=== PATIENT | female | born 1965 | race Caucasian/White ===

== ENCOUNTER → 2019-07-16 08:14 | Outpatient (BNVA) | payer MEDICAID, SELFPAY | PROVIDERS: Family Provider Internal Medicine; Visit Provider Internal Medicine Cardiovascular Disease | DX: E78.2 Mixed hyperlipidemia (principal) | CPT/HCPCS: 80061 ==

== ENCOUNTER 2019-07-22 13:47 | Outpatient (CLI) | payer MEDICAID, SELFPAY ==
--- NOTE | 2019-07-22 13:59 | XR_ITS ---
WS: [id number] LATERAL CERVICAL SPINE: 3 view. Lateral radiographs are performed in upright neutral, flexion and extension to the patient's toleranc e. 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 Normal alignment with flexion. Mild str aightening of the normal cervical spine. C5 anterolisthesis by less than 2 mm with no instability. XR/XR cervical spine fl/ex [id number] IMPRESSION: 1. No cervical spine instability. 2. Less than 2 mm retrolisthesis of C2 and anterolisthesis of C5.
== END 2019-07-22 13:48 | disposition home or self-care (01) ==
LOC: RADWPI 13:52
PROVIDERS: Family Provider Internal Medicine; PCP Internal Medicine; Visit Provider Licensed Practical Nurse
DX: M50.020 Cervical disc disorder with myelopathy, mid-cervical region, unspecified level (principal)
CPT/HCPCS: 72040

== ENCOUNTER 2019-08-02 07:18 | Outpatient (RCR) | payer MEDICAID, SELFPAY | END 2019-08-02 23:59 | disposition home or self-care (01) | LOC: SPT 07:18 | PROVIDERS: Family Provider Internal Medicine; PCP Internal Medicine; Referring Provider Licensed Practical Nurse; Visit Provider Licensed Practical Nurse | DX: M50.020 Cervical disc disorder with myelopathy, mid-cervical region, unspecified level (principal); G89.29 Other chronic pain | CPT/HCPCS: 97161 ==

== ENCOUNTER 2019-08-03 06:00 | Outpatient (RCR) | payer MEDICAID, SELFPAY | END 2019-08-31 23:59 | disposition home or self-care (01) | LOC: SPT 06:00 | PROVIDERS: Family Provider Internal Medicine; PCP Internal Medicine; Referring Provider Licensed Practical Nurse; Visit Provider Licensed Practical Nurse | DX: M50.020 Cervical disc disorder with myelopathy, mid-cervical region, unspecified level (principal) | CPT/HCPCS: 97110 ==

== ENCOUNTER → 2019-08-22 07:54 | Outpatient (BNVA) | payer MEDICAID, SELFPAY | PROVIDERS: Family Provider Internal Medicine; PCP Internal Medicine; Referring Provider Licensed Practical Nurse; Visit Provider Psychiatry & Neurology Neurology | DX: G56.02 Carpal tunnel syndrome, left upper limb (principal); M54.2 Cervicalgia; F17.210 Nicotine dependence, cigarettes, uncomplicated | CPT/HCPCS: 95886; 95909 ==

== ENCOUNTER → 2019-09-02 08:16 | Outpatient (BNVA) | payer MEDICAID, SELFPAY | PROVIDERS: Family Provider Internal Medicine; PCP Internal Medicine; Visit Provider Internal Medicine Cardiovascular Disease | DX: I25.10 Atherosclerotic heart disease of native coronary artery without angina pectoris; I10 Essential (primary) hypertension; E78.2 Mixed hyperlipidemia | CPT/HCPCS: 80061 ==

== ENCOUNTER 2020-07-24 07:08 | Outpatient (CLI) | payer MEDICAID, SELFPAY ==
--- NOTE | 2020-07-24 07:21 | MM_ITS ---
WS: [id number] BILATERAL DIGITAL SCREENING MAMMOGRAPHY WITH CAD CLINICAL INFORMATION: SCREENING HISTORY: Screening mammogram. No current complaints. COMPARISON: [id number] TECHNIQUE: Bilateral CC and MLO views. FINDINGS: Scattered fibroglandular densities bilaterally. No suspicious focal mass, asymmetry, calcifications, or architectural distortion. No evidence of malignancy. MM/[place] [id number] IMPRESSION: BI-RADS: 1-Negative FOLLOW UP: 1 Year Follow-up Recommend return to annual screening mammography.
== END 2020-07-24 07:09 | disposition home or self-care (01) ==
LOC: RADSHAW 07:11
PROVIDERS: PCP Family Medicine; Visit Provider Family Medicine
DX: Z12.31 Encounter for screening mammogram for malignant neoplasm of breast (principal)
CPT/HCPCS: 77067

== ENCOUNTER → 2020-08-03 08:30 | Outpatient (BNVA) | payer MEDICAID, SELFPAY | PROVIDERS: PCP Family Medicine; Visit Provider Internal Medicine Cardiovascular Disease | DX: E78.2 Mixed hyperlipidemia (principal) | CPT/HCPCS: 80061 ==

== ENCOUNTER → 2021-03-15 08:27 | Outpatient (BNVA) | payer MEDICAID, SELFPAY | PROVIDERS: PCP Family Medicine; Visit Provider Internal Medicine Cardiovascular Disease | DX: E78.2 Mixed hyperlipidemia (principal) | CPT/HCPCS: 80061 ==

== ENCOUNTER → 2021-06-17 09:46 | Outpatient (BNVA) | payer MEDICAID, SELFPAY | PROVIDERS: PCP Family Medicine; Visit Provider Internal Medicine | DX: E11.40 Type 2 diabetes mellitus with diabetic neuropathy, unspecified (principal); E11.65 Type 2 diabetes mellitus with hyperglycemia; E11.59 Type 2 diabetes mellitus with other circulatory complications; I25.10 Atherosclerotic heart disease of native coronary artery without angina pectoris; I10 Essential (primary) hypertension; Z79.84 Long term (current) use of oral hypoglycemic drugs; Z79.4 Long term (current) use of insulin; F17.200 Nicotine dependence, unspecified, uncomplicated | CPT/HCPCS: 99214 ==

== ENCOUNTER → 2021-07-01 10:12 | Outpatient (BNVA) | payer MEDICAID, SELFPAY | PROVIDERS: PCP Family Medicine; Visit Provider Internal Medicine | DX: E11.40 Type 2 diabetes mellitus with diabetic neuropathy, unspecified (principal); E11.65 Type 2 diabetes mellitus with hyperglycemia; E11.59 Type 2 diabetes mellitus with other circulatory complications; I25.10 Atherosclerotic heart disease of native coronary artery without angina pectoris; F17.200 Nicotine dependence, unspecified, uncomplicated | CPT/HCPCS: 99214 ==

== ENCOUNTER 2021-09-14 08:03 | Outpatient (CLI) | payer MEDICAID, SELFPAY ==
[2021-09-14 09:30] LABS: Chol HDL Ratio 3.36 mg/dL (0.0-4.40); Cholesterol 151 mg/dL (0-200); HDL Cholesterol 45 mg/dL (60-100); LDL Cholesterol Calculated 62 mg/dL (50-129); LDL HDL Ratio 1.38 RATIO (0.00-3.22); Triglycerides 220 mg/dL (0-150)
[2021-09-20 11:50] LABS: Anion Gap 17.9 (5-19); Blood Urea Nitrogen 16 mg/dL (6-20); Calcium 9.7 mg/dL (8.5-10.5); Carbon Dioxide 24 mmol/L (22-29); Chloride 103 mmol/L (98-107); Glomerular Filtration Rate 85.9 mL/min (90-130); Glucose 132 mg/dL (65-115); NT Pro B Type Natriuretic Pept 258 pg/mL (0-125); Osmolality Calculated 293 mOsm/kg (285-295); Potassium 4.9 mmol/L (3.5-5.1); Sodium 140 mmol/L (136-145)
== END 2021-09-14 08:04 | disposition home or self-care (01) ==
LOC: LAB 08:05
PROVIDERS: PCP Family Medicine; Visit Provider Internal Medicine Cardiovascular Disease
DX: E78.2 Mixed hyperlipidemia (principal)
CPT/HCPCS: 80061

== ENCOUNTER → 2021-09-20 09:00 | Outpatient (BNVA) | payer MEDICAID, SELFPAY | PROVIDERS: PCP Family Medicine; Visit Provider Internal Medicine Cardiovascular Disease | DX: E78.2 Mixed hyperlipidemia (principal); R07.9 Chest pain, unspecified; R00.0 Tachycardia, unspecified; I11.0 Hypertensive heart disease with heart failure; I50.33 Acute on chronic diastolic (congestive) heart failure | CPT/HCPCS: 36415; 80048; 83880; 99214 ==

== ENCOUNTER → 2021-09-28 08:27 | Outpatient (BNVA) | payer MEDICAID, SELFPAY | PROVIDERS: PCP Family Medicine; Visit Provider Internal Medicine | DX: E11.40 Type 2 diabetes mellitus with diabetic neuropathy, unspecified (principal); E11.65 Type 2 diabetes mellitus with hyperglycemia; E11.59 Type 2 diabetes mellitus with other circulatory complications; I25.10 Atherosclerotic heart disease of native coronary artery without angina pectoris; F17.200 Nicotine dependence, unspecified, uncomplicated; Z79.84 Long term (current) use of oral hypoglycemic drugs | CPT/HCPCS: 99213; 99214 ==

== ENCOUNTER 2021-10-06 07:43 | Outpatient (CLI) | payer MEDICAID, SELFPAY ==
[2021-10-06 08:30] LABS: Anion Gap 17.6 (5-19); Blood Urea Nitrogen 16 mg/dL (6-20); Calcium 10.4 mg/dL (8.5-10.5); Carbon Dioxide 25 mmol/L (22-29); Chloride 102 mmol/L (98-107); Glomerular Filtration Rate 85.9 mL/min (90-130); Glucose 144 mg/dL (65-115); NT Pro B Type Natriuretic Pept 435 pg/mL (0-125); Osmolality Calculated 294 mOsm/kg (285-295); Potassium 4.6 mmol/L (3.5-5.1); Sodium 140 mmol/L (136-145)
== END 2021-10-06 07:44 | disposition home or self-care (01) ==
LOC: LAB 07:44
PROVIDERS: PCP Family Medicine; Visit Provider Internal Medicine Cardiovascular Disease
DX: R00.0 Tachycardia, unspecified (principal); R06.02 Shortness of breath; E78.2 Mixed hyperlipidemia
CPT/HCPCS: 36415; 80048; 83880

== ENCOUNTER 2021-10-21 06:25 | Outpatient (CLI) | payer MEDICAID, SELFPAY ==
--- NOTE | 2021-10-21 06:30 | USCV_ITS ---
Mayuri Davidson Age: 56 Gender: F : 1965 Exam Date: 10/21/2021 06:34 Ordering Phys: Henrique Sloan MD ([email or web address]) Technologist: Yolanda Warner Exam Location: [facility] [place] Indication: SOB PRIOR CARDIAC HISTORY OF STENTS BP: / HR: 110 Rhythm: Sinus Technical Quality: Adequate MEASUREMENTS (Male / Female) Normal Values 2D ECHO LV Diastolic Diameter PLAX 3.4 cm 4.2 - 5.9 / 3.9 - 5.3 cm LV Systolic Diameter PLAX 2.3 cm LV Chamber Size 2.6 cm IVS Diastolic Thickness 1.1 cm 0.6 - 1.0 / 0.6 - 0.9 cm IVS Systolic Thickness 1.3 cm LVPW Diastolic Thickness 1.3 cm 0.6 - 1.0 / 0.6 - 0.9 cm LVPW Systolic Thickness 1.2 cm RV Chamber Size 3.4 cm LVOT Diameter 2.0 cm LV Ejection Fraction 2D Teich 61.7 % LV Ejection Fraction MOD 2C 40.5 % LV Ejection Fraction 2C AL 39.9 % LA Diameter 3.5 cm LA Width 2.9 cm LA Height 3.7 cm RA Width 2.5 cm RA Height 2.9 cm Aorta at Sinotubular Diameter 2.2 cm M-MODE Aortic Annulus Diameter 2.6 cm LA Ao Ratio MM 1.4 MV E Point Septal Separation 0.7 cm DOPPLER AV Peak Velocity 172.0 cm/s LVOT Peak Velocity 96.0 cm/s AV Area Cont Eq vti 2.0 cm squared AV Area Cont Eq pk 1.8 cm squared MV Area PHT 12.2 cm squared Mitral E to A Ratio 1.9 MV E' Velocity 60.0 cm/s Mitral E to MV E' Ratio 10.9 Mitral E to LV E' Lateral Ratio 24.0 Mitral E to LV E' Septal Ratio 7.1 TR Peak Velocity 258.4 cm/s TR Peak Gradient 26.7 mmHg TR Mean Velocity 179.6 cm/s TR Mean Gradient 15.1 mmHg TR Velocity Time Integral 58.0 cm TV Peak E Velocity 92.0 cm/s Right Atrial Pressure 3.0 mmHg Pulmonary Artery Systolic Pressu 29.7 mmHg PV Peak Velocity 62.0 cm/s RV Acceleration Time 0.1 s RV Ejection Time 0.3 s RV AcT/ET 0.5 FINDINGS Left Ventricle Normal left ventricular size and systolic function, EF 62%. Mild left ventricular hypertrophy. Paradoxical septal motion Right Ventricle Dilated right ventricle with paradoxical septal motion Right Atrium Normal right atrial size. Left Atrium Normal left atrial size. Mitral Valve Mild mitral annular calcification. Aortic Valve Thickened aortic valve. Tricuspid Valve Mild tricuspid valve regurgitation. Pulmonic Valve No gross abnormalities noted Pericardium No pericardial effusion. Aorta Normal aortic annulus size. CONCLUSIONS Normal left ventricular size and systolic function, EF 62%. Mild left ventricular hypertrophy. Dilated right ventricle with a paradoxical septal motion, may suggest right ventricular pressure overload Mild mitral annular calcification. Thickened aortic valve. Mild tricuspid valve regurgitation. Estimated pulmonary artery peak systolic pressure was 30 mmHg. This could be an underestimation because of the poor Doppler signals There is no pericardial effusion. There are no intracardiac masses. The patient was found to be tachycardic during the study. Compared to the study from 01/15/2016, the right ventricular dilatation appears to be new. Need to rule out PE Dr Henrique Sloan MD FACC (Electronically Signed) Final Date: 22 October 2021 09:08 S
[2021-10-21 07:08] VITALS: BMI 27.9
--- NOTE | 2021-10-21 07:09 | ECG_ITS ---
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 Interpretive Statements NAME OF STUDY: LEXISCAN SESTAMIBI STRESS TEST INDICATION: Chest Pain, PROCEDURE: At the baseline, the EKG revealed sinus tachycardia with a diffuse nonspecific ST changes. The baseline blood pressure was 126/89 mm Hg with a heart rate of 101 beats/min. Lexiscan was infused over a period of 20 seconds. A total of 0.4 milligrams of Lexiscan was infused. The stress phase was continued for a total of 5 minutes. Heart rate at the end of the stress phase was 109 with a blood pressure 119/73. The EKG at the peak infusion revealed no significant changes frequent PVCs were noted towards the peak infusion sestamibi was injected 20 seconds after the Lexiscan infusion. Blood pressure at the end of the recovery phase was 113/70 with a heart rate of 106 per minute. The EKG reverted back to the baseline CONCLUSION: 1. No significant EKG changes with the LexiScan infusion 2. No LexiScan induced PVCs with no chest pain 3. Normal blood pressure and heart rate response 4. Sestamibi/sestamibi perfusion scan pending; see separate report. Electronically Signed On 10-23-2021 11:22:56 CDT by Henrique Sloan M.D. [id number]
--- NOTE | 2021-10-21 07:10 | NMCV_ITS ---
NM roro perf SPECT r/s* [id number] Mayuri Davidson Age: 56 Gender: F : 1965 Exam Date: 10/21/2021 07:10 Ordering Phys: Henrique Sloan MD ([email or web address]) Technologist: JAIDA Cardenas Exam Location: [facility] Indications: DYSPNEA ON EXERTION STRESS TEST Please see separate stress test report in [facility] for full findings IMAGE PROTOCOL Rest/Stress 1 Lexiscan Day Radiopharmaceutical Dose (mCi) Administration Site Administered by Rest: Tc-99m 10.9 IV JAIDA Perez Sestamibi Stress:Tc-99m 32.6 IV JAIDA Perez Sestamibi Rest: 21-Oct-2021 60 Discovery 630 Stress: 21-Oct-2021 30 Discovery 630 0.4mg Lexiscan. Images obtained in supine and prone position. SPECT RESULTS Technical Quality: Excellent Raw Data Analysis: Normal Image Corrections: No attenuation or motion correction applied Summed Stress Score: 11 Summed Rest Score: 6 Summed Difference Score: 7 PERFUSION FINDINGS Moderate area of moderately decreased tracer uptake in the basal, mid and apical inferior, mid inferoseptal, and apical septal regions. Significant reversibility was noted in these regions at rest FUNCTIONAL RESULTS (calculated via Gated SPECT) Stress Image LV EF (%): 70 Stress EDV (mL):53 TID: 0.83 Stress ESV (mL):16 FUNCTIONAL FINDINGS: Segmental wall motion analysis revealing mild hypokinesia of the LV apex. IMPRESSIONS 1. Myocardial perfusion imaging revealing moderate area of reversible defect in the inferior wall, inferoseptal and apical regions, suggestive of ischemia in distribution of the right coronary artery predominantly with some involvement of the left anterior descending artery territory as well. 2. Normal LV ejection fraction 70%. 3. LV wall motion analysis revealing mild hypokinesia of the LV apex. 4. Normal LV volume No similar previous studies are available for comparison Dr Henrique Sloan MD FACC (Electronically Signed) Final Date: 21 October 2021 12:59 S
[2021-10-21] MEDS: regadenoson 0.4 Mg/5 ml Syringe IVP (08:39)
[2021-10-21 08:55] VITALS: BP 113/70; PULSE 109
== END 2021-10-21 06:26 | disposition home or self-care (01) ==
LOC: RAD 06:25 → CDL 06:57
PROVIDERS: PCP Family Medicine; Visit Provider Internal Medicine Cardiovascular Disease
DX: R06.02 Shortness of breath; R06.09 Other forms of dyspnea; I08.3 Combined rheumatic disorders of mitral, aortic and tricuspid valves
CPT/HCPCS: 78452; 93017; 93306; A9500; J2785

== ENCOUNTER 2021-10-22 09:46 | Inpatient (IN) | payer MEDICAID, SELFPAY ==
[2021-10-22] VITALS (17 sets, daily range): BP systolic 104–180; BP diastolic 67–105; PULSE 91–104; RESP 16–26; TEMP 36.4; O2SAT 86–97; BMI 27.9
--- NOTE | 2021-10-22 10:18 | XR_ITS ---
WS: [id number] Exam: XR chest 1V portable [id number] Date/Time of Exam: 10/22/2021 10:33 AM Reason For Exam: dyspnea Comparison 09/10/2018. The lungs are fully expanded. There are extensive chronic interstitial changes of honeycombing and fi brosis throughout both lungs. Normal cardiomediastinal silhouette. Bony structures are intact. XR/XR chest 1V portable [id number] IMPRESSION: 1. Chronic interstitial changes of fibrosis and honeycombing noted. 2. No acute process identified.
--- NOTE | 2021-10-22 10:18 | ECG_ITS ---
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 Measurements Intervals [place] Rate: 110 P: 48 RI: 128 QRS: 97 QRSD: 102 T: -13 QT: 331 QTc: 449 Interpretive Statements SINUS TACHYCARDIA POSSIBLE LEFT ATRIAL ENLARGEMENT [-0.1mV P-WAVE IN V1/V2] BORDERLINE RIGHT AXIS DEVIATION [QRS AXIS > 90] NONSPECIFIC ST & T-WAVE ABNORMALITY Compared to ECG 09/10/2018 13:46:54 T-wave abnormality now present Sinus rhythm no longer present Electronically Signed On 10-22-2021 23:22:49 CDT by Henrique Sloan M.D. [id number] f
--- NOTE | 2021-10-22 10:20 | CTR_ITS ---
PROCEDURE INFORMATION: Exam: CTA Chest With Contrast Exam date and time: 10/22/2021 10:50 AM Age: 56 years old Clinical indication: Dyspnea and shortness of breath; Prior surgery; Surgery type: Stents; Additional info: Dyspnea/tachycardia TECHNIQUE: Imaging protocol: Computed tomographic angiography of the chest with contrast. 3D rendering (Not supervised by radiologist): MIP and/or 3D reconstructed images were created by the technologist. Radiation optimization: All CT scans at this facility use at least one of these dose optimization techniques: automated exposure control; mA and/or kV adjustment per patient size (includes targeted exams where dose is matched to clinical indication); or iterative reconstruction. Contrast material: OMNI 350; Contrast volume: 83 ml; Contrast route: INTRAVENOUS (IV); COMPARISON: CR XR chest 1V portable [id number] 10/22/2021 10:27 AM RADIATION DOSE METRICS: Total DLP (mGy-cm): 601.32 FINDINGS: Pulmonary arteries: No sign of acute pulmonary embolism. Aorta: No thoracic aortic aneurysm or dissection. Lungs: There is a spiculated noncalcified 1.5 cm mass in the anterior left upper lobe (3:14 and 602:28). This is highly worrisome for malignancy. There is bilateral centrilobular and paraseptal emphysema with an upper lung zone predominance. There is coexisting chronic interstitial lung disease. Prior pulmonary granulomatous disease. Pleural spaces: No pleural effusion or pneumothorax. Heart: The heart is not enlarged. No pericardial effusion. Calcified coronary artery atherosclerotic plaque visualized. Lymph nodes: Mediastinal adenopathy. Bones/joints: Mild multilevel disc degeneration in the thoracic spine. Soft tissues: No acute soft tissue abnormality. CT/CT angio chest PE protcl [id number] IMPRESSION: 1. No sign of acute pulmonary embolism. 2. Emphysema. Chronic interstitial lung disease. 3. Left upper lobe mass highly worrisome for malignancy. Mediastinal adenopathy. 4. Coronary artery disease.
--- NOTE | 2021-10-22 10:25 | W.ED.SOB ---
HPI - SOB/Dyspnea General: Chief Complaint: Shortness of Breath/Dyspnea Stated Complaint: SOB/sent to ER per Dr. Sloan Time Seen by Provider: 10/22/21 09:49 Source: patient Mode of arrival: ambulatory Limitations: no limitations History of Present Illness: HPI Narrative: 56-year-old female presents emergency room from the cardiology clinic. She had a stress test yesterday that reviewing the result looks as if it was positive. It was a Lexiscan sestamibi stress test. She is not having any chest pain now but you short of breath even while at rest and mildly tachycardic. They had been instructed by Dr. Sloan come to the emergency room when I called Dr. Dr. Sloan he relayed he was concerned about a pulmonary emboli. Patient has no history of PEs but does have a history of coronary artery disease she is currently on clopidogrel and aspirin. She has a history of diabetes mellitus for which she is on insulin. She also has a history of COPD. She is on inhaled medications for her COPD. MD elicited complaint: shortness of breath Pertinent past history: COPD Onset (ago): week(s) Timing: constant Severity: moderate Exacerbating factors: exertion Relieving factors: rest Known history of: COPD Associated symptoms: Deny abdominal pain, chest congestion, chest pain, cough, diaphoresis, dizziness, extremity pain, fever(s), hemoptysis, lightheadedness, myalgias, nausea, orthopnea, palpitations, paresthesias, polydipsia, polyuria, rash, sense of impending doom, syncope or vomiting Treatment prior to arrival: none Review of Systems Const: Denies: fever(s), chills or diaphoresis ENMT: Denies: throat pain, ear or mastoid pain, nasal discharge or nasal congestion Card: Denies: chest pain, palpitations, lightheadedness, syncope or orthopnea Resp: Reports: dyspnea; Denies: non-productive cough, wheezing, hemoptysis or chest congestion GI: Denies: abdominal pain, nausea or vomiting : Denies: flank pain, difficulty voiding, dysuria, urinary frequency or urinary urgency Musc: Denies: extremity pain Skin/Breast: Denies: rash or pruritus Neuro: Denies: dizziness Endo: Denies: polyuria or polydipsia PFS ED PFSH: Medical History ASHD (arteriosclerotic heart disease) Cervical disc disease Cervical disc disorder with myelopathy of mid-cervical region Diabetic neuropathy Hyperlipidemia Hypertension Neck pain of over 3 months duration Smoking 1/2 pack a day or less Stenosis of cervical spine with myelopathy Surgical History History of heart surgery June 2007, August 2012 S/P tonsillectomy Family History Mother Diabetes Father Heart disease Brother CAD (coronary artery disease) Family/Other CAD (coronary artery disease) Diabetes Grandfather CAD (coronary artery disease) Denies family history of Clotting disorder Dementia Chronic kidney disease (CKD) Suicide Anesthesia complication Bleeding disorder Lung disease Cancer Stroke Social History Smoking and tobacco status: current every day smoker Alcohol intake: never Lives independently: Yes Household members: family Housing: House Marital status: service: No Current occupational status: disabled History of recent travel: No Physical Exam Const: GENERAL APPEARANCE: cooperative and comfortable ORIENTATION/CONSCIOUSNESS: Yes awake, Yes oriented to person, Yes oriented to place and Yes oriented to time HENMT: COMMON NORMALS: normocephalic, atraumatic and hearing grossly normal bilaterally HEAD & SCALP: normocephalic and atraumatic Neck/C-Spine: COMMON NORMALS: no JVD Resp: COMMON NORMALS: normal respiratory effort, No retractions, No use of accessory muscles and clear to auscultation bilaterally AUSCULTATION: clear to auscultation bilaterally Cardio: COMMON NORMALS: no JVD, regular rhythm and No murmurs present (Cardio) RATE: tachycardic RHYTHM: regular rhythm GI: COMMON NORMALS: Soft to palpation and No hepatosplenomegaly present AUSCULTATION: Yes normoactive bowel sounds PALPATION: Yes Soft to palpation, No Tenderness to palpation present (GI), No Guarding due to palpation present (GI) and Yes No hepatosplenomegaly present Extremity: COMMON NORMALS: normal to inspection, capillary refill normal, no clubbing, cyanosis or edema, no calf tenderness and no pedal edema Neuro: SENSORIUM/ORIENTATION: Yes oriented to person, Yes oriented to place and Yes oriented to time Skin: COMMON NORMALS: no rashes or lesions noted GENERAL SKIN EXAM: no rashes or lesions noted Course Vital Signs: Vital signs: Vital Signs Temperature 97.6 F 10/24/21 07:25 Pulse Rate 87 10/24/21 07:35 Respiratory Rate 16 10/24/21 07:35 Blood Pressure 123/71 10/24/21 07:25 Pulse Oximetry 98 10/24/21 07:35 MDM - SOB/Dyspnea Medical Decision Making Positive stress test recently is now having chest pain. She also has a mass in the left upper lobe with mediastinal lymphadenopathy she will need further evaluation. Discussed with Dr. Sloan will admit he will consult he anticipates angiography to further evaluate the positive stress test after which she can pursue evaluation of the lung mass. She is still having chest discomfort at this time Dr. Mcallister seen the patient in the emergency room. Medical Records I reviewed the patient's medical records. Lab Data I reviewed the patient's lab results. : 10/24/21 04:25 10/24/21 04:25 Labs/Radiology: Radiology Impressions Chest X-Ray 10/22/21 10:18 IMPRESSION: 1. Chronic interstitial changes of fibrosis and honeycombing noted. 2. No acute process identified. Chest CTA 10/22/21 10:20 IMPRESSION: 1. No sign of acute pulmonary embolism. 2. Emphysema. Chronic interstitial lung disease. 3. Left upper lobe mass highly worrisome for malignancy. Mediastinal adenopathy. 4. Coronary artery disease. ADDENDUM: 10/22/21 1217 THIS REPORT CONTAINS FINDINGS THAT MAY BE CRITICAL TO PATIENT CARE. The exam findings were verbally communicated by me via telephone conference to IGOR DIMAS at 12:13 PM CDT on 10/22/2021. The findings were acknowledged and understood. Laboratory Results WBC 10.9 10^3/uL (4.0-10.0) H 10/22/21 10:05 RBC 5.29 10^6/uL (4.1-5.3) 10/22/21 10:05 Hgb 16.5 g/dL (11.5-15.3) H 10/22/21 10:05 Hct 49.3 % (37.0-47.0) H 10/22/21 10:05 MCV 93.2 fl (81-99) 10/22/21 10:05 MCH 31.2 pg (28.0-34.0) 10/22/21 10:05 MCHC 33.5 g/dL (30.0-36.0) 10/22/21 10:05 RDW 14.0 % (12.1-15.1) 10/22/21 10:05 Plt Count 319 10^3/cmm (130-400) 10/22/21 10:05 MPV 10.1 fL (7.4-10.4) 10/22/21 10:05 Neut % (Auto) 58.0 % 10/22/21 10:05 Lymph % (Auto) 33.7 % 10/22/21 10:05 [place] % (Auto) 6.5 % 10/22/21 10:05 Eos % (Auto) 1.1 % 10/22/21 10:05 Baso % (Auto) 0.4 % 10/22/21 10:05 Neut # (Auto) 6.35 10^3/uL (1.8-7.7) 10/22/21 10:05 Lymph # (Auto) 3.7 10^3/uL (0.8-4.8) 10/22/21 10:05 [place] # (Auto) 0.7 10^3/uL (0.2-0.9) 10/22/21 10:05 Eos # (Auto) 0.1 10^3/uL (0.0-0.8) 10/22/21 10:05 Baso # (Auto) 0.0 10^3/uL (0.0-0.1) 10/22/21 10:05 Nucleated RBC % (auto) 0 % 10/22/21 10:05 Nucleated RBCs # 0.0 /100WBC 10/22/21 10:05 Sodium 136 mmol/L (136-145) 10/22/21 10:05 Potassium 5.0 mmol/L (3.5-5.1) 10/22/21 10:05 Chloride 99 mmol/L (98-107) 10/22/21 10:05 Carbon Dioxide 21 mmol/L (22-29) L 10/22/21 10:05 Anion Gap 21.0 (5-19) H 10/22/21 10:05 BUN 16 mg/dL (6-20) 10/22/21 10:05 Creatinine 0.6 mg/dL (0.5-0.9) 10/22/21 10:05 GFR Calculation 102.7 mL/min (90-130) 10/22/21 10:05 Glucose 228 mg/dL (65-115) H 10/22/21 10:05 POC Glucose 105 mg/dL (70-110) 10/22/21 16:28 Estimat Average Glucose 183 10/22/21 10:05 Hemoglobin A1c 8.0 % (4.0-6.0) H 10/22/21 10:05 Calculated Osmolality 290 mOsm/kg (285-295) 10/22/21 10:05 Calcium 9.3 mg/dL (8.5-10.5) 10/22/21 10:05 Total Bilirubin 0.6 mg/dL (0.15-1.2) 10/22/21 10:05 AST 39 U/L (0-32) H 10/22/21 10:05 ALT 36 U/L (0-33) H 10/22/21 10:05 Alkaline Phosphatase 114 IU/L (35-105) H 10/22/21 10:05 Troponin T Baseline 17 ng/L (0-10) H 10/22/21 10:05 Troponin T 120 Minute 17.89 ng/L (0-10) H 10/22/21 13:50 Delta Troponin T 0.89 ABS# (0-10) 10/22/21 13:50 Troponin T Hi Sens 6Hr 14.85 ng/L (0-10) H 10/22/21 16:22 Troponin T Hi Sens 6Hr Delta -2.15 ng/L (0-12) L 10/22/21 16:22 NT-Pro-B Natriuret Pep 278 pg/mL (0-125) H 10/22/21 10:05 Total Protein 8.7 g/dL (6.6-8.7) 10/22/21 10:05 Albumin 4.4 g/dL (3.5-5.2) 10/22/21 10:05 Globulin 4.3 g/dL (1.3-4.6) 10/22/21 10:05 Triglycerides 275 mg/dL (0-150) H 10/22/21 10:05 Cholesterol 158 mg/dL (0-200) 10/22/21 10:05 LDL Cholesterol, Calc 65 mg/dL (50-129) 10/22/21 10:05 HDL Cholesterol 38 mg/dL (60-100) L 10/22/21 10:05 LDL/HDL Ratio 1.71 RATIO (0.00-3.22) 10/22/21 10:05 Cholesterol/HDL Ratio 4.16 mg/dL (0.0-4.40) 10/22/21 10:05 TSH 1.92 uIU/mL (0.27-4.20) 10/22/21 10:05 Discharge Plan Discharge Patient Disposition: Admitted As Inpatient Admit Provider: John Sweet Clinical Impression: Atherosclerotic heart disease of [place] coronary artery with other forms of angina pectoris, Smoking 1/2 pack a day or less, Diabetes type 2, uncontrolled, Coronary artery disease due to type 2 diabetes mellitus, Mass of left lung Condition: Stable Discharge Orders: Discharge Order (Routine); Ordered 10/24/21 Ordered By: John Sweet Discharge Diet: Cardiac Discharge Activity: Resume usual activity Coding Level of Care Code ED Cardiovascular Specialist for Chg Fwd Exam Comprehensive
[2021-10-22 10:43] LABS: Basophils % 0.4 %; Eosinophils # 0.1 10^3/uL (0.0-0.8); Eosinophils % 1.1 %; Hematocrit 49.3 % (37.0-47.0); Hemoglobin 16.5 g/dL (11.5-15.3); Lymphocytes # 3.7 10^3/uL (0.8-4.8); Lymphocytes % 33.7 %; Mean Corpuscular HGB Conc 33.5 g/dL (30.0-36.0); Mean Corpuscular Hemoglobin 31.2 pg (28.0-34.0); Mean Corpuscular Volume 93.2 fl (81-99); Mean Platelet Volume 10.1 fL (7.4-10.4); Monocytes # 0.7 10^3/uL (0.2-0.9); Monocytes % 6.5 %; Neutrophils # 6.35 10^3/uL (1.8-7.7); Nucleated Red Blood Cells % 0 %; Platelet Count 319 10^3/cmm (130-400); Red Blood Count 5.29 10^6/uL (4.1-5.3); White Blood Count 10.9 10^3/uL (4.0-10.0)
[2021-10-22] MEDS: iohexol 350 mg/mL 100 mL Btl IV (10:54)
[2021-10-22 10:56] LABS: Alanine Aminotransferase 36 U/L (0-33); Albumin Level 4.4 g/dL (3.5-5.2); Alkaline Phosphatase 114 IU/L (35-105); Blood Urea Nitrogen 16 mg/dL (6-20); Calcium 9.3 mg/dL (8.5-10.5); Carbon Dioxide 21 mmol/L (22-29); Chloride 99 mmol/L (98-107); Globulin 4.3 g/dL (1.3-4.6); Glomerular Filtration Rate 102.7 mL/min (90-130); Glucose 228 mg/dL (65-115); Osmolality Calculated 290 mOsm/kg (285-295); Sodium 136 mmol/L (136-145); Total Bilirubin 0.6 mg/dL (0.15-1.2); Total Protein 8.7 g/dL (6.6-8.7)
[2021-10-22 11:09] LABS: Aspartate Amino Transferase 39 U/L (0-32)
[2021-10-22 11:19] LABS: Troponin(5th) Baseline 17 ng/L (0-10)
--- NOTE | 2021-10-22 12:18 | ECG_ITS ---
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 Measurements Intervals [place] Rate: 102 P: 56 IN: 153 QRS: 102 QRSD: 110 T: -12 QT: 338 QTc: 441 Interpretive Statements SINUS TACHYCARDIA LEFT ATRIAL ENLARGEMENT [-0.15mV P-WAVE IN V1/V2] POSSIBLE RIGHT VENTRICULAR HYPERTROPHY [SOME/ALL OF: PROMINENT R IN V1, LATE TRANSITION, RAD, LYLE, SSS] Nonspecific ST changes POSSIBLE INFERIOR MYOCARDIAL INFARCTION , PROBABLY OLD [30 ms Q WAVE IN II/aVF] Compared to ECG 10/22/2021 10:00:12 Myocardial infarct finding now present T-wave abnormality no longer present Electronically Signed On 10-22-2021 23:33:22 CDT by Henrique Sloan M.D. [id number]
--- NOTE | 2021-10-22 13:00 | PM.CONSULT ---
Providers/Reason For Consult Consulting Physician/Specialty*: /BERNA Sloan MD/ cardiology Reason for Consult*: Patient with chest pain and abnormal myocardial perfusion imaging Requesting Physician: Dr. Sweet Attending Physician: Dr. Sweet Primary Care Provider: Sujit Hernandez MD History of Present Illness History of Present Illness Mayuri Davidson is a 56 year old female with a history of coronary artery disease, high blood pressure, dyslipidemia, smoking abuse, presented with complaints of shortness of breath and chest pain/heaviness. She had a myocardial perfusion imaging yesterday which revealed moderate area of reversible defect in the inferior wall, inferoseptal and apical regions, suggestive of ischemia in the distribution of the right coronary artery predominantly with some involvement of the left anterior descending artery territory. Patient apparently been having increasing shortness of breath since the stress test. Denies any chest pain. She had an echocardiogram done yesterday which revealed dilated right ventricle with some signs of pressure overload. She was advised to come to the emergency room with because of the increasing shortness of breath and the abnormal echocardiogram findings. A CTA in the emergency room revealed a left upper lobe mass with mediastinal lymphadenopathy. She also has emphysematous chest. She is being admitted to hospital for further evaluation management. This patient is known to have atherosclerotic heart disease. Pt had an angiogaram and percutaneous coronary intervention in Jul. ?She had a high-grade lesion in the mid RCA. ?The left anterior descending artery was found to have [id number] disease and the left circumflex atery had a mild diffuse disease. In 2017 or so, she had an angiogram followed by PCI of the LAD in [facility]. ?She has a history of heavy smoking abuse. Chronic emphysema. Also has history of hypertension, dyslipidemia and type 2 diabetes. She has a strong family history of heart disease as well. Review of Systems Narrative: CONSTITUTIONAL: No fever or chills. Increasing shortness of breath as mentioned above EYES: No blurring of vision or other visual disturbances lately. ENT: No hoarseness of voice, auditory disturbances or sore throat. CARDIOVASCULAR: As mentioned above. RESPIRATORY: As mentioned above GASTROINTESTINAL: No hematemesis or melena. GENITOURINARY: No dysuria or hematuria. INTEGUMENTARY: No skin rashes or history of skin cancer. NEURO: No transient ischemic attacks or amaurosis. PSYCHIATRIC: No history of psychosis or major depression. HEMATOLOGIC: No bleeding disorders or significant anemia. ENDOCRINE: No history of polyuria or polydipsia. MUSCULOSKELETAL: No recent joint pain or swelling. ALLERGY/IMMUNOLOGY: As mentioned above. Medications/Allergies Home Medications Medication Instructions Recorded Confirmed Last Taken Type albuterol sulfate 90 mcg/actuation 2 puff INHALATION Q4H PRN gm 07/19/19 10/22/21 10/22/21 History aerosol inhaler (ProAir HFA) aspirin 81 mg tablet,delayed 81 mg PO DAILY 07/19/19 10/22/21 10/22/21 History release (Adult Low Dose Aspirin) clopidogrel 75 mg tablet 75 mg PO QDAY 07/19/19 10/22/21 10/22/21 History dapagliflozin 10 mg tablet 10 mg PO QAM 07/19/19 10/22/21 10/22/21 History (Farxiga) inhalational spacing device #1 each 07/19/19 10/22/21 Unknown History (Aerochamber Mini) atorvastatin 40 mg tablet 40 mg PO DAILY 02/03/20 10/22/21 10/22/21 History metformin 500 mg tablet,extended 2,000 mg PO DAILY tab 03/18/21 10/22/21 10/22/21 History release 24 hr insulin detemir U-100 100 unit/mL 54 unit SUBCUT DAILY ml 06/17/21 10/22/21 10/22/21 History (3 mL) subcutaneous pen (Levemir FlexTouch U-100 Insulin) furosemide 20 mg tablet (Lasix) 20 mg PO DAILY #90 tab 09/20/21 10/22/21 10/22/21 Rx glipizide 5 mg tablet 5 mg PO DAILY tab 09/20/21 10/22/21 10/22/21 History potassium chloride 8 mEq 8 meq PO DAILY #90 tab 09/20/21 10/22/21 10/22/21 Rx tablet,extended release esomeprazole magnesium 20 mg 20 mg PO DAILY 10/22/21 10/22/21 10/22/21 History capsule,delayed release (Nexium) ipratropium bromide 17 2 puff INHALATION Q4H 10/22/21 10/22/21 10/22/21 History mcg/actuation HFA aerosol inhaler (Atrovent HFA) vit no.95-ferrous 1 tab PO DAILY 10/22/21 10/22/21 10/22/21 History fumarate 28 mg-folic acid 800 mcg tablet () Allergies Allergy/AdvReac Type Severity Reaction Status Date / Time Penicillins Allergy Unknown Verified 10/22/21 12:31 PFSH Acute PFSH: Medical History ASHD (arteriosclerotic heart disease) Cervical disc disease Cervical disc disorder with myelopathy of mid-cervical region Diabetic neuropathy Hyperlipidemia Hypertension Neck pain of over 3 months duration Smoking 1/2 pack a day or less Stenosis of cervical spine with myelopathy Surgical History History of heart surgery June 2007, August 2012 S/P tonsillectomy Family History Mother Diabetes Father Heart disease Brother CAD (coronary artery disease) Family/Other CAD (coronary artery disease) Diabetes Grandfather CAD (coronary artery disease) Denies family history of Clotting disorder Dementia Chronic kidney disease (CKD) Suicide Anesthesia complication Bleeding disorder Lung disease Cancer Stroke Social History Smoking and tobacco status: current every day smoker Alcohol intake: never Lives independently: Yes Household members: family Housing: House Marital status: service: No Current occupational status: disabled History of recent travel: No Vitals/I&O/Wt Last Vital Signs Temp 97.5 F L 10/22/21 09:52 Pulse 99 10/22/21 11:04 Resp 16 10/22/21 11:04 BP 117/67 10/22/21 11:04 Pulse Ox 96 10/22/21 11:04 Weight last 48 hrs Weight 206 lb Physical Exam Narrative: GENERAL: The patient is alert and oriented times three. Patient seems very anxious and somewhat tachypneic. Oxygen saturation is 96% on 2 L of oxygen by nasal cannula HEENT: No significant pallor, icterus or lymphadenopathy. The pupils are reactant to light. Oral cavity: There are no mucous membrane lesions. Funduscopic examination: The disk margins appear to be sharp with no exudates or hemorrhages. [] NECK: Trachea appears to be central. No masses noted. No JVD or thyromegaly appreciated. No carotid bruit. [] RESPIRATORY: Chest is symmetrical. No intercostals muscle retraction or any accessory muscle activation. There is no chest wall tenderness. Breath sounds are heard bilaterally. No rales or rhonchi heard. No evidence of any consolidation. [] BREASTS: Deferred. [] HEART: The PMI is in the 5th left intercostals space just inside the midclavicular line. No palpable precordial events. S1 and S2 are normal. No S3 or S4 heard. No pericardial rub or any click heard. [] ABDOMEN: No vessel pulsations or distention. No tenderness. No organomegaly appreciated. No abdominal bruit. Bowel sounds are normally heard. [] : Deferred. [] RECTAL: Deferred. LYMPHATIC: No lymphadenopathy noted in the neck or groin. EXTREMITIES: No edema or cyanosis. No clubbing. The pulses are symmetrical bilaterally. The radial, femoral, dorsalis pedis and the posterior tibial pulses are palpated and found to be in good volume and amplitude. MUSCULOSKELETAL: Gait is normal. There is no joint deformity or swelling noted. No joint tenderness or any effusion. The shoulder and hip joints appear to have normal range of motion. SKIN: There are no significant scars or skin rash noted. NEUROPSYCHIATRIC: The patient is alert and oriented x3. Appears to be in a good mood. The higher functions are grossly within normal limits. No tremors or rigidity noted. Data : 10/22/21 10:05 10/22/21 10:05 MPI: My impression: ?1.? Myocardial perfusion imaging revealing moderate area of reversible defect ?in the inferior wall, inferoseptal and apical regions, suggestive of ischemia ?in distribution of the right coronary artery predominantly with some ?involvement of the left anterior descending artery territory as well. ?2.? Normal LV ejection fraction 70%. ?3.? LV wall motion analysis revealing mild hypokinesia of the LV apex. ?4.? Normal LV volume Echo: My impression: Normal left ventricular size and systolic function, EF 62%. Mild ?left ventricular hypertrophy.? ?Dilated right ventricle with a paradoxical septal motion, may ?suggest right ventricular pressure overload ?Mild mitral annular calcification. ?Thickened aortic valve. ?Mild tricuspid valve regurgitation. ?Estimated pulmonary artery peak systolic pressure was 30 mmHg.? ?This could be an underestimation because of the poor Doppler ?signals ?There is no pericardial effusion. ?There are no intracardiac masses. ?The patient was found to be tachycardic during the study. ?Compared to the study from 01/15/2016, the right ventricular ?dilatation appears to be new.? Need to rule out PE EKG 1: My Interpretation: Sinus tachycardia with a nonspecific ST-T changes. Possible left atrial enlargement. EKG computer-generated impression: Chest X-Ray 10/22/21 10:18 IMPRESSION: 1. Chronic interstitial changes of fibrosis and honeycombing noted. 2. No acute process identified. Chest CTA 10/22/21 10:20 IMPRESSION: 1. No sign of acute pulmonary embolism. 2. Emphysema. Chronic interstitial lung disease. 3. Left upper lobe mass highly worrisome for malignancy. Mediastinal adenopathy. 4. Coronary artery disease. ADDENDUM: 10/22/21 1217 THIS REPORT CONTAINS FINDINGS THAT MAY BE CRITICAL TO PATIENT CARE. The exam findings were verbally communicated by me via telephone conference to CHERISE PRIETO at 12:13 PM CDT on 10/22/2021. The findings were acknowledged and understood. A&P Assessment and plan (1) Increasing shortness of breath: This could be multifactorial. Coronary ischemia, LV diastolic heart failure, lung mass, anxiety, etc. are contributing factors. Her BNP was slightly elevated on the sixth of this month. We may go out and do a repeat BNP. Status: Acute (2) Abnormal myocardial perfusion study: The abnormal myocardial perfusion imaging is suggestive of ischemia in the distribution of the right coronary artery. In view of her symptoms, she requires a cardiac catheterization, to further evaluate the coronary status and decide on further management. Status: Acute (3) Atherosclerotic heart disease of [place] coronary artery with other forms of angina pectoris: As mentioned above. Status: Acute (4) Diabetes type 2, uncontrolled: Aggressive management of the diabetes would be appropriate Status: Acute Qualifiers: Glycemic state: with hyperglycemia Qualified Code(s): E11.65 - Type 2 diabetes mellitus with hyperglycemia (5) Tachycardia: This could be multifactorial as mentioned Status: Acute (6) Hypertension: She is currently normotensive. Status: Acute Qualifiers: Hypertension type: essential hypertension Qualified Code(s): I10 - Essential (primary) hypertension (7) Hyperlipidemia: May continue on the current medications. Status: Acute Qualifiers: Hyperlipidemia type: mixed hyperlipidemia Qualified Code(s): E78.2 - Mixed hyperlipidemia Plan Other problems are History of smoking abuse Emphysema Anxiety disorder For further management of the patient's condition, she requires a cardiac catheterization. The risk of bleeding, hematoma, vascular injury, myocardial infarction, CVA, renal failure and other concomitant complications were explained in detail. Patient understood this well and consented to proceed. We will go ahead and schedule this test as early as possible. Based on the angiogram findings, further recommendations will be made. 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
[2021-10-22] MEDS: nitroglycerin 1 gm/inch oint Pkt 1 INCH TOPICAL (13:03)
[2021-10-22 13:41] LABS: NT Pro B Type Natriuretic Pept 278 pg/mL (0-125)
--- NOTE | 2021-10-22 13:42 | USCV_ITS ---
Mayuri Davidson Age: 56 Gender: F : 1965 Exam Date: 10/22/2021 14:08 Ordering Phys: John Sweet MD Technologist: KENNA [place] [facility] [place]: D[place] HISTORY: Lower extremity swelling. PROCEDURES: Venous duplex imaging was performed in bilateral lower extremities. The following venous structures were evaluated: common femoral vein, profunda vein, proximal portion of the greater saphenous vein, superficial femoral vein, and the popliteal vein. In addition, the posterior tibial and peroneal trunk were evaluated. FINDINGS: Normal 2-D Doppler and augmentation and compressibility throughout the lower extremity venous structures. Additional imaging through the proximal calf veins also reveals no thrombus. Limited evaluation of the greater saphenous vein is patent with no thrombus. CONCLUSIONS No DVT bilateral lower extremities. Dr. Daniela Snell DO (Electronically Signed) Final Date: 22 October 2021 14:41 S
--- NOTE | 2021-10-22 13:49 | P.HP_ITS ---
Providers/Chief Complaint Primary Care Provider: Sujit Hernandez MD Chief Complaint: SOB/sent to ER per Dr. Sloan History of Present Illness Mayuri Davidson is a 56 year old female Review of Systems Const: Denies: fever(s), chills, fatigue or malaise Eyes: Denies: change in vision or blurry vision ENMT: Denies: nasal congestion GI: Denies: abdominal pain, nausea, vomiting, hematemesis, hematochezia or melena : Denies: dysuria Musc: Denies: neck pain or back pain Skin/Breast: Denies: rash Neuro: Denies: headache(s), dizziness or vertigo Endo: Denies: polyuria or polydipsia Medications/Allergies Home Medications Medication Instructions Recorded Confirmed Last Taken Type albuterol sulfate 90 mcg/actuation 2 puff INHALATION Q4H PRN gm 07/19/19 10/22/21 10/22/21 History aerosol inhaler (ProAir HFA) aspirin 81 mg tablet,delayed 81 mg PO DAILY 07/19/19 10/22/21 10/22/21 History release (Adult Low Dose Aspirin) clopidogrel 75 mg tablet 75 mg PO QDAY 07/19/19 10/22/21 10/22/21 History dapagliflozin 10 mg tablet 10 mg PO QAM 07/19/19 10/22/21 10/22/21 History (Farxiga) inhalational spacing device #1 each 07/19/19 10/22/21 Unknown History (Aerochamber Mini) atorvastatin 40 mg tablet 40 mg PO DAILY 02/03/20 10/22/21 10/22/21 History metformin 500 mg tablet,extended 2,000 mg PO DAILY tab 03/18/21 10/22/21 10/22/21 History release 24 hr insulin detemir U-100 100 unit/mL 54 unit SUBCUT DAILY ml 06/17/21 10/22/21 10/22/21 History (3 mL) subcutaneous pen (Levemir FlexTouch U-100 Insulin) furosemide 20 mg tablet (Lasix) 20 mg PO DAILY #90 tab 09/20/21 10/22/21 10/22/21 Rx glipizide 5 mg tablet 5 mg PO DAILY tab 09/20/21 10/22/21 10/22/21 History potassium chloride 8 mEq 8 meq PO DAILY #90 tab 09/20/21 10/22/21 10/22/21 Rx tablet,extended release esomeprazole magnesium 20 mg 20 mg PO DAILY 10/22/21 10/22/21 10/22/21 History capsule,delayed release (Nexium) ipratropium bromide 17 2 puff INHALATION Q4H 10/22/21 10/22/21 10/22/21 History mcg/actuation HFA aerosol inhaler (Atrovent HFA) vit no.95-ferrous 1 tab PO DAILY 10/22/21 10/22/21 10/22/21 History fumarate 28 mg-folic acid 800 mcg tablet () Allergies Allergy/AdvReac Type Severity Reaction Status Date / Time Penicillins Allergy Unknown Verified 10/22/21 12:31 PFSH Acute PFSH: Medical History ASHD (arteriosclerotic heart disease) Cervical disc disease Cervical disc disorder with myelopathy of mid-cervical region Diabetic neuropathy Hyperlipidemia Hypertension Neck pain of over 3 months duration Smoking 1/2 pack a day or less Stenosis of cervical spine with myelopathy Surgical History History of heart surgery June 2007, August 2012 S/P tonsillectomy Family History Mother Diabetes Father Heart disease Brother CAD (coronary artery disease) Family/Other CAD (coronary artery disease) Diabetes Grandfather CAD (coronary artery disease) Denies family history of Clotting disorder Dementia Chronic kidney disease (CKD) Suicide Anesthesia complication Bleeding disorder Lung disease Cancer Stroke Social History Smoking and tobacco status: current every day smoker Alcohol intake: never Lives independently: Yes Household members: family Housing: House Marital status: service: No Current occupational status: disabled History of recent travel: No Vitals/I&O/Wt Last Vital Signs Temp 97.5 F L 10/22/21 09:52 Pulse 99 10/22/21 11:04 Resp 16 10/22/21 11:04 BP 117/67 10/22/21 11:04 Pulse Ox 96 10/22/21 11:04 Weight last 48 hrs Weight 93.44 kg Physical Exam Const: COMMON NORMALS: no acute distress and patient oriented x3 HENMT: COMMON NORMALS: normocephalic HEAD & SCALP: normocephalic Eye: COMMON NORMALS: Equal, round and reactive pupils present and EOMs intact bilaterally Neck/C-Spine: COMMON NORMALS: no JVD Resp: COMMON NORMALS: normal respiratory effort, No retractions, No use of accessory muscles and clear to auscultation bilaterally AUSCULTATION: clear to auscultation bilaterally Cardio: COMMON NORMALS: no JVD, regular rate, regular rhythm, S1 normal heart sound present and S2 normal heart sound present RATE: regular rate RHYTHM: regular rhythm HEART SOUNDS: S1 normal heart sound present and S2 normal heart sound present GI: COMMON NORMALS: Normal to inspection, nondistended, normoactive bowel sounds present, Soft to palpation, non-tender, No hepatosplenomegaly present, no masses and no bruits PALPATION: Yes Soft to palpation and Yes No hepatosplenomegaly present Extremity: COMMON NORMALS: capillary refill normal, no clubbing, cyanosis or edema, no calf tenderness and no pedal edema Neuro: COMMON NORMALS: patient oriented x3 Psych: COMMON NORMALS: mental status grossly normal Data : 10/22/21 10:05 10/22/21 10:05 A&P Assessment and plan (1) Chest pain: Status: Acute (2) Atherosclerotic heart disease of [place] coronary artery with other forms of angina pectoris: Status: Acute (3) Increasing shortness of breath: Status: Acute (4) Diabetic neuropathy: Status: Acute (5) Diabetes type 2, uncontrolled: Status: Acute Qualifiers: Glycemic state: with hyperglycemia Qualified Code(s): E11.65 - Type 2 diabetes mellitus with hyperglycemia (6) Smoking 1/2 pack a day or less: Status: Acute (7) Hypertension: Status: Acute Qualifiers: Hypertension type: essential hypertension Qualified Code(s): I10 - Essential (primary) hypertension (8) Hyperlipidemia: Status: Acute Qualifiers: Hyperlipidemia type: mixed hyperlipidemia Qualified Code(s): E78.2 - Mixed hyperlipidemia (9) Mass of left lung: Status: Acute Plan Chest pain -History of 3 stents -1.? Myocardial perfusion imaging revealing moderate area of reversible defect ?in the inferior wall, inferoseptal and apical regions, suggestive of ischemia ?in distribution of the right coronary artery predominantly with some ?involvement of the left anterior descending artery territory as well. ?2.? Normal LV ejection fraction 70%. ?3.? LV wall motion analysis revealing mild hypokinesia of the LV apex. ?4.? Normal LV volume Normal left ventricular size and systolic function, EF 62%. Mild ?left ventricular hypertrophy.? ?Dilated right ventricle with a paradoxical septal motion, may ?suggest right ventricular pressure overload ?Mild mitral annular calcification. ?Thickened aortic valve. ?Mild tricuspid valve regurgitation. ?Estimated pulmonary artery peak systolic pressure was 30 mmHg.? ?This could be an underestimation because of the poor Doppler ?signals ?There is no pericardial effusion. ?There are no intracardiac masses. ?The patient was found to be tachycardic during the study. ?Compared to the study from 01/15/2016, the right ventricular ?dilatation appears to be new.? Need to rule out PE -Complaints of recurrent chest pain -Continue aspirin, statin, Plavix -Nitro as needed for chest pain -Serial EKGs, serial troponins -Cardiology on consult, plans for cardiac catheterization -Full code -Lovenox for DVT prophylaxis History of smoking, left upper lobe mass, with mediastinal adenopathy -No evidence of pulmonary emboli -We will order venous ultrasound for DVT -Patient advised that is highly suspicious for malignancy, will refer to pulmonary as outpatient for biopsy, advised to quit smoking Type II days mellitus, decrease Levemir to 20 units daily, with insulin sliding scale Attestations Medical Necessity Statement*: Patient requires hospitalization, outpatient with observation, for chest pain, lung mass Coding Level of Care Code 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
[2021-10-22 14:06] LABS: Estmated Average Glucose 183
[2021-10-22 14:16] LABS: Chol HDL Ratio 4.16 mg/dL (0.0-4.40); Cholesterol 158 mg/dL (0-200); HDL Cholesterol 38 mg/dL (60-100); LDL Cholesterol Calculated 65 mg/dL (50-129); LDL HDL Ratio 1.71 RATIO (0.00-3.22); Thyroid Stimulating Hormone 1.92 uIU/mL (0.27-4.20); Triglycerides 275 mg/dL (0-150)
[2021-10-22 14:19] LABS: Troponin 5 2HR 17.89 ng/L (0-10)
[2021-10-22 14:20] LABS: Troponin 5 2HR Delta 0.89 ABS# (0-10)
[2021-10-22] MEDS: ipratropium-albuterol 3 mL Neb INHALATION (15:56)
[2021-10-22 16:32] LABS: Glucose Point of Care 105 mg/dL (70-110)
--- NOTE | 2021-10-22 16:41 | XACV_ITS ---
Exam Room: [facility] Ht: 183 cm Wt: 93 kg BSA: 2.20 m2 Gender: Female : 1965 Any Known Allergies: Penicillins Exam Priority: Routine Procedure(s): Procedure Description: Diagnostic procedure Procedure Description: PCI procedure Procedure Description: PTCA Procedure Description: Miscellaneous Procedure Description: Angio-Seal Procedure Description: ACT Procedure Description: Coronary Angiography Procedure Description: Pressure Wire Luther SINGH; Diagnostic Cath Status: Urgent Diagnostic Findings * The left main is a medium caliber vessel with no significant stenotic lesions. * The left anterior descending artery is a medium caliber vessel which appears to taper off towards the LV apex. The proximal to mid LAD has a long stented segment.diffuse in-stent narrowing of 50 to 60% in the stented area. The diagonal vessels coming all of this region found to have minimal narrowing proximally, involving the ostium. No significant stenotic lesions were noted.. * The left circumflex artery is a medium caliber nondominant vessel which was found to have around 30% proximal tubular narrowing. No significant extremity lesions were noted.. * The intermedius artery appears to be a high diagonal vessel which appears to bifurcate proximally. The proximal segment of the artery was found to have mild diffuse intimal irregularities. No significant stenotic lesions. * The right coronary artery is a medium caliber dominant vessel which has a long stented segment proximally. Right at the distal end of the stented segment, there is a 99% stenosis, involving the ostium of the first RV branch, coming off this area. Grade 2 [id number] collaterals are noted filling of the PDA branch, during the left coronary injections. PCI Status: Urgent PCI Indication: New Onset Angina <= 2 months Interventional Findings * PROCEDURE DETAIL: We engaged the RCA with JR4 guide catheter. 0.014 run-through guidewire was used to cross the mid RCA severe stenosis. We dilated the stenosis with 3.5 x 12 mm NC balloon. It expanded the stent very well. BERNARDO-3 flow was established. We did not put a new stent. Guidewire and guide catheter were removed. We then turned our attention to LAD stenosis. iFR wire was report across the stenosis after normalization. IFR value of 0.87 was obtained that was ischemic. We performed balloon angioplasty of in-stent restenosis with a 3.0 x 12 mm NC balloon. This improved the flow significantly. Guidewire and guide catheter were removed after final angiogram that showed excellent stent expansion, no residual stenosis and BERNARDO-3 flow.. * Mid Left Anterior Descendin% stenosis treated with a MDT NC EUPHORA RX 3.23C08PA BALLOON. 0% residual stenosis, BERNARDO: 3 flow. * Mid Right Coronary Artery: 99% stenosis treated with a MDT NC EUPHORA RX 3.53R25OP BALLOON. 0% residual stenosis, BERNARDO: 3 flow. Conclusions 1. This 56-year-old white female with history of hypertension, diabetes, dyslipidemia, atherosclerotic heart disease, status post PCI of the right coronary artery and left anterior descending artery, now presenting with chest pain and increasing shortness of breath. She had a myocardial perfusion imaging yesterday which revealed reversible defects suggesting moderate area of ischemia in the distribution of the right coronary artery with a small area of ischemia in the distribution of the left tender descending artery. For further evaluation of the coronary status, a cardiac catheterization was recommended. Patient underwent left heart catheterization with a left and right coronary angiogram and LV angiogram today. The findings are as follows. 2. No significant disease in the left main. The long stented segment of the left inner descending artery was found to have around 50 to 60% diffuse in-stent stenosis. The left circumflex artery was found to have mild disease proximally. The right coronary artery was found to be subtotally occluded at the distal end of the stented segment, involving the ostium of the right ventricular branch. Normal LV ejection fraction. LVEDP of 13 mmHg. 3. I reviewed and discussed the cardiac catheterization data with the Dr. Covarrubias. It was thought to be appropriate to consider PCI of the right coronary artery lesion and possible IFR of the LAD lesion. Dr. Covarrubias concurred with this plan. At this point, Dr. Covarrubias took over further management of this patient. 4. S/p successful revascularization of mid RCA and mid LAD in-stent restenosis with balloon angioplasties. 5. Mid Left Anterior Descending was treated with a Balloon. 6. Mid Right Coronary Artery was treated with a Balloon. Recommendations * Transfer to [facility]. * Continue aspirin and Plavix for atleast 1 year. * High intensity statin therapy. * Outpatient cardiology follow up in 4 weeks. Interventional RX Recommendation: PCI w/o planned CABG Diagnostic RX Recommendation: PCI w/o planned CABG Anticoagulation: Heparin Ventriculography Ejection Fraction: 60.0 % LV EDP: 13 mmHg Left Ventriculography Findings: * The LV gram was performed in the KNOTT projection. LV cavity appears to be normal size. The LV ejection fraction was 60%. No significant mitral valve prolapse or mitral regurgitation was. No filling defects were noted. Pressures Phase:Rest AO : 104 / 56 ( 73 ) @ 6:31:00 PM 106 / 57 ( 75 ) @ 6:31:00 PM LV : 119 / -15 / 3 @ 6:30:00 PM 119 / -11 / 3 @ 6:30:00 PM 125 / -2 / 13 @ 6:31:00 PM 125 / -12 / 8 @ 6:31:00 PM Valves Phase:DefaultPhase AV : 24.0 @ 6:23:18 PM AV Mean Gradient: 14.0 @ 6:23:18 PM Clinical Evaluation EBL: 5mL-10mL Procedural Details Procedure Consent Obtained. Admit Source: In Patient. Pre-Procedure Time Out. Identified patient by full name and date of as verbalized by the patient/guarantor. Does the consent match the physician's order: Yes. Accurate & Complete Informed Consent: Yes. Inpatient/Outpatient History & Physical on Chart: Yes. If H&P is completed, is and addenduem needed: No; If yes, is the addendum complete: N/A. Visualize and Verify Site with Patient/Guarantor: N/A. Relevant Radiology Images available: Yes. The risks, benefits, and alternatives of sedation and/or procedure were discussed by physician. The patient agrees to continue. Procedure started. [facility] Clinical Fraility Score: 3: Managing Well. Orthopaedic Doctor Indications: Worsening Angina. Chest Pain Symptom Assessment: Typical Angina Symptoms. Correct patient, site and procedure confirmed by cath team. Current diagnosis: Chest Pain. PERRLA. Strong, equal hand phlebotomy technician bilaterally. Lungs clear x 5 lobes. IV Site on Arrival: 20 gauge in the right anticubital. IV Fluids: 0.9% NaCl at KVO. 0 mL infused prior to confectionery laboratory manager. Pre Procedural Pulses: bilateral radial was 3+. Oxygen started at 2liters/min via nasal canula. right radial was prepped with chloroprep then draped in the usual sterile fashion. right groin was prepped with chloroprep then draped in the usual sterile fashion. Baseline sample Acquired. HR: 110 BPM. Physician notified. Physician arrived. Physician scrubbed in. Immediate Pre-Procedure Time Out. Correct Patient: Yes; Correct Procedure: Yes; Correct Site: Yes; Correct Patient Position: Yes; Correct Supplies: Yes; Dried Flammable Prep: Yes; Blood Products Available: No;. Lidocaine 1% infiltrated to the right radial. Arterial access obtained. A 5 colombian Jj catheter in over wire. Wire out. Jj catheter in brachial artery, unable to advance. Hand injection of contrast. Second hand injection through catheter. catheter out. A TR Band was successful obtaining hemostatsis at the Right Radial artery insertion site. Lidocaine 1% infiltrated to the right groin. Arterial access obtained with micropuncture set. A 5 colombian JL4 catheter in over wire. Multiple views taken of left coronary artery. Catheter removed over the standard wire. A 5 colombian JR4 catheter in over wire. Multiple views taken of right coronary artery. Catheter removed over the standard wire. A 5 colombian Angled Pig catheter in over wire. EDP Sample taken: LV 119/-16,3; HR: 106 BPM; SpO2: 97%. LV gram performed in KNOTT @ 10 mL/second for a total of 30 mL. EDP Sample taken: LV 125/-3,13; HR: 103 BPM; SpO2: 96%. Pullback taken: LV 125/-13,8; AO 104/56(73); Mean: 14mmHg, Peak to Peak: 24mmHg, SEP: 24sec/min; HR: 103 BPM; SpO2: 97%. Catheter removed over the standard wire. Dr. Covarrubias arrived for intervention. Patient family updated. Dr. Covarrubias scrubbed in to perform intervention. Sheath upsized to a 6 Fr. 6 colombian JR 4 guide catheter was inserted over the wire. standard wire out. Runthrough guidewire was advanced through the guide catheter to lesion in the mid RCA. Inflation number : 1 A MDT NC EUPHORA RX [id number] BALLOON was prepped and advanced across the Mid RCA , then inflated to 16 JOYCELYN for 0:23 seconds. Inflation number: 2 The MDT NC EUPHORA RX 3.76O80OO BALLOON was reinflated across the Mid RCA, to 12 JOYCELYN for 0:14 seconds. Inflation number: 3 The MDT NC EUPHORA RX 3.04C43AT BALLOON was reinflated across the Mid RCA, to 16 JOYCELYN for 0:11 seconds. Inflation number: 4 The MDT NC EUPHORA RX 3.61L18BN BALLOON was reinflated across the Mid RCA, to 16 JOYCELYN for 0:16 seconds. Balloon out. Angiography performed. Wire out. Angiography performed, checking results. Guide catheter out. 6 colombian XB 3.5 guide catheter was inserted over the wire. Standard Wire out. Omni pressure wire advanced through guide catheter. Omni pressure wire advanced to distal LAD. IFR of mid LAD lesion 0.87. IFR pullback of mid LAD lesion 0.87. Inflation number : 1 A MDT NC EUPHORA RX 3.47C92AS BALLOON was prepped and advanced across the Mid LAD , then inflated to 14 JOYCELYN for 0:21 seconds. Inflation number: 2 The MDT NC EUPHORA RX 3.12S50DG BALLOON was reinflated across the Mid LAD, to 12 JOYCELYN for 0:17 seconds. Balloon out. Omni pressure wire out. Angiography performed. Checking results. Guide catheter out over standard wire. A Right femoral angiogram was performed to determine safe placement of closure device. ACT drawn. Results 249 seconds. Therapeutic limits - pre-heparin administration 90-150 seconds and monitoring heparin during a vascular procedure >250 seconds. A Angio-Seal VIP ([employer] [facility]) was successful obtaining hemostatsis at the Right Femoral artery insertion site. LOT #[id number] EXP 06-01-22. Post Procedure: Pulses reassessed and unchanged. PERRLA. Strong, equal hand phlebotomy technician bilaterally. No VTE prophylaxis required. Complications: None. Estimated blood loss: 5mL-10mL. Responsiveness - Normal response to verbal stimuli; alert and oriented, PERRLA. Airway - Unaffected, no intervention required; spontaneous ventilation. Circulation: W/N/L, pulses unchanged. Nausea/Vomiting: No. Medication's Wasted: Nitro = 49.6 mg. Medication's Wasted: Heparin = 2000 unit. Total IV fluids: 334 mL. Post-op diagnosis: Severe MID RCA and MID LAD stenosis. Procedure completed. Patient transferred by bed to 1st floor. PCI Indication:Severe MID RCA and MID LAD stenosis. Access Site Site: Right Radial artery Sheath Size: 6 Fr Hemostasis Method: TR Band Hemostasis Success: Successful Site: Right Femoral artery Sheath Size: 5 Fr Hemostasis Method: Angio-Seal VIP ([employer] [facility]) Hemostasis Success: Successful Procedure Medications Start: 4:56 PM Stop: 4:56 PM Medication: Versed Amount: 1 mg Route: I.V. Start: 4:56 PM Stop: 4:56 PM Medication: Fentanyl Amount: 50 mcg Route: I.V. Start: 4:52 PM Stop: 4:52 PM Medication: Versed Amount: 1 mg Route: I.V. Start: 4:52 PM Stop: 4:52 PM Medication: Fentanyl Amount: 50 mcg Route: I.V. Start: 5:00 PM Stop: 5:00 PM Medication: Verapamil Amount: 5 mg Route: I.A. Start: 5:00 PM Stop: 5:00 PM Medication: Nitrogylcerin Amount: 200 mcg Route: I.A. Start: 5:01 PM Stop: 5:01 PM Medication: Versed Amount: 1 mg Route: I.V. Start: 5:03 PM Stop: 5:03 PM Medication: Nitrogylcerin Amount: 200 mcg Route: I.C. Start: 5:18 PM Stop: 5:18 PM Medication: Heparin Amount: 1500 units Route: I.V. Start: 5:19 PM Stop: 5:19 PM Medication: Versed Amount: 1 mg Route: I.V. Start: 5:19 PM Stop: 5:19 PM Medication: Fentanyl Amount: 50 mcg Route: I.V. Start: 5:21 PM Stop: 5:21 PM Medication: 0.9% Saline Amount: 250 ml Route: I.V. bolus Start: 5:39 PM Stop: 5:39 PM Medication: Versed Amount: 1 mg Route: I.V. Start: 5:40 PM Stop: 5:40 PM Medication: Fentanyl Amount: 25 mcg Route: I.V. Start: 5:42 PM Stop: 5:42 PM Medication: Heparin Amount: 7000 units Route: I.V. Start: 5:52 PM Stop: 5:52 PM Medication: Versed Amount: 1 mg Route: I.V. Start: 5:52 PM Stop: 5:52 PM Medication: Fentanyl Amount: 25 mcg Route: I.V. Start: 5:56 PM Stop: 5:56 PM Medication: Heparin Amount: 2000 units Route: I.V. I, the attending physician, have reviewed and verified all procedure medications. Yes, all medications given per verbal order History/Risk Factors Hypertension: Yes Dyslipidemia: Yes Peripheral Arterial Disease (PAD): No Myocardial Infarction (CO): No Obesity: No Tobacco Use: Current/Recent(w/in 1 year) Prior Interventions PCI: Yes CABG: No Valve Surgery: No Date of PCI: 07/28/2012 Report Signatures Interventional Workflow Finalized by Uday Covarrubias MD on 11/04/2021 11:43 AM Diagnostic Workflow Finalized by Dr Henrique Sloan MD [facility] on 10/22/2021 11:13 PM
--- NOTE | 2021-10-22 16:51 | W.PM.OPSUD ---
Surgery/Procedure H&P Update DATE OF PROCEDURE: October 22, 2021 DATE H&P PERFORMED: 10/22/21 H&P UPDATE INFORMATION: I have reviewed H&P completed within last 30 days, I have examined patient prior to procedure and No changes to prior documentation PREOP DIAGNOSIS: ASHD PRIMARY INDICATION FOR PROCEDURE: Chest pain/shortness of breath. Abnormal myocardial perfusion imaging PLANNED PROCEDURE: Left heart catheterization with the left and right coronary angiogram, LV angiogram and possible PCI PATIENT REASSESSED PRIOR TO SEDATION, WITH NO CHANGE NOTED: Yes PHYSICAL EXAM: alert, oriented x 3, clear to auscultation bilaterally and regular rate & rhythm AIRWAY EVAL/ANESTHESIA PLAN: normal airway, see other exam findings, ASA III, Monitored Anesthesia, Local Anesthesia, Risks, benefits & alternatives of sedation and/or procedure discussed and Patient agrees to continue as planned
[2021-10-22 16:53] LABS: Troponin 5 6HR 14.85 ng/L (0-10)
[2021-10-22 17:08] LABS: Troponin 5 6HR Delta -2.15 ng/L (0-12)
--- NOTE | 2021-10-22 18:32 | PM.MISC ---
Miscellaneous Note Purpose of Documentation: Brief procedure note Note: Diagnostic cath performed by Dr Sloan Mid LAD has moderate to severe instent restenosis (confirmed to be severe by iFR value of 0.87) Mid RCA has critical in-stent restenosis S/p successful revascularization with balloon angioplasty of mid RCA and mid LAD
[2021-10-22] MEDS: sodium chloride 0.9% 1,000 ML 100 ML IV (19:10)
--- NOTE | 2021-10-22 19:59 | PC.NURSE ---
3ml air removed from TR band, no s/s bleeding to puncture at this time.
[2021-10-22] MEDS: atorvastatin 40 mg Tablet PO (20:47)
[2021-10-22 20:54] LABS: Glucose Point of Care 192 mg/dL (70-110)
[2021-10-23] VITALS (15 sets, daily range): BP systolic 104–155; BP diastolic 54–96; PULSE 67–107; RESP 16–29; TEMP 36.3–37; O2SAT 90–97
[2021-10-23 04:59] LABS: Basophils % 0.3 %; Eosinophils # 0.1 10^3/uL (0.0-0.8); Eosinophils % 1.3 %; Hematocrit 46.7 % (37.0-47.0); Hemoglobin 14.9 g/dL (11.5-15.3); Lymphocytes # 3.4 10^3/uL (0.8-4.8); Lymphocytes % 35.9 %; Mean Corpuscular HGB Conc 31.9 g/dL (30.0-36.0); Mean Corpuscular Hemoglobin 30.5 pg (28.0-34.0); Mean Corpuscular Volume 95.7 fl (81-99); Mean Platelet Volume 9.8 fL (7.4-10.4); Monocytes # 0.7 10^3/uL (0.2-0.9); Monocytes % 7.5 %; Neutrophils # 5.25 10^3/uL (1.8-7.7); Neutrophils % 54.7 %; Nucleated Red Blood Cells % 0 %; Platelet Count 256 10^3/cmm (130-400); Red Blood Count 4.88 10^6/uL (4.1-5.3); Red Cell Distribution Width 14.1 % (12.1-15.1); White Blood Count 9.6 10^3/uL (4.0-10.0)
[2021-10-23 05:17] LABS: Alanine Aminotransferase 36 U/L (0-33); Albumin Level 3.9 g/dL (3.5-5.2); Alkaline Phosphatase 101 IU/L (35-105); Anion Gap 17.1 (5-19); Aspartate Amino Transferase 38 U/L (0-32); Blood Urea Nitrogen 15 mg/dL (6-20); Calcium 8.9 mg/dL (8.5-10.5); Carbon Dioxide 22 mmol/L (22-29); Chloride 101 mmol/L (98-107); Globulin 3.2 g/dL (1.3-4.6); Glomerular Filtration Rate 102.7 mL/min (90-130); Glucose 154 mg/dL (65-115); Osmolality Calculated 286 mOsm/kg (285-295); Phosphorus 4.8 mg/dL (2.5-4.5); Potassium 4.1 mmol/L (3.5-5.1); Sodium 136 mmol/L (136-145); Total Bilirubin 0.3 mg/dL (0.15-1.2); Total Protein 7.1 g/dL (6.6-8.7)
[2021-10-23 07:22] LABS: Glucose Point of Care 143 mg/dL (70-110)
[2021-10-23] MEDS: aspirin 81 mg EC Tablet PO (08:51)
[2021-10-23] MEDS: clopidogrel 75 mg Tablet PO (08:51)
[2021-10-23] MEDS: pantoprazole DR 40 mg Tablet PO (08:51)
--- NOTE | 2021-10-23 08:58 | P.PN_ITS ---
Subjective Subjective: Patient is feeling well. No chest pain. She is still tachycardic. Vitals/I&O/Wt Last Vital Signs Temp 98 F 10/23/21 08:30 Pulse 103 H 10/23/21 08:30 Resp 29 H 10/23/21 08:30 BP 155/96 10/23/21 08:30 Pulse Ox 95 10/23/21 08:30 10/22/21 10/23/21 10/23/21 22:59 06:59 14:59 Intake Total 480 / 480 1480 / 1960 Balance 480 / 480 1480 / 1960 Weight last 48 hrs Weight 206 lb Physical Exam Const: COMMON NORMALS: no acute distress and patient oriented x3 Resp: COMMON NORMALS: normal respiratory effort, No retractions, No use of accessory muscles and clear to auscultation bilaterally AUSCULTATION: clear to auscultation bilaterally Cardio: COMMON NORMALS: regular rate, regular rhythm, S1 normal heart sound present and S2 normal heart sound present RATE: regular rate RHYTHM: regular rhythm HEART SOUNDS: S1 normal heart sound present and S2 normal heart sound present GI: COMMON NORMALS: Normal to inspection, nondistended, normoactive bowel sounds present, Soft to palpation and non-tender PALPATION: Yes Soft to palpation Extremity: COMMON NORMALS: no pedal edema Neuro: COMMON NORMALS: patient oriented x3 Psych: COMMON NORMALS: mental status grossly normal Data : 10/23/21 04:25 10/23/21 04:25 A&P Assessment and plan (1) Increasing shortness of breath: This could be multifactorial. Coronary ischemia, LV diastolic heart failure, lung mass, anxiety, etc. are contributing factors. She underwent successful revascularization of mid RCA and mid LAD instent restenosis yesterday with balloon angioplasty Status: Acute (2) Abnormal myocardial perfusion study: S/p successful revascularization of RCA and LAD yesterday with balloon angioplasty Status: Acute (3) Atherosclerotic heart disease of [place] coronary artery with other forms of angina pectoris: As mentioned above. Status: Acute (4) Diabetes type 2, uncontrolled: Aggressive management of the diabetes would be appropriate Status: Acute Qualifiers: Glycemic state: with hyperglycemia Qualified Code(s): E11.65 - Type 2 diabetes mellitus with hyperglycemia (5) Tachycardia: Has sinus tachycardia Status: Acute (6) Hypertension: She is currently normotensive. Status: Acute Qualifiers: Hypertension type: essential hypertension Qualified Code(s): I10 - Essential (primary) hypertension (7) Hyperlipidemia: May continue on the current medications. Status: Acute Qualifiers: Hyperlipidemia type: mixed hyperlipidemia Qualified Code(s): E78.2 - Mixed hyperlipidemia Attestations Medical Necessity Statement*: Care expected to cross 2 midnights. Coding Level of Care Code Acute Gymnastics Coach Or Instructor for g Fwd Diagnoses Increasing shortness of breath R06.02 Abnormal myocardial perfusion study R94.39 Atherosclerotic heart disease of [place] coronary artery with other forms of angina pectoris I25.118 Diabetes type 2, uncontrolled E11.65 Glycemic state: with hyperglycemia Tachycardia R00.0 Hypertension I10 Hypertension type: essential hypertension Hyperlipidemia E78.2 Hyperlipidemia type: mixed hyperlipidemia
[2021-10-23] MEDS: metoprolol tartrate 25 mg Tablet PO ×2 (11:37→20:47)
[2021-10-23 11:42] LABS: Glucose Point of Care 336 mg/dL (70-110)
--- NOTE | 2021-10-23 13:39 | P.PN_ITS ---
Subjective Subjective: Patient was seen this morning, she had angioplasty of her LAD, RCA, no chest pain, she was kept n.p.o. this morning, she was quite upset, her family were brought in her large [employer], our [place] frappe, and she is having a shipman cheese biscuit she is telling me, no shortness of breath I was advised by nursing staff that patient refused to take subcu insulin, I discussed with patient about the importance of blood sugar monitoring, she voiced understanding, all questions answered and agreed to take insulin Vitals/I&O/Wt Last Vital Signs Temp 98 F 10/23/21 13:10 Pulse 96 10/23/21 13:10 Resp 16 10/23/21 13:10 BP 117/82 10/23/21 13:10 Pulse Ox 92 10/23/21 13:10 10/22/21 10/23/21 10/23/21 22:59 06:59 14:59 Intake Total 480 / 480 1480 / 1960 236 / 236 Balance 480 / 480 1480 / 1960 236 / 236 Weight last 48 hrs Weight 93.44 kg Physical Exam Const: COMMON NORMALS: no acute distress and patient oriented x3 Resp: COMMON NORMALS: normal respiratory effort, No retractions, No use of accessory muscles and clear to auscultation bilaterally AUSCULTATION: clear to auscultation bilaterally Cardio: COMMON NORMALS: regular rate, regular rhythm, S1 normal heart sound present and S2 normal heart sound present RATE: regular rate RHYTHM: regular rhythm HEART SOUNDS: S1 normal heart sound present and S2 normal heart sound present GI: COMMON NORMALS: Normal to inspection, nondistended, normoactive bowel sounds present, Soft to palpation and non-tender PALPATION: Yes Soft to palpation Extremity: COMMON NORMALS: no pedal edema Neuro: COMMON NORMALS: patient oriented x3 Psych: COMMON NORMALS: mental status grossly normal Data : 10/23/21 04:25 10/23/21 04:25 A&P Assessment and plan (1) Chest pain: Status: Acute (2) Atherosclerotic heart disease of [place] coronary artery with other forms of angina pectoris: Status: Acute (3) Increasing shortness of breath: Status: Acute (4) Diabetic neuropathy: Status: Acute (5) Diabetes type 2, uncontrolled: Status: Acute Qualifiers: Glycemic state: with hyperglycemia Qualified Code(s): E11.65 - Type 2 d iabetes mellitus with hyperglycemia (6) Smoking 1/2 pack a day or less: Status: Acute (7) Hypertension: Status: Acute Qualifiers: Hypertension type: essential hypertension Qualified Code(s): I10 - Esse ntial (primary) hypertension (8) Hyperlipidemia: Status: Acute Qualifiers: Hyperlipidemia type: mixed hyperlipidemia Qualified Code(s): E78.2 - Mixed hyperlipidemia (9) Mass of left lung: Status: Acute Plan Chest pain -History of 3 stents -1.? Myocardial perfusion imaging revealing moderate area of reversible defect ?in the inferior wall, inferoseptal and apical regions, suggestive of ischemia ?in distribution of the right coronary artery predominantly with some ?involvement of the left anterior descending artery territory as well. ?2.? Normal LV ejection fraction 70%. ?3.? LV wall motion analysis revealing mild hypokinesia of the LV apex. ?4.? Normal LV volume Normal left ventricular size and systolic function, EF 62%. Mild ?left ventricular hypertrophy.? ?Dilated right ventricle with a paradoxical septal motion, may ?suggest right ventricular pressure overload ?Mild mitral annular calcification. ?Thickened aortic valve. ?Mild tricuspid valve regurgitation. ?Estimated pulmonary artery peak systolic pressure was 30 mmHg.? ?This could be an underestimation because of the poor Doppler ?signals ?There is no pericardial effusion. ?There are no intracardiac masses. ?The patient was found to be tachycardic during the study. ?Compared to the study from 01/15/2016, the right ventricular ?dilatation appears to be new.? Need to rule out PE -Status post balloon angioplasty of LAD and RCA -Continue aspirin, statin, Plavix -Nitro as needed for chest pain -Cardiology on consult, plans for cardiac catheterization -Full code -Lovenox for DVT prophylaxis History of smoking, left upper lobe mass, with mediastinal adenopathy -No evidence of pulmonary emboli -Ultrasound negative for DVT -Patient advised that is highly suspicious for malignancy, will refer to pulmonary as outpatient for biopsy, advised to quit smoking Type II days mellitus, decrease Levemir to 20 units daily, with insulin sliding scale Attestations Medical Necessity Statement*: Patient requires hospitalization for CAD status post balloon angioplasty, left upper lung mass Coding Level of Care Code Acute Colorist Formulator for g Fwd Diagnoses Chest pain R07.9 Atherosclerotic heart disease of [place] coronary artery with other forms of angina pectoris I25.118 Increasing shortness of breath R06.02 Diabetic neuropathy E11.40 Diabetes type 2, uncontrolled E11.65 Glycemic state: with hyperglycemia Smoking 1/2 pack a day or less F17.210 Hypertension I10 Hypertension type: essential hypertension Hyperlipidemia E78.2 Hyperlipidemia type: mixed hyperlipidemia Mass of left lung R91.8
[2021-10-23] MEDS: enoxaparin 40 mg/0.4 mL Syringe SUBCUT (13:48)
[2021-10-23 17:08] LABS: Glucose Point of Care 173 mg/dL (70-110)
[2021-10-23] MEDS: insulin lispro 100 unit/1 mL SUBCUT (17:36)
[2021-10-23] MEDS: budesonide 0.5 mg/2 mL Neb INHALATION (19:52)
[2021-10-23] MEDS: ALPRAZolam 0.5 mg Tablet 0.25 MG PO (20:46)
[2021-10-23] MEDS: atorvastatin 40 mg Tablet PO (20:47)
[2021-10-24 04:00] VITALS: BP 131/83; PULSE 80; RESP 18; TEMP 36.8; O2SAT 96
[2021-10-24 04:57] LABS: Basophils % 0.3 %; Eosinophils # 0.1 10^3/uL (0.0-0.8); Eosinophils % 1.5 %; Hematocrit 45.5 % (37.0-47.0); Hemoglobin 14.4 g/dL (11.5-15.3); Lymphocytes % 33.1 %; Mean Corpuscular HGB Conc 31.6 g/dL (30.0-36.0); Mean Corpuscular Hemoglobin 30.4 pg (28.0-34.0); Mean Platelet Volume 9.9 fL (7.4-10.4); Monocytes # 0.9 10^3/uL (0.2-0.9); Monocytes % 10.4 %; Neutrophils # 4.85 10^3/uL (1.8-7.7); Neutrophils % 54.3 %; Nucleated Red Blood Cells % 0 %; Platelet Count 248 10^3/cmm (130-400); Red Blood Count 4.74 10^6/uL (4.1-5.3); Red Cell Distribution Width 13.8 % (12.1-15.1); White Blood Count 8.9 10^3/uL (4.0-10.0)
[2021-10-24 05:20] LABS: Alanine Aminotransferase 66 U/L (0-33); Alkaline Phosphatase 100 IU/L (35-105); Anion Gap 15.6 (5-19); Aspartate Amino Transferase 66 U/L (0-32); Blood Urea Nitrogen 13 mg/dL (6-20); Calcium 8.8 mg/dL (8.5-10.5); Carbon Dioxide 23 mmol/L (22-29); Chloride 105 mmol/L (98-107); Globulin 3.1 g/dL (1.3-4.6); Glomerular Filtration Rate 102.7 mL/min (90-130); Glucose 177 mg/dL (65-115); Magnesium 2.1 mg/dL (1.7-2.3); Osmolality Calculated 292 mOsm/kg (285-295); Phosphorus 3.8 mg/dL (2.5-4.5); Potassium 4.6 mmol/L (3.5-5.1); Sodium 139 mmol/L (136-145); Total Bilirubin 0.4 mg/dL (0.15-1.2); Total Protein 7.1 g/dL (6.6-8.7)
[2021-10-24 06:00] VITALS: PULSE 83
[2021-10-24 07:25] VITALS: BP 123/71; PULSE 83; RESP 18; TEMP 36.4; O2SAT 97
[2021-10-24] MEDS: budesonide 0.5 mg/2 mL Neb INHALATION (07:31)
[2021-10-24 07:35] VITALS: PULSE 87; RESP 16; O2SAT 98
--- NOTE | 2021-10-24 09:01 | PM.DCS ---
Discharge Providers Date of Admission: 10/22/21 18:35 Date of Discharge: October 24, 2021 Attending Provider at Admission: John Sweet MD Attending Provider at Discharge: John Sweet MD Primary Care Provider: Sujit Hernandez MD Diagnoses at Discharge Discharge Diagnosis (1) Increasing shortness of breath: Status: Acute (2) Abnormal myocardial perfusion study: Status: Acute (3) Atherosclerotic heart disease of [place] coronary artery with other forms of angina pectoris: Status: Acute (4) Diabetes type 2, uncontrolled: Status: Acute Qualifiers: Glycemic state: with hyperglycemia Qualified Code(s): E11.65 - Type 2 diabetes mellitus with hyperglycemia (5) Tachycardia: Status: Acute (6) Hypertension: Status: Acute Qualifiers: Hypertension type: essential hypertension Qualified Code(s): I10 - Essential (primary) hypertension (7) Hyperlipidemia: Status: Acute Qualifiers: Hyperlipidemia type: mixed hyperlipidemia Qualified Code(s): E78.2 - Mixed hyperlipidemia Reason for Visit Reason for Visit: SOB/sent to ER per Dr. Sloan Hospital Course Hospital Course This is a 48-year-old female with past medical history of CAD, insulin-dependent type 2 diabetes mellitus, smoker, who presents [facility] due to concerns for chest pain and abnormal stress test Patient underwent coronary angiography during her hospitalization, had balloon angioplasty of RCA and LAD. Patient tolerated procedure well, no recurrent chest pain. Was discharged on aspirin, statin, Plavix, beta-eliazar, nitro with close follow-up with cardiology as outpatient Patient has a history of smoking, found to have a left upper lobe mass with mediastinal adenopathy, no evidence of pulm embolism, ultrasound negative for DVT. I advised patient this is highly suspicious for malignancy, however cancer is a tissue diagnosis and she needs to have a biopsy and evaluation by pulmonary. I will have patient follow-up with pulmonary in 1 week. Patient was advised to quit smoking. Discharged on albuterol, Advair. Physical Exam Const: COMMON NORMALS: no acute distress and patient oriented x3 Resp: COMMON NORMALS: normal respiratory effort, No retractions, No use of accessory muscles and clear to auscultation bilaterally AUSCULTATION: clear to auscultation bilaterally Cardio: COMMON NORMALS: regular rate, regular rhythm, S1 normal heart sound present and S2 normal heart sound present RATE: regular rate RHYTHM: regular rhythm HEART SOUNDS: S1 normal heart sound present and S2 normal heart sound present GI: COMMON NORMALS: Normal to inspection, nondistended, normoactive bowel sounds present, Soft to palpation and non-tender PALPATION: Yes Soft to palpation Extremity: COMMON NORMALS: no pedal edema Neuro: COMMON NORMALS: patient oriented x3 Discharge Data Studies Completed and Pending Completed Studies During Hospitalization Category Date Time Status CT angio chest PE protcl [id number] Stat Cat Scan 10/22/21 10:20 Completed XR chest 1V portable [id number] Stat Exams 10/22/21 10:18 [place] [id number] Urgent Ultrasound 10/22/21 13:42 Completed Pending at discharge Category Date Time Status 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 Chronic interstitial changes of fibrosis and honeycombing noted. 2. No acute process identified. Chest CTA 10/22/21 10:20 IMPRESSION: 1. No sign of acute pulmonary embolism. 2. Emphysema. Chronic interstitial lung disease. 3. Left upper lobe mass highly worrisome for malignancy. Mediastinal adenopathy. 4. Coronary artery disease. ADDENDUM: 10/22/21 1217 THIS REPORT CONTAINS FINDINGS THAT MAY BE CRITICAL TO PATIENT CARE. The exam findings were verbally communicated by me via telephone conference to CHERISE PRIETO at 12:13 PM CDT on 10/22/2021. The findings were acknowledged and understood. Laboratory Results WBC 8.9 10^3/uL (4.0-10.0) 10/24/21 04:25 RBC 4.74 10^6/uL (4.1-5.3) 10/24/21 04:25 Hgb 14.4 g/dL (11.5-15.3) 10/24/21 04:25 Hct 45.5 % (37.0-47.0) 10/24/21 04:25 MCV 96.0 fl (81-99) 10/24/21 04:25 MCH 30.4 pg (28.0-34.0) 10/24/21 04:25 MCHC 31.6 g/dL (30.0-36.0) 10/24/21 04:25 RDW 13.8 % (12.1-15.1) 10/24/21 04:25 Plt Count 248 10^3/cmm (130-400) 10/24/21 04:25 MPV 9.9 fL (7.4-10.4) 10/24/21 04:25 Neut % (Auto) 54.3 % 10/24/21 04:25 Lymph % (Auto) 33.1 % 10/24/21 04:25 Nolan % (Auto) 10.4 % 10/24/21 04:25 Eos % (Auto) 1.5 % 10/24/21 04:25 Baso % (Auto) 0.3 % 10/24/21 04:25 Neut # (Auto) 4.85 10^3/uL (1.8-7.7) 10/24/21 04:25 Lymph # (Auto) 3.0 10^3/uL (0.8-4.8) 10/24/21 04:25 Nolan # (Auto) 0.9 10^3/uL (0.2-0.9) 10/24/21 04:25 Eos # (Auto) 0.1 10^3/uL (0.0-0.8) 10/24/21 04:25 Baso # (Auto) 0.0 10^3/uL (0.0-0.1) 10/24/21 04:25 Nucleated RBC % (auto) 0 % 10/24/21 04:25 Nucleated RBCs # 0.0 /100WBC 10/24/21 04:25 Sodium 139 mmol/L (136-145) 10/24/21 04:25 Potassium 4.6 mmol/L (3.5-5.1) 10/24/21 04:25 Chloride 105 mmol/L (98-107) 10/24/21 04:25 Carbon Dioxide 23 mmol/L (22-29) 10/24/21 04:25 Anion Gap 15.6 (5-19) 10/24/21 04:25 BUN 13 mg/dL (6-20) 10/24/21 04:25 Creatinine 0.6 mg/dL (0.5-0.9) 10/24/21 04:25 GFR Calculation 102.7 mL/min (90-130) 10/24/21 04:25 Glucose 177 mg/dL (65-115) H 10/24/21 04:25 POC Glucose 173 mg/dL (70-110) H 10/23/21 16:33 Estimat Average Glucose 183 10/22/21 10:05 Hemoglobin A1c 8.0 % (4.0-6.0) H 10/22/21 10:05 Calculated Osmolality 292 mOsm/kg (285-295) 10/24/21 04:25 Calcium 8.8 mg/dL (8.5-10.5) 10/24/21 04:25 Phosphorus 3.8 mg/dL (2.5-4.5) 10/24/21 04:25 Magnesium 2.1 mg/dL (1.7-2.3) 10/24/21 04:25 Total Bilirubin 0.4 mg/dL (0.15-1.2) 10/24/21 04:25 AST 66 U/L (0-32) H 10/24/21 04:25 ALT 66 U/L (0-33) H 10/24/21 04:25 Alkaline Phosphatase 100 IU/L (35-105) 10/24/21 04:25 Troponin T Baseline 17 ng/L (0-10) H 10/22/21 10:05 Troponin T 120 Minute 17.89 ng/L (0-10) H 10/22/21 13:50 Delta Troponin T 0.89 ABS# (0-10) 10/22/21 13:50 Troponin T Hi Sens 6Hr 14.85 ng/L (0-10) H 10/22/21 16:22 Troponin T Hi Sens 6Hr Delta -2.15 ng/L (0-12) L 10/22/21 16:22 NT-Pro-B Natriuret Pep 278 pg/mL (0-125) H 10/22/21 10:05 Total Protein 7.1 g/dL (6.6-8.7) 10/24/21 04:25 Albumin 4.0 g/dL (3.5-5.2) 10/24/21 04:25 Globulin 3.1 g/dL (1.3-4.6) 10/24/21 04:25 Triglycerides 275 mg/dL (0-150) H 10/22/21 10:05 Cholesterol 158 mg/dL (0-200) 10/22/21 10:05 LDL Cholesterol, Calc 65 mg/dL (50-129) 10/22/21 10:05 HDL Cholesterol 38 mg/dL (60-100) L 10/22/21 10:05 LDL/HDL Ratio 1.71 RATIO (0.00-3.22) 10/22/21 10:05 Cholesterol/HDL Ratio 4.16 mg/dL (0.0-4.40) 10/22/21 10:05 TSH 1.92 uIU/mL (0.27-4.20) 10/22/21 10:05 Vitals Last Vital Signs Temp 97.6 F 10/24/21 07:25 Pulse 87 10/24/21 07:35 Resp 16 10/24/21 07:35 BP 123/71 10/24/21 07:25 Pulse Ox 98 10/24/21 07:35 Discharge Plan Discharge Patient Disposition: Home Condition: Stable Prescriptions: New metoprolol tartrate 25 mg Tablet 25 mg PO BID@0900,2100 30 Days Qty: 60 0RF fluticasone propion-salmeterol [Advair Diskus] 100-50 mcg/dose blister with device 1 inh inhalation BID Qty: 60 0RF nitroglycerin 0.4 mg Tablet, Sublingual 0.4 mg sublingual Q5M PRN (Reason: Chest Pain) 30 Days Qty: 30 0RF Continued Levemir FlexTouch U-100 Insuln 100 unit/mL (3 mL) insulin pen 54 unit SUBCUT DAILY 0RF glipizide 5 mg tablet 5 mg PO DAILY 0RF Farxiga 10 mg tablet 10 mg PO QAM 0RF albuterol sulfate [ProAir HFA] 90 mcg/actuation HFA aerosol inhaler 2 puff INHALATION Q4H PRN (Reason: Shortness Of Breath) 0RF Rx Instructions: Q4 to Q6 hours, 1-2 puffs with spacer as needed for wheeze or cough. (DME) Aerochamber Mini Spacer See Rx Instructions .ROUTE .MEDSUPPLY Qty: 1 0RF Rx Instructions: As directed metformin 500 mg tablet extended release 24 hr 2,000 mg PO DAILY 0RF potassium chloride 8 mEq tablet extended release 8 meq PO DAILY Qty: 90 1RF furosemide [Lasix] 20 mg tablet 20 mg PO DAILY Qty: 90 1RF PNV cmb#95-ferrous fumarate-FA [] 28 mg iron- 800 mcg Tablet 1 tab PO DAILY 0RF Nexium 20 mg Capsule,Delayed Release(Dr/Ec) 20 mg PO DAILY 0RF Atrovent HFA 17 mcg/actuation HFA aerosol inhaler 2 puff INHALATION Q4H 0RF clopidogrel 75 mg tablet 75 mg PO QDAY 30 Days Qty: 30 0RF aspirin [Adult Low Dose Aspirin] 81 mg tablet,delayed release (DR/EC) 81 mg PO DAILY 30 Days Qty: 30 0RF atorvastatin 40 mg tablet 40 mg PO DAILY 30 Days Qty: 30 0RF Discharge Orders: Discharge Order (Routine); Ordered 10/24/21 Ordered By: John Sweet Referrals: Sujit Hernandez MD [Primary Care Provider] - 7-10 days (Please call [facility] on Monday to set up a hospital followup to be seen in 7 to 10 days. Thank you) Denver Berg MD [Physician] - 4-7 days (lung cancer) Alejandra Cardoso FNP [Nurse Practitioner] - 4-7 days Discharge Diet: Cardiac Discharge Activity: Resume usual activity Patient Instructions: Opioid Safety Activity Restrictions/Additional Instructions: - Please stop smoking -Please take aspirin, statin, Plavix, metoprolol as prescribed -Please take albuterol, Advair as prescribed -Please follow-up with cardiology in 1 week -For your lung mass, follow-up with pulmonary in 1 week Discharge Attestations Time Spent in Discharge Care*: less than 30 min Quality Metrics Clinical Quality Measures [ Acute Myocardial Infaction { Clinical Trial Participant: No; Contraindication to aspirin: Medical contraindication; Contraindication to statin: None; Statin prescribed; Contraindication to PCI: None; PCI performed;}] Coding Level of Care Code Acute [facility] note Exam Detailed Diagnoses Increasing shortness of breath R06.02 Abnormal myocardial perfusion study R94.39 Atherosclerotic heart disease of [place] coronary artery with other forms of angina pectoris I25.118 Diabetes type 2, uncontrolled E11.65 Glycemic state: with hyperglycemia Tachycardia R00.0 Hypertension I10 Hypertension type: essential hypertension Hyperlipidemia E78.2 Hyperlipidemia type: mixed hyperlipidemia
--- NOTE | 2021-10-24 09:27 | PM.PN ---
Subjective Subjective: Patient is doing well. Denies any chest pain or shortness of breath. Vitals/I&O/Wt Last Vital Signs Temp 97.6 F 10/24/21 07:25 Pulse 87 10/24/21 07:35 Resp 16 10/24/21 07:35 BP 123/71 10/24/21 07:25 Pulse Ox 98 10/24/21 07:35 10/23/21 10/24/21 10/24/21 22:59 06:59 14:59 Intake Total 740 / 1476 240 / 240 Balance 740 / 1476 240 / 240 Weight last 48 hrs Weight 206 lb Physical Exam Const: COMMON NORMALS: no acute distress and patient oriented x3 Resp: COMMON NORMALS: normal respiratory effort, No retractions, No use of accessory muscles and clear to auscultation bilaterally AUSCULTATION: clear to auscultation bilaterally Cardio: COMMON NORMALS: regular rate, regular rhythm, S1 normal heart sound present and S2 normal heart sound present RATE: regular rate RHYTHM: regular rhythm HEART SOUNDS: S1 normal heart sound present and S2 normal heart sound present GI: COMMON NORMALS: Normal to inspection, nondistended, normoactive bowel sounds present, Soft to palpation and non-tender PALPATION: Yes Soft to palpation Extremity: COMMON NORMALS: no pedal edema Neuro: COMMON NORMALS: patient oriented x3 Psych: COMMON NORMALS: mental status grossly normal Data : 10/24/21 04:25 10/24/21 04:25 A&P Assessment and plan (1) Increasing shortness of breath: Patient underwent successful revascularization of mid RCA and mid LAD with balloon angioplasty. Shortness of breath can be multifactorial. Status: Resolved (2) Abnormal myocardial perfusion study: S/p successful revascularization of RCA and LAD yesterday with balloon angioplasty. Patient is stable to be discharged today Status: Resolved (3) Atherosclerotic heart disease of [place] coronary artery with other forms of angina pectoris: As mentioned above. Status: Acute (4) Diabetes type 2, uncontrolled: Aggressive management of the diabetes would be appropriate Status: Acute (5) Tachycardia: Has sinus tachycardia Status: Acute (6) Hypertension: She is currently normotensive. Status: Acute Qualifiers: Hypertension type: essential hypertension Qualified Code(s): I10 - Essential (primary) hypertension (7) Hyperlipidemia: May continue on the current medications. Status: Acute Qualifiers: Hyperlipidemia type: mixed hyperlipidemia Qualified Code(s): E78.2 - Mixed hyperlipidemia Attestations Medical Necessity Statement*: Care expected to cross 2 midnights. 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
[2021-10-24] MEDS: pantoprazole DR 40 mg Tablet PO (09:58)
[2021-10-24] MEDS: aspirin 81 mg EC Tablet PO (09:58)
[2021-10-24] MEDS: clopidogrel 75 mg Tablet PO (09:59)
[2021-10-26 06:31] LABS: Glucose Point of Care 180 mg/dL (70-110)
[2021-10-26 06:31] LABS: Glucose Point of Care 223 mg/dL (70-110)
== END 2021-10-24 10:31 | disposition home or self-care (01) | DRG 251 ==
LOC: ER 10:29 → CSU 14:23 → MEDSURG 10-23 16:35
PROVIDERS: Internal Medicine; Internal Medicine Cardiovascular Disease; Admitting Provider Family Medicine; Emergency Provider Family Medicine; PCP Family Medicine; Visit Provider Family Medicine
PROC: 02713ZZ Dilation of Coronary Artery, Two Arteries, Percutaneous Approach (ICD-10-PCS; 2021-10-22 16:30)
DX: T82.855A Stenosis of coronary artery stent, initial encounter (principal); Y71.8 Miscellaneous cardiovascular devices associated with adverse incidents, not elsewhere classified; I25.118 Atherosclerotic heart disease of native coronary artery with other forms of angina pectoris; E11.65 Type 2 diabetes mellitus with hyperglycemia; R00.0 Tachycardia, unspecified; I10 Essential (primary) hypertension; E78.2 Mixed hyperlipidemia; R94.39 Abnormal result of other cardiovascular function study; Z79.82 Long term (current) use of aspirin; Z79.84 Long term (current) use of oral hypoglycemic drugs; Z79.4 Long term (current) use of insulin; Z79.02 Long term (current) use of antithrombotics/antiplatelets; F17.210 Nicotine dependence, cigarettes, uncomplicated; J43.9 Emphysema, unspecified; F41.9 Anxiety disorder, unspecified; R06.02 Shortness of breath; R91.8 Other nonspecific abnormal finding of lung field; Z95.5 Presence of coronary angioplasty implant and graft; E11.40 Type 2 diabetes mellitus with diabetic neuropathy, unspecified
CPT/HCPCS: 36415; 36416; 71045; 71275; 80053; 80061; 82962; 83036; 83735; 83880; 84100; 84443; 84484; 85025; 85347; 92920; 92921; 93005; 93458; 93970; 94640; 94664; 96365; 96372; 99152; 99153; 99285; C1725; C1760; C1769; C1887; C1894; G0378; J1644; J1650; J1815; J2250; J3010; J3490; J7030; J7626; Q9967

== ENCOUNTER → 2021-11-01 09:42 | Outpatient (BNVA) | payer MEDICAID, SELFPAY | PROVIDERS: PCP Family Medicine; Visit Provider Nurse Practitioner Family | DX: I25.118 Atherosclerotic heart disease of native coronary artery with other forms of angina pectoris (principal); E78.5 Hyperlipidemia, unspecified; F17.210 Nicotine dependence, cigarettes, uncomplicated; I10 Essential (primary) hypertension | CPT/HCPCS: 80048; 80061; 99213; 99214 ==

== ENCOUNTER → 2021-11-03 07:57 | Outpatient (BNVA) | payer MEDICAID, SELFPAY | PROVIDERS: PCP Family Medicine; Visit Provider Internal Medicine Critical Care Medicine | DX: Z09 Encounter for follow-up examination after completed treatment for conditions other than malignant neoplasm (principal); R91.1 Solitary pulmonary nodule; J43.9 Emphysema, unspecified; J96.11 Chronic respiratory failure with hypoxia; G47.33 Obstructive sleep apnea (adult) (pediatric); F17.210 Nicotine dependence, cigarettes, uncomplicated; E11.59 Type 2 diabetes mellitus with other circulatory complications; I25.10 Atherosclerotic heart disease of native coronary artery without angina pectoris; E78.5 Hyperlipidemia, unspecified; I10 Essential (primary) hypertension | CPT/HCPCS: 99205 ==

== ENCOUNTER → 2021-11-30 09:48 | Outpatient (BNVA) | payer MEDICAID, SELFPAY | PROVIDERS: PCP Family Medicine; Visit Provider Internal Medicine Cardiovascular Disease | DX: I25.10 Atherosclerotic heart disease of native coronary artery without angina pectoris (principal); J96.11 Chronic respiratory failure with hypoxia; G47.33 Obstructive sleep apnea (adult) (pediatric); E11.65 Type 2 diabetes mellitus with hyperglycemia; I10 Essential (primary) hypertension; E78.2 Mixed hyperlipidemia; F17.210 Nicotine dependence, cigarettes, uncomplicated; Z79.4 Long term (current) use of insulin | CPT/HCPCS: 99214 ==

== ENCOUNTER → 2021-12-03 08:40 | Outpatient (BNVA) | payer MEDICAID, SELFPAY | PROVIDERS: PCP Family Medicine; Visit Provider Internal Medicine Critical Care Medicine | DX: R91.1 Solitary pulmonary nodule (principal); J43.9 Emphysema, unspecified; J96.11 Chronic respiratory failure with hypoxia; G47.33 Obstructive sleep apnea (adult) (pediatric); F17.210 Nicotine dependence, cigarettes, uncomplicated; E11.59 Type 2 diabetes mellitus with other circulatory complications; I25.10 Atherosclerotic heart disease of native coronary artery without angina pectoris | CPT/HCPCS: 99214 ==

== ENCOUNTER 2021-12-30 12:00 | Outpatient (CLI) | payer MEDICAID, SELFPAY | END 2021-12-30 12:01 | disposition home or self-care (01) | LOC: SLEEP 01-04 07:12 | PROVIDERS: PCP Family Medicine; Visit Provider Internal Medicine Critical Care Medicine | DX: G47.33 Obstructive sleep apnea (adult) (pediatric) (principal); E11.40 Type 2 diabetes mellitus with diabetic neuropathy, unspecified; E11.65 Type 2 diabetes mellitus with hyperglycemia; E11.59 Type 2 diabetes mellitus with other circulatory complications; I25.10 Atherosclerotic heart disease of native coronary artery without angina pectoris; F17.210 Nicotine dependence, cigarettes, uncomplicated; Z79.4 Long term (current) use of insulin; Z79.84 Long term (current) use of oral hypoglycemic drugs; Z79.899 Other long term (current) drug therapy | CPT/HCPCS: 94762; 99214 ==

== ENCOUNTER 2022-01-04 07:15 | Outpatient (CLI) | payer MEDICAID, SELFPAY ==
--- NOTE | 2022-01-04 13:35 | PFTS_ITS ---
Date of Study:01/04/22 Date of Dictation: MECHANICS: Forced vital capacity (FVC) is reduced. Forced expiratory volume in one second (FEV1) is reduced. FEV1/FVC is normal. FLOW VOLUME LOOP: Reduced L lung volumes. The patient had effort related problems during the forced expiratory maneuver. LUNG VOLUMES: Not measured DIFFUSING CAPACITY FOR CARBON MONOXIDE: Severely reduced. INTERPRETATION: The postbronchodilator spirometry is consistent with moderate restriction. There is no significant postbronchodilator response. Lung volumes are not measured. Gas exchange (DLCO) is severely reduced. The reduction in DLCO is disproportionate to the spirometry. This could be explained by combined obstructive and restrictive ventilatory defects. MTDD
== END 2022-01-04 07:16 | disposition home or self-care (01) ==
PROVIDERS: PCP Family Medicine; Visit Provider Internal Medicine Critical Care Medicine
DX: M50.020 Cervical disc disorder with myelopathy, mid-cervical region, unspecified level (principal)
CPT/HCPCS: 94060; 94729; J7614

== ENCOUNTER 2022-01-10 07:50 | Oncology outpatient (recurring) (ONCR) | payer MEDICAID, SELFPAY ==
--- NOTE | 2022-01-10 09:03 | N.ONRAD NP_ITS ---
Radiation Oncology Consultation Patient Name: Mayuri Davidson Date of : 1965 Date of Service: 01/10/2022 Attending Physician: Zack Carreon M.D. Mayuri Davidson was seen in consultation this morning at the request of Hernandez Cisneros M.D. for consideration of stereotactic ablative body radiotherapy for the management of a recently diagnosed non-small cell lung cancer. She was evaluated at the [facility]'s Emergency Department in October for chest pain with an abnormal stress test and dyspnea. A thoracic CT angiogram obtained on October 22, 2021 demonstrated a 1.5 cm, spiculated mass in the anterior aspect of the left upper lobe of the lung. Coronary angiography was performed with angioplasty of the right coronary artery and left anterior descending artery. A PET scan (independently visualized in Synapse) ordered on November 20, 2021 described a 1.8 cm x 1.6 cm, solid nodule at the apex of the left lung (SUV 14.8) without metastatic disease. A biopsy was not pursued considering the patient's high risk for developing pneumothorax and respiratory failure. Pulmonary function testing ordered on January 04, 2022 reported an FVC of 2.6 L (63% of predicted), an FEV1 of 1.9 L (58% of predicted), and a DLCO of 11.9 mL/min/mmHg (34% of predicted). The patient was evaluated for stereotactic ablative body radiotherapy. I discussed with Ms. Davidson the [place] [employer] specifically the patient's clinical stage IA2 (T1bN0) lung cancer corresponding to her disease. I also reviewed The National Comprehensive Cancer Network Guidelines recommending surgical resection in operable patients. However, for patients deemed medically inoperable, stereotactic radiotherapy is preferable. I canvassed the RTOG 0236 phase II trial that enrolled non-small cell lung cancer patients with peripheral T1 and T2 and medical conditions precluding surgical treatment to SABR. The 3-year primary tumor local control was 97% with an overall median survival of 48 months and the SPACE trial that randomized stage I non-small cell lung cancer patients to SABR or conventional fractionated radiotherapy. Progression free survival was improved and a significant decrement in adverse events was documented in the SABR treatment arm. I would endorse an ultra-hypofractionated course of stereotactic radiotherapy. I will order pulmonary function testing prior to treatment. A computed tomographic radiotherapy planning scan in the treatment position will be performed and co-registered to the patient's staging PET CT scan to identify the gross tumor volume. Additionally, a 4-dimensional computed tomographic will be acquired for radiotherapy planning to delineate the internal tumor volume positioning. The potential toxicities of stereotactic body radiotherapy to the lung were reviewed. The patient has verbalized understanding and would like to proceed as recommended. The patient's medical treatment plan was discussed with Hernandez Cisneros M.D. Signed by: Dr. Zack Carreon 01/10/2022 9:01:49 AM
== END 2022-01-30 23:59 | disposition home or self-care (01) ==
PROVIDERS: PCP Family Medicine; Visit Provider Radiology Radiation Oncology
DX: C34.12 Malignant neoplasm of upper lobe, left bronchus or lung (principal); R07.9 Chest pain, unspecified; R06.00 Dyspnea, unspecified; Z79.899 Other long term (current) drug therapy; Z87.891 Personal history of nicotine dependence
CPT/HCPCS: 99205

== ENCOUNTER 2022-02-09 08:54 | Oncology outpatient (recurring) (ONCR) | payer MEDICAID, SELFPAY ==
--- NOTE | 2022-02-02 | CT_ITS ---
Radiation Therapy Planning CT images; total exam DLP: 814.20 mGy-cm MTDD
--- NOTE | 2022-02-09 09:45 | N.ONRD TS_ITS ---
SABR Treatment Summary Patient Name: Mayuri Davidson Date of : 1965 Date of Service: 02/09/2022 Attending Physician: Zack Carreon M.D. Mayuri Davidson has completed stereotactic ablative body radiotherapy for the management of clinical stage IA2 (T1bN0) non-small cell lung cancer. She was evaluated at the [facility]'s Emergency Department in October for chest pain with an abnormal stress test and dyspnea. A thoracic CT angiogram obtained on October 22, 2021 demonstrated a 1.5 cm, spiculated mass in the anterior aspect of the left upper lobe of the lung. A PET scan ordered on November 20, 2021 described a 1.8 cm x 1.6 cm, solid nodule at the apex of the left lung (SUV 14.8) without metastatic disease. A biopsy was not pursued considering the patient's high risk for developing pneumothorax and respiratory failure. Pulmonary function testing ordered on January 04, 2022 reported an FVC of 2.6 L (63% of predicted), an FEV1 of 1.9 L (58% of predicted), and a DLCO of 11.9 mL/min/mmHg (34% of predicted). SABR was delivered between the dates of February 04, 2022 through February 09, 2022. A prescribed dose of 54 Gy was delivered in three fractions encompassing 6 elapsed days. The left upper-lobe lesion was treated utilizing an intensity modulated radiotherapy plan with a step and shoot treatment technique. The plan required seven gantry angles (0???, 30???, 50???, 150???, 170???, 190???, and 330???) with a collimator rotation of 0??? in a partial arc design. The field sizes measured spanned 6.3 cm x 6 cm to 6.6 cm x 6 cm. The SSDs measured a minimum of 85.5 cm to a maximum of 91 cm. The ports delivered 1319 MU, 1133 MU, 1074 MU, 706 MU, 910 MU, 987 MU, and 970 MU corresponding to the gantry angles described. Low energy photons were prescribed. All treatments were performed with the MoneyExpert linear accelerator and an isocentric technique. Low energy photons were prescribed. The dose was calculated by Anisotropic Analytic Algorithm with the plan normalized to deliver 100% of the prescription dose to 95% of the planning target volume. Signed by: Dr. Zack Carreon 02/09/2022 9:43:58 AM
--- NOTE | 2022-02-09 10:16 | ONCRAD TMN_ITS ---
SABR Treatment Management Note Patient Name: Mayuri Davidson Date of : 1965 Date of Service: 02/09/2022 Attending Physician: Zack Carreon M.D. Mayuri Davidson is a 56 year-old white female diagnosed with a clinical stage IA2 (T1bN0) non-small cell lung cancer. She was evaluated at the [facility]'s Emergency Department in October for chest pain with an abnormal stress test and dyspnea. A thoracic CT angiogram obtained on October 22, 2021 demonstrated a 1.5 cm, spiculated mass in the anterior aspect of the left upper lobe of the lung. A PET scan ordered on November 20, 2021 described a 1.8 cm x 1.6 cm, solid nodule at the apex of the left lung (SUV 14.8) without metastatic disease. A biopsy was not pursued considering the patient's high risk for developing pneumothorax and respiratory failure. Pulmonary function testing ordered on January 04, 2022 reported an FVC of 2.6 L (63% of predicted), an FEV1 of 1.9 L (58% of predicted), and a DLCO of 11.9 mL/min/mmHg (34% of predicted). The patient has received 54 Gy of a prescribed 54 Pena (SABR) delivered with an intensity modulated radiotherapy plan utilizing a step and shoot treatment technique. Upon review of systems, she denied any changes in her pulmonary function. On physical examination, the patient weighed 212 lbs. Her temperature was 98.1 ???F and the blood pressure was 108/76 mmHg. The pulse was 64 bpm and her respiratory rate was 18. Oxygen saturation was 93% with supplemental oxygen. There was no erythema within the treatment navarro. Stereotactic ablative body radiotherapy was completed today. She will return for post-radiotherapy evaluation in 1 month. Signed by: Dr. Zack Carreon 02/09/2022 10:15:37 AM
== END 2022-03-02 23:59 | disposition home or self-care (01) ==
PROVIDERS: PCP Family Medicine; Visit Provider Radiology Radiation Oncology
DX: Z51.0 Encounter for antineoplastic radiation therapy (principal); C34.12 Malignant neoplasm of upper lobe, left bronchus or lung
CPT/HCPCS: 77300; 77301; 77334; 77336; 77338; 77373; 77470

== ENCOUNTER → 2022-03-04 09:10 | Outpatient (BNVA) | payer MEDICAID, SELFPAY | PROVIDERS: PCP Family Medicine; Visit Provider Internal Medicine Critical Care Medicine | DX: J43.9 Emphysema, unspecified (principal); R91.1 Solitary pulmonary nodule; J96.11 Chronic respiratory failure with hypoxia; G47.33 Obstructive sleep apnea (adult) (pediatric); E11.59 Type 2 diabetes mellitus with other circulatory complications; I25.10 Atherosclerotic heart disease of native coronary artery without angina pectoris; Z87.891 Personal history of nicotine dependence; Z79.4 Long term (current) use of insulin; Z99.81 Dependence on supplemental oxygen | CPT/HCPCS: 99214 ==

== ENCOUNTER → 2022-03-22 10:55 | Outpatient (BNVA) | payer MEDICAID, SELFPAY | PROVIDERS: PCP Family Medicine; Visit Provider Internal Medicine Cardiovascular Disease | DX: R06.02 Shortness of breath (principal); I25.10 Atherosclerotic heart disease of native coronary artery without angina pectoris; J96.11 Chronic respiratory failure with hypoxia; G47.33 Obstructive sleep apnea (adult) (pediatric); E11.65 Type 2 diabetes mellitus with hyperglycemia; I10 Essential (primary) hypertension; E78.2 Mixed hyperlipidemia; Z87.891 Personal history of nicotine dependence; Z79.4 Long term (current) use of insulin | CPT/HCPCS: 36415; 80048; 83880; 99214 ==

== ENCOUNTER → 2022-03-31 07:57 | Outpatient (BNVA) | payer MEDICAID, SELFPAY | PROVIDERS: PCP Family Medicine; Visit Provider Internal Medicine | DX: E11.65 Type 2 diabetes mellitus with hyperglycemia (principal); E11.40 Type 2 diabetes mellitus with diabetic neuropathy, unspecified; E11.59 Type 2 diabetes mellitus with other circulatory complications; I25.10 Atherosclerotic heart disease of native coronary artery without angina pectoris; E78.2 Mixed hyperlipidemia; Z79.4 Long term (current) use of insulin; Z79.84 Long term (current) use of oral hypoglycemic drugs; Z87.891 Personal history of nicotine dependence | CPT/HCPCS: 99214 ==

== ENCOUNTER 2022-05-04 06:22 | Outpatient (CLI) | payer MEDICAID, SELFPAY ==
--- NOTE | 2022-05-04 07:00 | CT_ITS ---
WS: [id number] CT CHEST TECHNIQUE: Noncontrast CT of the chest with coronal and sagittal reformatted images. CLINICAL INFORMATION: Evaluate post-SABR JESSICA nodule COMPARISON: PET/CT November 20, 2021, CTA chest October 22, 2021 DLP: 746.[address] scans at [facility] use at least one of these dose optimization techniques: automated e xposure control; mA and/or kV adjustment per patient size (includes targeted exams where dose is matc hed to clinical indication); or iterative reconstruction. FINDINGS: Advanced chronic emphysematous changes with background of interstitial lung disease. Traction bronchi ectasis more prominent in the LEFT upper lobe. Spiculated nodule in the LEFT lung apex measuring 12 x 15mm not significantly changed. This appears slightly less prominent today which may be due to techn ique and slice thickness. Bilateral centrilobular and paraseptal emphysematous change worse in the up per lobes. Calcified granulomas. No mediastinal or hilar lymphadenopathy. Aortic calcification. Coronary calcification. Prominent mediastinal and pretracheal lymph nodes are u nchanged. These demonstrated low-grade FDG activity on the prior PET/CT. Adrenal glands are normal. Splenic artery calcification. Normal GE junction. No axillary lymphadenopa thy. IMPRESSION: 1. Spiculated nodule LEFT upper lobe at the lung apex anteriorly not significantly changed. This alexander sures 1-2 mm smaller today some of which may be due to technique and slice thickness. Findings remain suspicious for neoplasm. Recommend Continued surveillance. 2. Prominent anterior mediastinal and paratracheal lymph nodes are unchanged. 3. Aortic calcification. Coronary calcification. 4. No other significant changes compared to previous.
== END 2022-05-04 06:23 | disposition home or self-care (01) ==
LOC: RAD 06:23
PROVIDERS: PCP Family Medicine; Visit Provider Radiology Radiation Oncology
DX: C34.90 Malignant neoplasm of unspecified part of unspecified bronchus or lung (principal); I70.0 Atherosclerosis of aorta; I25.10 Atherosclerotic heart disease of native coronary artery without angina pectoris
CPT/HCPCS: 71250

== ENCOUNTER 2022-05-13 07:40 | Oncology outpatient (recurring) (ONCR) | payer MEDICAID, SELFPAY ==
--- NOTE | 2022-05-13 08:26 | ONCRAD EPV_ITS ---
Radiation Oncology Follow-Up Note Patient Name: Mayuri Davidson Date of : 1965 Date of Service: 05/13/2022 Attending Physician: Zack Carreon M.D. Mayuri Davidson returned to my office this morning for a routinely scheduled follow-up appointment. She completed stereotactic ablative body radiotherapy in January for the management of clinical stage IA2 (T1bN0) non-small cell lung cancer. She was evaluated at the [facility]'s Emergency Department in October for chest pain with an abnormal stress test and dyspnea. A thoracic CT angiogram obtained on October 22, 2021 demonstrated a 1.5 cm, spiculated mass in the anterior aspect of the left upper lobe of the lung. A PET scan ordered on November 20, 2021 described a 1.8 cm x 1.6 cm, solid nodule at the apex of the left lung (SUV 14.8) without metastatic disease. A biopsy was not pursued considering the patient's high risk for developing pneumothorax and respiratory failure. Pulmonary function testing ordered on January 04, 2022 reported an FVC of 2.6 L (63% of predicted), an FEV1 of 1.9 L (58% of predicted), and a DLCO of 11.9 mL/min/mmHg (34% of predicted). SABR was delivered between the dates of February 04, 2022 through February 09, 2022. A prescribed dose of 54 Gy was delivered in three fractions encompassing [address] scan (independently reviewed in [facility]) ordered on May 04, 2022 identified no significant change in the apical nodule of the left lung. On review of systems, she reported a slight increase in dyspnea, however, she has not increased her oxygen flow rate. On physical examination, she weighed 212 lbs. The temperature was 97.1???F and her blood pressure was 104/70 mmHg. The pulse was 111 bpm and her respiratory rate was 20 breaths per minute. Oxygen saturation while breathing 2L via nasal cannula was 23 %. Decreased breath sounds were auscultated. In summary, Ms. Davidson returned for a routine post-radiotherapy follow-up. She will continue follow-up consistent with NCCN Guidelines. I will order a thoracic CT scan in 3 months. Signed by: Dr. Zack Carreon 05/13/2022 8:25:37 AM
== END 2022-06-01 23:59 | disposition home or self-care (01) ==
PROVIDERS: PCP Family Medicine; Visit Provider Radiology Radiation Oncology
DX: Z08 Encounter for follow-up examination after completed treatment for malignant neoplasm (principal); Z85.118 Personal history of other malignant neoplasm of bronchus and lung; Z92.3 Personal history of irradiation; R06.00 Dyspnea, unspecified; Z87.891 Personal history of nicotine dependence
CPT/HCPCS: 99213

== ENCOUNTER 2022-05-16 09:08 | Outpatient (CLI) | payer MEDICAID, SELFPAY ==
--- NOTE | 2022-05-16 09:19 | XR_ITS ---
WS: [id number] Exam: XR lumbar spine 2-3V* [id number] Date/Time of Exam: 05/16/2022 9:29 AM Reason For Exam: LOW BACK PAIN/L UPPER LOBE LUNG CANCER Comparison 01/18/2013. No acute fracture or dislocation. Disc spaces are relatively well maintained. Posterior elements are intact. Mild facet DJD at L5-S1. Mild spondylosis at all levels. Slight dextroscoliosis. XR/XR lumbar spine 2-3V* [id number] IMPRESSION: 1. No fracture or malalignment. 2. Minimal degenerative changes and mild scoliosis.
--- NOTE | 2022-05-16 09:19 | XR_ITS ---
WS: [id number] Exam: XR thoracic spine 3V* [id number] Date/Time of Exam: 05/16/2022 9:29 AM Reason For Exam: LOW BACK PAIN No acute fracture or dislocation. Mild spondylosis. No scoliosis noted. Paraspinal soft tissues are u nremarkable. Advanced emphysematous changes noted in the visualized lung zones. XR/XR thoracic spine 3V* [id number] IMPRESSION: 1. No fracture or malalignment. Minimal DJD.
== END 2022-05-16 09:09 | disposition home or self-care (01) ==
PROVIDERS: PCP Family Medicine; Visit Provider Family Medicine
DX: M47.894 Other spondylosis, thoracic region (principal); M47.896 Other spondylosis, lumbar region; M41.86 Other forms of scoliosis, lumbar region; M54.50 Low back pain, unspecified; M54.6 Pain in thoracic spine
CPT/HCPCS: 72072; 72100

== ENCOUNTER 2022-06-02 16:59 | Inpatient (IN) | payer MEDICAID, SELFPAY ==
--- NOTE | 2022-06-02 17:12 | ECG_ITS ---
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 Measurements Intervals [employer] Rate: 121 P: 58 AK: 142 QRS: 129 QRSD: 94 T: -4 QT: 338 QTc: 481 Interpretive Statements SINUS TACHYCARDIA POSSIBLE RIGHT VENTRICULAR HYPERTROPHY ST DEVIATION AND MODERATE T-WAVE ABNORMALITY, CONSIDER ANTERIOR ISCHEMIA Compared to ECG 10/22/2021 12:15:21 T-wave abnormality now present Possible ischemia now present ST (T wave) deviation no longer present Myocardial infarct finding no longer present Electronically Signed On 06-04-2022 7:58:29 FUDGE CANDY MAKER by Enid Hood M.D. [id number] f
--- NOTE | 2022-06-02 17:15 | XRR_ITS ---
PROCEDURE INFORMATION: Exam: XR Chest Exam date and time: 06/02/2022 5:27 PM Age: 57 years old Clinical indication: Angina pectoris and chest pressure and chest wall pain; Patient HX: SOB; Additional info: Left scapular pain TECHNIQUE: Imaging protocol: Radiologic exam of the chest. Views: 1 view. COMPARISON: CT chest con [id number] 05/04/2022 6:30 AM FINDINGS: Lungs: There is subpleural and lower lung predominant fine reticular opacity consistent with chronic fibrotic interstitial lung disease. There is no consolidation. Pleural spaces: There is no pleural effusion or pneumothorax. Heart/Mediastinum: There is mild enlargement of the cardiac silhouette. Bones/joints: Bones are unremarkable. XR/XR chest 1V portable [id number] IMPRESSION: 1. No acute findings. 2. Chronic fibrotic interstitial lung disease.
--- NOTE | 2022-06-02 17:18 | W.ED.CHESTPA ---
HPI - Chest Pain General: Chief Complaint: Chest Pain Stated Complaint: RESPIRATORY DISTRESS/ CP Time Seen by Provider: 06/02/22 17:04 Source: patient Mode of arrival: EMS Limitations: no limitations History of Present Illness: Patient was transported from her home by EMS. She states she is in her normal state of health and approximately 12 PM today she developed left scapular pain. She states it is very intense and feels like someone is punching in her left scapula. She states it does not feel like her pain that she has had with her MIs in the past as she had pain in way down her left arm with those episodes. She states has been faithful to all her medications. She denies any trauma today to her left arm or scapula. She states that she went to [facility] but when she goes to [facility] she uses a electric cart and does not do any heavy lifting etc. She states she quit smoking approximately 3 months ago. She does have a history of COPD and does wear oxygen at 2 L per nasal cannula at home. She denies any recent illness. She is states she has had prior lung cancer treated with radiation therapy. She denies any history of thromboembolic events. She denies any exposure to infectious disease. Pertinent past history: coronary artery disease Pain location: posterior (Left scapula) Pain radiation: none Associated symptoms: Deny abdominal pain, dyspnea, fever(s), nausea, palpitations, syncope or vomiting Risk Factors: Coronary artery disease risk factors: smoking history Review of Systems Const: Denies: fever(s) or chills Eyes: Denies: change in vision ENMT: Denies: throat pain, odynophagia, nasal discharge, nasal congestion or nasal obstruction Card: Denies: chest pain, palpitations, irregular heart rhythm, edema, syncope, pre-syncope or dyspnea on exertion Resp: Denies: dyspnea, productive cough, non-productive cough, wheezing or stridor GI: Denies: abdominal pain, nausea, vomiting or diarrhea : Denies: flank pain, difficulty voiding or dysuria Musc: Reports: back pain; Denies: neck pain, extremity pain or extremity swelling Skin/Breast: Denies: rash Neuro: Denies: headache(s), numbness in extremities or weakness in extremities Endo: Denies: polyuria or polydipsia PFSH ED PFSH: Medical History ASHD (arteriosclerotic heart disease) Cervical disc disease Cervical disc disorder with myelopathy of mid-cervical region Diabetic neuropathy Hyperlipidemia Hypertension Neck pain of over 3 months duration Smoking 1/2 pack a day or less Stenosis of cervical spine with myelopathy Surgical History History of heart surgery June 2007, August 2012 History of PTCA S/P tonsillectomy Family History Mother Diabetes Father Heart disease Brother CAD (coronary artery disease) Family/Other CAD (coronary artery disease) Diabetes Grandfather CAD (coronary artery disease) Denies family history of Clotting disorder Dementia Chronic kidney disease (CKD) Suicide Anesthesia complication Bleeding disorder Lung disease Cancer Stroke Social History Smoking and tobacco status: former smoker Alcohol intake: never Lives independently: Yes Household members: family Housing: House Marital status: service: No Current occupational status: disabled History of recent travel: No Physical Exam Narrative: EXAM NARRATIVE: She is alert makes good eye contact. Speech is goal-directed. Const: COMMON NORMALS: no acute distress, patient oriented x3 and alert GENERAL APPEARANCE: cooperative NUTRITIONAL APPEARANCE: overweight HENMT: COMMON NORMALS: normocephalic, Normal nasal mucous membranes and turbinates present, moist oral mucous membranes and oropharynx normal HEAD & SCALP: normocephalic NOSE: Normal nasal mucous membranes and turbinates present Eye: COMMON NORMALS: Equal, round and reactive pupils present, EOMs intact bilaterally and conjunctivae normal CONJUNCTIVA: Yes conjunctivae normal PUPIL: Yes Equal, round and reactive pupils present Neck/C-Spine: COMMON NORMALS: full ROM, no lymphadenopathy, no JVD and No carotid bruits CERVICAL SPINE: Yes cervical ROM normal, No Cervical spine tenderness, No Paracervical muscle tenderness, No Paracervical spasm and No Trapezius muscle tenderness Chest: COMMONS NORMALS: normal inspection of the chest and normal palpation of entire chest wall Resp: COMMON NORMALS: normal respiratory effort, No use of accessory muscles and clear to auscultation bilaterally AUSCULTATION: clear to auscultation bilaterally Cardio: COMMON NORMALS: no JVD, regular rate and Peripheral pulses 2+ throughout RATE: regular rate HEART SOUNDS: Murmur heart sound present (2/6) systolic PERIPHERAL PULSES: Peripheral pulses 2+ throughout GI: COMMON NORMALS: Normal to inspection, nondistended, normoactive bowel sounds present, Soft to palpation, non-tender, no masses and no bruits PALPATION: Yes Soft to palpation : COMMON NORMALS: Yes no CVA tenderness BLADDER/KIDNEY EXAM: Yes no CVA tenderness Back/Pelvis: COMMON NORMALS: no CVA tenderness, thoracic and lumbar spine normal to inspection and no thoracic nor lumbar tenderness OTHER: Area of subjective tenderness of the skin of the left scapula. No gross abnormalities noted. No other tenderness in the axial spine. BACK IMAGE (FEMALE): 1. Area of tenderness. No erythema, skin rash, ecchymosis etc. Extremity: COMMON NORMALS: normal to inspection, full ROM, capillary refill normal, no calf tenderness and no pedal edema Neuro: COMMON NORMALS: patient oriented x3, moves all extremities, no focal motor deficits and no sensory deficits noted SENSORIUM/ORIENTATION: Yes alert CRANIAL NERVES: Yes CN normal except as noted Psych: COMMON NORMALS: mental status grossly normal Skin: COMMON NORMALS: no rashes or lesions noted, no wounds, turgor normal and no jaundice GENERAL SKIN EXAM: no rashes or lesions noted and turgor normal Course Reevaluation(s): Reevaluation #1: Patient states that her pain is markedly improved but still having some discomfort. CTA was unrevealing for any findings of pulmonary embolus etc. Her EKGs reveal inverted T waves in the anterior leads. This combined with her elevated troponin suggest possible ACS. We will proceed with increased symptom control. Time: 21:13 Consultations: Consultation #1: Discussed with on-call cardiology who recommended continue with symptom control unless #1 her symptoms or not controlled #2 she has a marked increase in a third troponin and then consideration for intervention. Time: 21:20 Consultation #2: Discussed with on-call overnight hospitalist who agreed to admit patient and continue therapy. Time: 21:39 Vital Signs: Vital signs: Vital Signs Pulse Rate 112 H 06/02/22 22:02 Respiratory Rate 26 H 06/02/22 22:02 Blood Pressure 130/74 06/02/22 22:02 Pulse Oximetry 88 L 06/02/22 22:02 Oxygen Delivery Me thod 06/02/22 22:02 Oxygen Flow Rate 4 06/02/22 22:02 MDM - Chest Pain Medical Decision Making Patient presented with left scapular pain of approximately 2 to 3 hours duration prior to arrival. She has known history of coronary artery disease as well as diabetes. Unusual pain for her but there is no other trauma or other clinical findings to suggest etiology. Work-up ensued to include cardiac work-up, CTA due to elevated D-dimer. She did have EKG changes anteriorly with inverted T's and suggestion of slight elevation in ST segment in aVR. Consult television news reporter was consulted and the initial plan is to continue with symptom control with IV nitroglycerin, morphine etc. intervention likely indicated should she have increasing troponin, continued pain or other EKG changes. Stable at this time. Lab Data 06/02/22 17:54 06/02/22 17:54 Radiology Impressions Chest X-Ray 06/02/22 17:15 IMPRESSION: 1. No acute findings. 2. Chronic fibrotic interstitial lung disease. Chest CTA 06/02/22 19:13 IMPRESSION: 1. No pulmonary embolism. 2. Chronic fibrotic interstitial lung disease, similar to 10/22/2021. 3. Decreased size of a right apical pulmonary nodule or scar. Fleischner Society follow up recommendations for incidental nodules are not indicated. Follow up per the patient's medical condition. 4. Moderate paraseptal emphysema. Laboratory Results WBC 11.0 10^3/uL (4.0-10.0) H 06/02/22 17:54 RBC 5.09 10^6/uL (4.1-5.3) 06/02/22 17:54 Hgb 15.6 g/dL (11.5-15.3) H 06/02/22 17:54 Hct 49.4 % (37.0-47.0) H 06/02/22 17:54 MCV 97.1 fl (81-99) 06/02/22 17:54 MCH 30.6 pg (28.0-34.0) 06/02/22 17:54 MCHC 31.6 g/dL (30.0-36.0) 06/02/22 17:54 RDW 16.1 % (12.1-15.1) H 06/02/22 17:54 Plt Count 226 10^3/cmm (130-400) 06/02/22 17:54 MPV 9.9 fL (7.4-10.4) 06/02/22 17:54 Neut % (Auto) 77.6 % 06/02/22 17:54 Lymph % (Auto) 14.3 % 06/02/22 17:54 [place] % (Auto) 6.9 % 06/02/22 17:54 Eos % (Auto) 0.4 % 06/02/22 17:54 Baso % (Auto) 0.4 % 06/02/22 17:54 Neut # (Auto) 8.58 10^3/uL (1.8-7.7) H 06/02/22 17:54 Lymph # (Auto) 1.6 10^3/uL (0.8-4.8) 06/02/22 17:54 [place] # (Auto) 0.8 10^3/uL (0.2-0.9) 06/02/22 17:54 Eos # (Auto) 0.0 10^3/uL (0.0-0.8) 06/02/22 17:54 Baso # (Auto) 0.0 10^3/uL (0.0-0.1) 06/02/22 17:54 Nucleated RBC % (auto) 0 % 06/02/22 17:54 Nucleated RBCs # 0.0 /100WBC 06/02/22 17:54 D-Dimer 0.96 ug/mIFEU (0-0.59) H 06/02/22 17:54 Sodium 137 mmol/L (136-145) 06/02/22 17:54 Potassium 4.3 mmol/L (3.5-5.1) 06/02/22 17:54 Chloride 104 mmol/L (98-107) 06/02/22 17:54 Carbon Dioxide 21 mmol/L (22-29) L 06/02/22 17:54 Anion Gap 16.3 (5-19) 06/02/22 17:54 BUN 13 mg/dL (6-20) 06/02/22 17:54 Creatinine 0.6 mg/dL (0.5-0.9) 06/02/22 17:54 GFR Calculation 102.3 mL/min (90-130) 06/02/22 17:54 Glucose 166 mg/dL (65-115) H 06/02/22 17:54 Calculated Osmolality 288 mOsm/kg (285-295) 06/02/22 17:54 Calcium 9.4 mg/dL (8.5-10.5) 06/02/22 17:54 Total Bilirubin 0.9 mg/dL (0.15-1.2) 06/02/22 17:54 AST 50 U/L (0-32) H 06/02/22 17:54 ALT 63 U/L (0-33) H 06/02/22 17:54 Alkaline Phosphatase 179 U/L (35-105) H 06/02/22 17:54 Troponin T Baseline 75 ng/L (0-10) H 06/02/22 17:54 Troponin T 120 Minute 81.57 ng/L (0-10) H 06/02/22 20:07 Delta Troponin T 6.57 ABS# (0-10) 06/02/22 20:07 Total Protein 7.8 g/dL (6.6-8.7) 06/02/22 17:54 Albumin 3.6 g/dL (3.5-5.2) 06/02/22 17:54 Globulin 4.2 g/dL (1.3-4.6) 06/02/22 17:54 EKG Data EKG 1: I personally reviewed and interpreted this EKG as follows: Interpretation: EKG reveals a sinus tachycardia 121 bpm. He has normal RI interval normal QRS duration. Normal QTC. She does have inverted T waves V3 V4 which is a change from prior EKGs within our system. No other acute ST-T wave changes noted. Discharge Plan Discharge Patient Disposition: Admitted As Inpatient Admit Provider: Swetha Longo Clinical Impression: ACS (acute coronary syndrome) Condition: Stable Coding Level of Care Code ED Brick Chimney Supervisor for Chg Fwd Exam Comprehensive
[2022-06-02 17:36] VITALS: BP 151/92; PULSE 114; RESP 26; O2SAT 93; BMI 27.1
[2022-06-02] MEDS: morphine 4 mg/mL SDV 1 mL IVP (17:44)
[2022-06-02 17:47] VITALS: BP 136/87; PULSE 112; RESP 23; O2SAT 90
[2022-06-02 18:16] LABS: Basophils % 0.4 %; Eosinophils % 0.4 %; Hematocrit 49.4 % (37.0-47.0); Hemoglobin 15.6 g/dL (11.5-15.3); Lymphocytes # 1.6 10^3/uL (0.8-4.8); Lymphocytes % 14.3 %; Mean Corpuscular HGB Conc 31.6 g/dL (30.0-36.0); Mean Corpuscular Hemoglobin 30.6 pg (28.0-34.0); Mean Corpuscular Volume 97.1 fl (81-99); Mean Platelet Volume 9.9 fL (7.4-10.4); Monocytes # 0.8 10^3/uL (0.2-0.9); Monocytes % 6.9 %; Neutrophils # 8.58 10^3/uL (1.8-7.7); Neutrophils % 77.6 %; Nucleated Red Blood Cells % 0 %; Platelet Count 226 10^3/cmm (130-400); Red Blood Count 5.09 10^6/uL (4.1-5.3); Red Cell Distribution Width 16.1 % (12.1-15.1)
[2022-06-02 18:32] LABS: D Dimer 0.96 ug/mIFEU (0-0.59)
[2022-06-02 18:35] LABS: Troponin(5th) Baseline 75 ng/L (0-10)
[2022-06-02 18:37] LABS: Alanine Aminotransferase 63 U/L (0-33); Albumin Level 3.6 g/dL (3.5-5.2); Alkaline Phosphatase 179 U/L (35-105); Anion Gap 16.3 (5-19); Aspartate Amino Transferase 50 U/L (0-32); Blood Urea Nitrogen 13 mg/dL (6-20); Calcium 9.4 mg/dL (8.5-10.5); Carbon Dioxide 21 mmol/L (22-29); Chloride 104 mmol/L (98-107); Globulin 4.2 g/dL (1.3-4.6); Glomerular Filtration Rate 102.3 mL/min (90-130); Glucose 166 mg/dL (65-115); Osmolality Calculated 288 mOsm/kg (285-295); Potassium 4.3 mmol/L (3.5-5.1); Sodium 137 mmol/L (136-145); Total Bilirubin 0.9 mg/dL (0.15-1.2); Total Protein 7.8 g/dL (6.6-8.7)
[2022-06-02 18:41] VITALS: BP 136/80; PULSE 109; RESP 30; O2SAT 90
--- NOTE | 2022-06-02 19:13 | CTR_ITS ---
PROCEDURE INFORMATION: Exam: CTA Chest With Contrast Exam date and time: 06/02/2022 8:13 PM Age: 57 years old Clinical indication: Shortness of breath; Left-sided; Prior surgery; Surgery type: Cardiac stent; Patient HX: C/O left sided chest pain with SOB. Elevated d dimer. History of lung cancer. ; Additional info: Left chest/scalpula pain elevated dimer TECHNIQUE: Imaging protocol: Computed tomographic angiography of the chest with contrast. 3D rendering (Not supervised by radiologist): MIP and/or 3D reconstructed images were created by the technologist. Radiation optimization: All CT scans at this facility use at least one of these dose optimization techniques: automated exposure control; mA and/or kV adjustment per patient size (includes targeted exams where dose is matched to clinical indication); or iterative reconstruction. Contrast material: OMNI 350; Contrast volume: 95 ml; Contrast route: INTRAVENOUS (IV); COMPARISON: CT angio chest PE protcl [id number] 10/22/2021 10:50 AM RADIATION DOSE METRICS: Total DLP (mGy-cm): 481.35 FINDINGS: Pulmonary arteries: The pulmonary arteries are adequately opacified for evaluation to the subsegmental level. There is no filling defect to suggest embolism. Aorta: There is mild aortic atherosclerotic disease. Lungs: There is decreased size of a subpleural nodule in the right apex measuring 17 x 9 mm currently compared with compared to 18 x 13 mm on 10/22/2021. There is moderate upper lung predominant paraseptal emphysema. There is lower lung predominant subpleural fine reticular opacity, similar to the findings on 10/22/2021. Pleural spaces: Unremarkable. No pneumothorax. No pleural effusion. Heart: There is mild cardiac enlargement. There is no pericardial effusion. There is moderate coronary artery calcification. Lymph nodes: Diffusely prominent mediastinal lymph nodes are stable since 10/22/2021. Intraperitoneal space: Visible structures in the upper abdomen are unremarkable. Bones/joints: Bones are unremarkable. Soft tissues: The extrathoracic soft tissues are unremarkable. CT/CT angio chest PE protcl [id number] IMPRESSION: 1. No pulmonary embolism. 2. Chronic fibrotic interstitial lung disease, similar to 10/22/2021. 3. Decreased size of a right apical pulmonary nodule or scar. Fleischner Society follow up recommendations for incidental nodules are not indicated. Follow up per the patient's medical condition. 4. Moderate paraseptal emphysema.
--- NOTE | 2022-06-02 19:38 | ECG_ITS ---
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 Measurements Intervals [place] Rate: 107 P: 52 MI: 141 QRS: 122 QRSD: 94 T: 2 QT: 346 QTc: 463 Interpretive Statements SINUS TACHYCARDIA POSSIBLE LEFT ATRIAL ENLARGEMENT [-0.1mV P-WAVE IN V1/V2] INCOMPLETE RIGHT BUNDLE BRANCH BLOCK POSSIBLE INFERIOR MYOCARDIAL INFARCTION , PROBABLY OLD Compared to ECG 10/22/2021 12:15:21 Incomplete right bundle-branch block now present ST (T wave) deviation no longer present Myocardial infarct finding still present Electronically Signed On 06-04-2022 7:58:10 STAMPING MACHINE OPERATOR by Enid Hood M.D. [id number]
[2022-06-02] MEDS: iohexol 350 mg/mL 500 mL Btl (per mL) IV (20:18)
[2022-06-02 20:33] LABS: Troponin 5 2HR 81.57 ng/L (0-10)
[2022-06-02 20:49] LABS: Troponin 5 2HR Delta 6.57 ABS# (0-10)
[2022-06-02] MEDS: enoxaparin 100 mg/mL Syringe 90 MG SUBCUT (21:32)
--- NOTE | 2022-06-02 21:50 | P.HP_ITS ---
Providers/Chief Complaint Primary Care Provider: Sujit Hernandez MD Chief Complaint: RESPIRATORY DISTRESS/ CP History of Present Illness Mayuri Davidson is a 57 year old female with history of lung cancer status post 3 cycles of radiotherapy scented today with chief complaint of left-sided shoulder pain. Patient is stating that today she went to the city to pay her bills and when she came home she was resting when she started noticing left- sided shoulder pain which was radiating towards her left axilla and then left breast area, she is describing this pain as heaviness, constant in nature which has not resolved until she was started on nitroglycerin drip in the ER. She has not noticed any nausea, vomiting, cold-like symptoms. CT scan in the ER was done because of high D-dimer which did not show any signs of PE, cardiology consulted by the ER physician, she has been given therapeutic Lovenox. Patient had coronary angiogram in October of this year. She takes dual antiplatelet therapy. She follows up with Dr. Sloan. Review of Systems Const: Denies: fever(s) Eyes: Denies: change in vision ENMT: Denies: throat pain Card: Reports: chest pain Resp: Denies: dyspnea GI: Denies: abdominal pain : Denies: flank pain Musc: Denies: neck pain Skin/Breast: Denies: rash Neuro: Denies: headache(s) Psych: Denies: anxiety Endo: Denies: polyuria Barrie/Lymph: Denies: easy bruising All/Imm: Denies: urticaria Medications/Allergies Home Medications Medication Instructions Recorded Confirmed Last Taken Type inhalational spacing device #1 ea 07/19/19 03/31/22 Unknown History (Aerochamber Mini) esomeprazole magnesium 20 mg 20 mg PO DAILY 10/22/21 03/31/22 10/22/21 History capsule,delayed release (Nexium) vit no.95-ferrous 1 tab PO DAILY 10/22/21 03/31/22 10/22/21 History fumarate 28 mg-folic acid 800 mcg tablet () aspirin 81 mg tablet,delayed 81 mg PO DAILY 30 days #30 tabs 10/24/21 03/31/22 Unknown Rx release (Adult Low Dose Aspirin) atorvastatin 40 mg tablet 40 mg PO DAILY 30 days #30 tabs 10/24/21 03/04/22 Unknown Rx clopidogrel 75 mg tablet 75 mg PO QDAY 30 days #30 tabs 10/24/21 03/31/22 Unknown Rx varenicline 1 mg tablet 1 mg PO BID 12/03/21 03/31/22 Unknown History furosemide 20 mg tablet (Lasix) 20 mg PO DAILY #90 tabs 12/29/21 03/31/22 Unknown Rx potassium chloride 8 mEq 8 meq PO DAILY #90 tabs 12/29/21 03/31/22 Unknown Rx tablet,extended release dapagliflozin 10 mg tablet 10 mg PO QAM 90 days #90 tabs 12/30/21 03/04/22 Unknown Rx (Farxiga) glipizide 5 mg tablet 5 mg PO DAILY 3 months #90 tabs 12/30/21 03/31/22 Unknown Rx metformin 500 mg tablet,extended 1,000 mg PO BID 90 days #360 tabs 12/30/21 03/31/22 Unknown Rx release 24 hr insulin detemir U-100 100 unit/mL 56 unit (0.56 mL) SUBCUT DAILY 90 04/04/22 04/04/22 Unknown Rx (3 mL) subcutaneous pen (Levemir days #55 mL FlexTouch U-100 Insulin) benzonatate 100 mg capsule 100 mg PO TID PRN cough #90 caps 04/29/22 Unknown Rx ipratropium 0.5 mg-albuterol 3 mg 3 ml inhalation Q6H PRN wheezing 05/24/22 Unknown Rx (2.5 mg base)/3 mL nebulization #360 mL soln Allergies Allergy/AdvReac Type Severity Reaction Status Date / Time Penicillins Allergy Unknown Verified 03/31/22 08:31 PFSH Acute PFSH: Medical History ASHD (arteriosclerotic heart disease) Cervical disc disease Cervical disc disorder with myelopathy of mid-cervical region Diabetic neuropathy Hyperlipidemia Hypertension Neck pain of over 3 months duration Smoking 1/2 pack a day or less Stenosis of cervical spine with myelopathy Surgical History History of heart surgery June 2007, August 2012 History of PTCA S/P tonsillectomy Family History Mother Diabetes Father Heart disease Brother CAD (coronary artery disease) Family/Other CAD (coronary artery disease) Diabetes Grandfather CAD (coronary artery disease) Denies family history of Clotting disorder Dementia Chronic kidney disease (CKD) Suicide Anesthesia complication Bleeding disorder Lung disease Cancer Stroke Social History Smoking and tobacco status: former smoker Alcohol intake: never Lives independently: Yes Household members: family Housing: House Marital status: service: No Current occupational status: disabled History of recent travel: No Vitals/I&O/Wt Last Vital Signs Pulse 109 H 06/02/22 18:41 Resp 30 H 06/02/22 18:41 BP 136/80 06/02/22 18:41 Pulse Ox 90 06/02/22 18:41 O2 Del Method 06/02/22 18:41 O2 Flow Rate 6 06/02/22 18:41 Weight last 48 hrs Weight 90.718 kg Physical Exam Narrative: Patient is awake and alert Sinus tachycardia Hypertensive Currently on 4 L of oxygen Currently on nitroglycerin drip Awake and alert S1, S2 Abdomen soft Trace edema of legs Nonfocal neuro exam Pleasant and cooperative Patient was taking insulin injection at the time of evaluation Data 06/02/22 17:54 06/02/22 17:54 A&P Assessment and plan (1) Unstable angina: (2) Obstructive sleep apnea: (3) Nicotine addiction: (4) Lung cancer: (5) Tachycardia: Plan Unstable angina Patient had coronary angiogram in October of this year He is on dual antiplatelet therapy EKG showing T wave inversion in inferior leads, incomplete right bundle jacile block related T wave changes and chest leads noted Patient is describing constant heaviness in her chest I will start her on therapeutic Lovenox Start ACS protocol Continue nitroglycerin drip Dr. Pizano has been consulted I will keep her n.p.o. Type 2 diabetes I have requested patient to only reduce the dose of Levemir to 40 units instead of 56 units, she was self injecting in the ER Full code Sinus tachycardia with high D-dimer no signs of PE Attestations Medical Necessity Statement*: Anticipating discharge within 48 hours will need evaluation for unstable angina Time Spent in Patient Care: 40 Coding Level of Care Code Acute Printed Circuit Boards Pinner for huma Fwd Diagnoses Unstable angina I20.0 Obstructive sleep apnea G47.33 Nicotine addiction F17.200 Lung cancer C34.90 Tachycardia R00.0
[2022-06-02 22:00] VITALS: PULSE 99
[2022-06-02 22:02] VITALS: BP 130/74; PULSE 112; RESP 26; O2SAT 88
[2022-06-02] MEDS: nitroglycerin drip 50 MG/250 ML PREMIX IV (22:36)
--- NOTE | 2022-06-02 22:43 | PC.NURSE ---
Addendum entered by Neri Serna RN 06/02/22 22:49: Soraida 280 Original Note: Acccarlos 208
--- NOTE | 2022-06-02 22:45 | PC.NURSE ---
Pt gave self home medication, Levemir 56 units subq. notified
[2022-06-02 22:46] LABS: Glucose Point of Care 280 mg/dL (70-110)
--- NOTE | 2022-06-02 22:52 | PC.NURSE ---
Report given to GUSTAVO Jarquin
[2022-06-02 23:19] VITALS: BP 155/108; PULSE 111; RESP 25; TEMP 36.7; O2SAT 88
[2022-06-02 23:20] LABS: Troponin 5 6HR 80.75 ng/L (0-10)
--- NOTE | 2022-06-02 23:22 | ECG_ITS ---
[facility] Test Date: 2022-06-02 Pat Name: Mayuri Davidson Department: Room: 112 Gender: Female Top Spotter: : 1965 Requested By: Claudy Matamoros Order Number: [id number] Ivanna MD: Uday Covarrubias M.D. Measurements Intervals [place] Rate: 107 P: 62 MI: 146 QRS: 126 QRSD: 97 T: 37 QT: 351 QTc: 470 Interpretive Statements SINUS TACHYCARDIA LEFT ATRIAL ENLARGEMENT [-0.15mV P-WAVE IN V1/V2] POSSIBLE INFERIOR MYOCARDIAL INFARCTION , PROBABLY OLD [30 ms Q WAVE IN II/aVF] Compared to ECG 06/02/2022 19:38:51 Incomplete right bundle-branch block no longer present Myocardial infarct finding still present Electronically Signed On 06-05-2022 19:48:22 GENERAL INTERNAL MEDICINE DOCTOR by Uday Covarrubias M.D. [id number]
[2022-06-02 23:29] LABS: Troponin 5 6HR Delta 5.75 ng/L (0-12)
[2022-06-03] VITALS (70 sets, daily range): BP systolic 120–155; BP diastolic 88–94; PULSE 85–114; RESP 15–34; TEMP 36.4–37.2; O2SAT 80–98
[2022-06-03] MEDS: morphine IR 15 mg Tablet PO ×3 (00:14→21:11)
[2022-06-03 02:54] LABS: Basophils # 0.1 10^3/uL (0.0-0.1); Basophils % 0.5 %; Eosinophils % 0.4 %; Hematocrit 46.8 % (37.0-47.0); Hemoglobin 14.8 g/dL (11.5-15.3); Lymphocytes # 2.9 10^3/uL (0.8-4.8); Lymphocytes % 27.2 %; Mean Corpuscular HGB Conc 31.6 g/dL (30.0-36.0); Mean Corpuscular Hemoglobin 30.5 pg (28.0-34.0); Mean Corpuscular Volume 96.5 fl (81-99); Mean Platelet Volume 10.1 fL (7.4-10.4); Monocytes # 0.8 10^3/uL (0.2-0.9); Neutrophils % 63.6 %; Nucleated Red Blood Cells % 0 %; Platelet Count 210 10^3/cmm (130-400); Red Blood Count 4.85 10^6/uL (4.1-5.3); Red Cell Distribution Width 16.2 % (12.1-15.1); White Blood Count 10.5 10^3/uL (4.0-10.0)
[2022-06-03 03:23] LABS: Anion Gap 14.6 (5-19); Blood Urea Nitrogen 14 mg/dL (6-20); Calcium 9.5 mg/dL (8.5-10.5); Carbon Dioxide 23 mmol/L (22-29); Chloride 105 mmol/L (98-107); Creatinine Clr Calc Pharmacy 109.4868; Glomerular Filtration Rate 85.6 mL/min (90-130); Glucose 168 mg/dL (65-115); Osmolality Calculated 290 mOsm/kg (285-295); Potassium 4.6 mmol/L (3.5-5.1); Sodium 138 mmol/L (136-145)
[2022-06-03 06:23] LABS: Glucose Point of Care 99 mg/dL (70-110)
--- NOTE | 2022-06-03 07:53 | PM.CONSULT ---
Providers/Reason For Consult Consulting Physician/Specialty*: Dr. Hood, cardiology Reason for Consult*: NSTEMI Attending Physician: Geoff Palma MD Primary Care Provider: Sujit Hernandez MD History of Present Illness History of Present Illness Mayuri Davidson is a 57 year old female with past medical history of hypertension, dyslipidemia, type 2 diabetes mellitus, tobacco abuse, coronary artery disease with most recent coronary angiogram on 22 October 2021 and chronic emphysema. Patient underwent balloon angioplasty of moderate to severe in-stent restenosis in mid LAD (IFR of 0.87) and critical in-stent restenosis of mid RCA. Patient tells me she was doing well until yesterday afternoon when she developed sudden onset chest and back discomfort. Patient was sitting in her recliner when she developed left-sided chest discomfort that radiated to her left scapular region. No associated worsening shortness of breath dizziness lightheadedness nausea or vomiting. On presentation to the ER patient's first set of troponin was 75 at 2 hours 82 and at 6 hours 81. EKG with sinus tachycardia with T wave inversion V1 to V5 that appears slightly more pronounced than her previous EKG. Otherwise no acute ST or T wave changes noted. CTA chest did not show any pulmonary embolism. She received therapeutic Lovenox x1 in the ER and was started on nitroglycerin drip for ongoing chest pain. Patient developed headache due to nitroglycerin drip and the drip was discontinued. At the time of evaluation patient continues to have some left scapular pain but denies having any chest discomfort. Review of Systems Const: Denies: fever(s) Eyes: Denies: change in vision ENMT: Denies: throat pain Card: Reports: chest pain and dyspnea on exertion; Denies: palpitations, irregular heart rhythm, swelling of feet/ankles, lightheadedness, syncope, orthopnea or leg pain with exertion Resp: Denies: dyspnea GI: Denies: abdominal pain, nausea, vomiting, hematochezia or melena : Denies: flank pain Musc: Denies: neck pain Skin/Breast: Denies: rash Neuro: Denies: headache(s) Psych: Denies: anxiety Endo: Denies: polyuria Barrie/Lymph: Denies: easy bruising, easy bleeding, petechiae or purpura All/Imm: Denies: urticaria Medications/Allergies Home Medications Medication Instructions Recorded Confirmed Last Taken Type inhalational spacing device #1 ea 07/19/19 06/02/22 Unknown History (Aerochamber Mini) esomeprazole magnesium 20 mg 20 mg PO DAILY 10/22/21 06/02/22 10/22/21 History capsule,delayed release (Nexium) vit no.95-ferrous 1 tab PO DAILY 10/22/21 06/02/22 10/22/21 History fumarate 28 mg-folic acid 800 mcg tablet () aspirin 81 mg tablet,delayed 81 mg PO DAILY 30 days #30 tabs 10/24/21 06/02/22 Unknown Rx release (Adult Low Dose Aspirin) atorvastatin 40 mg tablet 40 mg PO DAILY 30 days #30 tabs 10/24/21 06/02/22 Unknown Rx clopidogrel 75 mg tablet 75 mg PO QDAY 30 days #30 tabs 10/24/21 06/02/22 Unknown Rx furosemide 20 mg tablet (Lasix) 20 mg PO DAILY #90 tabs 12/29/21 06/02/22 Unknown Rx potassium chloride 8 mEq 8 meq PO DAILY #90 tabs 12/29/21 06/02/22 Unknown Rx tablet,extended release dapagliflozin 10 mg tablet 10 mg PO QAM 90 days #90 tabs 12/30/21 06/02/22 Unknown Rx (Farxiga) glipizide 5 mg tablet 5 mg PO DAILY 3 months #90 tabs 12/30/21 06/02/22 Unknown Rx metformin 500 mg tablet,extended 1,000 mg PO BID 90 days #360 tabs 12/30/21 06/02/22 Unknown Rx release 24 hr insulin detemir U-100 100 unit/mL 56 unit (0.56 mL) SUBCUT DAILY 90 04/04/22 06/02/22 Unknown Rx (3 mL) subcutaneous pen (Levemir days #55 mL FlexTouch U-100 Insulin) benzonatate 100 mg capsule 100 mg PO TID PRN cough #90 caps 04/29/22 06/02/22 Unknown Rx ipratropium 0.5 mg-albuterol 3 mg 3 ml inhalation Q6H PRN wheezing 05/24/22 06/02/22 Unknown Rx (2.5 mg base)/3 mL nebulization #360 mL soln cyclobenzaprine 10 mg tablet 10 mg PO TID PRN Muscle Spasm 06/02/22 06/02/22 Unknown History naproxen 500 mg tablet 500 mg PO BID 06/02/22 06/02/22 Unknown History Allergies Allergy/AdvReac Type Severity Reaction Status Date / Time Penicillins Allergy Unknown Verified 03/31/22 08:31 Current Medications Generic Name Dose Route Start Last Admin Trade Name Freq PRN Reason Stop Dose Admin Clopidogrel Bisulfate 75 mg 06/02/22 22:50 06/03/22 00:00 Clopidogrel 75 Mg Tablet PO Not Given DAILY [facility] Nitroglycerin/Dextrose 50 mg in 250 mls @ 0 mls/hr 06/02/22 21:30 06/02/22 23:45 Nitroglycerin Drip IV 0 mcg/min .Q0M NU 0 mls/hr Titration Protocol Per Protocol Insulin Human Lispro 0 unit 06/03/22 08:00 06/03/22 07:07 Insulin Lispro 100 Unit/1 Ml SUBCUT Not Given TIDWM [facility] Protocol Metoprolol Tartrate 12.5 mg 06/02/22 23:40 06/03/22 00:00 Metoprolol Tartrate 25 Mg Tablet PO Not Given BID@0900,2100 [facility] Morphine Sulfate 15 mg 06/02/22 22:50 06/03/22 07:04 Morphine Ir 15 Mg Tablet PO 15 mg Q6H PRN Administration MODERATE PAIN PFSH Acute PFSH: Medical History ASHD (arteriosclerotic heart disease) Cervical disc disease Cervical disc disorder with myelopathy of mid-cervical region Diabetic neuropathy Hyperlipidemia Hypertension Neck pain of over 3 months duration Smoking 1/2 pack a day or less Stenosis of cervical spine with myelopathy Surgical History History of heart surgery June 2007, August 2012 History of PTCA S/P tonsillectomy Family History Mother Diabetes Father Heart disease Brother CAD (coronary artery disease) Family/Other CAD (coronary artery disease) Diabetes Grandfather CAD (coronary artery disease) Denies family history of Clotting disorder Dementia Chronic kidney disease (CKD) Suicide Anesthesia complication Bleeding disorder Lung disease Cancer Stroke Social History Smoking and tobacco status: former smoker Alcohol intake: never Lives independently: Yes Household members: family Housing: House Marital status: service: No Current occupational status: disabled History of recent travel: No Vitals/I&O/Wt Last Vital Signs Temp 97.6 F 06/03/22 06:54 Pulse 88 06/03/22 06:54 Resp 15 06/03/22 07:04 BP 120/88 06/03/22 06:54 Pulse Ox 98 06/03/22 07:04 O2 Del Method High Flow Nasal Cannula 06/03/22 03:34 O2 Flow Rate 7 06/03/22 03:34 06/02/22 06/03/22 06/03/22 22:59 06:59 14:59 Intake Total 483.45 / 483.45 Output Total 900 / 900 Balance -416.55 / -416.55 Weight last 48 hrs Weight 200 lb Physical Exam Narrative: GENERAL: Averagely built and averagely nourished in no acute distress HEENT: Extraocular movement intact. Pupils equal round reactive to light. No pallor or icterus. NECK: central trachea, [] JVD, [] abdominojugular reflex. No carotid bruit. CARDIOVASCULAR SYSTEM: S1-S2 regular. No S3 or S4 present. [No murmur rubs or gallops.] RESPIRATORY SYSTEM: Chest clear to auscultation. No wheezes rhonchi or rubs heard. [] No use of accessory muscles. ABDOMEN: Soft, nontender and nondistended. Normal bowel sounds present. No hepatosplenomegaly appreciated. [] EXTREMITIES: No cyanosis or clubbing. [No edema]. No signs of chronic venous insufficiency. JUNIOR LINUX ADMINISTRATOR: Patient is alert oriented ?3. No focal neurological deficits. Cranial nerves intact. [] SKIN: Normal turgor and temperature. No breakdown, rash or nail changes noted. [] PSYCH: Normal insight and judgment. No suicidal or homicidal ideations. Data 06/03/22 02:43 06/03/22 02:43 Other data: Lexiscan sestamibi myocardial perfusion imaging 21 October 2021 IMPRESSIONS ?1.? Myocardial perfusion imaging revealing moderate area of reversible defect ?in the inferior wall, inferoseptal and apical regions, suggestive of ischemia ?in distribution of the right coronary artery predominantly with some ?involvement of the left anterior descending artery territory as well. ?2.? Normal LV ejection fraction 70%. ?3.? LV wall motion analysis revealing mild hypokinesia of the LV apex. ?4.? Normal LV volume A&P Assessment and plan (1) ACS (acute coronary syndrome): NSTEMI with elevated troponin w/o much delta change. Ongoing chest/left scapular discomfort, I will proceed with coronary angiogram later this afternoon to delineate patient's coronary anatomy. -Given her multiple uncontrolled risk factors and known prior CAD chances of restenosis of lesions that underwent balloon angioplasty is high. Risks and benefits were discussed with the patients. Possible complications including risk of heart attack stroke and , coronary perforation, arrhythmia, cardiac tamponade in urgent CABG were discussed with the patient as well. Plan is to proceed for the procedure later this afternoon. (2) Atherosclerosis of coronary artery of [place] heart without angina pectoris: (3) Chronic respiratory failure with hypoxia: (4) Hyperlipemia, mixed: (5) Emphysema of lung: (6) Obstructive sleep apnea: (7) Diabetes type 2, uncontrolled: (8) Smoking 1/2 pack a day or less: Consult Attestations Time Spent in Patient Care: Greater than 35 minutes Coding Level of Care Code Acute Back Stayer for g Fwd Diagnoses ACS (acute coronary syndrome) I24.9 Atherosclerosis of coronary artery of [place] heart without angina pectoris I25.10 Chronic respiratory failure with hypoxia J96.11 Hyperlipemia, mixed E78.2 Emphysema of lung J43.9 Obstructive sleep apnea G47.33 Diabetes type 2, uncontrolled E11.65 Smoking 1/2 pack a day or less F17.210
[2022-06-03] MEDS: clopidogrel 75 mg Tablet PO (08:17)
[2022-06-03] MEDS: pantoprazole DR 40 mg Tablet PO (08:17)
[2022-06-03] MEDS: aspirin 81 mg EC Tablet PO (08:17)
[2022-06-03] MEDS: sennosides-docusate Tablet 1 TAB PO (08:17)
--- NOTE | 2022-06-03 10:24 | PC.CHAP ---
Pastoral Care Encounter/Spiritual Assessment Type of Contact [] Declined correctional facility psychiatrist visit [] Patient/Family/Request visit [] Outpatient visit [] Follow-up visit [] Physician referral [] Code/Alert [x] Routine visit [] Staff referral [] Actively dying [] Patient sleeping [] Family support [] [] Out of room [] Palliative care [] [] Receiving care in room [] Pre-surgical visit [] Trauma [] Long length of stay [] ICU visit [] Other: Relational/Emotional Strength [] Patient feels connected with others/family/visitors/staff [] Distress [] Loneliness/isolation [] Abandonment Spirituality of Patient [x] Person of Lupe [] Attends Jew of their Lupe [x] Believes in Prayer [] Reads Bible or Oriental Orthodox materials [] There are Spiritual issues to be addressed Sounding Device Operator Interventions [x] Prayer [] Active listening [] Non-anxious presence [] Spiritual/emotional support [] Crisis/trauma care [] Spiritual counseling [] Bereavement support [] Provided bereavement packet [] Provided Bible/devotional materials [] Provided toy/stuffed animal, coloring book to patient or family member [] Provided Communion [] Anointing/[place] [] Salvation [x] Completed spiritual assessment [] Other: Impact on Illness or Injury [] Angry [] Fearful [] Anxious [] Often cries [] Exhaustion [] Unable to work [] Unable to attend gnosticism [] Unable to walk/stand [] Unable to read [] Unable to drive [] Unable to eat/drink [] Unable to sleep [] Unable to be with family [] Patient intubated [] Other: Summary Time spent with patient 5 min
[2022-06-03 11:13] LABS: Glucose Point of Care 147 mg/dL (70-110)
--- NOTE | 2022-06-03 11:55 | PM.PN ---
Subjective Subjective: Patient was seen and examined this morning, she was complaining of substernal pressure-like chest pain radiating to left arm, as well as intrascapular pain, denied any diaphoresis, palpitation. Medications: Medication Review Details: Generic Name Dose Route Start Last Admin Trade Name Sherman PRN Reason Stop Dose Admin Aspirin 81 mg 06/03/22 09:00 06/03/22 08:17 Aspirin 81 Mg Ec Tablet PO 81 mg DAILY NU Administration Clopidogrel Bisulf ate 75 mg 06/02/22 22:50 06/03/22 08:17 Clopidogrel 75 M g Tablet PO 75 mg DAILY NU Administration Enoxaparin Sodium 90 mg 06/03/22 09:30 06/03/22 08:34 Enoxaparin 100 M g/Ml Syringe SUBCUT Not Given Q12H [facility] Nitroglycerin/Dext fredrick 50 mg in 250 mls @ 0 mls/hr 06/02/22 21:30 06/02/22 23:[address] ip IV 0 mcg/min .Q0M [facility] 0 mls/hr Titration Protocol Per Protocol Insulin Human Lisp ro 0 unit 06/03/22 08:00 06/03/22 07:07 Insulin Lispro 1 00 Unit/1 Ml SUBCUT Not Given TIDWM [facility] Protocol Metoprolol Tartrat e 12.5 mg 06/02/22 23:40 06/03/22 08:18 Metoprolol Tartr ate 25 Mg Tablet PO Not Given BID@0900,2100 [facility] Morphine Sulfate 15 mg 06/02/22 22:50 06/03/22 07:04 Morphine Ir 15 M g Tablet PO 15 mg Q6H PRN Administration MODERATE PAIN Pantoprazole Sodiu m 40 mg 06/03/22 09:00 06/03/22 08:[address] 40 Mg Tablet PO 40 mg DAILY [facility] Administration Senna/Docusate Sod ium 1 tab 06/03/22 09:00 06/03/22 08:17 Sennosides-Docus ate Tablet PO 1 tab DAILY [facility] Administration Vitals/I&O/Wt Last Vital Signs Temp 97.6 F 06/03/22 06:54 Pulse 91 06/03/22 08:20 Resp 18 06/03/22 08:20 BP 120/88 06/03/22 06:54 Pulse Ox 98 06/03/22 08:20 O2 Del Method 06/03/22 08:20 O2 Flow Rate 7 06/03/22 08:20 06/02/22 06/03/22 06/03/22 22:59 06:59 14:59 Intake Total 483.45 / 483.45 620 / 620 Output Total 900 / 900 Balance -416.55 / -416.55 620 / 620 Weight last 48 hrs Weight 90.718 kg Physical Exam Resp: COMMON NORMALS: clear to auscultation bilaterally EFFORT & INSPECTION: Yes symmetric chest movement AUSCULTATION: clear to auscultation bilaterally Cardio: COMMON NORMALS: regular rate, regular rhythm, S1 normal heart sound present, S2 normal heart sound present, No gallops present (Cardio), No murmurs present (Cardio), No rub (Cardio) and Peripheral pulses 2+ throughout RATE: regular rate RHYTHM: regular rhythm HEART SOUNDS: S1 normal heart sound present and S2 normal heart sound present PERIPHERAL PULSES: Peripheral pulses 2+ throughout GI: COMMON NORMALS: Normal to inspection, nondistended, normoactive bowel sounds present, Soft to palpation, non-tender, No hepatosplenomegaly present and no masses AUSCULTATION: Yes normoactive bowel sounds PALPATION: Yes Soft to palpation and Yes No hepatosplenomegaly present RECTAL EXAM: deferred Extremity: COMMON NORMALS: no clubbing, cyanosis or edema and no pedal edema Data 06/03/22 02:43 06/03/22 02:43 A&P Assessment and plan (1) NSTEMI (non-ST elevated myocardial infarction): (2) Atherosclerosis of coronary artery of [place] heart without angina pectoris: (3) Diabetes type 2, uncontrolled: (4) Hypertension: Qualifiers: Hypertension type: essential hypertension Qualified Code(s): I10 - Essential (primary) hypertension (5) Chronic respiratory failure with hypoxia: (6) Obstructive sleep apnea: Plan 57-year-old female with past medical history of CA lung status post radiotherapy , hypertension diabetes coronary artery disease s/p recent PTCA in October 2021 for moderate to severe in-stent restenosis in mid LAD, PCI to RCA, came in with chief complaint of substernal pressure-like chest pain radiating to left arm, as well as intrascapular pain, denied any diaphoresis, palpitation started since yesterday. Currently she is being managed for Assessment: NSTEMI History of CAD s/p stent History of hypertension History of diabetes History of CA lung Plan: CT angio chest : No pulmonary embolism.Chronic fibrotic interstitial lung disease. EKG: TWI in V1 to V5-more prominent as compared to prior EKGs. Sinus tachycardia Troponin trend:75-81-80, 2D echo: On admission patient was placed on therapeutic anticoagulation, was also placed on nitro drip, with improvement in her symptoms, aspirin Plavix statin beta-eliazar has been continued. Patient is currently n.p.o. for coronary angiogram For history of diabetes she was placed on: Lantus and sliding's scale insulin CODE STATUS full code DVT prophylaxis on Lovenox Attestations Medical Necessity Statement*: Patient is to be in hospital for management of NSTEMI. Time Spent in Patient Care: Greater than 35 minutes (>than 50% of time spent in counselling and/or direct pt care on unit). Coding Level of Care Code Acute Heavy Equipment Operator/Paver for Chg Fwd Exam Expanded Problem Focused Diagnoses NSTEMI (non-ST elevated myocardial infarction) I21.4 Atherosclerosis of coronary artery of [place] heart without angina pectoris I25.10 Diabetes type 2, uncontrolled E11.65 Hypertension I10 Hypertension type: essential hypertension Chronic respiratory failure with hypoxia J96.11 Obstructive sleep apnea G47.33
--- NOTE | 2022-06-03 12:22 | XACV_ITS ---
Exam Room: 2 Ht: 183 cm Wt: 91 kg BSA: 2.16 m2 Gender: Female : 1965 Any Known Allergies: Penicillins Exam Priority: Routine Procedure(s): Procedure Description: Diagnostic procedure Procedure Description: PCI procedure Procedure Description: Coronary IVUS Procedure Description: Drug Eluting Coronary Stent Procedure Description: PTCA Procedure Description: Miscellaneous Procedure Description: ACT Procedure Description: Coronary Angiography Diagnostic Cath Status: Urgent Diagnostic Findings * Circumflex has mild luminal irregularities. * Mid Left Anterior Descending: severe 90% instent restenosis, BERNARDO: 3 flow. * Mid Right Coronary Artery to Mid Right Coronary Artery: severe 90% in-stent restenosis, BERNARDO: 3 flow. * Left Main has no disease. * Coronary angiography shows right dominance. PCI Status: Urgent PCI Indication: NSTE - ACS Interventional Findings * PROCEDURE DETAIL: We engaged left main artery with XB 3.5 guide catheter. IV heparin was administered to maintain ACT above 250 s. 0.014 run-through guidewire was used to cross mid LAD severe in-stent restenosis. IVUS was used to determine the size of the stent and mechanism of recurrent in-stent restenosis. It was found to be underexpanded stent. We then dilated it with 2.5 x 12 mm noncompliant balloon. We placed 2.5 x 18 mm resolute Yong drug-eluting stent. This was further postdilated with 2.75 x 12 mm NC balloon. Repeat IVUS was performed to confirm good stent expansion and apposition. However old underexpanded stent could not fully be expanded. At this time final angiogram was performed that showed excellent stent expansion, no residual stenosis and BERNARDO-3 flow. Guidewire and guide catheter were removed. We then engaged RCA with JR4 guide catheter. Run-through guidewire was used to cross the stenotic in-stent restenosis area. IVUS was used to size the vessel. Neoatherosclerosis was seen in the stent. We predilated it with 3.5 x 12 mm NC balloon. 3.0 x 12 mm resolute Yong drug-eluting stent was placed at this time. Final angiogram was performed that showed excellent stent expansion, no residual stenosis and BERNARDO-3 flow. Guidewire and guide catheter were removed. Patientleft the Tube Fitter in a stable condition.. * Mid Left Anterior Descendin% stenosis treated with a MDT NC EUPHORA RX [id number] BALLOON, MDT R YONG 2.5X18 JULES, and MDT NC EUPHORA RX [id number] BALLOON. 0% residual stenosis, BERNARDO: 3 flow. * Mid Right Coronary Artery to Mid Right Coronary Artery: 90% stenosis treated with a MDT NC EUPHORA RX [id number] BALLOON, and MDT R YONG 3.0X12 JULES. 0% residual stenosis, BERNARDO: 3 flow. Conclusions 1. Severe in-stent restenosis of mid LAD stent s/p successful revascularization with JULES x1.. 2. Severe in-stent restenosis of mid RCA stent. S/p successful revascularization with JULES x1. 3. Mid Left Anterior Descending was treated with a Balloon, Drug Eluting Stent, and Balloon. 4. Mid Right Coronary Artery to Mid Right Coronary Artery was treated with a Balloon, and Drug Eluting Stent. Recommendations * Transferred back to [facility]. * Dual antiplatelet therapy with aspirin and Plavix for at least 1 year. * High intensity statin therapy. * Outpatient cardiology follow-up in 4 weeks. * Patient has recurrent episodes of in-stent restenosis in the LAD ( as old mid LAD stent was underexpanded), can consider evaluation for CABG. Interventional RX Recommendation: PCI w/o planned CABG Diagnostic RX Recommendation: PCI w/o planned CABG Anticoagulation: Heparin Pressures Phase:Rest AO : 124 / 94 ( 109 ) @ 2:44:00 PM 133 / 81 ( 104 ) @ 2:47:00 PM 133 / 94 ( 114 ) @ 2:52:00 PM 103 / 78 ( 91 ) @ 2:59:00 PM 131 / 89 ( 108 ) @ 3:09:00 PM 118 / 72 ( 90 ) @ 3:24:00 PM 114 / 70 ( 89 ) @ 3:24:00 PM Clinical Evaluation EBL: 5mL-10mL Procedural Details Procedure Consent Obtained. Current Diagnosis : NSTEMI. Pre-Procedure Time Out. Identified patient by full name and date of as verbalized by the patient/guarantor. Does the consent match the physician's order: Yes. Accurate & Complete Informed Consent: Yes. Inpatient/Outpatient History & Physical on Chart: Yes. If H&P is completed, is and addenduem needed: N/A. Visualize and Verify Site with Patient/Guarantor: N/A. Relevant Radiology Images available: Yes. The risks, benefits, and alternatives of sedation and/or procedure were discussed by physician. The patient agrees to continue. Procedure started. [facility] Clinical Fraility Score: 4: Vulnerable. Tube Fitter Indications: ACS > 24 hours. Chest Pain Symptom Assessment: Typical Angina Symptoms. Cardiovascular Instability: No. Correct patient, site and procedure confirmed by cath team. PERRLA. Strong, equal hand millwright helper bilaterally. Lungs clear x 5 lobes. IV Site on Arrival: 20 gauge in the right anticubital. IV Fluids: 0.9% NaCl at KVO. 100 mL infused prior to hot plate plywood press laborer. Pre Procedural Pulses: bilateral dorsalis pedis was 2+. Pre Procedural Pulses: bilateral posterior tibial was Doppled. Pre Procedural Pulses: bilateral radial was 2+. Oxygen started at 5liters/min via nasal canula. bilateral groins was prepped with chloroprep then draped in the usual sterile fashion. Physician notified. Baseline sample Acquired. HR: 110 BPM. Patient's family in the hot plate plywood press laborer waiting room. Dr. Covarrubias will update at the completion of the case. Equipment: 6F - Femoral. Cardiac Cath Pack. ACIST Manifold Kit Model BT 2000. Heparinized Saline (2 units/mL), 1000 mL bag. Kit, Micropuncture. Physician arrived. Physician scrubbed in. Immediate Pre-Procedure Time Out. Correct Patient: Yes; Correct Procedure: Yes; Correct Site: Yes; Correct Patient Position: Yes; Correct Supplies: Yes; Dried Flammable Prep: Yes; Blood Products Available: N/A;. Lidocaine 1% infiltrated to the right groin. Arterial access obtained with micropuncture set. A 5 [place] JL4 catheter in over the standard J wire. Multiple views taken of left coronary artery. A 5 [place] JR4 catheter in over the standard J wire. Cineography of the RCA performed. Catheter out. 6 [place] XB 3 guide catheter was inserted over the standard J wire. Add inventory: Endoflator, Co-commercial helicopter pilot, IVUS catheter. Runthrough guidewire was advanced through the guide catheter to lesion in the mid LAD. IVUS catheter in and pre measurement of the mid LAD performed. Inflation number : 1 A MDT NC EUPHORA RX [id number] BALLOON was prepped and advanced across the Mid LAD , then inflated to 12 JOYCELYN for 0:10 seconds. Inflation number: 2 The MDT NC EUPHORA RX [id number] BALLOON was reinflated across the Mid LAD, to 12 JOYCELYN for 0:08 seconds. Inflation number: 3 The MDT NC EUPHORA RX [id number] BALLOON was reinflated across the Mid LAD, to 14 JOYCELYN for 0:20 seconds. Inflation number: 4 The MDT NC EUPHORA RX 2.09Q94HJ BALLOON was reinflated across the Mid LAD, to 16 JOYCELYN for 0:12 seconds. Balloon out. Inflation Number : 5 A MDT R YONG 2.5X18 JULES -Lot Number# [id number] was prepped and advanced across the Mid LAD. The stent was deployed at 12 JOYCELYN for 0:23 seconds. Exp . Stent balloon out over wire. Inflation number : 6 A MDT NC EUPHORA RX [id number] BALLOON was prepped and advanced across the Mid LAD , then inflated to 17 JOYCELYN for 0:09 seconds. Inflation number: 7 The MDT NC EUPHORA RX 2.33Y99NT BALLOON was reinflated across the Mid LAD, to 20 JOYCELYN for 0:15 seconds. Inflation number: 8 The MDT NC EUPHORA RX [id number] BALLOON was reinflated across the Mid LAD, to 22 JOYCELYN for 0:19 seconds. Balloon out. IVUS catheter in and post measurement of the mid LAD performed. IVUS catheter out. Results checked. Wire out. Guide catheter out over the standard J wire. 6 [place]orean JR 4 guide catheter was inserted over the standard J wire. Runthrough guidewire was advanced through the guide catheter to lesion in the mid RCA. ACT drawn. Results 353 seconds. Therapeutic limits - pre-heparin administration 90-150 seconds and monitoring heparin during a vascular procedure >250 seconds. A new IVUS catheter in OTW. IVUS catheter in and pre measurement of the mid RCA performed. IVUS catheter out OTW. Inflation number : 1 A MDT NC EUPHORA RX [id number] BALLOON was prepped and advanced across the Mid RCA , then inflated to 12 JOYCELYN for 0:17 seconds. Balloon out. Inflation Number : 2 A MDT R YONG 3.0X12 JULES -Lot Number# [id number] was prepped and advanced across the Mid RCA. The stent was deployed at 14 JOYCELYN for 0:21 seconds. Exp . Stent balloon out over wire. Results checked. Wire out. Guide catheter out over the standard J wire. A Right femoral angiogram was performed to determine safe placement of closure device #1. A Right femoral angiogram was performed to determine safe placement of closure device #2. Angioseal placed without complications. No signs or symptoms of hematoma noted. Sterile dressing applied per usual sterile fashion. LOT #[id number]. Exp . Post Procedure: Pulses reassessed and unchanged. PERRLA. Strong, equal hand millwright helper bilaterally. No VTE prophylaxis required. Medication's Wasted: Nitro = 49.6 mg. Total IV fluids: 100 mL. A Angio-Seal VIP ([employer] [facility]) was successful obtaining hemostatsis at the Right Femoral artery insertion site. Dr. Covarruibas scrubbed out. Post-op diagnosis: PCI of the mid LAD and mid RCA for severe in stent restenosis. Complications: none. Estimated blood loss: 5mL-10mL. Responsiveness - Normal response to verbal stimuli; alert and oriented, PERRLA. Airway - Unaffected, no intervention required; spontaneous ventilation. Circulation: W/N/L, pulses unchanged. Nausea/Vomiting: Yes. Procedure completed. Patient transferred by bed to 1st floor. Vital chart was stopped. Access Site Site: Right Femoral artery Sheath Size: 6 Fr Hemostasis Method: Angio-Seal VIP ([employer] [facility]) Hemostasis Success: Successful Procedure Medications Start: 2:38 PM Stop: 2:38 PM Medication: Versed Amount: 1 mg Route: I.V. Start: 2:38 PM Stop: 2:38 PM Medication: Fentanyl Amount: 50 mcg Route: I.V. Start: 2:52 PM Stop: 2:52 PM Medication: Versed Amount: 1 mg Route: I.V. Start: 2:45 PM Stop: 2:45 PM Medication: Heparin Amount: 8000 units Route: I.V. Start: 2:56 PM Stop: 2:56 PM Medication: Heparin Amount: 2000 units Route: I.V. Start: 3:05 PM Stop: 3:05 PM Medication: Nitrogylcerin Amount: 200 mcg Route: I.C. Start: 3:13 PM Stop: 3:13 PM Medication: Fentanyl Amount: 50 mcg Route: I.V. Start: 3:23 PM Stop: 3:23 PM Medication: Nitrogylcerin Amount: 200 mcg Route: I.C. Start: 3:28 PM Stop: 3:28 PM Medication: Heparin Amount: 1000 units Route: I.V. Start: 3:32 PM Stop: 3:32 PM Medication: Plavix Amount: 300 mg Route: P.O. I, the attending physician, have reviewed and verified all procedure medications. Yes, all medications given per verbal order History/Risk Factors Hypertension: Yes Dyslipidemia: Yes Peripheral Arterial Disease (PAD): No Myocardial Infarction (CT): No Obesity: No Renal Disease: No Tobacco Use: Current/Recent(w/in 1 year) Prior Interventions PCI: Yes CABG: No Valve Surgery: No Date of PCI: 10/22/2021 Report Signatures Finalized by Uday Covarrubias MD on 06/17/2022 02:55 PM
[2022-06-03] MEDS: diphenhydrAMINE 50 mg Capsule PO (12:49)
[2022-06-03] MEDS: sodium chloride 0.9% 1,000 ML 50 ML IV (13:10)
--- NOTE | 2022-06-03 14:30 | W.PM.OPSUD ---
Surgery/Procedure H&P Update DATE OF PROCEDURE: June 03, 2022 DATE H&P PERFORMED: 06/03/22 H&P UPDATE INFORMATION: I have reviewed H&P completed within last 30 days, I have examined patient prior to procedure and No changes to prior documentation PREOP DIAGNOSIS: NSTEMI PRIMARY INDICATION FOR PROCEDURE: NSTEMI PLANNED PROCEDURE: Left heart cath with possible percutaneous coronary intervention PATIENT REASSESSED PRIOR TO SEDATION, WITH NO CHANGE NOTED: Yes PHYSICAL EXAM: alert, oriented x 3 and clear to auscultation bilaterally AIRWAY EVAL/ANESTHESIA PLAN: ASA III, Local Anesthesia, Risks, benefits & alternatives of sedation and/or procedure discussed and Patient agrees to continue as planned ADDITIONAL INFORMATION: Moderate sedation
--- NOTE | 2022-06-03 16:07 | PC.NURSE ---
Patient returned from optical laboratory technician at 1544 with angioseal via gourney. Report taken by Gio Kelley RN. Patient stable.
[2022-06-03 16:43] LABS: Glucose Point of Care 115 mg/dL (70-110)
[2022-06-03 19:47] LABS: Glucose Point of Care 266 mg/dL (70-110)
[2022-06-03] MEDS: ipratropium-albuterol 3 mL Neb INHALATION (20:52)
--- NOTE | 2022-06-03 20:57 | PC.RESP ---
Patient was asked about CPAP. Patient stated that she wears a CPAP at home, but refused it here. Therapist explained the importance of wearing CPAP and patient still refused.
[2022-06-03] MEDS: atorvastatin 40 mg Tablet PO (21:11)
[2022-06-03] MEDS: benzonatate 100 mg Capsule PO (22:32)
[2022-06-03] MEDS: sodium chloride 0.9% 1,000 ML 100 ML IV (22:33)
--- NOTE | 2022-06-03 22:50 | USCV_ITS ---
Mayuri Davidson Age: 57 Gender: F : 1965 Exam Date: 06/03/2022 01:29 Ordering Phys: Swetha Longo MD Technologist: OLIVIA Exam Location: [facility] [place] Indication: lung CA s/p chemo, COPD, smoker, O2 dependent, prior hx HI's, hx CAD BP: 155 / 108 HR: 92 Rhythm: Sinus Technical Quality: Adequate MEASUREMENTS (Male / Female) Normal Values 2D ECHO LV Diastolic Diameter PLAX 3.3 cm 4.2 - 5.9 / 3.9 - 5.3 cm LV Systolic Diameter PLAX 1.9 cm IVS Diastolic Thickness 1.1 cm 0.6 - 1.0 / 0.6 - 0.9 cm IVS Systolic Thickness 1.3 cm LVPW Diastolic Thickness 1.3 cm 0.6 - 1.0 / 0.6 - 0.9 cm LVPW Systolic Thickness 1.4 cm LVOT Diameter 1.8 cm LV Ejection Fraction 2D Teich 75.5 % LV Ejection Fraction MOD 2C 60.0 % LV Ejection Fraction 2C AL 61.3 % LA Diameter 3.7 cm LA Width 2.4 cm LA Height 4.5 cm RA Width 6.2 cm RA Height 5.5 cm Aorta at Sinotubular Diameter 2.5 cm IVC Diameter 1.9 cm M-MODE Aortic Annulus Diameter 3.2 cm LA Ao Ratio MM 1.2 MV E Point Septal Separation 0.1 cm DOPPLER AV Peak Velocity 124.0 cm/s LVOT Peak Velocity 92.0 cm/s AV Area Cont Eq vti 1.7 cm squared AV Area Cont Eq pk 1.9 cm squared MV Peak Velocity 95.0 cm/s MV Area PHT 5.5 cm squared Mitral E to A Ratio 0.5 MV E' Velocity 45.0 cm/s TR Peak Velocity 352.5 cm/s TR Peak Gradient 49.7 mmHg TV Peak E Velocity 40.0 cm/s Right Atrial Pressure 10.0 mmHg Pulmonary Artery Systolic Pressu 59.7 mmHg PV Peak Velocity 66.0 cm/s RV Acceleration Time 0.0 s RV Ejection Time 0.3 s RV AcT/ET 0.2 FINDINGS Left Ventricle Normal left ventricular size, systolic function and wall thickness, with no regional wall motion abnormalities. Left ventricular ejection fraction is estimated at 60 %. No diagnostic regional wall motion abnormalities. Grade I diastolic dysfunction (abnormal relaxation filling pattern), normal to mildly elevated filling pressures. Flattened septum in systole consistent with right ventricle pressure overload. Right Ventricle Moderately dilated right ventricle with severely decreased right ventricle systolic function. Right ventricular systolic pressure 75 mmHg. Right Atrium Moderately increased right atrial size. Interatrial septum bowed toward the left consistent with elevated right atrial pressures. Left Atrium Mildly increased left atrial size. Mitral Valve Mild mitral annular calcification. Mildly thickened mitral valve. No mitral valve stenosis. Trace mitral valve regurgitation. Aortic Valve Mildly thickened trileaflet aortic valve. No aortic valve stenosis. No aortic valve regurgitation. Tricuspid Valve Structurally normal tricuspid valve. No tricuspid valve stenosis. Mild to moderate tricuspid valve regurgitation. Pulmonic Valve Pulmonic valve not well visualized. No pulmonary valve stenosis. Trace pulmonary valve regurgitation. Pericardium No pericardial effusion. Aorta Normal size aortic root and proximal ascending aorta. IVC Normal IVC dimension with <50% respiratory change of the inferior vena cava. CONCLUSIONS 1. Normal left ventricular size, systolic function and wall thickness. Left ventricular ejection fraction is estimated at 60 %. No diagnostic regional wall motion abnormalities. Grade I diastolic dysfunction (abnormal relaxation filling pattern), normal to mildly elevated filling pressures. Flattened septum in systole consistent with right ventricle pressure overload. 2. Moderately dilated right ventricle with severely decreased right ventricle systolic function. 3. Severe pulmonary hypertension with pulmonary artery pressure estimated at 75 mmHg. 4. Mild to moderate tricuspid valve regurgitation. 5. When compared to previous study dated 10/21/2021, there is severe pulmonary hypertension now. Enid Hood MD (Electronically Signed) Final Date: 03 June 2022 15:44 S
[2022-06-04] VITALS (16 sets, daily range): BP systolic 110–147; BP diastolic 76–95; PULSE 88–107; RESP 18–29; TEMP 36.6–36.9; O2SAT 90–95
[2022-06-04] MEDS: acetaminophen 500 mg Tablet PO (01:11)
[2022-06-04] MEDS: ipratropium-albuterol 3 mL Neb INHALATION ×4 (03:58→21:50)
[2022-06-04 06:37] LABS: Glucose Point of Care 209 mg/dL (70-110)
[2022-06-04] MEDS: pantoprazole DR 40 mg Tablet PO (07:54)
[2022-06-04] MEDS: clopidogrel 75 mg Tablet PO (07:54)
[2022-06-04] MEDS: aspirin 81 mg EC Tablet PO (07:54)
--- NOTE | 2022-06-04 08:29 | PM.PN ---
Subjective Subjective: Patient is doing well. no chest pain. Had PCI of mid LAD and mid RCA severe instent restenosis with JULES x 2. Access site is normal. Vitals/I&O/Wt Last Vital Signs Temp 97.8 F 06/04/22 07:12 Pulse 98 06/04/22 07:12 Resp 29 H 06/04/22 07:12 BP 122/76 06/04/22 07:12 Pulse Ox 94 06/04/22 07:12 O2 Del Method 06/04/22 03:58 O2 Flow Rate 5 06/04/22 03:58 06/03/22 06/04/22 06/04/22 22:59 06:59 14:59 Intake Total 951.667 / 1571.667 120 / 1691.667 Output Total 700 / 700 Balance 951.667 / 1571.667 -580 / 991.667 Weight last 48 hrs Weight 200 lb Physical Exam Narrative: GENERAL: Patient is alert, awake and oriented x3. [] NECK: No jugular vein distension. [] HEENT: No cyanosis. No icterus. No pallor. [] HEART: Regular S1 and S2. No murmur, rub or gallop. [] LUNGS:Diminished breath sounds ABDOMEN: Soft CENTRAL NERVOUS SYSTEM: Grossly nonfocal. [] EXTREMITIES: Lower extremities with 1+ edema bilaterally. Pulses palpable in the lower extremities, both dorsalis pedis and posterior tibial. [] Data 06/03/22 02:43 06/03/22 02:43 A&P Assessment and plan (1) ACS (acute coronary syndrome): Patient's coronary angiogram showed severe in-stent restenosis of mid LAD and mid RCA stents. She had successful revascularization with JULES x2. Continue aspirin and Plavix High intensity statin therapy Labs ordered. If renal function is stable, patient is stable to be discharged from cardiology standpoint. (2) Atherosclerosis of coronary artery of [place] heart without angina pectoris: (3) Chronic respiratory failure with hypoxia: (4) Hyperlipemia, mixed: (5) Emphysema of lung: (6) Obstructive sleep apnea: (7) Diabetes type 2, uncontrolled: (8) Smoking 1/2 pack a day or less: Attestations Medical Necessity Statement*: Care expected to cross 2 midnights. Coding Level of Care Code Acute Quality Reviewer for g Fwd Diagnoses ACS (acute coronary syndrome) I24.9 Atherosclerosis of coronary artery of [place] heart without angina pectoris I25.10 Chronic respiratory failure with hypoxia J96.11 Hyperlipemia, mixed E78.2 Emphysema of lung J43.9 Obstructive sleep apnea G47.33 Diabetes type 2, uncontrolled E11.65 Smoking 1/2 pack a day or less F17.210
[2022-06-04 09:48] LABS: Anion Gap 14.5 (5-19); Blood Urea Nitrogen 18 mg/dL (6-20); Calcium 8.9 mg/dL (8.5-10.5); Carbon Dioxide 20 mmol/L (22-29); Chloride 98 mmol/L (98-107); Glomerular Filtration Rate 102.3 mL/min (90-130); Glucose 314 mg/dL (65-115); Osmolality Calculated 280 mOsm/kg (285-295); Potassium 4.5 mmol/L (3.5-5.1); Sodium 128 mmol/L (136-145)
[2022-06-04 11:22] LABS: Glucose Point of Care 261 mg/dL (70-110)
[2022-06-04] MEDS: insulin lispro 100 unit/1 mL SUBCUT ×2 (12:12→16:57)
[2022-06-04 16:18] LABS: Glucose Point of Care 189 mg/dL (70-110)
--- NOTE | 2022-06-04 17:27 | PM.PN ---
Subjective Subjective: Patient was seen and examined this morning, she was complaining of pain in the right groin at the access site, access site examined, no hematoma, good pulsation, slightly tender. Medications: Medication Review Details: Generic Name Dose Route Start Last Admin Trade Name Sherman PRN Reason Stop Dose Admin Aspirin 81 mg 06/03/22 09:00 06/03/22 08:17 Aspirin 81 Mg Ec Tablet PO 81 mg DAILY NU Administration Clopidogrel Bisulf ate 75 mg 06/02/22 22:50 06/03/22 08:17 Clopidogrel 75 M g Tablet PO 75 mg DAILY NU Administration Enoxaparin Sodium 90 mg 06/03/22 09:30 06/03/22 08:34 Enoxaparin 100 M g/Ml Syringe SUBCUT Not Given Q12H [facility] Nitroglycerin/Dext fredrick 50 mg in 250 mls @ 0 mls/hr 06/02/22 21:30 06/02/22 23:[address] ip IV 0 mcg/min .Q0M [facility] 0 mls/hr Titration Protocol Per Protocol Insulin Human Lisp ro 0 unit 06/03/22 08:00 06/03/22 07:07 Insulin Lispro 1 00 Unit/1 Ml SUBCUT Not Given TIDWM [facility] Protocol Metoprolol Tartrat e 12.5 mg 06/02/22 23:40 06/03/22 08:18 Metoprolol Tartr ate 25 Mg Tablet PO Not Given BID@0900,2100 [facility] Morphine Sulfate 15 mg 06/02/22 22:50 06/03/22 07:04 Morphine Ir 15 M g Tablet PO 15 mg Q6H PRN Administration MODERATE PAIN Pantoprazole Sodiu m 40 mg 06/03/22 09:00 06/03/22 08:[address] 40 Mg Tablet PO 40 mg DAILY [facility] Administration Senna/Docusate Sod ium 1 tab 06/03/22 09:00 06/03/22 08:17 Sennosides-Docus ate Tablet PO 1 tab DAILY NU Administration Vitals/I&O/Wt Last Vital Signs Temp 97.8 F 06/04/22 07:12 Pulse 105 H 06/04/22 15:33 Resp 24 H 06/04/22 15:33 BP 143/95 06/04/22 15:33 Pulse Ox 93 06/04/22 15:33 O2 Del Method 06/04/22 15:16 O2 Flow Rate 4 06/04/22 15:16 06/04/22 06/04/22 06/04/22 06:59 14:59 22:59 Intake Total 120 / 4699.257 2625 / 1440 Output Total 700 / 700 Balance -580 / 735.053 7108 / 1440 Weight last 48 hrs Weight 90.718 kg Physical Exam Resp: COMMON NORMALS: clear to auscultation bilaterally EFFORT & INSPECTION: Yes symmetric chest movement AUSCULTATION: clear to auscultation bilaterally Cardio: COMMON NORMALS: regular rate, regular rhythm, S1 normal heart sound present, S2 normal heart sound present, No gallops present (Cardio), No murmurs present (Cardio), No rub (Cardio) and Peripheral pulses 2+ throughout RATE: regular rate RHYTHM: regular rhythm HEART SOUNDS: S1 normal heart sound present and S2 normal heart sound present PERIPHERAL PULSES: Peripheral pulses 2+ throughout GI: COMMON NORMALS: Normal to inspection, nondistended, normoactive bowel sounds present, Soft to palpation, non-tender, No hepatosplenomegaly present and no masses AUSCULTATION: Yes normoactive bowel sounds PALPATION: Yes Soft to palpation and Yes No hepatosplenomegaly present RECTAL EXAM: deferred Extremity: COMMON NORMALS: no clubbing, cyanosis or edema and no pedal edema Data 06/03/22 02:43 06/04/22 09:10 A&P Assessment and plan (1) NSTEMI (non-ST elevated myocardial infarction): (2) Atherosclerosis of coronary artery of [place] heart without angina pectoris: (3) Diabetes type 2, uncontrolled: (4) Hypertension: Qualifiers: Hypertension type: essential hypertension Qualified Code(s): I10 - Essential (primary) hypertension (5) Chronic respiratory failure with hypoxia: (6) Obstructive sleep apnea: Plan 57-year-old female with past medical history of CA lung status post radiotherapy , hypertension diabetes coronary artery disease s/p recent PTCA in October 2021 for moderate to severe in-stent restenosis in mid LAD, PCI to RCA, came in with chief complaint of substernal pressure-like chest pain radiating to left arm, as well as intrascapular pain, denied any diaphoresis, palpitation started since yesterday. Currently she is being managed for Assessment: NSTEMI History of CAD s/p stent History of hypertension History of diabetes History of CA lung severe pulmonary hypertension Plan: CT angio chest : No pulmonary embolism.Chronic fibrotic interstitial lung disease. EKG: TWI in V1 to V5-more prominent as compared to prior EKGs. Sinus tachycardia Troponin trend:75-81-80, 2D echo: Normal LV size and systolic function, LVEF 60%, grade 1 diastolic dysfunction, severe pulmonary hypertension. Other findings of 2D echo appreciated. On admission patient was placed on therapeutic anticoagulation, was also placed on nitro drip, with improvement in her symptoms, aspirin Plavix statin beta-eliazar has been continued. S/p PCI to of mid LAD and mid RCA severe instent restenosis with JULES x 2 For history of diabetes she was placed on: Lantus and sliding's scale insulin CODE STATUS full code DVT prophylaxis on Lovenox Attestations Medical Necessity Statement*: For management of NSTEMI Coding Level of Care Code Acute Set Making Machine Operator for g Fwd Diagnoses NSTEMI (non-ST elevated myocardial infarction) I21.4 Atherosclerosis of coronary artery of [place] heart without angina pectoris I25.10 Diabetes type 2, uncontrolled E11.65 Hypertension I10 Hypertension type: essential hypertension Chronic respiratory failure with hypoxia J96.11 Obstructive sleep apnea G47.33
[2022-06-04] MEDS: benzonatate 100 mg Capsule PO (18:19)
[2022-06-04] MEDS: atorvastatin 40 mg Tablet PO (20:18)
[2022-06-04 20:46] LABS: Glucose Point of Care 227 mg/dL (70-110)
[2022-06-04] MEDS: morphine IR 15 mg Tablet PO (20:49)
[2022-06-05] VITALS (14 sets, daily range): BP systolic 89–154; BP diastolic 68–107; PULSE 93–110; RESP 18–32; TEMP 36.4–36.6; O2SAT 4–97
[2022-06-05] MEDS: ipratropium-albuterol 3 mL Neb INHALATION ×2 (04:30→09:04)
[2022-06-05 06:40] LABS: Glucose Point of Care 171 mg/dL (70-110)
[2022-06-05] MEDS: insulin lispro 100 unit/1 mL SUBCUT ×3 (08:06→17:33)
[2022-06-05] MEDS: aspirin 81 mg EC Tablet PO (08:06)
[2022-06-05] MEDS: clopidogrel 75 mg Tablet PO (08:06)
[2022-06-05] MEDS: pantoprazole DR 40 mg Tablet PO (08:06)
--- NOTE | 2022-06-05 09:17 | PM.PN ---
Subjective Subjective: Patient is feeling well. no chest pain. Vitals/I&O/Wt Last Vital Signs Temp 97.6 F 06/05/22 07:15 Pulse 105 H 06/05/22 09:06 Resp 19 H 06/05/22 09:06 BP 137/107 06/05/22 07:15 Pulse Ox 93 06/05/22 09:06 O2 Del Method 06/05/22 09:06 O2 Flow Rate 4 06/05/22 09:06 06/04/22 06/05/22 06/05/22 22:59 06:59 14:59 Intake Total 720 / 2160 240 / 2400 360 / 360 Output Total 680 / 680 Balance 40 / 1480 240 / 1720 360 / 360 Physical Exam Narrative: GENERAL: Patient is alert, awake and oriented x3. [] NECK: No jugular vein distension. [] HEENT: No cyanosis. No icterus. No pallor. [] HEART: Regular S1 and S2. No murmur, rub or gallop. [] LUNGS:Diminished breath sounds ABDOMEN: Soft CENTRAL NERVOUS SYSTEM: Grossly nonfocal. [] EXTREMITIES: Lower extremities with 1+ edema bilaterally. Pulses palpable in the lower extremities, both dorsalis pedis and posterior tibial. [] Data 06/03/22 02:43 06/04/22 09:10 A&P Assessment and plan (1) ACS (acute coronary syndrome): Patient's coronary angiogram showed severe in-stent restenosis of mid LAD and mid RCA stents. She had successful revascularization with JULES x2. Continue aspirin and Plavix High intensity statin therapy Renal function is stable. (2) Atherosclerosis of coronary artery of [place] heart without angina pectoris: (3) Chronic respiratory failure with hypoxia: (4) Hyperlipemia, mixed: (5) Emphysema of lung: (6) Obstructive sleep apnea: (7) Diabetes type 2, uncontrolled: (8) Smoking 1/2 pack a day or less: Attestations Medical Necessity Statement*: Care expected to cross 2 midnights. Coding Level of Care Code Acute Optimization Specialist for [facility] Diagnoses ACS (acute coronary syndrome) I24.9 Atherosclerosis of coronary artery of [place] heart without angina pectoris I25.10 Chronic respiratory failure with hypoxia J96.11 Hyperlipemia, mixed E78.2 Emphysema of lung J43.9 Obstructive sleep apnea G47.33 Diabetes type 2, uncontrolled E11.65 Smoking 1/2 pack a day or less F17.210
[2022-06-05] MEDS: metoprolol tartrate 25 mg Tablet 12.5 MG PO ×2 (10:43→20:14)
[2022-06-05 11:13] LABS: Glucose Point of Care 225 mg/dL (70-110)
[2022-06-05] MEDS: benzonatate 100 mg Capsule PO ×2 (13:18→21:40)
[2022-06-05] MEDS: levalbuterol 0.63 mg/3 mL Neb INHALATION ×2 (14:16→19:38)
[2022-06-05] MEDS: ipratropium 0.5 mg/2.5 mL Neb INHALATION ×2 (14:16→19:38)
[2022-06-05] MEDS: FUROsemide 40 mg Tablet PO (15:16)
--- NOTE | 2022-06-05 15:28 | P.PN_ITS ---
Subjective Subjective: Patient was seen and examined this morning, she was complaining of worsening shortness of breath, has crackles in rt basilar lung field, we will give her a dose of Lasix 40 p.o. 1 time, along with nebs. Medications: Medication Review Details: Generic Name Dose Route Start Last Admin Trade Name Freq PRN Reason Stop Dose Admin Acetaminophen 500 mg 06/02/22 22:50 06/04/22 01:11 Acetaminophen 50 0 Mg Tablet PO 500 mg Q4H PRN Administration fever Aspirin 81 mg 06/03/22 09:00 06/05/22 08:06 Aspirin 81 Mg Ec Tablet PO 81 mg DAILY NU Administration Atorvastatin Calci um 40 mg 06/03/22 21:00 06/04/22 20:18 Atorvastatin 40 Mg Tablet PO 40 mg BEDTIME NU Administration Benzonatate 100 mg 06/02/22 23:50 06/05/22 13:18 Benzonatate 100 Mg Capsule PO 100 mg TID PRN Administration cough Clopidogrel Bisulf ate 75 mg 06/02/22 22:50 06/05/22 08:06 Clopidogrel 75 M g Tablet PO 75 mg DAILY NU Administration Nitroglycerin/Dext fredrick 50 mg in 250 mls @ 0 mls/hr 06/02/22 21:30 06/03/22 19:[address] ip IV Infused .Q0M NU Titration Protocol Per Protocol Insulin Human Lisp ro 0 unit 06/03/22 08:00 06/05/22 11:53 Insulin Lispro 1 00 Unit/1 Ml SUBCUT 8 unit TIDWM NU Administration Protocol Ipratropium Bromid e 0.5 mg 06/05/22 14:00 06/05/22 14:16 Ipratropium 0.5 Mg/2.5 Ml Neb INHALATION 0.5 mg Q6H.RESP NU Administration Levalbuterol HCl 0.63 mg 06/05/22 14:00 06/05/22 14:16 Levalbuterol 0.6 3 Mg/3 Ml Neb INHALATION 0.63 mg Q6H.RESP NU Administration Metoprolol Tartrat e 12.5 mg 06/02/22 23:40 06/05/22 08:07 Metoprolol Tartr ate 25 Mg Tablet PO Not Given BID@0900,2100 NU Morphine Sulfate 15 mg 06/02/22 22:50 06/04/22 20:49 Morphine Ir 15 M g Tablet PO 15 mg Q6H PRN Administration MODERATE PAIN Non-Formulary 56 each 06/03/22 21:00 06/04/22 20:38 Medication Insulin SUBCUT 56 each Glargine 100u/Ml BEDTIME NU Administration Pantoprazole Sodiu m 40 mg 06/03/22 09:00 06/05/22 08:[address] 40 Mg Tablet PO 40 mg DAILY NU Administration Senna/Docusate Sod ium 1 tab 06/03/22 09:00 06/05/22 08:07 Sennosides-Docus ate Tablet PO Not Given DAILY NU Vitals/I&O/Wt Last Vital Signs Temp 97.6 F 06/05/22 07:15 Pulse 102 H 06/05/22 14:00 Resp 18 06/05/22 14:00 BP 89/68 06/05/22 12:32 Pulse Ox 92 06/05/22 14:00 O2 Del Method 06/05/22 14:00 O2 Flow Rate 4 06/05/22 14:00 06/05/22 06/05/22 06/05/22 06:59 14:59 22:59 Intake Total 240 / 2400 600 / 600 Balance 240 / 1720 600 / 600 Physical Exam Resp: COMMON NORMALS: clear to auscultation bilaterally EFFORT & INSPECTION: Yes symmetric chest movement AUSCULTATION: clear to auscultation bilaterally Cardio: COMMON NORMALS: regular rate, regular rhythm, S1 normal heart sound present, S2 normal heart sound present, No gallops present (Cardio), No murmurs present (Cardio), No rub (Cardio) and Peripheral pulses 2+ throughout RATE: regular rate RHYTHM: regular rhythm HEART SOUNDS: S1 normal heart sound present and S2 normal heart sound present PERIPHERAL PULSES: Peripheral pulses 2+ throughout GI: COMMON NORMALS: Normal to inspection, nondistended, normoactive bowel sounds present, Soft to palpation, non-tender, No hepatosplenomegaly present and no masses AUSCULTATION: Yes normoactive bowel sounds PALPATION: Yes Soft to palpation and Yes No hepatosplenomegaly present RECTAL EXAM: deferred Extremity: COMMON NORMALS: no clubbing, cyanosis or edema and no pedal edema Data 06/03/22 02:43 06/04/22 09:10 A&P Assessment and plan (1) NSTEMI (non-ST elevated myocardial infarction): (2) Atherosclerosis of coronary artery of [place] heart without angina pectoris: (3) Diabetes type 2, uncontrolled: (4) Hypertension: Qualifiers: Hypertension type: essential hypertension Qualified Code(s): I10 - Essential (primary) hypertension (5) Chronic respiratory failure with hypoxia: (6) Obstructive sleep apnea: Plan 57-year-old female with past medical history of CA lung status post radiotherapy , hypertension diabetes coronary artery disease s/p recent PTCA in October 2021 for moderate to severe in-stent restenosis in mid LAD, PCI to RCA, came in with chief complaint of substernal pressure-like chest pain radiating to left arm, as well as intrascapular pain, denied any diaphoresis, palpitation started since yesterday. Currently she is being managed for Assessment: NSTEMI History of CAD s/p stent History of hypertension History of diabetes History of CA lung COPD Chronic fibrotic interstitial lung disease severe pulmonary hypertension Severe pulmonary hypertension severely decreased right ventricle systolic function. Plan: CT angio chest : No pulmonary embolism.Chronic fibrotic interstitial lung disease. EKG: TWI in V1 to V5-more prominent as compared to prior EKGs. Sinus tachycardia Troponin trend:75-81-80, 2D echo: Normal LV size and systolic function, LVEF 60%, grade 1 diastolic dysfunction, severe pulmonary hypertension. Other findings of 2D echo appreciated. On admission patient was placed on therapeutic anticoagulation, was also placed on nitro drip, with improvement in her symptoms, aspirin Plavix statin beta- eliazar has been continued. S/p PCI to of mid LAD and mid RCA severe instent restenosis with JULES x 2 For history of diabetes she was placed on: Lantus and sliding's scale insulin CODE STATUS full code DVT prophylaxis on Lovenox Attestations Medical Necessity Statement*: Patient needs to be in hospital management NSTEMI, optimization of respiratory function. Coding Level of Care Code Acute Supervisor Home Energy Consultant for [facility] Diagnoses NSTEMI (non-ST elevated myocardial infarction) I21.4 Atherosclerosis of coronary artery of [place] heart without angina pectoris I25.10 Diabetes type 2, uncontrolled E11.65 Hypertension I10 Hypertension type: essential hypertension Chronic respiratory failure with hypoxia J96.11 Obstructive sleep apnea G47.33
--- NOTE | 2022-06-05 15:42 | PC.NURSE ---
Addendum entered by Alfonso Aguirre RN 06/06/22 14:17: late entry: during discharge, educated pt that she is requiring more oxygen and she has to be on 4-6 L when ambulating per RT home o2 eval. Pt stated, i don't want to live on 6 L. Educated the pt of her lung dse and she needs to see her chemist enzymes jovanna per doctor order. Pt verbalizes understanding. Original Note: pt becomes very sob with minimal exertion.o2 sats drop to low 80's (pt on 4 l nc o2)...and recover to low 90's after approx 5 min.hr also rises to 110-120.crackles noted in rll.dr hernandez notified.he ordered 40 mg lasix po.given as ordered.
[2022-06-05 16:13] LABS: Glucose Point of Care 236 mg/dL (70-110)
[2022-06-05] MEDS: atorvastatin 40 mg Tablet PO (20:13)
[2022-06-05 21:24] LABS: Glucose Point of Care 142 mg/dL (70-110)
[2022-06-05] MEDS: morphine IR 15 mg Tablet PO (21:35)
[2022-06-06] VITALS (7 sets, daily range): BP systolic 122–150; BP diastolic 82–110; PULSE 88–99; RESP 16–20; TEMP 36.4–36.6; O2SAT 77–94
[2022-06-06] MEDS: ipratropium 0.5 mg/2.5 mL Neb INHALATION ×2 (03:06→08:12)
[2022-06-06] MEDS: levalbuterol 0.63 mg/3 mL Neb INHALATION ×2 (03:06→08:13)
[2022-06-06 06:27] LABS: Glucose Point of Care 137 mg/dL (70-110)
[2022-06-06] MEDS: aspirin 81 mg EC Tablet PO (08:19)
[2022-06-06] MEDS: metoprolol tartrate 25 mg Tablet 12.5 MG PO (08:19)
[2022-06-06] MEDS: clopidogrel 75 mg Tablet PO (08:20)
[2022-06-06] MEDS: pantoprazole DR 40 mg Tablet PO (08:20)
--- NOTE | 2022-06-06 10:09 | PM.DCS ---
Discharge Providers Date of Admission: 06/03/22 16:13 Date of Discharge: June 06, 2022 Attending Provider at Admission: Swetha Longo MD Attending Provider at Discharge: Geoff Palma MD Primary Care Provider: Sujit Hernandez MD Diagnoses at Discharge Discharge Diagnosis (1) NSTEMI (non-ST elevated myocardial infarction): Status: Acute (2) Atherosclerosis of coronary artery of [place] heart without angina pectoris: Status: Acute (3) Diabetes type 2, uncontrolled: Status: Acute (4) Hypertension: Status: Acute Qualifiers: Hypertension type: essential hypertension Qualified Code(s): I10 - Essential (primary) hypertension (5) Chronic respiratory failure with hypoxia: Status: Acute (6) Obstructive sleep apnea: Status: Acute Reason for Visit Reason for Visit: RESPIRATORY DISTRESS/ CP Hospital Course Hospital Course 57-year-old female with past medical history of CA lung status post radiotherapy , hypertension diabetes coronary artery disease s/p recent PTCA in October 2021 for moderate to severe in-stent restenosis in mid LAD, PCI to RCA, came in with chief complaint of substernal pressure-like chest pain radiating to left arm, as well as intrascapular pain, patient was admitted for the management of NSTEMI: She underwent: PCI to?of mid LAD and mid RCA severe instent restenosis with JULES x 2.?CT angio chest :?No pulmonary embolism.Chronic fibrotic interstitial lung disease.EKG: TWI in V1 to V5-more prominent as compared to prior EKGs. Sinus tachycardia 2D echo: Normal LV size and systolic function, LVEF 60%, grade 1 diastolic dysfunction, severe pulmonary hypertension. During the hospital stay she was managed as per ACS protocol, she was discharged on aspirin Plavix statin beta-eliazar. Patient has severe fibrotic interstitial lung disease, as well as severe pulmonary hypertension, along with severely decreased RV systolic function, likely due to her longstanding smoking history, patient has significant desaturation with ambulation, she has qualified for 6 L home oxygen on ambulation. Patient was also discharged on Pulmicort inhaler, she has been asked to follow pulmonary as outpatient. At the time of discharge she was not complaining of any chest pain, though she has shortness of breath, which can be explained by her underlying lung pathology. Overall she has responded well to above medical management and is being discharged home in stable condition. She will follow cardiology and her PCP as outpatient. Physical Exam Resp: EFFORT & INSPECTION: Yes symmetric chest movement OTHER: Bilateral fine crackles present in both the lungs nav[place]. Cardio: COMMON NORMALS: regular rate, regular rhythm, S1 normal heart sound present, S2 normal heart sound present, No gallops present (Cardio), No murmurs present (Cardio), No rub (Cardio) and Peripheral pulses 2+ throughout RATE: regular rate RHYTHM: regular rhythm HEART SOUNDS: S1 normal heart sound present and S2 normal heart sound present PERIPHERAL PULSES: Peripheral pulses 2+ throughout GI: COMMON NORMALS: Normal to inspection, nondistended, normoactive bowel sounds present, Soft to palpation, non-tender, No hepatosplenomegaly present and no masses AUSCULTATION: Yes normoactive bowel sounds PALPATION: Yes Soft to palpation and Yes No hepatosplenomegaly present RECTAL EXAM: deferred Extremity: COMMON NORMALS: no clubbing, cyanosis or edema and no pedal edema Discharge Data Studies Completed and Pending Completed Studies During Hospitalization Category Date Time Status CTA chest [CT angio chest PE protcl [id number]] Stat Cat Scan 06/02/22 19:13 Completed XR chest 1V portable [id number] Stat Exams 06/02/22 17:15 Completed CV. echo complete* [id number] Routine Ultrasound 06/03/22 22:50 Completed Pending at discharge Category Date Time Status SPECIAL EVENT ASSISTANT request for service Routine Exams 06/03/22 12:22 Taken Radiology Impressions Chest X-Ray 06/02/22 17:15 IMPRESSION: 1. No acute findings. 2. Chronic fibrotic interstitial lung disease. Chest CTA 06/02/22 19:13 IMPRESSION: 1. No pulmonary embolism. 2. Chronic fibrotic interstitial lung disease, similar to 10/22/2021. 3. Decreased size of a right apical pulmonary nodule or scar. Fleischner Society follow up recommendations for incidental nodules are not indicated. Follow up per the patient's medical condition. 4. Moderate paraseptal emphysema. Laboratory Results WBC 10.5 10^3/uL (4.0-10.0) H 06/03/22 02:43 RBC 4.85 10^6/uL (4.1-5.3) 06/03/22 02:43 Hgb 14.8 g/dL (11.5-15.3) 06/03/22 02:43 Hct 46.8 % (37.0-47.0) 06/03/22 02:43 MCV 96.5 fl (81-99) 06/03/22 02:43 MCH 30.5 pg (28.0-34.0) 06/03/22 02:43 MCHC 31.6 g/dL (30.0-36.0) 06/03/22 02:43 RDW 16.2 % (12.1-15.1) H 06/03/22 02:43 Plt Count 210 10^3/cmm (130-400) 06/03/22 02:43 MPV 10.1 fL (7.4-10.4) 06/03/22 02:43 Neut % (Auto) 63.6 % 06/03/22 02:43 Lymph % (Auto) 27.2 % 06/03/22 02:43 Stewart % (Auto) 8.0 % 06/03/22 02:43 Eos % (Auto) 0.4 % 06/03/22 02:43 Baso % (Auto) 0.5 % 06/03/22 02:43 Neut # (Auto) 6.70 10^3/uL (1.8-7.7) 06/03/22 02:43 Lymph # (Auto) 2.9 10^3/uL (0.8-4.8) 06/03/22 02:43 Stewart # (Auto) 0.8 10^3/uL (0.2-0.9) 06/03/22 02:43 Eos # (Auto) 0.0 10^3/uL (0.0-0.8) 06/03/22 02:43 Baso # (Auto) 0.1 10^3/uL (0.0-0.1) 06/03/22 02:43 Nucleated RBC % (auto) 0 % 06/03/22 02:43 Nucleated RBCs # 0.0 /100WBC 06/03/22 02:43 D-Dimer 0.96 ug/mIFEU (0-0.59) H 06/02/22 17:54 Sodium 128 mmol/L (136-145) L 06/04/22 09:10 Potassium 4.5 mmol/L (3.5-5.1) 06/04/22 09:10 Chloride 98 mmol/L (98-107) 06/04/22 09:10 Carbon Dioxide 20 mmol/L (22-29) L 06/04/22 09:10 Anion Gap 14.5 (5-19) 06/04/22 09:10 BUN 18 mg/dL (6-20) 06/04/22 09:10 Creatinine 0.6 mg/dL (0.5-0.9) 06/04/22 09:10 GFR Calculation 102.3 mL/min (90-130) 06/04/22 09:10 Glucose 314 mg/dL (65-115) H 06/04/22 09:10 POC Glucose 137 mg/dL (70-110) H 06/06/22 06:21 Calculated Osmolality 280 mOsm/kg (285-295) L 06/04/22 09:10 Calcium 8.9 mg/dL (8.5-10.5) 06/04/22 09:10 Magnesium 2.0 mg/dL (1.7-2.3) 06/03/22 02:43 Total Bilirubin 0.9 mg/dL (0.15-1.2) 06/02/22 17:54 AST 50 U/L (0-32) H 06/02/22 17:54 ALT 63 U/L (0-33) H 06/02/22 17:54 Alkaline Phosphatase 179 U/L (35-105) H 06/02/22 17:54 Troponin T Baseline 75 ng/L (0-10) H 06/02/22 17:54 Troponin T 120 Minute 81.57 ng/L (0-10) H 06/02/22 20:07 Delta Troponin T 6.57 ABS# (0-10) 06/02/22 20:07 Troponin T Hi Sens 6Hr 80.75 ng/L (0-10) H 06/02/22 22:45 Troponin T Hi Sens 6Hr Delta 5.75 ng/L (0-12) 06/02/22 22:45 Total Protein 7.8 g/dL (6.6-8.7) 06/02/22 17:54 Albumin 3.6 g/dL (3.5-5.2) 06/02/22 17:54 Globulin 4.2 g/dL (1.3-4.6) 06/02/22 17:54 Vitals Last Vital Signs Temp 97.6 F 06/06/22 08:00 Pulse 92 06/06/22 08:00 Resp 20 H 06/06/22 08:00 BP 150/90 06/06/22 08:00 Pulse Ox 90 06/06/22 08:00 O2 Del Method 06/06/22 08:00 O2 Flow Rate 2 06/06/22 08:00 Discharge Plan Discharge Patient Disposition: Home Condition: Stable Prescriptions: New Pulmicort Flexhaler 180 mcg/actuation aerosol powdr breath activated 1 inh inhalation BID Qty: 1 1RF metoprolol succinate 25 mg tablet extended release 24 hr 25 mg PO DAILY Qty: 30 3RF Continued (DME) Aerochamber Mini Spacer See Rx Instructions .ROUTE .MEDSUPPLY Qty: 1 Rx Instructions: As directed Farxiga 10 mg tablet 10 mg PO QAM 90 Days Qty: 90 3RF glipizide 5 mg tablet 5 mg PO DAILY 90 Days Qty: 90 3RF metformin 500 mg tablet extended release 24 hr 1,000 mg PO BID 90 Days Qty: 360 3RF Levemir FlexTouch U-100 Insuln 100 unit/mL (3 mL) insulin pen 56 unit SUBCUT DAILY 90 Days Qty: 55 3RF furosemide [Lasix] 20 mg tablet 20 mg PO DAILY Qty: 90 3RF potassium chloride 8 mEq tablet extended release 8 meq PO DAILY Qty: 90 3RF benzonatate 100 mg capsule 100 mg PO TID PRN (Reason: cough) Qty: 90 0RF ipratropium-albuterol 0.5 mg-3 mg(2.5 mg base)/3 mL solution for nebulization 3 ml inhalation Q6H PRN (Reason: wheezing) Qty: 360 3RF PNV cmb#95-ferrous fumarate-FA [] 28 mg iron- 800 mcg Tablet 1 tab PO DAILY esomeprazole magnesium [Nexium] 20 mg Capsule,Delayed Release(Dr/Ec) 20 mg PO DAILY atorvastatin 40 mg tablet 40 mg PO DAILY 30 Days Qty: 30 0RF clopidogrel 75 mg tablet 75 mg PO QDAY 30 Days Qty: 30 0RF aspirin [Adult Low Dose Aspirin] 81 mg tablet,delayed release (DR/EC) 81 mg PO DAILY 30 Days Qty: 30 0RF cyclobenzaprine 10 mg Tablet 10 mg PO TID PRN (Reason: Muscle Spasm) naproxen 500 mg Tablet 500 mg PO BID Discharge Orders: Discharge Order (Routine); Ordered 06/06/22 Ordered By: Geoff Palma Other Ambulatory Orders: DME: Commode (Order) Location: None Selected Ordered By: Geoff Palma DME: Oxygen (Order) Location: None Selected Ordered By: Geoff Palma Referrals: Sujit Hernandez MD [Primary Care Provider] - (Please follow-up with Dr. Hernandez on at 9:00A.M. If you have any questions or need to reschedule. Please call ) Henrique Sloan MD [Physician] - 1 month (During your appointment with Alejandra you will be scheduled for an follow-up appointment with Dr. Sloan. ) Alejandra Cardoso FNP [Nurse Practitioner] - 1 week (Please follow-up with Alejandra Cardoso on at 8:45A.M. If you have any questions or need to reschedule. Please call ) BibirDenver MD [Physician] - 2 weeks Patient Instructions: Metoprolol (By mouth), Budesonide (By breathing) (Flex de Pulmicort, Pulmicort Flexhaler,..., Coronary Angioplasty (DC), Acute Coronary Syndrome (DC), Opioid Safety, Post Angiogram Home Care Instructions Discharge Attestations Time Spent in Discharge Care*: greater than 30 min Quality Metrics Clinical Quality Measures [ No reported AMI, CVA or VTE this stay] Coding Level of Care Code Acute Chg FW DC note Diagnoses NSTEMI (non-ST elevated myocardial infarction) I21.4 Atherosclerosis of coronary artery of [place] heart without angina pectoris I25.10 Diabetes type 2, uncontrolled E11.65 Hypertension I10 Hypertension type: essential hypertension Chronic respiratory failure with hypoxia J96.11 Obstructive sleep apnea G47.33
[2022-06-06 11:22] LABS: Glucose Point of Care 228 mg/dL (70-110)
[2022-06-06] MEDS: insulin lispro 100 unit/1 mL SUBCUT (12:56)
--- NOTE | 2022-06-06 14:11 | PC.NURSE ---
Discharge Note Patient discharged to home via private vehicle accompanied by SO. Discharge instructions reviewed with patient and/or signs and displays sales representative. Mobile pharmacy medications and/or prescriptions provided. Belongings/home medications returned. Instructed pt on COPD stoplight, Heart attack stoplight and to call 911 right jovanna for any worsening of symptoms. Informed pt that the [facility] we can get for her lung doctor is August 19, 2022 at 9am, note given to pt.
--- NOTE | 2022-06-06 16:25 | P.PN_ITS ---
Subjective Subjective: Patient is doing well. No chest pain. Vitals/I&O/Wt Last Vital Signs Temp 97.8 F 06/06/22 13:00 Pulse 92 06/06/22 13:00 Resp 18 06/06/22 13:00 BP 122/82 06/06/22 13:00 Pulse Ox 88 L 06/06/22 13:00 O2 Del Method 06/06/22 11:12 O2 Flow Rate 6 06/06/22 11:51 06/06/22 06/06/22 06/06/22 06:59 14:59 22:59 Intake Total 240 / 1840 850 / 850 Balance 240 / 840 850 / 850 Physical Exam Narrative: GENERAL: Patient is alert, awake and oriented x3. [] NECK: No jugular vein distension. [] HEENT: No cyanosis. No icterus. No pallor. [] HEART: Regular S1 and S2. No murmur, rub or gallop. [] LUNGS:Diminished breath sounds ABDOMEN: Soft CENTRAL NERVOUS SYSTEM: Grossly nonfocal. [] EXTREMITIES: Lower extremities with 1+ edema bilaterally. Pulses palpable in the lower extremities, both dorsalis pedis and posterior tibial. [] Data 06/03/22 02:43 06/04/22 09:10 A&P Assessment and plan (1) ACS (acute coronary syndrome): From cardiology standpoint patient is stable to be discharged. Continue aspirin and Plavix. Continue high intensity statin therapy. Outpatient cardiology follow-up (2) Atherosclerosis of coronary artery of [place] heart without angina pectoris: (3) Chronic respiratory failure with hypoxia: (4) Hyperlipemia, mixed: (5) Emphysema of lung: (6) Obstructive sleep apnea: (7) Diabetes type 2, uncontrolled: (8) Smoking 1/2 pack a day or less: Attestations Medical Necessity Statement*: Care expected to cross 2 midnights. Coding Level of Care Code Acute Order Entry Administrator for [facility] Fwd Diagnoses ACS (acute coronary syndrome) I24.9 Atherosclerosis of coronary artery of [place] heart without angina pectoris I25 .10 Chronic respiratory failure with hypoxia J96.11 Hyperlipemia, mixed E78.2 Emphysema of lung J43.9 Obstructive sleep apnea G47.33 Diabetes type 2, uncontrolled E11.65 Smoking 1/2 pack a day or less F17.210
== END 2022-06-06 14:20 | disposition home or self-care (01) | DRG 246 ==
LOC: ER 22:01 → CSU 22:08
PROVIDERS: Internal Medicine; Admitting Provider Internal Medicine; Emergency Provider Emergency Medicine; PCP Family Medicine; Visit Provider Internal Medicine
PROC: 027135Z Dilation of Coronary Artery, Two Arteries with Two Drug-eluting Intraluminal Devices, Percutaneous Approach (ICD-10-PCS; principal; 2022-06-03 14:00)
PROC: 027135Z Dilation of Coronary Artery, Two Arteries with Two Drug-eluting Intraluminal Devices, Percutaneous Approach (ICD-10-PCS; 2022-06-03 14:00)
DX: T82.855A Stenosis of coronary artery stent, initial encounter (principal); I21.4 Non-ST elevation (NSTEMI) myocardial infarction; I25.110 Atherosclerotic heart disease of native coronary artery with unstable angina pectoris; J96.11 Chronic respiratory failure with hypoxia; Y71.8 Miscellaneous cardiovascular devices associated with adverse incidents, not elsewhere classified; E11.65 Type 2 diabetes mellitus with hyperglycemia; E11.40 Type 2 diabetes mellitus with diabetic neuropathy, unspecified; I10 Essential (primary) hypertension; G47.33 Obstructive sleep apnea (adult) (pediatric); Z85.118 Personal history of other malignant neoplasm of bronchus and lung; Z92.3 Personal history of irradiation; I27.20 Pulmonary hypertension, unspecified; Z79.84 Long term (current) use of oral hypoglycemic drugs; J43.9 Emphysema, unspecified; Z79.02 Long term (current) use of antithrombotics/antiplatelets; Z79.4 Long term (current) use of insulin; Z99.81 Dependence on supplemental oxygen; F17.210 Nicotine dependence, cigarettes, uncomplicated; E78.2 Mixed hyperlipidemia; M48.02 Spinal stenosis, cervical region
CPT/HCPCS: 36415; 36416; 71045; 71275; 80048; 80053; 82962; 83735; 84484; 85025; 85347; 85378; 92978; 92979; 93005; 93306; 93454; 94640; 94760; 96365; 96372; 96375; 99152; 99153; 99285; C1725; C1753; C1760; C1769; C1874; C1887; C1894; C9600; C9601; G0269; G0378; J1644; J1650; J1815; J2250; J2270; J3010; J3490; J7030; J7614; J7644; Q0163; Q9967

== ENCOUNTER → 2022-06-13 08:19 | Outpatient (BNVA) | payer MEDICAID, SELFPAY | PROVIDERS: PCP Family Medicine; Visit Provider Nurse Practitioner Family | DX: I25.118 Atherosclerotic heart disease of native coronary artery with other forms of angina pectoris (principal); I25.2 Old myocardial infarction; Z87.891 Personal history of nicotine dependence; I10 Essential (primary) hypertension | CPT/HCPCS: 36415; 80048; 83880; 99214 ==

== ENCOUNTER → 2022-06-30 08:06 | Outpatient (BNVA) | payer MEDICAID, SELFPAY | PROVIDERS: PCP Family Medicine; Visit Provider Internal Medicine | DX: E11.59 Type 2 diabetes mellitus with other circulatory complications (principal); E11.40 Type 2 diabetes mellitus with diabetic neuropathy, unspecified; E11.65 Type 2 diabetes mellitus with hyperglycemia; E78.2 Mixed hyperlipidemia; Z79.4 Long term (current) use of insulin; Z79.84 Long term (current) use of oral hypoglycemic drugs; I25.10 Atherosclerotic heart disease of native coronary artery without angina pectoris | CPT/HCPCS: 99214 ==

== ENCOUNTER 2022-08-16 17:10 | Inpatient (IN) | payer MEDICAID, SELFPAY ==
[2022-08-16] VITALS (16 sets, daily range): BP systolic 156–163; BP diastolic 96–129; PULSE 99–119; RESP 20–28; TEMP 36.8; O2SAT 84–98
--- NOTE | 2022-08-16 17:13 | ECG_ITS ---
[facility] Test Date: 2022-08-16 Pat Name: Mayuri Davidson Department: Room: Gender: Female Private Duty Nurse: : 1965 Requested By: Igor Moran Order Number: [id number] Ivanna MD: Uday Covarrubias M.D. Measurements Intervals [place] Rate: 104 P: 64 NC: 143 QRS: 128 QRSD: 106 T: -7 QT: 346 QTc: 456 Interpretive Statements SINUS TACHYCARDIA LEFT ATRIAL ENLARGEMENT [-0.15mV P-WAVE IN V1/V2] INCOMPLETE RIGHT BUNDLE BRANCH BLOCK [90+ ms QRS DURATION, TERMINAL R IN V1/V2, 40+ ms S IN I/aVL/V4/V5/V6] POSSIBLE RIGHT VENTRICULAR HYPERTROPHY [SOME/ALL OF: PROMINENT R IN V1, LATE TRANSITION, RAD, LYLE, SSS] INFERIOR MYOCARDIAL INFARCTION , PROBABLY OLD [40+ ms Q WAVE AND/OR ST/T ABNORMALITY IN II/aVF] MODERATE T-WAVE ABNORMALITY, CONSIDER LATERAL ISCHEMIA [-0.1+ mV T-WAVE IN I/aVL/V5/V6] Compared to ECG 06/02/2022 23:22:47 Incomplete right bundle-branch block now present T-wave abnormality now present Possible ischemia now present Myocardial infarct finding still present Electronically Signed On 08-16-2022 22:46:25 MACHINE DESIGN TEACHER by Uday Covarrubias M.D. [email or web address]
--- NOTE | 2022-08-16 17:13 | XRR_ITS ---
PROCEDURE INFORMATION: Exam: XR Chest Exam date and time: 08/16/2022 5:20 PM Age: 57 years old Clinical indication: Cough; Additional info: Dyspnea/cough TECHNIQUE: Imaging protocol: Radiologic exam of the chest. Views: 1 view. COMPARISON: CR (CHEST, ) 06/02/2022 5:27 PM FINDINGS: Lungs: There are centrilobular emphysematous changes in the bilateral lungs. There are scattered regions of bilateral subpleural interstitial thickening, greatest at the lung bases, suggestive of pulmonary fibrosis. Pleural spaces: Unremarkable. No pleural effusion. No pneumothorax. Heart/Mediastinum: Possible cardiomegaly. Bones/joints: Unremarkable. XR/XR chest 1V portable [id number] IMPRESSION: 1. There are centrilobular emphysematous changes in the bilateral lungs. 2. There are scattered regions of bilateral subpleural interstitial thickening, greatest at the lung bases, suggestive of pulmonary fibrosis. 3. Possible cardiomegaly.Heart size not optimally evaluated with a single AP view of the chest.
--- NOTE | 2022-08-16 17:14 | ED_ITS ---
Documented by User: Igor Dimas DO 08/17/22 06:00 HPI - SOB/Dyspnea General: Chief Complaint: Shortness of Breath/Dyspnea Stated Complaint: SOB Time Seen by Provider: 08/16/22 17:13 Source: patient Mode of arrival: ambulatory History of Present Illness: HPI Narrative: 57-year-old female presents to the emergency room female presents emergency room with complaint of shortness of breath. Patient has a history of coronary disease as well as malignant neoplasm of the lung. She has had stents in the last year. He is on Plavix. She had a suspicious looking lung nodule does not look like from the notes that I can review that it was ever biopsied but she did undergo radiation for it she finished in June 2022. She comes in today severely short of breath requiring 15 L by mask. MD elicited complaint: shortness of breath Pertinent past history: COPD Onset (ago): hour(s) Timing: constant Severity: severe Exacerbating factors: exertion, coughing and talking Relieving factors: oxygen, rest and bronchodilators Associated symptoms: Deny abdominal pain, chest pain, fever(s), nausea, orthopnea or vomiting Review of Systems Const: Denies: fever(s), chills, body aches, change in appetite, fatigue or malaise ENMT: Denies: throat pain, ear or mastoid pain, nasal discharge or nasal congestion Card: Denies: chest pain, edema, dyspnea on exertion or orthopnea Resp: Reports: dyspnea, non-productive cough and wheezing; Denies: productive cough GI: Denies: abdominal pain, nausea, vomiting, hematemesis, coffee ground emesis, diarrhea, constipation, bloating, hematochezia or melena : Denies: flank pain, difficulty voiding, dysuria, urinary frequency or urinary urgency Skin/Breast: Denies: rash or pruritus PFSH ED PFSH: Medical History ACS (acute coronary syndrome) ASHD (arteriosclerotic heart disease) Atherosclerosis of coronary artery of [place] without angina pectoris Cervical disc disease Cervical disc disorder with myelopathy of mid-cervical region Chronic respiratory failure with hypoxia Diabetes type 2, uncontrolled Diabetic neuropathy Emphysema of lung Hyperlipemia, mixed Hyperlipidemia Hypertension Lung cancer Neck pain of over 3 months duration Nicotine addiction NSTEMI (non-ST elevated myocardial infarction) Obstructive sleep apnea Smoking 1/2 pack a day or less Stenosis of cervical spine with myelopathy Tachycardia Unstable angina Surgical History History of heart surgery June 2007, August 2012 History of PTCA S/P tonsillectomy Family History Mother Diabetes Father Heart disease Brother CAD (coronary artery disease) Family/Other CAD (coronary artery disease) Diabetes Grandfather CAD (coronary artery disease) Denies family history of Clotting disorder Dementia Chronic kidney disease (CKD) Suicide Anesthesia complication Bleeding disorder Lung disease Cancer Stroke Social History Smoking and tobacco status: former smoker Alcohol intake: never Lives independently: Yes Household members: family Housing: House Marital status: service: No Current occupational status: disabled History of recent travel: No Physical Exam Const: GENERAL APPEARANCE: cooperative ORIENTATION/CONSCIOUSNESS: Yes awake, Yes oriented to person, Yes oriented to place and Yes oriented to time HENMT: COMMON NORMALS: normocephalic, atraumatic and hearing grossly normal bilaterally HEAD & SCALP: normocephalic and atraumatic Resp: EFFORT & INSPECTION: Yes tachypneic AUSCULTATION: crackles (Right base), wheezes and diminished lung sounds Cardio: COMMON NORMALS: regular rhythm and No murmurs present (Cardio) RATE: tachycardic RHYTHM: regular rhythm GI: COMMON NORMALS: Soft to palpation and No hepatosplenomegaly present AUSCULTATION: Yes normoactive bowel sounds PALPATION: Yes Soft to palpation, No Tenderness to palpation present (GI), No Guarding due to palpation present (GI) and Yes No hepatosplenomegaly present Extremity: COMMON NORMALS: normal to inspection, capillary refill normal, no clubbing, cyanosis or edema, no calf tenderness and no pedal edema Neuro: SENSORIUM/ORIENTATION: Yes oriented to person, Yes oriented to place and Yes oriented to time Skin: COMMON NORMALS: no rashes or lesions noted GENERAL SKIN EXAM: no rashes or lesions noted Course Vital Signs: Vital signs: Vital Signs Temperature 97.6 F 08/17/22 04:00 Pulse Rate 89 08/17/22 04:00 Respiratory Rate 20 H 08/17/22 04:00 Blood Pressure 122/73 08/17/22 04:00 Pulse Oximetry 98 08/17/22 04:00 Oxygen Delivery Me thod 08/17/22 03:32 Oxygen Flow Rate 10 08/17/22 03:32 MDM - SOB/Dyspnea Medical Decision Making Care signed out to Dr. St at change of shift. See final notes for diagnosis and disposition. Patient presents here with shortness of breath she does have a history of COPD along with CHF with likely exacerbation CT shows no signs of PE she is on 10 L at this time we will give her Lasix along with steroids and breathing treatment spoke to hospitalist will admit to stepdown Lab Data 08/16/22 17:26 08/16/22 17:26 Labs/Radiology: Radiology Impressions Chest X-Ray 08/16/22 17:13 IMPRESSION: 1. There are centrilobular emphysematous changes in the bilateral lungs. 2. There are scattered regions of bilateral subpleural interstitial thickening, greatest at the lung bases, suggestive of pulmonary fibrosis. 3. Possible cardiomegaly.Heart size not optimally evaluated with a single AP view of the chest. Chest CTA 08/16/22 17:59 IMPRESSION: 1. There are centrilobular emphysematous changes in the bilateral lungs. 2. There are scattered regions of bilateral subpleural interstitial thickening, greatest at the lung bases, suggestive of pulmonary fibrosis. 3. Cardiomegaly with a small left pleural effusion raises concern for congestive heart failure. Please correlate clinically. There is a small pericardial effusion as well. COMMENTS: In the absence of a history or active diagnosis of lung cancer, it is recommended that this patient with emphysema be evaluated for enrollment in a low dose CT lung cancer screening program. Laboratory Results WBC 11.3 10^3/uL (4.0-10.0) H 08/16/22 17: RBC 4.89 10^6/uL (4.1-5.3) 08/16/22 17: Hgb 15.0 g/dL (11.5-15.3) 08/16/22 17: Hct 49.4 % (37.0-47.0) H 08/16/22 17: MCV 101.0 fl (81-99) H 08/16/22 17: MCH 30.7 pg (28.0-34.0) 08/16/22: MCHC 30.4 g/dL (30.0-36.0) 08/16/22: RDW 17.6 % (12.1-15.1) H 08/16/22 17: Plt Count 260 10^3/cmm (130-400) 08/16/22: MPV 10.2 fL (7.4-10.4) 08/16/22: Neut % (Auto) 52.9 % 08/16/22 17: Lymph % (Auto) 37.3 % 08/16/22: [place] % (Auto) 7.3 % 08/16/22: Eos % (Auto) 1.5 % 08/16/22: Baso % (Auto) 0.6 % 08/16/22: Neut # (Auto) 5.96 10^3/uL (1.8-7.7) 08/16/22: Lymph # (Auto) 4.2 10^3/uL (0.8-4.8) 08/16/22: [facility] [facility] # (Auto) 0.8 10^3/uL (0.2-0.9) 08/16/22: Eos # (Auto) 0.2 10^3/uL (0.0-0.8) 08/16/22: Baso # (Auto) 0.1 10^3/uL (0.0-0.1) 08/16/22: Nucleated RBC % (auto) 0 % 08/16/22: Nucleated RBCs # 0.0 /100WBC 08/16/22: Specimen Type Arterial 08/16/22 18:20 Sample Site Radial, right 08/16/22 18:20 ABG pH 7.45 (7.35-7.45) 08/16/22 18:20 ABG pCO2 33.3 mmHg (35-45) L 08/16/22 18:20 ABG pO2 108.0 mmHg (80.0-100.0) H 08/16/22 18:20 ABG HCO3 23.3 mmol/L (22-26) 08/16/22 18:20 ABG O2 Saturation 99.0 08/16/22 18:20 ABG Base Excess 0.0 mmol/L (-2.0-2.0) 08/16/22 18:20 Artemio Test Pos 08/16/22 18:20 A-a O2 Gradient 71.4 mmHg (5-10) H 08/16/22 18:20 Hematocrit 46.1 % (37-47) 08/16/22 18:20 Hgb O2 Saturation 97.3 % (95-100) 08/16/22 18:20 Carboxyhemoglobin 1.7 %THgb (0.4-20.1) 08/16/22 18:20 Methemoglobin 0.0 % (0.4-1.5) L 08/16/22 18:20 Total Hemoglobin 15.0 g/dL (12-16) 08/16/22 18:20 Sodium 142.0 mmol/L (131-143) 08/16/22 18:20 Potassium 3.8 mmol/L (3.5-5.0) 08/16/22 18:20 Glucose 85.0 mg/dL (70-115) 08/16/22 18:20 Ionized Calcium 1.1 mmol/L (1.1-1.4) 08/16/22 18:20 O2 Delivery Device Nrb 08/16/22 18:20 O2 Liters/Min 15.0 % 08/16/22 18:20 FiO2 100.0 % 08/16/22 18:20 Tripe Cooker ID glc 08/16/22 18:20 Sodium 138 mmol/L (136-145) 08/16/22 17:26 Potassium 4.0 mmol/L (3.5-5.1) 08/16/22 17:26 Chloride 100 mmol/L (98-107) 08/16/22 17:26 Carbon Dioxide 22 mmol/L (22-29) 08/16/22 17:26 Anion Gap 20.0 (5-19) H 08/16/22 17:26 BUN 14 mg/dL (6-20) 08/16/22 17:26 Creatinine 0.7 mg/dL (0.5-0.9) 08/16/22 17:26 GFR Calculation 85.6 mL/min (90-130) L 08/16/22 17:26 Glucose 102 mg/dL (65-115) 08/16/22 17:26 Calculated Osmolality 287 mOsm/kg (285-295) 08/16/22 17:26 Lactic Acid 1.4 mmol/L (0.5-2.2) 08/16/22 18:10 Calcium 9.4 mg/dL (8.5-10.5) 08/16/22 17:26 Total Bilirubin 1.0 mg/dL (0.15-1.2) 08/16/22 17:26 AST 43 U/L (0-32) H 08/16/22 17:26 ALT 32 U/L (0-33) 08/16/22 17:26 Alkaline Phosphatase 165 U/L (35-105) H 08/16/22 17:26 NT-Pro-B Natriuret Pep 2521 pg/mL (0-125) H 08/16/22 17:26 Total Protein 7.9 g/dL (6.6-8.7) 08/16/22 17:26 Albumin 4.2 g/dL (3.5-5.2) 08/16/22 17:26 Globulin 3.7 g/dL (1.3-4.6) 08/16/22 17:26 Influenza Type A Ag negative (Negative) 08/16/22 19:25 Influenza Type B Ag negative (Negative) 08/16/22 19:25 SARS-CoV-2 Ag (Rapid) negative (Negative) 08/16/22 19:25 Discharge Plan Discharge Patient Disposition: Admitted As Inpatient Admit Provider: Geoff Palma Clinical Impression: Acute exacerbation of chronic obstructive airways disease, Congestive heart failure, Acute respiratory failure with hypoxemia Condition: Stable Coding Level of Care Code ED Student Liaison Officer for Chg Fwd Documented by User: Chano St MD 08/16/22 19:54 HPI - SOB/Dyspnea General: Chief Complaint: Shortness of Breath/Dyspnea Stated Complaint: SOB Time Seen by Provider: 08/16/22 17:13 PFSH ED PFSH: Medical History ACS (acute coronary syndrome) ASHD (arteriosclerotic heart disease) Atherosclerosis of coronary artery of [place] without angina pectoris Cervical disc disease Cervical disc disorder with myelopathy of mid-cervical region Chronic respiratory failure with hypoxia Diabetes type 2, uncontrolled Diabetic neuropathy Emphysema of lung Hyperlipemia, mixed Hyperlipidemia Hypertension Lung cancer Neck pain of over 3 months duration Nicotine addiction NSTEMI (non-ST elevated myocardial infarction) Obstructive sleep apnea Smoking 1/2 pack a day or less Stenosis of cervical spine with myelopathy Tachycardia Unstable angina Surgical History History of heart surgery June 2007, August 2012 History of PTCA S/P tonsillectomy Family History Mother Diabetes Father Heart disease Brother CAD (coronary artery disease) Family/Other CAD (coronary artery disease) Diabetes Grandfather CAD (coronary artery disease) Denies family history of Clotting disorder Dementia Chronic kidney disease (CKD) Suicide Anesthesia complication Bleeding disorder Lung disease Cancer Stroke Social History Smoking and tobacco status: former smoker Alcohol intake: never Lives independently: Yes Household members: family Housing: House Marital status: service: No Current occupational status: disabled History of recent travel: No Course Vital Signs: Vital signs: Vital Signs Temperature 97.6 F 08/17/22 04:00 Pulse Rate 89 08/17/22 04:00 Respiratory Rate 20 H 08/17/22 04:00 Blood Pressure 122/73 08/17/22 04:00 Pulse Oximetry 98 08/17/22 04:00 Oxygen Delivery Me thod 08/17/22 03:32 Oxygen Flow Rate 10 08/17/22 03:32 MDM - SOB/Dyspnea Medical Decision Making Patient presents here with shortness of breath she does have a history of COPD along with CHF with likely exacerbation CT shows no signs of PE she is on 10 L at this time we will give her Lasix along with steroids and breathing treatment spoke to hospitalist will admit to stepdown Lab Data 08/16/22 17:26 08/16/22 17:26 Labs/Radiology: Radiology Impressions Chest X-Ray 08/16/22 17:13 IMPRESSION: 1. There are centrilobular emphysematous changes in the bilateral lungs. 2. There are scattered regions of bilateral subpleural interstitial thickening, greatest at the lung bases, suggestive of pulmonary fibrosis. 3. Possible cardiomegaly.Heart size not optimally evaluated with a single AP view of the chest. Chest CTA 08/16/22 17:59 IMPRESSION: 1. There are centrilobular emphysematous changes in the bilateral lungs. 2. There are scattered regions of bilateral subpleural interstitial thickening, greatest at the lung bases, suggestive of pulmonary fibrosis. 3. Cardiomegaly with a small left pleural effusion raises concern for congestive heart failure. Please correlate clinically. There is a small pericardial effusion as well. COMMENTS: In the absence of a history or active diagnosis of lung cancer, it is recommended that this patient with emphysema be evaluated for enrollment in a low dose CT lung cancer screening program. Laboratory Results WBC 11.3 10^3/uL (4.0-10.0) H 08/16/22 17: RBC 4.89 10^6/uL (4.1-5.3) 08/16/22 17: Hgb 15.0 g/dL (11.5-15.3) 08/16/22 17: Hct 49.4 % (37.0-47.0) H 08/16/22 17: MCV 101.0 fl (81-99) H 08/16/22 17: MCH 30.7 pg (28.0-34.0) 08/16/22 17: MCHC 30.4 g/dL (30.0-36.0) 08/16/22 17: RDW 17.6 % (12.1-15.1) H 08/16/22 17: Plt Count 260 10^3/cmm (130-400) 08/16/22 17: MPV 10.2 fL (7.4-10.4) 08/16/22 17: Neut % (Auto) 52.9 % 08/16/22: Lymph % (Auto) 37.3 % 08/16/22 17: [facility] % (Auto) 7.3 % 08/16/22 17: Eos % (Auto) 1.5 % 08/16/22 17: Baso % (Auto) 0.6 % 08/16/22 17: Neut # (Auto) 5.96 10^3/uL (1.8-7.7) 08/16/22: Lymph # (Auto) 4.2 10^3/uL (0.8-4.8) 08/16/22: [facility] # (Auto) 0.8 10^3/uL (0.2-0.9) 08/16/22: Eos # (Auto) 0.2 10^3/uL (0.0-0.8) 08/16/22: Baso # (Auto) 0.1 10^3/uL (0.0-0.1) 08/16/22: Nucleated RBC % (auto) 0 % 08/16/22 Nucleated RBCs # 0.0 /100WBC 08/16/22: Specimen Type Arterial 08/16/22 18:20 Sample Site Radial, right 08/16/22 18:20 ABG pH 7.45 (7.35-7.45) 08/16/22 18:20 ABG pCO2 33.3 mmHg (35-45) L 08/16/22 18:20 ABG pO2 108.0 mmHg (80.0-100.0) H 08/16/22 18:20 ABG HCO3 23.3 mmol/L (22-26) 08/16/22 18:20 ABG O2 Saturation 99.0 08/16/22 18:20 ABG Base Excess 0.0 mmol/L (-2.0-2.0) 08/16/22 18:20 Artemio Test Pos 08/16/22 18:20 A-a O2 Gradient 71.4 mmHg (5-10) H 08/16/22 18:20 Hematocrit 46.1 % (37-47) 08/16/22 18:20 Hgb O2 Saturation 97.3 % (95-100) 08/16/22 18:20 Carboxyhemoglobin 1.7 %THgb (0.4-20.1) 08/16/22 18:20 Methemoglobin 0.0 % (0.4-1.5) L 08/16/22 18:20 Total Hemoglobin 15.0 g/dL (12-16) 08/16/22 18:20 Sodium 142.0 mmol/L (131-143) 08/16/22 18:20 Potassium 3.8 mmol/L (3.5-5.0) 08/16/22 18:20 Glucose 85.0 mg/dL (70-115) 08/16/22 18:20 Ionized Calcium 1.1 mmol/L (1.1-1.4) 08/16/22 18:20 O2 Delivery Device Nrb 08/16/22 18:20 O2 Liters/Min 15.0 % 08/16/22 18:20 FiO2 100.0 % 08/16/22 18:20 Tripe Cooker ID glc 08/16/22 18:20 Sodium 138 mmol/L (136-145) 08/16/22 17:26 Potassium 4.0 mmol/L (3.5-5.1) 08/16/22 17:26 Chloride 100 mmol/L (98-107) 08/16/22 17:26 Carbon Dioxide 22 mmol/L (22-29) 08/16/22 17:26 Anion Gap 20.0 (5-19) H 08/16/22 17:26 BUN 14 mg/dL (6-20) 08/16/22 17:26 Creatinine 0.7 mg/dL (0.5-0.9) 08/16/22 17:26 GFR Calculation 85.6 mL/min (90-130) L 08/16/22 17:26 Glucose 102 mg/dL (65-115) 08/16/22 17:26 Calculated Osmolality 287 mOsm/kg (285-295) 08/16/22 17:26 Lactic Acid 1.4 mmol/L (0.5-2.2) 08/16/22 18:10 Calcium 9.4 mg/dL (8.5-10.5) 08/16/22 17:26 Total Bilirubin 1.0 mg/dL (0.15-1.2) 08/16/22 17:26 AST 43 U/L (0-32) H 08/16/22 17:26 ALT 32 U/L (0-33) 08/16/22 17:26 Alkaline Phosphatase 165 U/L (35-105) H 08/16/22 17:26 NT-Pro-B Natriuret Pep 2521 pg/mL (0-125) H 08/16/22 17:26 Total Protein 7.9 g/dL (6.6-8.7) 08/16/22 17:26 Albumin 4.2 g/dL (3.5-5.2) 08/16/22 17:26 Globulin 3.7 g/dL (1.3-4.6) 08/16/22 17:26 Influenza Type A Ag negative (Negative) 08/16/22 19:25 Influenza Type B Ag negative (Negative) 08/16/22 19:25 SARS-CoV-2 Ag (Rapid) negative (Negative) 08/16/22 19:25 Critical Care Time Critical Care Time: Critical Care Time: Yes Total Critical Care Time: 40 Attestation: The high probability of a clinically significant, sudden or life threatening deterioration of the patient's resp system(s) required my full and direct attention, intervention and personal management. The critical care time is as shown. This time is in addition to time spent performing any reported procedures but includes the following: [x] Data and vital sign review and interpretation [x] Patient assessment, examination and intervention [x] Documentation [x] Medication orders and management Discharge Plan Discharge Patient Disposition: Admitted As Inpatient Admit Provider: Geoff Palma Clinical Impression: Acute exacerbation of chronic obstructive airways disease, Congestive heart failure, Acute respiratory failure with hypoxemia Condition: Stable Coding Level of Care Code ED Student Liaison Officer for Grisel Morrell
[2022-08-16 17:34] LABS: Basophils # 0.1 10^3/uL (0.0-0.1); Basophils % 0.6 %; Eosinophils # 0.2 10^3/uL (0.0-0.8); Eosinophils % 1.5 %; Hematocrit 49.4 % (37.0-47.0); Lymphocytes # 4.2 10^3/uL (0.8-4.8); Lymphocytes % 37.3 %; Mean Corpuscular HGB Conc 30.4 g/dL (30.0-36.0); Mean Corpuscular Hemoglobin 30.7 pg (28.0-34.0); Mean Platelet Volume 10.2 fL (7.4-10.4); Monocytes # 0.8 10^3/uL (0.2-0.9); Monocytes % 7.3 %; Neutrophils # 5.96 10^3/uL (1.8-7.7); Neutrophils % 52.9 %; Nucleated Red Blood Cells % 0 %; Platelet Count 260 10^3/cmm (130-400); Red Blood Count 4.89 10^6/uL (4.1-5.3); Red Cell Distribution Width 17.6 % (12.1-15.1); White Blood Count 11.3 10^3/uL (4.0-10.0)
[2022-08-16 17:50] LABS: Alanine Aminotransferase 32 U/L (0-33); Albumin Level 4.2 g/dL (3.5-5.2); Alkaline Phosphatase 165 U/L (35-105); Aspartate Amino Transferase 43 U/L (0-32); Blood Urea Nitrogen 14 mg/dL (6-20); Calcium 9.4 mg/dL (8.5-10.5); Carbon Dioxide 22 mmol/L (22-29); Chloride 100 mmol/L (98-107); Globulin 3.7 g/dL (1.3-4.6); Glomerular Filtration Rate 85.6 mL/min (90-130); Glucose 102 mg/dL (65-115); Osmolality Calculated 287 mOsm/kg (285-295); Sodium 138 mmol/L (136-145); Total Protein 7.9 g/dL (6.6-8.7)
--- NOTE | 2022-08-16 17:59 | CTR_ITS ---
PROCEDURE INFORMATION: Exam: CTA Chest With Contrast Exam date and time: 08/16/2022 6:54 PM Age: 57 years old Clinical indication: Condition or disease; Lung condition and disease; Cancer of the lung; Left; Unspecified; Prior surgery; Surgery date: 6+ months; Surgery type: Stents in heart; Additional info: Dyspnea TECHNIQUE: Imaging protocol: Computed tomographic angiography of the chest with contrast. 3D rendering (Not supervised by radiologist): MIP and/or 3D reconstructed images were created by the technologist. Radiation optimization: All CT scans at this facility use at least one of these dose optimization techniques: automated exposure control; mA and/or kV adjustment per patient size (includes targeted exams where dose is matched to clinical indication); or iterative reconstruction. Contrast material: OMNIPAQUE 350; Contrast volume: 95 ml; Contrast route: INTRAVENOUS (IV); Other protocol: This patient has received 7 known CTs and 0 known cardiac nuclear medicine studies in the 12 months prior to the current study. COMPARISON: CT angio chest PE protcl [id number] 06/02/2022 8:13 PM RADIATION DOSE METRICS: Total DLP (mGy-cm): 453.05 FINDINGS: Pulmonary arteries: Normal. No pulmonary emboli. Aorta: Unremarkable. No aortic aneurysm. No aortic dissection. Lungs: There are centrilobular emphysematous changes in the bilateral lungs. There are scattered regions of bilateral subpleural interstitial thickening, greatest at the lung bases, suggestive of pulmonary fibrosis. There is scarring at the left lung apex. Pleural spaces: Small left pleural effusion. Heart: Cardiomegaly. Small pericardial effusion. Coronary arteries: Multivessel atherosclerotic disease which involves the coronary arteries. Lymph nodes: Unremarkable. No enlarged lymph nodes. Bones/joints: Unremarkable. No acute fracture. Soft tissues: Unremarkable. CT/CT angio chest PE protcl [id number] IMPRESSION: 1. There are centrilobular emphysematous changes in the bilateral lungs. 2. There are scattered regions of bilateral subpleural interstitial thickening, greatest at the lung bases, suggestive of pulmonary fibrosis. 3. Cardiomegaly with a small left pleural effusion raises concern for congestive heart failure. Please correlate clinically. There is a small pericardial effusion as well. COMMENTS: In the absence of a history or active diagnosis of lung cancer, it is recommended that this patient with emphysema be evaluated for enrollment in a low dose CT lung cancer screening program.
[2022-08-16 18:26] LABS: NT Pro B Type Natriuretic Pept 2521 pg/mL (0-125)
[2022-08-16 18:28] LABS: ABG PCO2 33.3 mmHg (35-45); ABG PH Result 7.45 (7.35-7.45); Alveolar-Arterial Oxygen Gradi 71.4 mmHg (5-10); Arterial Blood Gas Hematocrit 46.1 % (37-47); Blood Gas Allen Test Pos; Blood Gas Operator Identificat glc; Blood Gas Sample Site Radial, right; Blood Gas Sample Type Arterial; Carboxyhemoglobin 1.7 %THgb (0.4-20.1); HCO3 ABG 23.3 mmol/L (22-26); HGB O2 Sat 97.3 % (95-100); Ionized Calcium Level - ABG 1.1 mmol/L (1.1-1.4); Oxygen Device NRB; Potassium Level - ABG 3.8 mmol/L (3.5-5.0)
[2022-08-16 18:50] LABS: Lactic Sepsis W/Reflex 1.4 mmol/L (0.5-2.2)
[2022-08-16] MEDS: iohexol 350 mg/mL 500 mL Btl (per mL) IV (19:04)
[2022-08-16 19:57] LABS: Influenza A by IFA negative (Negative); Influenza B by IFA negative (Negative); SARS Covid-2 Antigen negative (Negative)
[2022-08-16] MEDS: FUROsemide 10 mg/mL SDV 10mL 60 MG IVP (20:15)
--- NOTE | 2022-08-16 20:53 | PM.HP ---
Providers/Chief Complaint Admitting Physician: Geoff Palma MD Primary Care Provider: Sujit Hernandez MD Chief Complaint: SOB History of Present Illness Mayuri Davidson is a 57 year old female with past medical history of CA lung status post radiotherapy , hypertension diabetes coronary artery disease s/p recent PTCA in October 2021 for moderate to severe in-stent restenosis in mid LAD, PCI to RCA, recent NSTEMI, PCI to?of mid LAD and mid RCA severe instent restenosis with JULES x 2.?(06/06/2022 ), severe pulmonary hypertension, HFpEF, RV , FAILURE, on 6 L of oxygen, came in today with chief complaint of worsening shortness of breath, going on for the last 3 to 4 days, with whitish sputum, she also complaining of orthopnea.She denies any chest pain, palpitation, extremity swelling, fever, abdominal pain nausea vomiting. CTA chest: centrilobular emphysematous changes in the bilateral lungs,scattered regions of bilateral subpleural interstitial thickening, greatest at the lung bases, suggestive of pulmonary fibrosis. Cardiomegaly with a small left pleural effusion. Pertinent labs: WBC :11.3, H&H 15/49 , PLT : 260 , sodium 138, potassium 4, BUN :14 , serum creatinine: 0.7 , proBNP 2521 ABG: pH 7.45, PCO2 33, PO2 108, FiO2 100% Patient was given Solu-Medrol as well as Lasix 60 IV one-time dose in ER Review of Systems General: Reports: 10 or more systems reviewed and unremarkable except in HPI and below Const: Denies: fever(s), chills, body aches, change in appetite or diaphoresis Card: Reports: dyspnea on exertion and orthopnea; Denies: palpitations, edema, swelling of feet/ankles or leg pain with exertion Resp: Reports: dyspnea and productive cough; Denies: wheezing or pain on inspiration GI: Denies: abdominal pain, nausea, vomiting, diarrhea or constipation : Denies: flank pain Musc: Denies: back pain, extremity pain or extremity swelling Neuro: Denies: headache(s), difficulty walking or confusion Medications/Allergies Home Medications Medication Instructions Recorded Confirmed Last Taken Type inhalational spacing device #1 ea 07/19/19 06/30/22 Unknown History (Aerochamber Mini) esomeprazole magnesium 20 mg 20 mg PO DAILY 10/22/21 08/16/22 08/16/22 History capsule,delayed release (Nexium) vit no.95-ferrous 1 tab PO DAILY 10/22/21 08/16/22 08/16/22 History fumarate 28 mg-folic acid 800 mcg tablet () aspirin 81 mg tablet,delayed 81 mg PO DAILY 30 days #30 tabs 10/24/21 08/16/22 08/16/22 Rx release (Adult Low Dose Aspirin) atorvastatin 40 mg tablet 40 mg PO DAILY 30 days #30 tabs 10/24/21 08/16/22 08/16/22 Rx clopidogrel 75 mg tablet 75 mg PO QDAY 30 days #30 tabs 10/24/21 08/16/22 08/16/22 Rx potassium chloride 8 mEq 8 meq PO DAILY #90 tabs 12/29/21 08/16/22 08/16/22 Rx tablet,extended release dapagliflozin 10 mg tablet 10 mg PO QAM 90 days #90 tabs 12/30/21 08/16/22 08/16/22 Rx (Farxiga) glipizide 5 mg tablet 5 mg PO DAILY 3 months #90 tabs 12/30/21 08/16/22 08/16/22 Rx metformin 500 mg tablet,extended 1,000 mg PO BID 90 days #360 tabs 12/30/21 08/16/22 08/16/22 Rx release 24 hr ipratropium 0.5 mg-albuterol 3 mg 3 ml inhalation Q6H PRN wheezing 05/24/22 06/30/22 Unknown Rx (2.5 mg base)/3 mL nebulization #360 mL soln cyclobenzaprine 10 mg tablet 10 mg PO TID PRN Muscle Spasm 06/02/22 08/16/22 Unknown History naproxen 500 mg tablet 500 mg PO BID PRN Pain 06/02/22 08/16/22 Unknown History budesonide 180 mcg/actuation 1 inh inhalation BID #1 ea 06/06/22 06/30/22 Unknown Rx breath activated powder inhaler (Pulmicort Flexhaler) metoprolol succinate 25 mg 25 mg PO DAILY #30 tabs 06/06/22 08/16/22 08/16/22 Rx tablet,extended release 24 hr furosemide 40 mg tablet 40 mg PO DAILY #30 tabs 06/13/22 08/16/22 08/16/22 Rx benzonatate 100 mg capsule 100 mg PO TID PRN cough #90 caps 06/29/22 08/16/22 Unknown Rx insulin detemir U-100 100 unit/mL 58 unit SUBCUT DAILY 08/16/22 08/16/22 1 Day Ago History (3 mL) subcutaneous pen (Levemir ~08/15/22 FlexTouch U-100 Insulin) mecobalamin (vitamin B12) 1,000 2,000 mcg PO DAILY 08/16/22 08/16/22 08/16/22 History mcg chewable tablet (B12 Active) Allergies Allergy/AdvReac Type Severity Reaction Status Date / Time Penicillins Allergy Unknown Verified 06/30/22 08:09 PFSH Acute PFSH: Medical History ACS (acute coronary syndrome) ASHD (arteriosclerotic heart disease) Atherosclerosis of coronary artery of [place] heart without angina pectoris Cervical disc disease Cervical disc disorder with myelopathy of mid-cervical region Chronic respiratory failure with hypoxia Diabetes type 2, uncontrolled Diabetic neuropathy Emphysema of lung Hyperlipemia, mixed Hyperlipidemia Hypertension Lung cancer Neck pain of over 3 months duration Nicotine addiction NSTEMI (non-ST elevated myocardial infarction) Obstructive sleep apnea Smoking 1/2 pack a day or less Stenosis of cervical spine with myelopathy Tachycardia Unstable angina Surgical History History of heart surgery June 2007, August 2012 History of PTCA S/P tonsillectomy Family History Mother Diabetes Father Heart disease Brother CAD (coronary artery disease) Family/Other CAD (coronary artery disease) Diabetes Grandfather CAD (coronary artery disease) Denies family history of Clotting disorder Dementia Chronic kidney disease (CKD) Suicide Anesthesia complication Bleeding disorder Lung disease Cancer Stroke Social History Smoking and tobacco status: former smoker Alcohol intake: never Lives independently: Yes Household members: family Housing: House Marital status: service: No Current occupational status: disabled History of recent travel: No Vitals/I&O/Wt Last Vital Signs Temp 98.2 F 08/16/22 17:18 Pulse 109 H 08/16/22 19:25 Resp 20 H 08/16/22 19:25 BP 156/96 08/16/22 19:15 Pulse Ox 91 08/16/22 19:25 O2 Del Method 08/16/22 17:55 O2 Flow Rate 15 08/16/22 17:55 Weight last 48 hrs Weight 94.347 kg Physical Exam Const: COMMON NORMALS: patient oriented x3 HENMT: COMMON NORMALS: normocephalic and atraumatic HEAD & SCALP: normocephalic and atraumatic Resp: COMMON NORMALS: clear to auscultation bilaterally AUSCULTATION: clear to auscultation bilaterally Cardio: COMMON NORMALS: regular rate, regular rhythm, S1 normal heart sound present, S2 normal heart sound present, No gallops present (Cardio), No murmurs present (Cardio), No rub (Cardio) and Peripheral pulses 2+ throughout RATE: regular rate RHYTHM: regular rhythm HEART SOUNDS: S1 normal heart sound present and S2 normal heart sound present PERIPHERAL PULSES: Peripheral pulses 2+ throughout GI: COMMON NORMALS: Normal to inspection, nondistended, normoactive bowel sounds present, Soft to palpation, non-tender, No hepatosplenomegaly present and no masses AUSCULTATION: Yes normoactive bowel sounds PALPATION: Yes Soft to palpation and Yes No hepatosplenomegaly present RECTAL EXAM: deferred Extremity: COMMON NORMALS: no clubbing, cyanosis or edema and no pedal edema Neuro: COMMON NORMALS: patient oriented x3 Data 08/16/22 17:26 08/16/22 17:26 Micro: Microbiology 08/16/22 18:10 Blood Culture - Preliminary Blood SPECIMEN COLLECTED 08/16/22 18:00 Blood Culture - Preliminary Blood SPECIMEN COLLECTED A&P Assessment and plan (1) Acute exacerbation of chronic obstructive airways disease: (2) Congestive heart failure: (3) Respiratory failure, [id number]: (4) Lung cancer, upper lobe: (5) Coronary artery disease: Plan 57 year old female with past medical history of CA lung status post radiotherapy , hypertension diabetes coronary artery disease s/p recent PTCA in October 2021 for moderate to severe in-stent restenosis in mid LAD, PCI to RCA, recent NSTEMI, PCI to?of mid LAD and mid RCA severe instent restenosis with JULES x 2.?(06/06/2022 ), severe pulmonary hypertension, HFpEF, RV , FAILURE, on 6 L of oxygen, came in today with chief complaint of worsening shortness of breath, going on for the last 3 to 4 days, with whitish sputum, she also complaining of orthopnea.She denies any chest pain, palpitation, extremity swelling, fever, abdominal pain nausea vomiting. Assessment; Acute on chronic respiratory failure with hypoxia: Multifactorial, secondary to, RV failure as well as decompensated heart failure with preserved ejection fraction, severe pulmonary hypertension.Pulmonary fibrosis. CTA chest: centrilobular emphysematous changes in the bilateral lungs,scattered regions of bilateral subpleural interstitial thickening, greatest at the lung bases, suggestive of pulmonary fibrosis. Cardiomegaly with a small left pleural effusion. Patient usually uses 6 L of oxygen at home, currently she is requiring 15 to 20 L, she is tachypneic, tachycardic. Continue Lasix 40 IV twice daily, azithromycin, IV, DuoNebs, budesonide inhaler Supplemental oxygen as needed. Patient will need pulmonary follow-up, for management of severe pulmonary hypertension as well as pulmonary fibrosis. RV failure as well as decompensated heart failure with preserved ejection fraction: Most recent 2D echo: Normal left ventricular size, systolic function and wall ?thickness. Left ventricular ejection fraction is estimated at 60?%. No diagnostic regional wall motion abnormalities. Grade I ?diastolic dysfunction (abnormal relaxation filling pattern), ?normal to mildly elevated filling pressures.? Flattened septum ?in systole consistent with right ventricle pressure overload. Moderately dilated right ventricle with severely decreased right ventricle systolic function. ?Severe pulmonary hypertension with pulmonary artery pressure estimated at 75 mmHg. Mild to moderate tricuspid valve regurgitation. Plan as above Severe pulmonary hypertension: Likely secondary to pulmonary fibrosis, likely secondary to long standing chronic smoking history. Pulmonary follow-up outpatient versus inpatient. History of coronary artery disease status post PCI Continue aspirin Plavix statin, beta-eliazar. History of diabetes: Continue sliding scale insulin Monitor fingerstick glucose DVT prophylaxis on Lovenox CODE STATUS: Full code Attestations Medical Necessity Statement*: Patient is to be in hospital management of respiratory failure. Anticipated length of stay: Greater than 2 midnights. Coding Level of Care Code 49352 Diagnoses Acute exacerbation of chronic obstructive airways disease J44.1 Congestive heart failure I50.9 Respiratory failure, [id number] J96.20 Lung cancer, upper lobe C34.10 Coronary artery disease I25.10
--- NOTE | 2022-08-16 21:00 | PC.NURSE ---
Patient states she wears 4 liters nasal cannula at home. Patient states she has nosebleeds every day at home.
[2022-08-16 21:18] LABS: Glucose Point of Care 131 mg/dL (70-110)
--- NOTE | 2022-08-16 21:18 | PC.NURSE ---
Patient wanting to take her home Levemir of 58 units. Blood sugar 131. Dr. Palma notified. 20 units Lantus ordered. Patient educated not to take home medications without the okay of a nurse.
[2022-08-16] MEDS: enoxaparin 40 mg/0.4 mL Syringe SUBCUT (21:57)
[2022-08-16] MEDS: insulin glargine 100 units/1 mL 20 UNIT SUBCUT (21:57)
[2022-08-16] MEDS: azithromycin 500 MG in sodium chloride 0.9% 250 ML 250 MG IV (21:58)
[2022-08-16] MEDS: ipratropium-albuterol 3 mL Neb INHALATION (22:46)
[2022-08-16] MEDS: acetaminophen 325 mg Tablet 650 MG PO (23:52)
[2022-08-17] VITALS (17 sets, daily range): BP systolic 106–130; BP diastolic 69–82; PULSE 89–115; RESP 16–24; TEMP 36.4–36.8; O2SAT 86–99
[2022-08-17] MEDS: ipratropium-albuterol 3 mL Neb INHALATION ×2 (03:31→09:15)
[2022-08-17 05:19] LABS: Basophils % 0.2 %; Hematocrit 41.7 % (37.0-47.0); Hemoglobin 13.3 g/dL (11.5-15.3); Lymphocytes # 0.9 10^3/uL (0.8-4.8); Lymphocytes % 14.5 %; Mean Corpuscular HGB Conc 31.9 g/dL (30.0-36.0); Mean Corpuscular Hemoglobin 30.9 pg (28.0-34.0); Mean Platelet Volume 10.4 fL (7.4-10.4); Monocytes # 0.1 10^3/uL (0.2-0.9); Monocytes % 1.7 %; Neutrophils # 4.99 10^3/uL (1.8-7.7); Neutrophils % 82.9 %; Nucleated Red Blood Cells % 0 %; Platelet Count 221 10^3/cmm (130-400); Red Cell Distribution Width 17.1 % (12.1-15.1)
[2022-08-17 06:58] LABS: Glucose Point of Care 235 mg/dL (70-110)
[2022-08-17 07:13] LABS: Alanine Aminotransferase 28 U/L (0-33); Albumin Level 3.8 g/dL (3.5-5.2); Alkaline Phosphatase 146 U/L (35-105); Aspartate Amino Transferase 36 U/L (0-32); Blood Urea Nitrogen 16 mg/dL (6-20); Calcium 9.3 mg/dL (8.5-10.5); Carbon Dioxide 22 mmol/L (22-29); Chloride 101 mmol/L (98-107); Creatinine Clr Calc Pharmacy 111.3458; Globulin 3.4 g/dL (1.3-4.6); Glomerular Filtration Rate 85.6 mL/min (90-130); Glucose 252 mg/dL (65-115); Magnesium 1.5 mg/dL (1.7-2.3); Osmolality Calculated 296 mOsm/kg (285-295); Sodium 138 mmol/L (136-145); Total Bilirubin 0.9 mg/dL (0.15-1.2); Total Protein 7.2 g/dL (6.6-8.7)
[2022-08-17 07:18] LABS: Procalcitonin 0.03 ng/mL (0-0.5)
[2022-08-17] MEDS: insulin lispro 100 unit/1 mL SUBCUT ×3 (08:38→18:13)
[2022-08-17] MEDS: FUROsemide 10 mg/mL SDV 4mL 40 MG IVP ×2 (08:39→18:12)
[2022-08-17] MEDS: aspirin 81 mg EC Tablet PO (08:39)
[2022-08-17] MEDS: clopidogrel 75 mg Tablet PO (08:39)
[2022-08-17] MEDS: metoprolol succinate ER (24 HR) 25 mg Tablet PO (08:39)
[2022-08-17] MEDS: benzonatate 100 mg Capsule PO ×3 (08:49→21:09)
[2022-08-17] MEDS: budesonide 0.5 mg/2 mL Neb INHALATION ×2 (09:15→20:00)
[2022-08-17 11:55] LABS: Glucose Point of Care 238 mg/dL (70-110)
[2022-08-17] MEDS: levalbuterol 1.25 mg/3 mL Neb INHALATION ×2 (15:08→20:00)
[2022-08-17] MEDS: ipratropium 0.5 mg/2.5 mL Neb INHALATION ×2 (15:08→20:00)
--- NOTE | 2022-08-17 16:58 | ECG_ITS ---
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 Measurements Intervals [place] Rate: 97 P: 63 OK: 151 QRS: 113 QRSD: 106 T: 2 QT: 370 QTc: 471 Interpretive Statements SINUS RHYTHM POSSIBLE LEFT ATRIAL ENLARGEMENT [-0.1mV P-WAVE IN V1/V2] INCOMPLETE RIGHT BUNDLE BRANCH BLOCK Compared to ECG 08/16/2022 18:15:07 Sinus tachycardia no longer present Incomplete right bundle-branch block no longer present Myocardial infarct finding no longer present T-wave abnormality no longer present Possible ischemia no longer present Electronically Signed On 08-17-2022 20:57:19 INTERNAL AFFAIRS COMMANDER by Enid Hood M.D. [id number]
[2022-08-17 17:45] LABS: Glucose Point of Care 163 mg/dL (70-110)
[2022-08-17] MEDS: magnesium sulfate premix 2 GM/50 ML PIGGYBACK IV (18:13)
--- NOTE | 2022-08-17 19:04 | P.PN_ITS ---
Subjective Subjective: Feels short of breath, coughing, not bringing up phlegm. Mucous membranes are feeling dry, she states she suffers from recurrent nosebleeds at home with oxygen. Consider cutting developing nosebleed here. Additionally request to switch to Xopenex due to prior issues with tachycardia, heart rates going into 130s. She is adamant about taking her own insulin detemir. States Lantus gives her nausea and she is not tolerant. Declines to take it. She is also insistent that the getting up and stay with her, refuses to have staff take it to pharmacy to give her. Discussed with her that this is for safety reasons, for her own safety. Discussed with her risks of hypoglycemia, possible severe hypoglycemia in case doses accidentally doubled, risking disability or , she states she is well over, she gives herself insulin at home daily, states that she will notify nursing staff just if she is about to give herself insulin. Vitals/I&O/Wt Last Vital Signs Temp 98.2 F 08/17/22 11:23 Pulse 103 H 08/17/22 16:39 Resp 20 H 08/17/22 16:39 BP 106/69 08/17/22 11:23 Pulse Ox 97 08/17/22 16:39 O2 Del Method 08/17/22 15:18 O2 Flow Rate 40 08/17/22 16:39 FiO2 50 08/17/22 16:39 08/17/22 08/17/22 08/17/22 06:59 14:59 22:59 Intake Total 720 / 720 Output Total 1650 / 1650 Balance -930 / -930 Weight last 48 hrs Weight 94.12 kg Weight 94.347 kg Physical Exam Const: COMMON NORMALS: patient oriented x3 and alert GENERAL APPEARANCE: cooperative ORIENTATION/CONSCIOUSNESS: Yes awake HENMT: COMMON NORMALS: oropharynx normal Neck/C-Spine: COMMON NORMALS: no JVD Resp: COMMON NORMALS: normal respiratory effort AUSCULTATION: crackles (Coarse) and diminished lung sounds Cardio: COMMON NORMALS: no JVD, regular rhythm, S1 normal heart sound present, S2 normal heart sound present and No murmurs present (Cardio) RHYTHM: regular rhythm HEART SOUNDS: S1 normal heart sound present and S2 normal heart sound present GI: COMMON NORMALS: Normal to inspection, nondistended, normoactive bowel sounds present, Soft to palpation and non-tender PALPATION: Yes Soft to palpation Extremity: COMMON NORMALS: no joint enlargement and no pedal edema Neuro: COMMON NORMALS: patient oriented x3 and moves all extremities SENSORIUM/ORIENTATION: Yes alert Skin: COMMON NORMALS: no rashes or lesions noted GENERAL SKIN EXAM: no rashes or lesions noted Data 08/17/22 04:48 08/17/22 06:31 Micro: Microbiology 08/16/22 18:00 Blood Culture - Preliminary Blood NEGATIVE TO DATE 08/16/22 18:10 Blood Culture - Preliminary Blood NEGATIVE TO DATE A&P Assessment and plan (1) Acute exacerbation of chronic obstructive airways disease: Reviewed overnight physician documentation. On 10 L high flow cannula, not tolerating it very well, states mucous membranes are dry, despite humidifier in place. Discussed with her heated high flow, discussed with RT, requested. Discussed with RT and we also changed to Xopenex as she reports prior intolerance to albuterol with tachycardia. Discussed with her that it may still cause tachycardia. Monitor vital signs. On high oxygen requirement, discussed progression of respiratory failure, with underlying cardiac disease with active heart failure, risk of further decompensation, arrhythmia, other life-threatening events. Discussed with her concern for pulmonary fibrosis, possible acute pulmonary fibrosis exacerbation. Will obtain pulmonary consultation if available. Discussed with her also, her, possibility of other etiologies, will obtain viral respiratory panel. In case panel negative start steroids. Continue diuresis for CHF. Noted severe pulmonary hypertension. Continue azithromycin for possible pneumonia, Continue neb treatments with adjustments as above. Inhaled budesonide. (2) Congestive heart failure: HFpEF, continue IV Lasix, monitor GUZMAN. Weights. GUZMAN reviewed, she is in negat shailesh balance. (3) Respiratory failure, [id number]: (4) Lung cancer, upper lobe: (5) Coronary artery disease: Plan Most recent 2D echo: Normal left ventricular size, systolic function and wall ?thickness. Left ventricular ejection fraction is estimated at 60?%. No diagnostic regional wall motion abnormalities. Grade I ?diastolic dysfunction (abnormal relaxation filling pattern), ?normal to mildly elevated filling pressures.? Flattened septum ?in systole consistent with right ventricle pressure overload. Moderately dilated right ventricle with severely decreased right ventricle systolic function. ?Severe pulmonary hypertension with pulmonary artery pressure estimated at 75 mmHg. Mild to moderate tricuspid valve regurgitation. Severe pulmonary hypertension: Likely secondary to pulmonary fibrosis, likely secondary to long standing chronic smoking history. Pulmonary follow-up outpatient versus inpatient. History of coronary artery disease status post PCI Continue aspirin Plavix statin, beta-eliazar. History of diabetes: Continue sliding scale insulin Monitor fingerstick glucose She insists on giving herself her own detemir. DVT prophylaxis on Lovenox CODE STATUS: Full code Attestations Medical Necessity Statement*: Continue admission versus management of acute due to failure. Diagnoses Acute exacerbation of chronic obstructive airways disease J44.1 Congestive heart failure I50.9 Respiratory failure, gzung-as-iweqkea J96.20 Lung cancer, upper lobe C34.10 Coronary artery disease I25.10
[2022-08-17] MEDS: acetaminophen 325 mg Tablet 650 MG PO (19:11)
[2022-08-17] MEDS: enoxaparin 40 mg/0.4 mL Syringe SUBCUT (21:01)
[2022-08-17] MEDS: atorvastatin 40 mg Tablet PO (21:01)
[2022-08-17] MEDS: azithromycin 500 MG in sodium chloride 0.9% 250 ML 250 MG IV (21:01)
[2022-08-17 22:02] LABS: Adenovirus Not Detected (NOT DETECT); Chlamydia Pneumoniae Not Detected (NOT DETECT); Coronavirus 229E,HKU1,NL63,OC4 Not Detected (NOT DETECT); Human Metapneumovirus Not Detected (NOT DETECT); Human Rhinovirus/Enterovirus Not Detected (NOT DETECT); Influenza A Not Detected (NOT DETECT); Influenza A H1 Not Detected (NOT DETECT); Influenza A H1-2009 Not Detected (NOT DETECT); Influenza A H3 Not Detected (NOT DETECT); Influenza B Not Detected (NOT DETECT); Mycoplasma Pneumoniae Not Detected (NOT DETECT); Parainfluenza Virus Type 1 Not Detected (NOT DETECT); Parainfluenza Virus Type 2 Not Detected (NOT DETECT); Parainfluenza Virus Type 3 Not Detected (NOT DETECT); Parainfluenza Virus Type 4 Not Detected (NOT DETECT); Respiratory Syncytial Virus A Not Detected (NOT DETECT); Respiratory Syncytial Virus B Not Detected (NOT DETECT); SARS-COV-2 Not Detected (NOT DETECT)
[2022-08-17 22:15] LABS: Glucose Point of Care 312 mg/dL (70-110)
--- NOTE | 2022-08-17 22:51 | PC.NURSE ---
Patient complaining that she is very short of breath. Oxygen saturation intermittently dropping into low 80s. RT to bedside. See RT record. Dr. Palma notified. Ordered Ativan PRN, Bipap if patient continues to desat, and rosas if patient continues to desat upon ambulation to BS. Patient is currently refusing rosas.
[2022-08-17] MEDS: LORazepam 2 mg/mL INJ 1 mL 0.5 MG IVP (23:03)
[2022-08-18] VITALS (16 sets, daily range): BP systolic 88–132; BP diastolic 60–85; PULSE 80–105; RESP 17–24; TEMP 36.3–37.1; O2SAT 55–99; BMI 29.3
[2022-08-18] MEDS: levalbuterol 1.25 mg/3 mL Neb INHALATION ×4 (02:47→20:54)
[2022-08-18 05:38] LABS: Alanine Aminotransferase 38 U/L (0-33); Albumin Level 3.7 g/dL (3.5-5.2); Alkaline Phosphatase 147 U/L (35-105); Anion Gap 15.3 (5-19); Aspartate Amino Transferase 53 U/L (0-32); Blood Urea Nitrogen 18 mg/dL (6-20); Calcium 8.8 mg/dL (8.5-10.5); Carbon Dioxide 26 mmol/L (22-29); Chloride 101 mmol/L (98-107); Globulin 3.4 g/dL (1.3-4.6); Glomerular Filtration Rate 126.3 mL/min (90-130); Glucose 133 mg/dL (65-115); Magnesium 2.2 mg/dL (1.7-2.3); Osmolality Calculated 292 mOsm/kg (285-295); Potassium 3.3 mmol/L (3.5-5.1); Sodium 139 mmol/L (136-145); Total Bilirubin 0.9 mg/dL (0.15-1.2); Total Protein 7.1 g/dL (6.6-8.7)
[2022-08-18 06:15] LABS: Basophils % 0.5 %; Eosinophils # 0.2 10^3/uL (0.0-0.8); Eosinophils % 2.2 %; Hematocrit 39.7 % (37.0-47.0); Hemoglobin 12.8 g/dL (11.5-15.3); Lymphocytes # 2.1 10^3/uL (0.8-4.8); Lymphocytes % 24.4 %; Mean Corpuscular HGB Conc 32.2 g/dL (30.0-36.0); Mean Corpuscular Volume 96.1 fl (81-99); Mean Platelet Volume 10.7 fL (7.4-10.4); Monocytes # 0.8 10^3/uL (0.2-0.9); Monocytes % 9.6 %; Neutrophils # 5.48 10^3/uL (1.8-7.7); Neutrophils % 63.1 %; Nucleated Red Blood Cells % 0 %; Platelet Count 215 10^3/cmm (130-400); Red Blood Count 4.13 10^6/uL (4.1-5.3); Red Cell Distribution Width 17.3 % (12.1-15.1); White Blood Count 8.7 10^3/uL (4.0-10.0)
[2022-08-18 06:45] LABS: Glucose Point of Care 104 mg/dL (70-110)
[2022-08-18] MEDS: ipratropium 0.5 mg/2.5 mL Neb INHALATION ×3 (08:44→20:54)
[2022-08-18] MEDS: budesonide 0.5 mg/2 mL Neb INHALATION ×2 (08:44→20:54)
[2022-08-18] MEDS: FUROsemide 10 mg/mL SDV 4mL 40 MG IVP ×2 (08:49→17:20)
[2022-08-18] MEDS: aspirin 81 mg EC Tablet PO (08:50)
[2022-08-18] MEDS: clopidogrel 75 mg Tablet PO (08:50)
[2022-08-18] MEDS: metoprolol succinate ER (24 HR) 25 mg Tablet PO (08:50)
[2022-08-18] MEDS: benzonatate 100 mg Capsule PO (08:55)
[2022-08-18] MEDS: potassium chloride ER 20 mEq Tablet 40 MEQ PO (08:55)
[2022-08-18] MEDS: acetaminophen 325 mg Tablet 650 MG PO (10:20)
--- NOTE | 2022-08-18 10:52 | PC.CHAP ---
Pastoral Care Encounter/Spiritual Assessment Type of Contact [x] Declined merchandise handler visit [] Patient/Family/Request visit [] Outpatient visit [] Follow-up visit [] Physician referral [] Code/Alert [] Routine visit [] Staff referral [] Actively dying [] Patient sleeping [] Family support [] [] Out of room [] Palliative care [] [] Receiving care in room [] Pre-surgical visit [] Trauma [] Long length of stay [] ICU visit [] Other: Relational/Emotional Strength [] Patient feels connected with others/family/visitors/staff [] Distress [] Loneliness/isolation [] Abandonment Spirituality of Patient [] Person of Lupe [] Attends Quaker of their Lupe [] Believes in Prayer [] Reads Bible or Rastafari materials [] There are Spiritual issues to be addressed Building Construction Contractor Interventions [] Prayer [] Active listening [] Non-anxious presence [] Spiritual/emotional support [] Crisis/trauma care [] Spiritual counseling [] Bereavement support [] Provided bereavement packet [] Provided Bible/devotional materials [] Provided toy/stuffed animal, coloring book to patient or family member [] Provided Communion [] Anointing/[place] [] Salvation [] Completed spiritual assessment [] Other: Impact on Illness or Injury [] Angry [] Fearful [] Anxious [] Often cries [] Exhaustion [] Unable to work [] Unable to attend anabaptism [] Unable to walk/stand [] Unable to read [] Unable to drive [] Unable to eat/drink [] Unable to sleep [] Unable to be with family [] Patient intubated [] Other: Summary Declined merchandise handler visit Time spent with patient 5 mins
[2022-08-18 11:14] LABS: Glucose Point of Care 169 mg/dL (70-110)
[2022-08-18] MEDS: insulin lispro 100 unit/1 mL SUBCUT ×2 (12:42→17:25)
--- NOTE | 2022-08-18 12:54 | PM.CONSULT ---
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 chest during admission did not show any PE-showed significant centrilobular emphysematous changes in bilateral lungs with scattered regions of bilateral subpleural interstitial thickening greatest at the bases suggestive of pulmonary fibrosis. The left upper lobe lesion-seems to be decreasing in size. There is cardiomegaly with small left pleural effusion. Pulmonary consult requested for acute on chronic hypoxic respiratory failure in patient with severe underlying pulmonary hypertension, end-stage COPD, pulmonary fibrosis. She is a patient of Dr. Cisneros, and is supposed to see me in clinic today as Dr. Cisneros has left. Review of records show that this patient has an extensive cardiac history.? The patient had undergone angioplasty with stenting first in 2006 and then in 2012.? The patient had been on aspirin and Plavix since 2012.? She was hospitalized in October 2021 with chest pain and underwent angioplasty due to narrowing of the previously deployed stent. During October 2021 hospitalization, the patient had a CT angiogram of the chest which was negative for PE but showed left upper lobe 1.5 cm lung nodule and evidence of mediastinal lymphadenopathy.? The patient has significant bilateral centrilobular emphysema as well as possible interstitial lung disease. Subsequent PET CT scan which revealed PET avidity in the left upper lobe lung nodule with an SUV of 14.3.? There was no other suspicious lesion.? There was no evidence of medicine or hilar metastatic disease based on the PET scan.? Due to high risk of pneumothorax given her advanced emphysema and unable to discontinue aspirin/Plavix given recent in-stent restenosis-she was referred to radiation oncology for SBRT-which she completed in January 2022.? She is following up with the radiation oncology. She was readmitted to hospital in June 2022 for NSTEMI-underwent PCI to mid LAD and mid RCA severe in-stent restenosis with JULES x2, HFpEF. Her echocardiogram in June 2022 showed LV systolic function, size are normal with EF 60%. Grade 1 diastolic dysfunction. Flattened septum in systole consistent with right ventricular pressure overload. Moderately dilated right ventricle with severely decreased right ventricular systolic function with severe pulmonary hypertension with the PASP estimated 75 mmHg. There is mild to moderate tricuspid valve regurgitation. Compared to October 2021 there is severe pulmonary hypertension. He was using 2 L supplemental oxygen-which has increased to 4 L and her June 2022 admission. Patient reported taking Lasix 40 Mg daily with potassium supplementation. She likes to drink 4 cans of soda every day. Overall she does not watch her salt intake as well as fluid intake. She has been smoking 2 to 4 packs a day for the past 45 years.? Currently she is smoking > pack a day. The patient has a previous diagnosis of obstructive sleep apnea and using CPAP on a regular basis. Pulmonary function test: Pulmonary function test performed in December 2021 revealed an FEV1 FVC ratio of 73% with FEV1 of 1.94 L which is 59% of predicted and forced vital capacity of 2.67 L which was 63% of predicted.? There was no significant postbronchodilator response.? Her DLCO was severely reduced at 34%. Radiology data: Described above. Laboratory data: No evidence of chronic hypercapnic respiratory failure. Today at bedside patient reported that her shortness of breath has worsened and so she has to come to hospital. She denies any fevers, chills, chest pains, leg swelling. Review of Systems General: Reports: 10 or more systems reviewed and unremarkable except in HPI and below Medications/Allergies Home Medications Medication Instructions Recorded Confirmed Last Taken Type inhalational spacing device #1 ea 07/19/19 08/17/22 Unknown History (Aerochamber Mini) esomeprazole magnesium 20 mg 20 mg PO DAILY 10/22/21 08/16/22 08/16/22 History capsule,delayed release (Nexium) vit no.95-ferrous 1 tab PO DAILY 10/22/21 08/16/22 08/16/22 History fumarate 28 mg-folic acid 800 mcg tablet () aspirin 81 mg tablet,delayed 81 mg PO DAILY 30 days #30 tabs 10/24/21 08/16/22 08/16/22 Rx release (Adult Low Dose Aspirin) atorvastatin 40 mg tablet 40 mg PO DAILY 30 days #30 tabs 10/24/21 08/16/22 08/16/22 Rx clopidogrel 75 mg tablet 75 mg PO QDAY 30 days #30 tabs 10/24/21 08/16/22 08/16/22 Rx potassium chloride 8 mEq 8 meq PO DAILY #90 tabs 12/29/21 08/16/22 08/16/22 Rx tablet,extended release dapagliflozin 10 mg tablet 10 mg PO QAM 90 days #90 tabs 12/30/21 08/16/22 08/16/22 Rx (Farxiga) glipizide 5 mg tablet 5 mg PO DAILY 3 months #90 tabs 12/30/21 08/16/22 08/16/22 Rx metformin 500 mg tablet,extended 1,000 mg PO BID 90 days #360 tabs 12/30/21 08/16/22 08/16/22 Rx release 24 hr ipratropium 0.5 mg-albuterol 3 mg 3 ml inhalation Q6H PRN wheezing 05/24/22 08/17/22 Unknown Rx (2.5 mg base)/3 mL nebulization #360 mL soln cyclobenzaprine 10 mg tablet 10 mg PO TID PRN Muscle Spasm 06/02/22 08/16/22 Unknown History naproxen 500 mg tablet 500 mg PO BID PRN Pain 06/02/22 08/16/22 Unknown History budesonide 180 mcg/actuation 1 inh inhalation BID #1 ea 06/06/22 08/17/22 Unknown Rx breath activated powder inhaler (Pulmicort Flexhaler) metoprolol succinate 25 mg 25 mg PO DAILY #30 tabs 06/06/22 08/16/22 08/16/22 Rx tablet,extended release 24 hr furosemide 40 mg tablet 40 mg PO DAILY #30 tabs 06/13/22 08/16/22 08/16/22 Rx benzonatate 100 mg capsule 100 mg PO TID PRN cough #90 caps 06/29/22 08/16/22 Unknown Rx insulin detemir U-100 100 unit/mL 58 unit SUBCUT DAILY 08/16/22 08/16/22 1 Day Ago History (3 mL) subcutaneous pen (Levemir ~08/15/22 FlexTouch U-100 Insulin) mecobalamin (vitamin B12) 1,000 2,000 mcg PO DAILY 08/16/22 08/16/22 08/16/22 History mcg chewable tablet (B12 Active) Allergies Allergy/AdvReac Type Severity Reaction Status Date / Time Penicillins Allergy Unknown Verified 06/30/22 08:09 insulin glargine AdvReac Intermediate ADR-Nausea Unverified 08/17/22 19:07 Current Medications Generic Name Dose Route Start Last Admin Trade Name Freq PRN Reason Stop Dose Admin Acetaminophen 650 mg 08/16/22 20:48 08/18/22 10:20 Acetaminophen 325 Mg Tablet PO 650 mg Q6H PRN Administration Mild/Mod Pain Or Temp >/= 101 Aspirin 81 mg 08/17/22 09:00 08/18/22 08:50 Aspirin 81 Mg Ec Tablet PO 81 mg DAILY NU Administration Benzonatate 100 mg 08/16/22 23:41 08/18/22 08:55 Benzonatate 100 Mg Capsule PO 100 mg TID PRN Administration COUGH Budesonide 0.5 mg 08/17/22 08:00 08/18/22 08:44 Budesonide 0.5 Mg/2 Ml Neb INHALATION 0.5 mg BID.RESPIRATORY NU Administration Clopidogrel Bisulfate 75 mg 08/17/22 09:00 08/18/22 08:50 Clopidogrel 75 Mg Tablet PO 75 mg DAILY NU Administration Enoxaparin Sodium 40 mg 08/16/22 21:00 08/17/22 21:01 Enoxaparin 40 Mg/0.4 Ml Syringe SUBCUT 40 mg Q24H NU Administration Furosemide 40 mg 08/17/22 09:00 08/18/22 08:49 Furosemide 10 Mg/Ml Sdv 4ml IVP 40 mg BID NU Administration Azithromycin 500 mg/ Sodium 250 mls @ 250 mls/hr 08/16/22 21:00 08/17/22 21:28 Chloride IV Infused Q24H NU Infusion Protocol Insulin Human Lispro 0 unit 08/17/22 08:00 08/18/22 12:42 Insulin Lispro 100 Unit/1 Ml SUBCUT 2 unit TIDWM NU Administration Protocol Ipratropium Revere 0.5 mg 08/17/22 14:00 08/18/22 08:44 Ipratropium 0.5 Mg/2.5 Ml Neb INHALATION 0.5 mg TID.RESP NU Administration Levalbuterol HCl 1.25 mg 08/17/22 14:00 08/18/22 08:44 Levalbuterol 1.25 Mg/3 Ml Neb INHALATION 1.25 mg Q6H.RESP NU Administration Lorazepam 0.5 mg 08/17/22 22:43 08/17/22 23:03 Lorazepam 2 Mg/Ml Inj 1 Ml IVP 0.5 mg Q4H PRN Administration ANXIETY Metoprolol Succinate 25 mg 08/17/22 09:00 08/18/22 08:50 Metoprolol Succinate Er (24 Hr) 25 Mg Tablet PO 25 mg DAILY NU Administration Non-Formulary Medication 58 unit 08/17/22 21:00 08/17/22 20:55 Insulin Detemir U-100 [Levemir Flextouch U-100 Insuln] SUBCUT 58 unit BEDTIME NU Administration PFSH Acute PFSH: Medical History ACS (acute coronary syndrome) ASHD (arteriosclerotic heart disease) Atherosclerosis of coronary artery of [place] heart without angina pectoris Cervical disc disease Cervical disc disorder with myelopathy of mid-cervical region Chronic respiratory failure with hypoxia Diabetes type 2, uncontrolled Diabetic neuropathy Emphysema of lung Hyperlipemia, mixed Hyperlipidemia Hypertension Lung cancer Neck pain of over 3 months duration Nicotine addiction NSTEMI (non-ST elevated myocardial infarction) Obstructive sleep apnea Smoking 1/2 pack a day or less Stenosis of cervical spine with myelopathy Tachycardia Unstable angina Surgical History History of heart surgery June 2007, August 2012 History of PTCA S/P tonsillectomy Family History Mother Diabetes Father Heart disease Brother CAD (coronary artery disease) Family/Other CAD (coronary artery disease) Diabetes Grandfather CAD (coronary artery disease) Denies family history of Clotting disorder Dementia Chronic kidney disease (CKD) Suicide Anesthesia complication Bleeding disorder Lung disease Cancer Stroke Social History Smoking and tobacco status: former smoker Alcohol intake: never Lives independently: Yes Household members: family Housing: House Marital status: service: No Current occupational status: disabled History of recent travel: No Vitals/I&O/Wt Last Vital Signs Temp 98.1 F 08/18/22 12:00 Pulse 102 H 08/18/22 12:00 Resp 22 H 08/18/22 12:00 BP 88/60 08/18/22 12:00 Pulse Ox 55 L 08/18/22 12:00 O2 Del Method 08/18/22 12:00 O2 Flow Rate 40 08/18/22 08:45 FiO2 65 08/18/22 08:45 08/17/22 08/18/22 08/18/22 22:59 06:59 14:59 Intake Total 300 / 1020 860 / 860 Output Total 1050 / 2700 575 / 3275 Balance -750 / -1680 -575 / -2255 860 / 860 Weight last 48 hrs Weight 216 lb 6 oz Weight 207 lb 8 oz Weight 208 lb Physical Exam Narrative: General: alert, NAD HEENT: conj clear, EOMI, PERRL, mmm, Neck: supple, no meningismus Heme: no cervical LAP Respiratory: Inspection: No visible deformity of the chest wall Palpation: Trachea is mildly deviated to the right, bilateral symmetric expansion Percussion: Bilateral tympanic percussion note both anterior and posteriorly Auscultation: Overall reduced breath sounds due to shallow breathing but no obvious wheeze, there are mild crepitations on left lower lung Cardiovascular: rrr, nl s1s2, no mrg Abdomen: soft, nt, nd, no r/g, bs+ Extremities: pulses +, 1+ pitting pedal edema, no c/c : no CVA tenderness Skin: intact, no rash MSK: no back or neck pain Neurologic: grossly intact Urinary Catheter Management: Gustafson: Cath Placed During This Visit: yes Reason for Continuing Indwelling Catheter: Accurate Measurement of Urinary Output in Critically Ill Patients Urinary Catheter Date of Insertion: 08/18/22 Urinary Catheter Time of Insertion: 10:41 Data 08/18/22 04:18 08/18/22 04:18 Other Labs: Radiology Impressions Chest X-Ray 08/16/22 17:13 IMPRESSION: 1. There are centrilobular emphysematous changes in the bilateral lungs. 2. There are scattered regions of bilateral subpleural interstitial thickening, greatest at the lung bases, suggestive of pulmonary fibrosis. 3. Possible cardiomegaly.Heart size not optimally evaluated with a single AP view of the chest. Chest CTA 08/16/22 17:59 IMPRESSION: 1. There are centrilobular emphysematous changes in the bilateral lungs. 2. There are scattered regions of bilateral subpleural interstitial thickening, greatest at the lung bases, suggestive of pulmonary fibrosis. 3. Cardiomegaly with a small left pleural effusion raises concern for congestive heart failure. Please correlate clinically. There is a small pericardial effusion as well. COMMENTS: In the absence of a history or active diagnosis of lung cancer, it is recommended that this patient with emphysema be evaluated for enrollment in a low dose CT lung cancer screening program. Laboratory Results WBC 8.7 10^3/uL (4.0-10.0) 08/18/22 04:18 RBC 4.13 10^6/uL (4.1-5.3) 08/18/22 04:18 Hgb 12.8 g/dL (11.5-15.3) 08/18/22 04:18 Hct 39.7 % (37.0-47.0) 08/18/22 04:18 MCV 96.1 fl (81-99) 08/18/22 04:18 MCH 31.0 pg (28.0-34.0) 08/18/22 04:18 MCHC 32.2 g/dL (30.0-36.0) 08/18/22 04:18 RDW 17.3 % (12.1-15.1) H 08/18/22 04:18 Plt Count 215 10^3/cmm (130-400) 08/18/22 04:18 MPV 10.7 fL (7.4-10.4) H 08/18/22 04:18 Neut % (Auto) 63.1 % 08/18/22 04:18 Lymph % (Auto) 24.4 % 08/18/22 04:18 [place] % (Auto) 9.6 % 08/18/22 04:18 Eos % (Auto) 2.2 % 08/18/22 04:18 Baso % (Auto) 0.5 % 08/18/22 04:18 Neut # (Auto) 5.48 10^3/uL (1.8-7.7) 08/18/22 04:18 Lymph # (Auto) 2.1 10^3/uL (0.8-4.8) 08/18/22 04:18 [place] # (Auto) 0.8 10^3/uL (0.2-0.9) 08/18/22 04:18 Eos # (Auto) 0.2 10^3/uL (0.0-0.8) 08/18/22 04:18 Baso # (Auto) 0.0 10^3/uL (0.0-0.1) 08/18/22 04:18 Nucleated RBC % (auto) 0 % 08/18/22 04:18 Nucleated RBCs # 0.0 /100WBC 08/18/22 04:18 Specimen Type Arterial 08/16/22 18:20 Sample Site Radial, right 08/16/22 18:20 ABG pH 7.45 (7.35-7.45) 08/16/22 18:20 ABG pCO2 33.3 mmHg (35-45) L 08/16/22 18:20 ABG pO2 108.0 mmHg (80.0-100.0) H 08/16/22 18:20 ABG HCO3 23.3 mmol/L (22-26) 08/16/22 18:20 ABG O2 Saturation 99.0 08/16/22 18:20 ABG Base Excess 0.0 mmol/L (-2.0-2.0) 08/16/22 18:20 Artemio Test Pos 08/16/22 18:20 A-a O2 Gradient 71.4 mmHg (5-10) H 08/16/22 18:20 Hematocrit 46.1 % (37-47) 08/16/22 18:20 Hgb O2 Saturation 97.3 % (95-100) 08/16/22 18:20 Carboxyhemoglobin 1.7 %THgb (0.4-20.1) 08/16/22 18:20 Methemoglobin 0.0 % (0.4-1.5) L 08/16/22 18:20 Total Hemoglobin 15.0 g/dL (12-16) 08/16/22 18:20 Sodium 142.0 mmol/L (131-143) 08/16/22 18:20 Potassium 3.8 mmol/L (3.5-5.0) 08/16/22 18:20 Glucose 85.0 mg/dL (70-115) 08/16/22 18:20 Ionized Calcium 1.1 mmol/L (1.1-1.4) 08/16/22 18:20 O2 Delivery Device Nrb 08/16/22 18:20 O2 Liters/Min 15.0 % 08/16/22 18:20 FiO2 100.0 % 08/16/22 18:20 Regional Production Manager ID [id number] 08/16/22 18:20 Sodium 139 mmol/L (136-145) 08/18/22 04:18 Potassium 3.3 mmol/L (3.5-5.1) L 08/18/22 04:18 Chloride 101 mmol/L (98-107) 08/18/22 04:18 Carbon Dioxide 26 mmol/L (22-29) 08/18/22 04:18 Anion Gap 15.3 (5-19) 08/18/22 04:18 BUN 18 mg/dL (6-20) 08/18/22 04:18 Creatinine 0.5 mg/dL (0.5-0.9) 08/18/22 04:18 GFR Calculation 126.3 mL/min (90-130) 08/18/22 04:18 Glucose 133 mg/dL (65-115) H 08/18/22 04:18 POC Glucose 204 mg/dL (70-110) H 08/18/22 16:36 Calculated Osmolality 292 mOsm/kg (285-295) 08/18/22 04:18 Lactic Acid 1.4 mmol/L (0.5-2.2) 08/16/22 18:10 Calcium 8.8 mg/dL (8.5-10.5) 08/18/22 04:18 Magnesium 2.2 mg/dL (1.7-2.3) 08/18/22 04:18 Total Bilirubin 0.9 mg/dL (0.15-1.2) 08/18/22 04:18 AST 53 U/L (0-32) H 08/18/22 04:18 ALT 38 U/L (0-33) H 08/18/22 04:18 Alkaline Phosphatase 147 U/L (35-105) H 08/18/22 04:18 NT-Pro-B Natriuret Pep 2521 pg/mL (0-125) H 08/16/22 17:26 Total Protein 7.1 g/dL (6.6-8.7) 08/18/22 04:18 Albumin 3.7 g/dL (3.5-5.2) 08/18/22 04:18 Globulin 3.4 g/dL (1.3-4.6) 08/18/22 04:18 Procalcitonin 0.03 ng/mL (0-0.5) 08/17/22 06:31 Nasal Influ A H1 2008 PCR Not detected (NOT DETECT) 08/17/22 19:14 Adenovirus (PCR) Not detected (NOT DETECT) 08/17/22 19:14 C. pneumoniae DNA (PCR) Not detected (NOT DETECT) 08/17/22 19:14 Coronavirus 229E (PCR) Not detected (NOT DETECT) 08/17/22 19:14 Human Metapneumovir PCR Not detected (NOT DETECT) 08/17/22 19:14 Influenza A (H1) PCR Not detected (NOT DETECT) 08/17/22 19:14 Influenza A (H3) PCR Not detected (NOT DETECT) 08/17/22 19:14 Influenza Type A Ag negative (Negative) 08/16/22 19:25 Influenza Type A (PCR) Not detected (NOT DETECT) 08/17/22 19:14 Influenza Type B Ag negative (Negative) 08/16/22 19:25 Influenza Type B (PCR) Not detected (NOT DETECT) 08/17/22 19:14 M. pneumoniae (PCR) Not detected (NOT DETECT) 08/17/22 19:14 Parainfluenza 1 (PCR) Not detected (NOT DETECT) 08/17/22 19:14 Parainfluenza 2 (PCR) Not detected (NOT DETECT) 08/17/22 19:14 Parainfluenza 3 (PCR) Not detected (NOT DETECT) 08/17/22 19:14 Parainfluenza 4 (PCR) Not detected (NOT DETECT) 08/17/22 19:14 RSV Type A (PCR) Not detected (NOT DETECT) 08/17/22 19:14 RSV Type B (PCR) Not detected (NOT DETECT) 08/17/22 19:14 Entero/Rhino (PCR) Not detected (NOT DETECT) 08/17/22 19:14 SARS-CoV-2 (PCR) Not detected (NOT DETECT) 08/17/22 19:14 SARS-CoV-2 Ag (Rapid) negative (Negative) 08/16/22 19:25 Micro: Microbiology 08/16/22 18:00 Blood Culture - Preliminary Blood NEGATIVE TO DATE 08/16/22 18:10 Blood Culture - Preliminary Blood NEGATIVE TO DATE A&P Assessment and plan (1) Acute exacerbation of chronic obstructive airways disease: (2) Acute respiratory failure with hypoxemia: (3) Lung cancer, upper lobe: (4) Atherosclerotic heart disease of [place] coronary artery with other forms of angina pectoris: (5) Limited code status: (6) Pulmonary hypertension: (7) Goals of care, counseling/discussion: Plan #Acute on chronic hypoxic respiratory failure-multifactorial #Severe pulmonary hypertension with PAP 75 mmHg on echo 06/2022 with dilated RV and decreased RV function-group 2 and group 3 #Severe underlying CAD-with stenting in 2006, [id number] stenosis requiring balloon angioplasty October 2021 in mid LAD and RCA and in June 2022 treated with JULES x2 -She has been a chronic smoker-with severe bilateral emphysema and pulmonary fibrosis-dependent on 4 L supplemental oxygen at baseline-currently requiring 40 L 55% on high flow nasal cannula saturating 93% -Very difficult to say what triggered her exacerbation -However will send for sputum cultures-results are pending and started empiric antibiotic treatment with azithromycin -Continue scheduled budesonide, Xopenex and Atrovent nebulization; patient has tremors with albuterol -Started on Solu-Medrol 40 every 8 hours to cover for COPD/ILD exacerbation-we will taper down over the next 2 to 3 days based on clinical response -For underlying pulmonary hypertension-we will optimize COPD treatment and cardiac medications -Agree with Lasix 40 Mg every 12 for now to unload RV -Continue metoprolol, aspirin, Plavix, Lipitor -I have strongly recommended patient to do daily weight monitoring, fluid restrict less than 1.5 L/day/sodium restriction less than 2 g/day-apparently she drinks 4 cans of soda and does not watch her salt and fluid intake -Once she comes back to her baseline 4 L oxygen-she may need pulmonary rehabilitation for COPD deconditioning #Left upper lobe PET active lesion-SBRT January 2022 -CT chest during admission did showed reduction in size of left upper lobe lesion -Patient to follow-up with radiation oncology as outpatient Patient's cousin was at bedside. Patient tells me that she is her close cousin will make decisions for her if at all she cannot make decisions. I have an extensive discussion with both patient and her NOK about the pathophysiology of how her severe underlying CAD, end-stage COPD with fibrosis is causing her severe pulmonary hypertension which may lead to right heart failure, arrhythmia leading to . I have stressed the importance of using supplemental oxygen to keep saturations above 88%, CPAP use for DUNCAN, fluid and salt restriction along with diuretics to maintain fluid balance. Unfortunately patient is not able lung transplantation candidate given her history of lung cancer. Overall she has very poor prognosis if she FiO2 requirements does not improve. Patient and her NOK verbalized understanding and has told me that they do not want to intubation and do not want resuscitation if she does not improve. Patient also informed that she understands the importance of fluid restriction, Lasix to keep her volume down, nebulizations, supplemental oxygen, CPAP compliance to keep her pulmonary hypertension under control-failing which her clinical condition could get worse and can cause . Coding Level of Care Code 38929 Diagnoses Acute exacerbation of chronic obstructive airways disease J44.1 Acute respiratory failure with hypoxemia J96.01 Lung cancer, upper lobe C34.10 Atherosclerotic heart disease of [place] coronary artery with other forms of angina pectoris I25.118 Limited code status Pulmonary hypertension I27.20 Goals of care, counseling/discussion Z71.89 Time Spent (min) 57
[2022-08-18 16:46] LABS: Glucose Point of Care 204 mg/dL (70-110)
[2022-08-18 21:03] LABS: Glucose Point of Care 156 mg/dL (70-110)
[2022-08-18] MEDS: enoxaparin 40 mg/0.4 mL Syringe SUBCUT (21:12)
[2022-08-18] MEDS: atorvastatin 40 mg Tablet PO (21:12)
[2022-08-18] MEDS: azithromycin 500 MG in sodium chloride 0.9% 250 ML 250 MG IV (21:18)
--- NOTE | 2022-08-18 21:20 | P.PN_ITS ---
Subjective Subjective: Today she is coughing up some phlegm with her coughing. Mucous membranes do not feel quite as dry. Vitals/I&O/Wt Last Vital Signs Temp 97.8 F 08/18/22 20:00 Pulse 102 H 08/18/22 20:54 Resp 18 08/18/22 20:54 BP 132/85 08/18/22 20:00 Pulse Ox 96 08/18/22 20:54 O2 Del Method 08/18/22 20:54 O2 Flow Rate 40 08/18/22 20:54 FiO2 55 08/18/22 20:54 08/18/22 08/18/22 08/18/22 06:59 14:59 22:59 Intake Total 860 / 860 240 / 1100 Output Total 575 / 3275 850 / 850 1400 / 2250 Balance -575 / -2255 10 -1160 / -1150 Weight last 48 hrs Weight 98.146 kg Weight 94.12 kg Physical Exam Narrative: Family at bedside. Const: COMMON NORMALS: patient oriented x3 and alert GENERAL APPEARANCE: cooperative ORIENTATION/CONSCIOUSNESS: Yes awake HENMT: COMMON NORMALS: oropharynx normal Neck/C-Spine: COMMON NORMALS: no JVD Resp: COMMON NORMALS: normal respiratory effort AUSCULTATION: crackles (Coarse) and diminished lung sounds Cardio: COMMON NORMALS: no JVD, regular rhythm, S1 normal heart sound present, S2 normal heart sound present and No murmurs present (Cardio) RHYTHM: regular rhythm HEART SOUNDS: S1 normal heart sound present and S2 normal heart sound present GI: COMMON NORMALS: Normal to inspection, nondistended, normoactive bowel sounds present, Soft to palpation and non-tender PALPATION: Yes Soft to palpation Extremity: COMMON NORMALS: no joint enlargement and no pedal edema Neuro: COMMON NORMALS: patient oriented x3 and moves all extremities SENSORIUM/ORIENTATION: Yes alert Skin: COMMON NORMALS: no rashes or lesions noted GENERAL SKIN EXAM: no rashes or lesions noted Urinary Catheter Management: Gustafson: Cath Placed During This Visit: yes Reason for Continuing Indwelling Catheter: Other Urinary Catheter Date of Insertion: 08/18/22 Urinary Catheter Time of Insertion: 10:41 Data 08/18/22 04:18 08/18/22 04:18 Micro: Microbiology 08/16/22 18:00 Blood Culture - Preliminary Blood NEGATIVE TO DATE 08/16/22 18:10 Blood Culture - Preliminary Blood NEGATIVE TO DATE A&P Assessment and plan (1) Acute exacerbation of chronic obstructive airways disease: Discussed her condition with pulmonology, appreciate consultation. Discussed starting steroid. Start 40 mg Solu-Medrol, continue antibiotics with azithromycin. Sputum culture requested and she was able to provide a sample. Follow-up results. Continue oxygen support with HHF. Added flutter valve. Respiratory viral panel obtained and negative. Continue diuresis for CHF. Noted severe pulmonary hypertension. Continue azithromycin for possible pneumonia, Continue neb treatments with adjustments as above. Inhaled budesonide. Continue close monitoring of oxygenation. RT follow-up. (2) Congestive heart failure: HFpEF, continue IV Lasix, monitor GUZMAN. Weights. GUZMAN reviewed, she is in negative balance. (3) Respiratory failure, [id number]: (4) Lung cancer, upper lobe: (5) Coronary artery disease: (6) Hypokalemia: Potassium 3.3, replacement given. Requested follow-up potassium. Plan Most recent 2D echo: Normal left ventricular size, systolic function and wall ? thickness. Left ventricular ejection fraction is estimated at 60?%. No diagnostic regional wall motion abnormalities. Grade I ?diastolic dysfunction (abnormal relaxation filling pattern), ?normal to mildly elevated filling pressures.? Flattened septum ?in systole consistent with right ventricle pressure overload. Moderately dilated right ventricle with severely decreased right ventricle systolic f unction. ?Severe pulmonary hypertension with pulmonary artery pressure estimated at 75 mmHg. Mild to moderate tricuspid valve regurgitation. Severe pulmonary hypertension: Likely secondary to pulmonary fibrosis, likely secondary to long standing chronic smoking history. Pulmonary follow-up outpatient versus inpatient. History of coronary artery disease status post PCI Continue aspirin Plavix statin, beta-eliazar. History of diabetes: Continue sliding scale insulin Monitor fingerstick glucose She insists on giving herself her own detemir. DVT prophylaxis on Lovenox CODE STATUS: Full code Attestations Medical Necessity Statement*: Continue admission for assessment management of respiratory failure. Diagnoses Acute exacerbation of chronic obstructive airways disease J44.1 Congestive heart failure I50.9 Respiratory failure, [id number] J96.20 Lung cancer, upper lobe C34.10 Coronary artery disease I25.10 Hypokalemia E87.6
[2022-08-18] MEDS: LORazepam 2 mg/mL INJ 1 mL 0.5 MG IVP (22:07)
[2022-08-19] VITALS (15 sets, daily range): BP systolic 106–124; BP diastolic 69–79; PULSE 83–104; RESP 17–22; TEMP 36.3–36.8; O2SAT 93–97; BMI 29.0
[2022-08-19] MEDS: levalbuterol 1.25 mg/3 mL Neb INHALATION ×4 (02:27→20:20)
[2022-08-19 05:04] LABS: Basophils % 0.5 %; Eosinophils # 0.1 10^3/uL (0.0-0.8); Eosinophils % 0.7 %; Hematocrit 41.6 % (37.0-47.0); Lymphocytes # 0.9 10^3/uL (0.8-4.8); Lymphocytes % 11.8 %; Mean Corpuscular HGB Conc 31.3 g/dL (30.0-36.0); Mean Corpuscular Hemoglobin 30.4 pg (28.0-34.0); Mean Corpuscular Volume 97.2 fl (81-99); Mean Platelet Volume 10.5 fL (7.4-10.4); Monocytes # 0.1 10^3/uL (0.2-0.9); Monocytes % 1.8 %; Neutrophils # 6.19 10^3/uL (1.8-7.7); Neutrophils % 84.7 %; Nucleated Red Blood Cells % 0 %; Platelet Count 223 10^3/cmm (130-400); Red Blood Count 4.28 10^6/uL (4.1-5.3); Red Cell Distribution Width 17.2 % (12.1-15.1); White Blood Count 7.3 10^3/uL (4.0-10.0)
[2022-08-19 05:33] LABS: Alanine Aminotransferase 66 U/L (0-33); Albumin Level 3.7 g/dL (3.5-5.2); Alkaline Phosphatase 170 U/L (35-105); Anion Gap 14.7 (5-19); Aspartate Amino Transferase 89 U/L (0-32); Blood Urea Nitrogen 14 mg/dL (6-20); Carbon Dioxide 24 mmol/L (22-29); Chloride 105 mmol/L (98-107); Globulin 3.4 g/dL (1.3-4.6); Glomerular Filtration Rate 126.3 mL/min (90-130); Glucose 202 mg/dL (65-115); Osmolality Calculated 294 mOsm/kg (285-295); Potassium 4.7 mmol/L (3.5-5.1); Sodium 139 mmol/L (136-145); Total Protein 7.1 g/dL (6.6-8.7)
[2022-08-19 06:36] LABS: Glucose Point of Care 252 mg/dL (70-110)
[2022-08-19] MEDS: ipratropium 0.5 mg/2.5 mL Neb INHALATION ×3 (08:29→20:20)
[2022-08-19] MEDS: budesonide 0.5 mg/2 mL Neb INHALATION ×2 (08:29→20:20)
[2022-08-19] MEDS: insulin lispro 100 unit/1 mL SUBCUT ×3 (08:46→18:24)
[2022-08-19] MEDS: clopidogrel 75 mg Tablet PO (09:42)
[2022-08-19] MEDS: pantoprazole DR 40 mg Tablet PO (09:42)
[2022-08-19] MEDS: metoprolol succinate ER (24 HR) 25 mg Tablet PO (09:42)
[2022-08-19] MEDS: FUROsemide 10 mg/mL SDV 4mL 40 MG IVP ×2 (09:44→18:24)
[2022-08-19] MEDS: aspirin 81 mg EC Tablet PO (09:45)
[2022-08-19 11:56] LABS: Glucose Point of Care 364 mg/dL (70-110)
[2022-08-19] MEDS: acetaminophen 325 mg Tablet 650 MG PO (13:40)
--- NOTE | 2022-08-19 17:19 | P.PN_ITS ---
Subjective Subjective: Today she is feeling about the same. She has been working with [employer] valve. Coughing up some phlegm which is slightly thinner than yesterday, mucousy almost. To her RN reporting also constipation for last several weeks. Vitals/I&O/Wt Last Vital Signs Temp 97.6 F 08/19/22 16:00 Pulse 104 H 08/19/22 16:00 Resp 20 H 08/19/22 16:00 BP 111/72 08/19/22 16:00 Pulse Ox 94 08/19/22 16:00 O2 Del Method 08/19/22 16:00 O2 Flow Rate 40 08/19/22 15:13 FiO2 55 08/19/22 15:13 08/19/22 08/19/22 08/19/22 06:59 14:59 22:59 Intake Total 250 / 1350 120 / 120 Output Total 1350 / 3600 1700 / 1700 Balance -1100 / -2250 -1580 / -1580 Weight last 48 hrs Weight 97.296 kg Weight 98.146 kg Physical Exam Narrative: Family at bedside. Const: COMMON NORMALS: patient oriented x3 and alert GENERAL APPEARANCE: cooperative ORIENTATION/CONSCIOUSNESS: Yes awake HENMT: COMMON NORMALS: oropharynx normal Neck/C-Spine: COMMON NORMALS: no JVD Resp: COMMON NORMALS: normal respiratory effort AUSCULTATION: other (Coarse lung sounds) Cardio: COMMON NORMALS: no JVD, regular rhythm, S1 normal heart sound present, S2 normal heart sound present and No murmurs present (Cardio) RHYTHM: regular rhythm HEART SOUNDS: S1 normal heart sound present and S2 normal heart sound present GI: COMMON NORMALS: Normal to inspection, nondistended, normoactive bowel sounds present, Soft to palpation and non-tender PALPATION: Yes Soft to palpation Extremity: COMMON NORMALS: no joint enlargement and no pedal edema Neuro: COMMON NORMALS: patient oriented x3 and moves all extremities SENSORIUM/ORIENTATION: Yes alert Skin: COMMON NORMALS: no rashes or lesions noted GENERAL SKIN EXAM: no rashes or lesions noted Urinary Catheter Management: Gustafson: Cath Placed During This Visit: yes Reason for Continuing Indwelling Catheter: Other Urinary Catheter Date of Insertion: 08/18/22 Urinary Catheter Time of Insertion: 10:41 Data 08/19/22 04:29 08/19/22 04:29 Micro: Microbiology 08/18/22 09:56 Gram Stain - Final Sputum - Expectorated Sputum Sputum Culture - Preliminary A&P Assessment and plan (1) Acute exacerbation of chronic obstructive airways disease: Slight improvement today in oxygenation, looking at FiO2 appears to be down to 55%, 40 L. She is expectorating some phlegm. Continues with flutter valve. Sputum Gram stain reviewed, few gram-positive cocci in chains. Follow-up ID and sensitivities. Continue Solu-Medrol. Azithromycin. Breathing treatments. Continue heated high flow, RT follow-up. Wean down oxygen support as tolerating. Discussed with pulmonology. Concern for underlying COPD/ILD combination. Continue oxygen support with HHF. Added flutter valve. Respiratory viral panel obtained and negative. Continue diuresis for CHF. Noted severe pulmonary hypertension. Discussed fluid restriction. Continue neb treatments with adjustments as above. Inhaled budesonide. Continue close monitoring of oxygenation. RT follow-up. (2) Congestive heart failure: HFpEF, left and right heart failure. Severe pulmonary hypertension. With severe TR pulmonary hypertension, right heart failure at risk of further decompensation, and risk of arrhythmias and other life-threatening complications. Discussed with her importance of fluid restriction.she states she usually has both on her tray and has a small cup of ice here and there. continue IV Lasix, monitor GUZMAN. Weights. GUZMAN reviewed, she is in negative balance. (3) Respiratory failure, [id number]: (4) Lung cancer, upper lobe: (5) Coronary artery disease: (6) Hypokalemia: Potassium level reviewed, improved, 4.7. Requested follow-up potassium. Plan Most recent 2D echo: Normal left ventricular size, systolic function and wall ?thickness. Left ventricular ejection fraction is estimated at 60?%. No diagnostic regional wall motion abnormalities. Grade I ?diastolic dysfunction (abnormal relaxation filling pattern), ?normal to mildly elevated filling pressures.? Flattened septum ?in systole consistent with right ventricle pressure overload. Moderately dilated right ventricle with severely decreased right ventricle systolic function. ?Severe pulmonary hypertension with pulmonary artery pressure estimated at 75 mmHg. Mild to moderate tricuspid valve regurgitation. Severe pulmonary hypertension: Pulmonology note reviewed. Unfortunately would not be a lung transplant candidate. Likely secondary to pulmonary fibrosis, likely secondary to long standing chronic smoking history. Pulmonary follow-up outpatient versus inpatient. History of coronary artery disease status post PCI Continue aspirin Plavix statin, beta-eliazar. History of diabetes: Continue sliding scale insulin Monitor fingerstick glucose She insists on giving herself her own detemir. DVT prophylaxis on Lovenox CODE STATUS: Full code Attestations Medical Necessity Statement*: Continue admission for assessment management of respiratory failure, decompensation of COPD/ILD in a lady also with decompensated CHF with left and right heart failure, as well as severe underlying pulmonary hypertension. At risk of life-threatening complications, requiring treatment and monitoring in the hospital. Diagnoses Acute exacerbation of chronic obstructive airways disease J44.1 Congestive heart failure I50.9 Respiratory failure, [id number] J96.20 Lung cancer, upper lobe C34.10 Coronary artery disease I25.10 Hypokalemia E87.6
[2022-08-19 17:56] LABS: Glucose Point of Care 328 mg/dL (70-110)
[2022-08-19] MEDS: polyethylene glycol 3350 Pkt 17 gm PO (18:23)
[2022-08-19] MEDS: ondansetron 2 mg/ML SDV 2 mL 4 MG IVP (18:23)
[2022-08-19] MEDS: atorvastatin 40 mg Tablet PO (21:08)
[2022-08-19] MEDS: azithromycin 500 MG in sodium chloride 0.9% 250 ML 250 MG IV (21:08)
[2022-08-19] MEDS: enoxaparin 40 mg/0.4 mL Syringe SUBCUT (21:09)
[2022-08-19] MEDS: LORazepam 2 mg/mL INJ 1 mL 0.5 MG IVP (22:15)
[2022-08-19 22:43] LABS: Glucose Point of Care 320 mg/dL (70-110)
[2022-08-20] VITALS (16 sets, daily range): BP systolic 117–138; BP diastolic 74–87; PULSE 59–106; RESP 12–22; TEMP 36.4–37; O2SAT 90–97
[2022-08-20] MEDS: acetaminophen 325 mg Tablet 650 MG PO ×3 (00:41→17:39)
[2022-08-20] MEDS: levalbuterol 1.25 mg/3 mL Neb INHALATION ×4 (02:33→19:36)
[2022-08-20 05:22] LABS: Basophils % 0.1 %; Hematocrit 41.1 % (37.0-47.0); Hemoglobin 12.8 g/dL (11.5-15.3); Lymphocytes # 0.9 10^3/uL (0.8-4.8); Mean Corpuscular HGB Conc 31.1 g/dL (30.0-36.0); Mean Corpuscular Hemoglobin 29.7 pg (28.0-34.0); Mean Corpuscular Volume 95.4 fl (81-99); Mean Platelet Volume 10.7 fL (7.4-10.4); Monocytes # 0.3 10^3/uL (0.2-0.9); Monocytes % 3.1 %; Neutrophils # 8.94 10^3/uL (1.8-7.7); Neutrophils % 87.3 %; Nucleated Red Blood Cells % 0 %; Platelet Count 262 10^3/cmm (130-400); Red Blood Count 4.31 10^6/uL (4.1-5.3); Red Cell Distribution Width 16.2 % (12.1-15.1); White Blood Count 10.2 10^3/uL (4.0-10.0)
[2022-08-20 05:42] LABS: Alanine Aminotransferase 72 U/L (0-33); Albumin Level 3.8 g/dL (3.5-5.2); Alkaline Phosphatase 171 U/L (35-105); Anion Gap 14.1 (5-19); Aspartate Amino Transferase 72 U/L (0-32); Blood Urea Nitrogen 19 mg/dL (6-20); Calcium 9.4 mg/dL (8.5-10.5); Carbon Dioxide 27 mmol/L (22-29); Chloride 94 mmol/L (98-107); Globulin 3.4 g/dL (1.3-4.6); Glomerular Filtration Rate 102.3 mL/min (90-130); Glucose 309 mg/dL (65-115); Magnesium 2.3 mg/dL (1.7-2.3); Osmolality Calculated 284 mOsm/kg (285-295); Potassium 5.1 mmol/L (3.5-5.1); Sodium 130 mmol/L (136-145); Total Bilirubin 0.9 mg/dL (0.15-1.2); Total Protein 7.2 g/dL (6.6-8.7)
[2022-08-20 06:38] LABS: Glucose Point of Care 285 mg/dL (70-110)
[2022-08-20] MEDS: ipratropium 0.5 mg/2.5 mL Neb INHALATION ×3 (07:34→19:36)
[2022-08-20] MEDS: budesonide 0.5 mg/2 mL Neb INHALATION ×2 (07:34→19:37)
[2022-08-20] MEDS: pantoprazole DR 40 mg Tablet PO (08:20)
[2022-08-20] MEDS: clopidogrel 75 mg Tablet PO (08:20)
[2022-08-20] MEDS: polyethylene glycol 3350 Pkt 17 gm PO ×2 (08:20→17:37)
[2022-08-20] MEDS: FUROsemide 10 mg/mL SDV 4mL 40 MG IVP ×2 (08:21→17:38)
[2022-08-20] MEDS: aspirin 81 mg EC Tablet PO (08:21)
[2022-08-20] MEDS: metoprolol succinate ER (24 HR) 25 mg Tablet PO (08:21)
[2022-08-20] MEDS: benzonatate 100 mg Capsule PO (08:26)
[2022-08-20] MEDS: insulin lispro 100 unit/1 mL SUBCUT ×3 (08:36→17:37)
[2022-08-20 11:19] LABS: Glucose Point of Care 376 mg/dL (70-110)
[2022-08-20] MEDS: magnesium hydroxide 30 mL UDC PO (13:09)
[2022-08-20] MEDS: bisacodyl 10 mg Supp PR (13:09)
[2022-08-20] MEDS: ondansetron 2 mg/ML SDV 2 mL 4 MG IVP (15:04)
[2022-08-20 17:12] LABS: Glucose Point of Care 307 mg/dL (70-110)
[2022-08-20] MEDS: sennosides-docusate Tablet 2 TAB PO (17:37)
[2022-08-20] MEDS: enoxaparin 40 mg/0.4 mL Syringe SUBCUT (20:55)
[2022-08-20] MEDS: azithromycin 500 MG in sodium chloride 0.9% 250 ML 250 MG IV (20:56)
[2022-08-20] MEDS: atorvastatin 40 mg Tablet PO (20:56)
--- NOTE | 2022-08-20 21:24 | P.PN_ITS ---
Subjective Subjective: She is feeling tired today. States she stayed until about 2 AM yesterday speaking with her friend. Breathing feeling slightly better today. She is still having constipation, states has not gone and possibly several weeks. Vitals/I&O/Wt Last Vital Signs Temp 98.4 F 08/20/22 15:29 Pulse 86 08/20/22 19:41 Resp 16 08/20/22 19:41 BP 121/82 08/20/22 15:29 Pulse Ox 95 08/20/22 19:41 O2 Del Method 08/20/22 19:39 O2 Flow Rate 35 08/20/22 19:41 FiO2 50 08/20/22 19:41 08/20/22 08/20/22 08/20/22 06:59 14:59 22:59 Intake Total 240 / 1090 720 / 720 360 / 1080 Output Total 500 / 5650 1850 / 1850 2175 / 4025 Balance -260 / -4560 -1130 / -1130 -1815 / -2945 Weight last 48 hrs Weight 97.296 kg Physical Exam Const: COMMON NORMALS: patient oriented x3 and alert GENERAL APPEARANCE: cooperative ORIENTATION/CONSCIOUSNESS: Yes awake HENMT: COMMON NORMALS: oropharynx normal Neck/C-Spine: COMMON NORMALS: no JVD Resp: COMMON NORMALS: normal respiratory effort AUSCULTATION: diminished lung sounds (Improving air entry) and other (Coarse lung sounds) Cardio: COMMON NORMALS: no JVD, regular rhythm, S1 normal heart sound present, S2 normal heart sound present and No murmurs present (Cardio) RHYTHM: regular rhythm HEART SOUNDS: S1 normal heart sound present and S2 normal heart sound present GI: COMMON NORMALS: Normal to inspection, nondistended, normoactive bowel sounds present, Soft to palpation and non-tender PALPATION: Yes Soft to palpation Extremity: COMMON NORMALS: no joint enlargement and no pedal edema Neuro: COMMON NORMALS: patient oriented x3 and moves all extremities SENSORIUM/ORIENTATION: Yes alert Skin: COMMON NORMALS: no rashes or lesions noted GENERAL SKIN EXAM: no rashes or lesions noted Urinary Catheter Management: Gustafson: Cath Placed During This Visit: yes Reason for Continuing Indwelling Catheter: Other Urinary Catheter Date of Insertion: 08/18/22 Urinary Catheter Time of Insertion: 10:41 Data 08/20/22 04:33 08/20/22 04:33 Micro: Microbiology 02/16/23 09:56 Gram Stain - Final Sputum - Expectorated Sputum Sputum Culture - Final A&P Assessment and plan (1) Acute exacerbation of chronic obstructive airways disease: Hypoxia showing some gradual improvement, down to 55% FiO2. This evening on review of vitals appreciated to 50%.35 L. Continue empiric antibiotic coverage. Reviewed sputum culture, mixed upper respiratory imani. Continue Solu-Medrol. Azithromycin. Breathing treatments. Continue heated high flow, RT follow-up. Wean down oxygen support as tolerating. Concern for underlying COPD/ILD combination. Continue oxygen support with HHF. Wean down as tolerating. Flutter valve. Respiratory viral panel obtained and negative. Continue diuresis for CHF. Noted severe pulmonary hypertension. Fluid restriction. Continue neb treatments with adjustments as above. Inhaled budesonide. Continue close monitoring of oxygenation. RT follow-up. (2) Congestive heart failure: Noted hyponatremia: Reassess sodium. Borderline high potassium, 5.1. Reassess potassium. In negative balance. Continue IV Lasix, requires close monitoring of electrolytes, volume status, oxygenation. HFpEF, left and right heart failure. Severe pulmonary hypertension. With severe TR pulmonary hypertension, right heart failure at risk of further decompensation, and risk of arrhythmias and other life-threatening complications. Add fluid restriction. continue IV Lasix, monitor GUZMAN. Weights. GUZMAN reviewed, she is in negative balance. (3) Respiratory failure, [id number]-ucblvyw: (4) Lung cancer, upper lobe: (5) Coronary artery disease: (6) Hypokalemia: Resolved. Follow-up potassium. Plan Most recent 2D echo: Normal left ventricular size, systolic function and wall ?thickness. Left ventricular ejection fraction is estimated at 60?%. No diagnostic regional wall motion abnormalities. Grade I ?diastolic dysfunction ( abnormal relaxation filling pattern), ?normal to mildly elevated filling pressures.? Flattened septum ?in systole consistent with right ventricle pressure overload. Moderately dilated right ventricle with severely decreased right ventricle systolic function. ?Severe pulmonary hypertension with pulmonary artery pressure estimated at 75 mmHg. Mild to moderate tricuspid valve regurgitation. Severe pulmonary hypertension: Pulmonology note reviewed. Unfortunately would not be a lung transplant candidate. Likely secondary to pulmonary fibrosis, likely secondary to long standing chronic smoking history. Pulmonary follow-up outpatient versus inpatient. History of coronary artery disease status post PCI Continue aspirin Plavix statin, beta-eliazar. History of diabetes: Continue sliding scale insulin Monitor fingerstick glucose She insists on giving herself her own detemir. Constipation: So far no bowel movement MiraLAX. She request for senna docusate, discussed with her also Milk of Magnesia. Dulcolax suppository. DVT prophylaxis on Lovenox CODE STATUS: Full code Attestations Medical Necessity Statement*: Continue admission for assessment management of respiratory failure Diagnoses Acute exacerbation of chronic obstructive airways disease J44.1 Congestive heart failure I50.9 Respiratory failure, [id number] J96.20 Lung cancer, upper lobe C34.10 Coronary artery disease I25.10 Hypokalemia E87.6
[2022-08-20 22:04] LABS: Glucose Point of Care 352 mg/dL (70-110)
[2022-08-21] VITALS (15 sets, daily range): BP systolic 100–125; BP diastolic 66–84; PULSE 73–102; RESP 16–22; TEMP 36.3–36.8; O2SAT 92–96
[2022-08-21] MEDS: benzonatate 100 mg Capsule PO ×2 (00:31→22:10)
[2022-08-21] MEDS: acetaminophen 325 mg Tablet 650 MG PO ×3 (00:31→18:32)
[2022-08-21] MEDS: levalbuterol 1.25 mg/3 mL Neb INHALATION ×4 (02:53→21:05)
[2022-08-21 06:05] LABS: Basophils % 0.2 %; Hematocrit 41.9 % (37.0-47.0); Hemoglobin 13.5 g/dL (11.5-15.3); Mean Corpuscular HGB Conc 32.2 g/dL (30.0-36.0); Mean Corpuscular Hemoglobin 30.8 pg (28.0-34.0); Mean Corpuscular Volume 95.4 fl (81-99); Mean Platelet Volume 10.5 fL (7.4-10.4); Monocytes # 0.3 10^3/uL (0.2-0.9); Monocytes % 2.8 %; Neutrophils # 10.19 10^3/uL (1.8-7.7); Neutrophils % 87.7 %; Nucleated Red Blood Cells % 0 %; Platelet Count 282 10^3/cmm (130-400); Red Blood Count 4.39 10^6/uL (4.1-5.3); Red Cell Distribution Width 15.9 % (12.1-15.1); White Blood Count 11.6 10^3/uL (4.0-10.0)
[2022-08-21 06:24] LABS: Alanine Aminotransferase 63 U/L (0-33); Albumin Level 3.8 g/dL (3.5-5.2); Alkaline Phosphatase 168 U/L (35-105); Anion Gap 11.8 (5-19); Aspartate Amino Transferase 48 U/L (0-32); Blood Urea Nitrogen 22 mg/dL (6-20); Carbon Dioxide 32 mmol/L (22-29); Chloride 95 mmol/L (98-107); Globulin 3.2 g/dL (1.3-4.6); Glomerular Filtration Rate 126.3 mL/min (90-130); Glucose 319 mg/dL (65-115); Osmolality Calculated 294 mOsm/kg (285-295); Potassium 4.8 mmol/L (3.5-5.1); Sodium 134 mmol/L (136-145); Total Bilirubin 0.8 mg/dL (0.15-1.2)
[2022-08-21] MEDS: ipratropium 0.5 mg/2.5 mL Neb INHALATION ×3 (08:26→21:05)
[2022-08-21] MEDS: budesonide 0.5 mg/2 mL Neb INHALATION ×2 (08:26→21:05)
[2022-08-21] MEDS: insulin lispro 100 unit/1 mL SUBCUT ×4 (09:48→22:10)
[2022-08-21] MEDS: aspirin 81 mg EC Tablet PO (09:49)
[2022-08-21] MEDS: polyethylene glycol 3350 Pkt 17 gm PO ×2 (09:49→17:35)
[2022-08-21] MEDS: metoprolol succinate ER (24 HR) 25 mg Tablet PO (09:50)
[2022-08-21] MEDS: sennosides-docusate Tablet 2 TAB PO ×2 (09:50→17:35)
[2022-08-21] MEDS: bisacodyl 10 mg Supp PR ×2 (09:50→22:10)
[2022-08-21] MEDS: pantoprazole DR 40 mg Tablet PO (09:50)
[2022-08-21] MEDS: clopidogrel 75 mg Tablet PO (09:50)
[2022-08-21] MEDS: FUROsemide 10 mg/mL SDV 4mL 40 MG IVP ×2 (09:50→17:35)
[2022-08-21 11:29] LABS: Glucose Point of Care 377 mg/dL (70-110)
[2022-08-21 17:03] LABS: Glucose Point of Care 341 mg/dL (70-110)
--- NOTE | 2022-08-21 17:33 | PC.NURSE ---
Patient would like to resume her metformin and glipizide and forsega medication.
[2022-08-21] MEDS: azithromycin 500 MG in sodium chloride 0.9% 250 ML 250 MG IV (20:31)
[2022-08-21] MEDS: enoxaparin 40 mg/0.4 mL Syringe SUBCUT (20:31)
[2022-08-21] MEDS: atorvastatin 40 mg Tablet PO (20:32)
[2022-08-21] MEDS: LORazepam 2 mg/mL INJ 1 mL 0.5 MG IVP (20:32)
[2022-08-21 21:36] LABS: Glucose Point of Care 334 mg/dL (70-110)
--- NOTE | 2022-08-21 22:01 | P.PN_ITS ---
Subjective Subjective: She is doing slightly better today. Breathing slowly improving. She is having cough episodes which lead to dry heaving and some vomiting. She states they are not helping her bring up phlegm. She had a small bowel movement. Vitals/I&O/Wt Last Vital Signs Temp 97.3 F L 08/21/22 16:00 Pulse 73 08/21/22 21:06 Resp 20 H 08/21/22 21:06 BP 118/72 08/21/22 16:00 Pulse Ox 92 08/21/22 21:06 O2 Del Method 08/21/22 21:06 O2 Flow Rate 35 08/21/22 21:06 FiO2 40 08/21/22 21:06 08/21/22 08/21/22 08/21/22 06:59 14:59 22:59 Intake Total 720 / 720 240 / 960 Output Total 900 / 900 1475 / 2375 Balance -180 / -180 -1235 / -1415 Physical Exam Const: COMMON NORMALS: patient oriented x3 and alert GENERAL APPEARANCE: cooperative ORIENTATION/CONSCIOUSNESS: Yes awake HENMT: COMMON NORMALS: oropharynx normal Neck/C-Spine: COMMON NORMALS: no JVD Resp: COMMON NORMALS: normal respiratory effort AUSCULTATION: diminished lung sounds (Improving air entry) and other (Coarse lung sounds) Cardio: COMMON NORMALS: no JVD, regular rhythm, S1 normal heart sound present, S2 normal heart sound present and No murmurs present (Cardio) RHYTHM: regular rhythm HEART SOUNDS: S1 normal heart sound present and S2 normal heart sound present GI: COMMON NORMALS: Normal to inspection, nondistended, normoactive bowel sounds present, Soft to palpation and non-tender PALPATION: Yes Soft to palpation Extremity: COMMON NORMALS: no joint enlargement and no pedal edema Neuro: COMMON NORMALS: patient oriented x3 and moves all extremities SENSORIUM/ORIENTATION: Yes alert Skin: COMMON NORMALS: no rashes or lesions noted GENERAL SKIN EXAM: no rashes or lesions noted Urinary Catheter Management: Gustafson: Cath Placed During This Visit: yes Reason for Continuing Indwelling Catheter: Other Urinary Catheter Date of Insertion: 08/18/22 Urinary Catheter Time of Insertion: 10:41 Data 08/21/22 05:50 08/21/22 05:50 Micro: Microbiology 08/16/22 18:00 Blood Culture - Final Blood NO GROWTH AFTER 5 DAYS 08/16/22 18:10 Blood Culture - Final Blood NO GROWTH AFTER 5 DAYS 08/18/22 09:56 Gram Stain - Final Sputum - Expectorated Sputum Sputum Culture - Final A&P Assessment and plan (1) Acute exacerbation of chronic obstructive airways disease: Some further gradual improvement in hypoxia, this morning down to 45% FiO2. She is having bothersome bouts of cough which are leading to dry heaving and had some vomiting. Not helping her bring up phlegm. Discussed with her making Tessalon standing. Added. Continue empiric antibiotic coverage. If she continues to improve may be able to switch to nasal cannula, possibly allowing her to return home within the next day or 2. Reviewed final sputum culture, mixed upper respiratory imani. We will check procalcitonin to see if may assist in de-escalation of antibiotic. Continue Solu-Medrol. Azithromycin. Breathing treatments. Continue heated high flow, RT follow-up. Wean down oxygen support as donavon ating. Concern for underlying COPD/ILD combination. Continue oxygen support with HHF. Wean down as tolerating. Flutter valve. Respiratory viral panel obtained and negative. Continue diuresis for CHF. Noted severe pulmonary hypertension. Fluid restriction. Continue neb treatments with adjustments as above. Inhaled budesonide. Continue close monitoring of oxygenation. RT follow-up. (2) Congestive heart failure: Noted hyponatremia: Sodium noted to be improving. Up to 140. Reassess sodium. Borderline high potassium, improved. In negative balance. Continue IV Lasix, requires close monitoring of electrolytes, volume status, oxygenation. HFpEF, left and right heart failure. Severe pulmonary hypertension. With severe TR pulmonary hypertension, right heart failure at risk of further decompensation, and risk of arrhythmias and other life-threatening compli cations. Add fluid restriction. continue IV Lasix, monitor GUZMAN. Weights. GUZMAN reviewed, she is in negative balance. (3) Respiratory failure, [id number]: (4) Lung cancer, upper lobe: (5) Coronary artery disease: (6) Hypokalemia: Resolved. Follow-up potassium. Plan Most recent 2D echo: Normal left ventricular size, systolic function and wall ?thickness. Left ventricular ejection fraction is estimated at 60?%. No diagnostic regional wall motion abnormalities. Grade I ?diastolic dysfunction (abnormal relaxation filling pattern), ?normal to mildly elevated filling pressures.? Flattened septum ?in systole consistent with right ventricle pressure overload. Moderately dilated right ventricle with severely decreased right ventricle systolic function. ?Severe pulmonary hypertension with pulmonary artery pressure estimated at 75 mmHg. Mild to moderate tricuspid valve regurgitation. Severe pulmonary hypertension: Pulmonology note reviewed. Unfortunately would not be a lung transplant candidate. Likely secondary to pulmonary fibrosis, likely secondary to long standing chronic smoking history. Pulmonary follow-up outpatient versus inpatient. History of coronary artery disease status post PCI Continue aspirin Plavix statin, beta-eliazar. History of diabetes: Continue sliding scale insulin Monitor fingerstick glucose She insists on giving herself her own detemir. Constipation: So far no bowel movement MiraLAX. She request for senna docusate, discussed with her also Milk of Magnesia. Dulcolax suppository. DVT prophylaxis on Lovenox CODE STATUS: Full code Attestations Medical Necessity Statement*: Continue admission for assessment management of respiratory failure, decompensation of COPD/ILD in a lady also with decompensated CHF with left and right heart failure, as well as severe underlying pulmonary hypertension.? Diagnoses Acute exacerbation of chronic obstructive airways disease J44.1 Congestive heart failure I50.9 Respiratory failure, [id number] J96.20 Lung cancer, upper lobe C34.10 Coronary artery disease I25.10 Hypokalemia E87.6
[2022-08-21] MEDS: magnesium hydroxide 30 mL UDC PO (22:10)
[2022-08-22] VITALS (17 sets, daily range): BP systolic 113–145; BP diastolic 75–84; PULSE 75–115; RESP 16–22; TEMP 36.2–36.8; O2SAT 82–95
--- NOTE | 2022-08-22 03:12 | PC.NURSE ---
Patient got up to use the bedside commode and desaturated to 82% with heated high flow nasal cannula. Patient recovered after resting in bed after using the commode.
[2022-08-22] MEDS: levalbuterol 1.25 mg/3 mL Neb INHALATION ×4 (03:24→21:20)
[2022-08-22 04:20] LABS: Basophils % 0.1 %; Hematocrit 45.5 % (37.0-47.0); Hemoglobin 14.5 g/dL (11.5-15.3); Lymphocytes % 9.9 %; Mean Corpuscular HGB Conc 31.9 g/dL (30.0-36.0); Mean Platelet Volume 10.3 fL (7.4-10.4); Monocytes # 0.3 10^3/uL (0.2-0.9); Monocytes % 3.1 %; Neutrophils # 8.87 10^3/uL (1.8-7.7); Neutrophils % 86.3 %; Nucleated Red Blood Cells % 0 %; Platelet Count 309 10^3/cmm (130-400); Red Blood Count 4.84 10^6/uL (4.1-5.3); Red Cell Distribution Width 15.5 % (12.1-15.1); White Blood Count 10.3 10^3/uL (4.0-10.0)
[2022-08-22 04:51] LABS: Alanine Aminotransferase 83 U/L (0-33); Albumin Level 3.9 g/dL (3.5-5.2); Alkaline Phosphatase 165 U/L (35-105); Anion Gap 14.8 (5-19); Aspartate Amino Transferase 64 U/L (0-32); Blood Urea Nitrogen 25 mg/dL (6-20); Calcium 9.6 mg/dL (8.5-10.5); Carbon Dioxide 31 mmol/L (22-29); Chloride 95 mmol/L (98-107); Globulin 3.3 g/dL (1.3-4.6); Glomerular Filtration Rate 126.3 mL/min (90-130); Glucose 307 mg/dL (65-115); Osmolality Calculated 298 mOsm/kg (285-295); Potassium 4.8 mmol/L (3.5-5.1); Sodium 136 mmol/L (136-145); Total Bilirubin 0.9 mg/dL (0.15-1.2); Total Protein 7.2 g/dL (6.6-8.7)
[2022-08-22 04:53] LABS: Procalcitonin 0.05 ng/mL (0-0.5)
[2022-08-22 07:41] LABS: Glucose Point of Care 285 mg/dL (70-110)
[2022-08-22] MEDS: budesonide 0.5 mg/2 mL Neb INHALATION ×2 (08:12→21:20)
[2022-08-22] MEDS: ipratropium 0.5 mg/2.5 mL Neb INHALATION ×3 (08:54→21:20)
[2022-08-22] MEDS: insulin lispro 100 unit/1 mL SUBCUT ×4 (09:22→23:15)
[2022-08-22] MEDS: FUROsemide 10 mg/mL SDV 4mL 40 MG IVP ×2 (09:22→18:31)
[2022-08-22] MEDS: metoprolol succinate ER (24 HR) 25 mg Tablet PO (09:22)
[2022-08-22] MEDS: benzonatate 100 mg Capsule PO ×3 (09:22→20:01)
[2022-08-22] MEDS: sennosides-docusate Tablet 2 TAB PO ×2 (09:23→18:32)
[2022-08-22] MEDS: acetaminophen 325 mg Tablet 650 MG PO (09:23)
[2022-08-22] MEDS: aspirin 81 mg EC Tablet PO (09:23)
[2022-08-22] MEDS: clopidogrel 75 mg Tablet PO (09:23)
[2022-08-22] MEDS: pantoprazole DR 40 mg Tablet PO (09:23)
[2022-08-22] MEDS: polyethylene glycol 3350 Pkt 17 gm PO ×2 (09:24→18:32)
--- NOTE | 2022-08-22 10:09 | PC.CHAP ---
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 operator visit [] Patient/Family/Request visit [] Outpatient visit [] Follow-up visit [] Physician referral [] Code/Alert [x] Routine visit [] Staff referral [] Actively dying [] Patient sleeping [] Family support [] [] Out of room [] Palliative care [] [] Receiving care in room [] Pre-surgical visit [] Trauma [] Long length of stay [] ICU visit [] Other: Relational/Emotional Strength [x] Patient feels connected with others/family/visitors/staff [] Distress [] Loneliness/isolation [] Abandonment Spirituality of Patient [x] Person of Lupe [] Attends [employer] of their Lupe [x] Believes in Prayer [] Reads Bible or Bahai materials [] There are Spiritual issues to be addressed [employer] Interventions [x] Prayer [x] Active listening [] Non-anxious presence [x] Spiritual/emotional support [] Crisis/trauma care [] Spiritual counseling [] Bereavement support [] Provided bereavement packet [] Provided Bible/devotional materials [] Provided toy/stuffed animal, coloring book to patient or family member [] Provided Communion [] Anointing/[place] [] Salvation [x] Completed spiritual assessment [] Other: Impact on Illness or Injury [] Angry [] Fearful [] Anxious [] Often cries [] Exhaustion [] Unable to work [] Unable to attend druze [] Unable to walk/stand [] Unable to read [] Unable to drive [] Unable to eat/drink [] Unable to sleep [] Unable to be with family [] Patient intubated [] Other: Summary Time spent with patient 10 min
[2022-08-22 11:18] LABS: Glucose Point of Care 388 mg/dL (70-110)
[2022-08-22 16:28] LABS: Glucose Point of Care 331 mg/dL (70-110)
--- NOTE | 2022-08-22 16:45 | P.PN_ITS ---
Subjective Subjective: Continues to be on heated high flow 40% FiO2 at 35 L/min. States that her breathing is about the same. No acute interim events. Medications: Reviewed: Yes Vitals/I&O/Wt Last Vital Signs Temp 98.2 F 08/22/22 16:00 Pulse 96 08/22/22 16:00 Resp 18 08/22/22 16:08 BP 123/80 08/22/22 16:00 Pulse Ox 91 08/22/22 16:08 O2 Del Method 08/22/22 16:00 O2 Flow Rate 35 08/22/22 16:08 FiO2 40 08/22/22 16:08 08/22/22 08/22/22 08/22/22 06:59 14:59 22:59 Intake Total 480 / 1690 480 / 480 Output Total 1600 / 1600 Balance 480 / -685 -1120 / -1120 Weight last 48 hrs Weight 116.755 kg Physical Exam Narrative: General: No acute distress, AO x3 HEENT: PERRLA, pupils bilaterally equal and reactive, pallors not present Chest: Normal vesicular breath sounds, no added sounds, equal good air entry bilaterally CVS: S1-S2 regular, no murmurs, no tachycardia, no gallops, no rubs Abdomen: Soft, nontender, no organomegaly, bowel sounds present Neuro: No focal deficits, no facial deformity, AO x3, power 5/5 in all limbs Urinary Catheter Management: Gustafson: Cath Placed During This Visit: yes Reason for Continuing Indwelling Catheter: Other Urinary Catheter Date of Insertion: 08/18/22 Urinary Catheter Time of Insertion: 10:41 Data 08/22/22 04:04 08/22/22 04:04 Micro: Microbiology 08/16/22 18:00 Blood Culture - Final Blood NO GROWTH AFTER 5 DAYS 08/16/22 18:10 Blood Culture - Final Blood NO GROWTH AFTER 5 DAYS A&P Assessment and plan (1) Acute exacerbation of chronic obstructive airways disease: Continues to be on heated high flow 40% FiO2 at 35 L/min. Ongoing attempts at oxygen weaning. Reviewed final sputum culture, mixed upper respiratory imani. Continue Solu-Medrol, wean down to every 12 hours. Azithromycin. Breathing treatments. Continue heated high flow, RT follow-up. Wean down oxygen support as tolerating. Concern for underlying COPD/ILD combination. Continue oxygen support with HHF. Wean down as tolerating. Flutter valve. Respiratory viral panel obtained and negative. Continue diuresis for CHF. Noted severe pulmonary hypertension. Fluid restriction. Currently net negative Continue neb treatments with adjustments as above. Inhaled budesonide. Continue close monitoring of oxygenation. (2) Congestive heart failure: Noted hyponatremia: Sodium noted to be improving. Up to 140. Reassess sodium. Borderline high potassium, improved. In negative balance. Continue IV Lasix, requires close monitoring of electrolytes, volume status, oxygenation. HFpEF, left and right heart failure. Severe pulmonary hypertension. With severe TR pulmonary hypertension, right heart failure at risk of further decompensation, and risk of arrhythmias and other life-threatening complications. Add fluid restriction. continue IV Lasix, monitor GUZMAN. Weights. GUZMAN reviewed, she is in negative balance. (3) Respiratory failure, ebeti-ru-dryktdz: (4) Lung cancer, upper lobe: (5) Coronary artery disease: (6) Hypokalemia: Resolved. Follow-up potassium. Plan Most recent 2D echo: Normal left ventricular size, systolic function and wall ?thickness. Left ventricular ejection fraction is estimated at 60?%. No d iagnostic regional wall motion abnormalities. Grade I ?diastolic dysfunction (abnormal relaxation filling pattern), ?normal to mildly elevated filling pressures.? Flattened septum ?in systole consistent with right ventricle pressure overload. Moderately dilated right ventricle with severely decreased right ventricle systolic function. ?Severe pulmonary hypertension with pulmonary artery pressure estimated at 75 mmHg. Mild to moderate tricuspid valve regurgitation. Severe pulmonary hypertension: Pulmonology note reviewed. Unfortunately would not be a lung transplant candidate. Likely secondary to pulmonary fibrosis, likely secondary to long standing chronic smoking history. Pulmonary follow-up outpatient versus inpatient. History of coronary artery disease status post PCI Continue aspirin Plavix statin, beta-eliazar. History of diabetes: Continue sliding scale insulin Monitor fingerstick glucose She insists on giving herself her own detemir. Disposition: Patient was evaluated by [facility] today, plan to transition to LTAC for continued oxygen weaning, continue therapies. DVT prophylaxis on Lovenox CODE STATUS: Full code Attestations Medical Necessity Statement*: Ongoing disposition planning, IV diuresis, weaning down off oxygen Coding Level of Care Code Acute Code for [facility] Fwd Diagnoses Acute exacerbation of chronic obstructive airways disease J44.1 Congestive heart failure I50.9 Respiratory failure, azjib-in-[id number] J96.20 Lung cancer, upper lobe C34.10 Coronary artery disease I25.10 Hypokalemia E87.6
[2022-08-22] MEDS: azithromycin 250 mg Tablet 500 MG PO (20:01)
[2022-08-22] MEDS: atorvastatin 40 mg Tablet PO (20:02)
[2022-08-22] MEDS: enoxaparin 40 mg/0.4 mL Syringe SUBCUT (20:02)
[2022-08-22] MEDS: LORazepam 2 mg/mL INJ 1 mL 0.5 MG IVP (20:02)
[2022-08-22 21:52] LABS: Glucose Point of Care 348 mg/dL (70-110)
[2022-08-23] VITALS (13 sets, daily range): BP systolic 122–138; BP diastolic 66–84; PULSE 75–107; RESP 16–19; TEMP 36.6–36.8; O2SAT 86–97
[2022-08-23] MEDS: levalbuterol 1.25 mg/3 mL Neb INHALATION ×3 (01:51→13:20)
[2022-08-23 06:36] LABS: Glucose Point of Care 216 mg/dL (70-110)
[2022-08-23] MEDS: ipratropium 0.5 mg/2.5 mL Neb INHALATION ×2 (08:20→13:19)
[2022-08-23] MEDS: budesonide 0.5 mg/2 mL Neb INHALATION (08:20)
[2022-08-23] MEDS: pantoprazole DR 40 mg Tablet PO (09:10)
[2022-08-23] MEDS: metoprolol succinate ER (24 HR) 25 mg Tablet PO (09:10)
[2022-08-23] MEDS: aspirin 81 mg EC Tablet PO (09:10)
[2022-08-23] MEDS: polyethylene glycol 3350 Pkt 17 gm PO ×2 (09:10→17:17)
[2022-08-23] MEDS: benzonatate 100 mg Capsule PO ×3 (09:11→20:40)
[2022-08-23] MEDS: sennosides-docusate Tablet 2 TAB PO ×2 (09:11→17:17)
[2022-08-23] MEDS: clopidogrel 75 mg Tablet PO (09:11)
[2022-08-23] MEDS: FUROsemide 10 mg/mL SDV 4mL 40 MG IVP ×2 (09:12→17:17)
[2022-08-23] MEDS: insulin lispro 100 unit/1 mL SUBCUT ×3 (09:15→18:09)
--- NOTE | 2022-08-23 10:35 | PM.DCS ---
Discharge Providers Date of Admission: 08/16/22 19:55 Date of Discharge: August 23, 2022 Attending Provider at Admission: Geoff Palma MD Attending Provider at Discharge: Rola Carbajal MD Primary Care Provider: Sujit Hernandez MD Diagnoses at Discharge Discharge Diagnosis (1) Acute exacerbation of chronic obstructive airways disease: Status: Acute (2) Congestive heart failure: Details from hospital stay: HFpEF, left and right heart failure acute on chronic, cute on chronic .? Severe pulmonary hypertension.? With severe TR pulmonary hypertension, right heart failure? Status: Acute (3) Respiratory failure, skign-fo-fbuvoca: Status: Acute (4) Lung cancer, upper lobe: Status: Acute (5) Coronary artery disease: Status: Acute (6) Hypokalemia: Status: Acute Reason for Visit Reason for Visit: SOB Brief History: 57 year old female with past medical history of CA lung status post radiotherapy , hypertension diabetes coronary artery disease s/p recent PTCA in October 2021 for moderate to severe in-stent restenosis in mid LAD, PCI to RCA, recent NSTEMI, PCI to?of mid LAD and mid RCA severe instent restenosis with JULES x 2.?(06/06/2022 ), severe pulmonary hypertension, HFpEF, RV , FAILURE, on 6 L of oxygen, came in with chief complaint of worsening shortness of breath, going on for the last 3 to 4 days, with whitish sputum, she also complaining of orthopnea.She denies any chest pain, palpitation, extremity swelling, fever, abdominal pain nausea vomiting. Hospital Course Hospital Course Patient was admitted to the hospital in view of acute on chronic hypoxic respiratory failure which was multifactorial related to severe pulmonary hypertension with PAP of 75 mmHg, dilated RV and decreased RV function group 2 and group 3. Also had acute exacerbation of chronic obstructive airway disease/ILD. She received treatment with fluid restriction 1.5 L/day, IV Lasix, sodium restriction less than 2 g/day, received IV steroids including Solu-Medrol, scheduled nebulization with DuoNeb and budesonide and empiric treatment with azithromycin during course of admission. She was also discovered to have a right upper lobe nodule with a past history of treatment for lung cancer. Recommended to follow-up with oncology regarding the same. Patient remained on heated high flow, 40% FiO2 35 L/min at the time of discharge. She is being transition to LTAC for continued oxygen weaning and intense therapy. Patient is desaturating down to 84 to 86% with standing activity. She refused removal of Gustafson catheter at the time of discharge in spite of being counseled regarding UTI risk. Physical Exam Narrative: General: No acute distress, AO x3 HEENT: PERRLA, pupils bilaterally equal and reactive, pallors not present Chest: Normal vesicular breath sounds, no added sounds, equal good air entry bilaterally CVS: S1-S2 regular, no murmurs, no tachycardia, no gallops, no rubs Abdomen: Soft, nontender, no organomegaly, bowel sounds present Neuro: No focal deficits, no facial deformity, AO x3, power 5/5 in all limbs Urinary Catheter Management: Gustafson: Cath Placed During This Visit: yes Reason for Continuing Indwelling Catheter: Other Urinary Catheter Date of Insertion: 08/18/22 Urinary Catheter Time of Insertion: 10:41 Discharge Data Studies Completed and Pending Completed Studies During Hospitalization Category Date Time Status CT angio chest PE protcl [id number] Stat Cat Scan 08/16/22 17:59 Completed XR chest 1V portable [id number] Stat Exams 08/16/22 17:13 Completed Radiology Impressions Chest X-Ray 08/16/22 17:13 IMPRESSION: 1. There are centrilobular emphysematous changes in the bilateral lungs. 2. There are scattered regions of bilateral subpleural interstitial thickening, greatest at the lung bases, suggestive of pulmonary fibrosis. 3. Possible cardiomegaly.Heart size not optimally evaluated with a single AP view of the chest. Chest CTA 08/16/22 17:59 IMPRESSION: 1. There are centrilobular emphysematous changes in the bilateral lungs. 2. There are scattered regions of bilateral subpleural interstitial thickening, greatest at the lung bases, suggestive of pulmonary fibrosis. 3. Cardiomegaly with a small left pleural effusion raises concern for congestive heart failure. Please correlate clinically. There is a small pericardial effusion as well. COMMENTS: In the absence of a history or active diagnosis of lung cancer, it is recommended that this patient with emphysema be evaluated for enrollment in a low dose CT lung cancer screening program. Laboratory Results WBC 10.3 10^3/uL (4.0-10.0) H 08/22/22 04:04 RBC 4.84 10^6/uL (4.1-5.3) 08/22/22 04:04 Hgb 14.5 g/dL (11.5-15.3) 08/22/22 04:04 Hct 45.5 % (37.0-47.0) 08/22/22 04:04 MCV 94.0 fl (81-99) 08/22/22 04:04 MCH 30.0 pg (28.0-34.0) 08/22/22 04:04 MCHC 31.9 g/dL (30.0-36.0) 08/22/22 04:04 RDW 15.5 % (12.1-15.1) H 08/22/22 04:04 Plt Count 309 10^3/cmm (130-400) 08/22/22 04:04 MPV 10.3 fL (7.4-10.4) 08/22/22 04:04 Neut % (Auto) 86.3 % 08/22/22 04:04 Lymph % (Auto) 9.9 % 08/22/22 04:04 [place] % (Auto) 3.1 % 08/22/22 04:04 Eos % (Auto) 0.0 % 08/22/22 04:04 Baso % (Auto) 0.1 % 08/22/22 04:04 Neut # (Auto) 8.87 10^3/uL (1.8-7.7) H 08/22/22 04:04 Lymph # (Auto) 1.0 10^3/uL (0.8-4.8) 08/22/22 04:04 [place] # (Auto) 0.3 10^3/uL (0.2-0.9) 08/22/22 04:04 Eos # (Auto) 0.0 10^3/uL (0.0-0.8) 08/22/22 04:04 Baso # (Auto) 0.0 10^3/uL (0.0-0.1) 08/22/22 04:04 Nucleated RBC % (auto) 0 % 08/22/22 04:04 Nucleated RBCs # 0.0 /100WBC 08/22/22 04:04 Specimen Type Arterial 08/16/22 18:20 Sample Site Radial, right 08/16/22 18:20 ABG pH 7.45 (7.35-7.45) 08/16/22 18:20 ABG pCO2 33.3 mmHg (35-45) L 08/16/22 18:20 ABG pO2 108.0 mmHg (80.0-100.0) H 08/16/22 18:20 ABG HCO3 23.3 mmol/L (22-26) 08/16/22 18:20 ABG O2 Saturation 99.0 08/16/22 18:20 ABG Base Excess 0.0 mmol/L (-2.0-2.0) 08/16/22 18:20 Artemio Test Pos 08/16/22 18:20 A-a O2 Gradient 71.4 mmHg (5-10) H 08/16/22 18:20 Hematocrit 46.1 % (37-47) 08/16/22 18:20 Hgb O2 Saturation 97.3 % (95-100) 08/16/22 18:20 Carboxyhemoglobin 1.7 %THgb (0.4-20.1) 08/16/22 18:20 Methemoglobin 0.0 % (0.4-1.5) L 08/16/22 18:20 Total Hemoglobin 15.0 g/dL (12-16) 08/16/22 18:20 Sodium 142.0 mmol/L (131-143) 08/16/22 18:20 Potassium 3.8 mmol/L (3.5-5.0) 08/16/22 18:20 Glucose 85.0 mg/dL (70-115) 08/16/22 18:20 Ionized Calcium 1.1 mmol/L (1.1-1.4) 08/16/22 18:20 O2 Delivery Device Nrb 08/16/22 18:20 O2 Liters/Min 15.0 % 08/16/22 18:20 FiO2 100.0 % 08/16/22 18:20 Tool Grinding Machine Operator ID [id number] 08/16/22 18:20 Sodium 136 mmol/L (136-145) 08/22/22 04:04 Potassium 4.8 mmol/L (3.5-5.1) 08/22/22 04:04 Chloride 95 mmol/L (98-107) L 08/22/22 04:04 Carbon Dioxide 31 mmol/L (22-29) H 08/22/22 04:04 Anion Gap 14.8 (5-19) 08/22/22 04:04 BUN 25 mg/dL (6-20) H 08/22/22 04:04 Creatinine 0.5 mg/dL (0.5-0.9) 08/22/22 04:04 GFR Calculation 126.3 mL/min (90-130) 08/22/22 04:04 Glucose 307 mg/dL (65-115) H 08/22/22 04:04 POC Glucose 216 mg/dL (70-110) H 08/23/22 06:27 Calculated Osmolality 298 mOsm/kg (285-295) H 08/22/22 04:04 Lactic Acid 1.4 mmol/L (0.5-2.2) 08/16/22 18:10 Calcium 9.6 mg/dL (8.5-10.5) 08/22/22 04:04 Magnesium 2.3 mg/dL (1.7-2.3) 08/20/22 04:33 Total Bilirubin 0.9 mg/dL (0.15-1.2) 08/22/22 04:04 AST 64 U/L (0-32) H 08/22/22 04:04 ALT 83 U/L (0-33) H 08/22/22 04:04 Alkaline Phosphatase 165 U/L (35-105) H 08/22/22 04:04 NT-Pro-B Natriuret Pep 2521 pg/mL (0-125) H 08/16/22 17:26 Total Protein 7.2 g/dL (6.6-8.7) 08/22/22 04:04 Albumin 3.9 g/dL (3.5-5.2) 08/22/22 04:04 Globulin 3.3 g/dL (1.3-4.6) 08/22/22 04:04 Procalcitonin 0.05 ng/mL (0-0.5) 08/22/22 04:04 Nasal Influ A H1 2008 PCR Not detected (NOT DETECT) 08/17/22 19:14 Adenovirus (PCR) Not detected (NOT DETECT) 08/17/22 19:14 C. pneumoniae DNA (PCR) Not detected (NOT DETECT) 08/17/22 19:14 Coronavirus 229E (PCR) Not detected (NOT DETECT) 08/17/22 19:14 Human Metapneumovir PCR Not detected (NOT DETECT) 08/17/22 19:14 Influenza A (H1) PCR Not detected (NOT DETECT) 08/17/22 19:14 Influenza A (H3) PCR Not detected (NOT DETECT) 08/17/22 19:14 Influenza Type A Ag negative (Negative) 08/16/22 19:25 Influenza Type A (PCR) Not detected (NOT DETECT) 08/17/22 19:14 Influenza Type B Ag negative (Negative) 08/16/22 19:25 Influenza Type B (PCR) Not detected (NOT DETECT) 08/17/22 19:14 M. pneumoniae (PCR) Not detected (NOT DETECT) 08/17/22 19:14 Parainfluenza 1 (PCR) Not detected (NOT DETECT) 08/17/22 19:14 Parainfluenza 2 (PCR) Not detected (NOT DETECT) 08/17/22 19:14 Parainfluenza 3 (PCR) Not detected (NOT DETECT) 08/17/22 19:14 Parainfluenza 4 (PCR) Not detected (NOT DETECT) 08/17/22 19:14 RSV Type A (PCR) Not detected (NOT DETECT) 08/17/22 19:14 RSV Type B (PCR) Not detected (NOT DETECT) 08/17/22 19:14 Entero/Rhino (PCR) Not detected (NOT DETECT) 08/17/22 19:14 SARS-CoV-2 (PCR) Not detected (NOT DETECT) 08/17/22 19:14 SARS-CoV-2 Ag (Rapid) negative (Negative) 08/16/22 19:25 Vitals Last Vital Signs Temp 97.9 F 08/23/22 08:00 Pulse 99 08/23/22 08:27 Resp 18 08/23/22 08:22 BP 129/83 08/23/22 08:00 Pulse Ox 94 08/23/22 08:22 O2 Del Method 08/23/22 08:22 O2 Flow Rate 30 08/23/22 08:00 FiO2 40 08/23/22 08:22 Discharge Plan Discharge Patient Disposition: er [facility] Condition: Stable Prescriptions: New prednisone 20 mg tablet 40 mg PO DAILY 7 Days Qty: 7 0RF Rx Instructions: days 11-21 of therapy Continued (DME) Aerochamber Mini Spacer See Rx Instructions .ROUTE .MEDSUPPLY Qty: 1 Rx Instructions: As directed Farxiga 10 mg tablet 10 mg PO QAM 90 Days Qty: 90 3RF glipizide 5 mg tablet 5 mg PO DAILY 90 Days Qty: 90 3RF metformin 500 mg tablet extended release 24 hr 1,000 mg PO BID 90 Days Qty: 360 3RF potassium chloride 8 mEq tablet extended release 8 meq PO DAILY Qty: 90 3RF ipratropium-albuterol 0.5 mg-3 mg(2.5 mg base)/3 mL solution for nebulization 3 ml inhalation Q6H PRN (Reason: wheezing) Qty: 360 3RF benzonatate 100 mg capsule 100 mg PO TID PRN (Reason: cough) Qty: 90 0RF PNV [id number] fumarate-FA [] 28 mg iron- 800 mcg Tablet 1 tab PO DAILY esomeprazole magnesium [Nexium] 20 mg Capsule,Delayed Release(Dr/Ec) 20 mg PO DAILY atorvastatin 40 mg tablet 40 mg PO DAILY 30 Days Qty: 30 0RF clopidogrel 75 mg tablet 75 mg PO QDAY 30 Days Qty: 30 0RF aspirin [Adult Low Dose Aspirin] 81 mg tablet,delayed release (DR/EC) 81 mg PO DAILY 30 Days Qty: 30 0RF cyclobenzaprine 10 mg Tablet 10 mg PO TID PRN (Reason: Muscle Spasm) naproxen 500 mg Tablet 500 mg PO BID PRN (Reason: Pain) metoprolol succinate 25 mg tablet extended release 24 hr 25 mg PO DAILY Qty: 30 3RF Pulmicort Flexhaler 180 mcg/actuation aerosol powdr breath activated 1 inh inhalation BID Qty: 1 1RF B12 Active 1,000 mcg Tablet,Chewable 2,000 mcg PO DAILY Levemir FlexTouch U-100 Insuln 100 unit/mL (3 mL) insulin pen 58 unit SUBCUT DAILY Changed furosemide 40 mg tablet 40 mg PO BIDWM Qty: 30 3RF Discharge Orders: Discharge Order (Routine); Ordered 08/23/22 Ordered By: Rola Carbajal Referrals: Sujit Hernandez MD [Primary Care Provider] - Discharge Diet: Cardiac Discharge Activity: As per PT/OT instructions Discharge Attestations Time Spent in Discharge Care*: greater than 30 min Quality Metrics Clinical Quality Measures [ No reported AMI, CVA or VTE this stay] Coding Level of Care Code Acute Code for [facility] Fwd Diagnoses Acute exacerbation of chronic obstructive airways disease J44.1 Congestive heart failure I50.9 Respiratory failure, [id number]-odvnpbo J96.20 Lung cancer, upper lobe C34.10 Coronary artery disease I25.10 Hypokalemia E87.6
[2022-08-23 11:42] LABS: Glucose Point of Care 376 mg/dL (70-110)
[2022-08-23] MEDS: acetaminophen 325 mg Tablet 650 MG PO (12:47)
[2022-08-23 17:30] LABS: Glucose Point of Care 251 mg/dL (70-110)
--- NOTE | 2022-08-23 19:14 | PC.NURSE ---
Patient refuses rosas removal. Risks have been talked about with patient. Dr Raven de jesus.
[2022-08-23 20:14] LABS: Glucose Point of Care 312 mg/dL (70-110)
[2022-08-23] MEDS: atorvastatin 40 mg Tablet PO (20:40)
[2022-08-23] MEDS: azithromycin 250 mg Tablet 500 MG PO (20:40)
[2022-08-23] MEDS: insulin glargine 100 units/1 mL 60 UNIT SUBCUT (20:41)
[2022-08-23] MEDS: enoxaparin 40 mg/0.4 mL Syringe SUBCUT (20:41)
[2022-08-23 20:48] LABS: Glucose Point of Care 273 mg/dL (70-110)
== END 2022-08-23 21:20 | DRG 291 ==
LOC: ER 19:54 → MEDSURG 19:55
PROVIDERS: Family Medicine; Internal Medicine; Admitting Provider Internal Medicine; Emergency Provider Emergency Medicine; PCP Family Medicine; Visit Provider Student in an Organized Health Care Education/Training Program
DX: I11.0 Hypertensive heart disease with heart failure (principal); I50.33 Acute on chronic diastolic (congestive) heart failure; J96.21 Acute and chronic respiratory failure with hypoxia; C34.12 Malignant neoplasm of upper lobe, left bronchus or lung; M50.020 Cervical disc disorder with myelopathy, mid-cervical region, unspecified level; Z92.3 Personal history of irradiation; E11.42 Type 2 diabetes mellitus with diabetic polyneuropathy; I25.10 Atherosclerotic heart disease of native coronary artery without angina pectoris; Z95.5 Presence of coronary angioplasty implant and graft; I25.2 Old myocardial infarction; I27.20 Pulmonary hypertension, unspecified; Z99.81 Dependence on supplemental oxygen; J43.2 Centrilobular emphysema; R91.8 Other nonspecific abnormal finding of lung field; Z79.84 Long term (current) use of oral hypoglycemic drugs; Z79.02 Long term (current) use of antithrombotics/antiplatelets; Z79.82 Long term (current) use of aspirin; J84.10 Pulmonary fibrosis, unspecified; Z87.891 Personal history of nicotine dependence; G47.33 Obstructive sleep apnea (adult) (pediatric); E78.2 Mixed hyperlipidemia
CPT/HCPCS: 36415; 36416; 36600; 71045; 71275; 80051; 80053; 82330; 82805; 82962; 83605; 83735; 83880; 84145; 85025; 87040; 87070; 87205; 87426; 87486; 87581; 87633; 87804; 93005; 94640; 96372; 96374; 96375; 97110; 97161; 99285; J0456; J1650; J1815; J1940; J2060; J2405; J2920; J2930; J3475; J7050; J7614; J7626; J7644; Q0144; Q9967

== ENCOUNTER 2022-09-15 18:30 | Emergency (ER) | payer MEDICAID, SELFPAY ==
[2022-09-15 18:33] VITALS: BP 123/95; PULSE 136; TEMP 36.6; O2SAT 87; BMI 24.8
--- NOTE | 2022-09-15 18:43 | W.ED.EPISTAX ---
HPI - Epistaxis General: Chief complaint: Epistaxis Stated complaint: EPISTAXIS Time Seen by Provider: 09/15/22 18:36 History of Present Illness: Patient presents to the ER with complaints of left epistaxis since 1 PM today. Patient is on oxygen at home with at least 4 L per nasal cannula. Patient is also on Plavix and aspirin. Patient presents with a napkin stuck in her left nostril that has controlled the bleeding. Patient says she gets daily nosebleeds from her oxygen but never anything like this. complaint: epistaxis Location: left nostril Onset (ago): hour(s) Duration: constant Context: history of previous, aspirin use and other anticoagulant use Associated symptoms: Reports no associated symptoms; Deny fever(s), headache(s) or vomiting Treatment prior to arrival: stuffed nose with tissue Review of Systems General: Reports: 10 or more systems reviewed and unremarkable except in HPI and below Const: Denies: fever(s) or chills Eyes: Denies: change in vision ENMT: Reports: epistaxis; Denies: throat pain or odynophagia Card: Denies: chest pain, palpitations or irregular heart rhythm Resp: Denies: dyspnea, productive cough or non-productive cough GI: Denies: abdominal pain, nausea, vomiting or diarrhea : Denies: flank pain, difficulty voiding, dysuria or urinary frequency Musc: Denies: neck pain or back pain Skin/Breast: Denies: rash or pruritus Neuro: Denies: headache(s), numbness in extremities or weakness in extremities Psych: Denies: anxiety Endo: Denies: polyuria Barrie/Lymph: Denies: easy bruising or easy bleeding [facility] ED PFSH: Medical History ACS (acute coronary syndrome) ASHD (arteriosclerotic heart disease) Atherosclerosis of coronary artery of [place] heart without angina pectoris Cervical disc disease Cervical disc disorder with myelopathy of mid-cervical region Chronic respiratory failure with hypoxia Diabetes type 2, uncontrolled Diabetic neuropathy Emphysema of lung Hyperlipemia, mixed Hyperlipidemia Hypertension Lung cancer Neck pain of over 3 months duration Nicotine addiction NSTEMI (non-ST elevated myocardial infarction) Obstructive sleep apnea Smoking 1/2 pack a day or less Stenosis of cervical spine with myelopathy Tachycardia Unstable angina Surgical History History of heart surgery June 2007, August 2012 History of PTCA S/P tonsillectomy Family History Mother Diabetes Father Heart disease Brother CAD (coronary artery disease) Family/Other CAD (coronary artery disease) Diabetes Grandfather CAD (coronary artery disease) Denies family history of Clotting disorder Dementia Chronic kidney disease (CKD) Suicide Anesthesia complication Bleeding disorder Lung disease Cancer Stroke Social History Smoking and tobacco status: former smoker Alcohol intake: never Lives independently: Yes Household members: family Housing: House Marital status: service: No Current occupational status: disabled Physical Exam Const: COMMON NORMALS: no acute distress, average body habitus, patient oriented x3, no limitations, healthy appearing, alert and well nourished HENMT: COMMON NORMALS: normocephalic, atraumatic, hearing grossly normal bilaterally, Normal external nose present (Patient has a tissue stuffed in the left nostril controlling her bleeding) and moist oral mucous membranes HEAD & SCALP: normocephalic and atraumatic NOSE: Normal external nose present (Patient has a tissue stuffed in the left nostril controlling her bleeding) Neck/C-Spine: COMMON NORMALS: full ROM, no lymphadenopathy, supple, no JVD and Thyroid normal THYROID: Thyroid normal Chest: COMMONS NORMALS: normal inspection of the chest and normal palpation of entire chest wall Resp: COMMON NORMALS: normal respiratory effort, No retractions, No use of accessory muscles and clear to auscultation bilaterally AUSCULTATION: clear to auscultation bilaterally Cardio: COMMON NORMALS: no JVD, regular rate, regular rhythm, S1 normal heart sound present, S2 normal heart sound present and No gallops present (Cardio) RATE: regular rate RHYTHM: regular rhythm HEART SOUNDS: S1 normal heart sound present and S2 normal heart sound present GI: COMMON NORMALS: Normal to inspection, nondistended, normoactive bowel sounds present, Soft to palpation, non-tender, No hepatosplenomegaly present and no masses PALPATION: Yes Soft to palpation and Yes No hepatosplenomegaly present Neuro: COMMON NORMALS: patient oriented x3 SENSORIUM/ORIENTATION: Yes alert Procedures Epistaxis Control Time Out Performed: Yes Nostril: left Nose Prepped With: oxymetazoline Direct Inspection: unable to visualize Clots Removed by: manually Cautery Used: none Device Inserted: nasal tampon Patient Tolerated Procedure: well Course Vital Signs: Vital signs: Vital Signs Temperature 97.9 F 09/15/22 18:33 Pulse Rate 127 H 09/15/22 19:02 Blood Pressure 128/77 09/15/22 19:02 Pulse Oximetry 89 L 09/15/22 19:02 Oxygen Delivery Me thod 09/15/22 19:02 Oxygen Flow Rate 6 09/15/22 18:33 MDM - Epistaxis Medical Decision Making Patient presents to the ER with complaints of left nostril bleeding. Patient has been able to get it to stop with putting a paper towel of her nose. Patient is currently on aspirin and Plavix. Patient has had nosebleeds before due to her oxygen use but never like this. 2 sprays of Afrin was instilled in the left nostril but this was ineffective for control of bleeding. Rhino Rocket was placed in the left nostril which adequately controlled her bleeding. During her stay in ER patient actually pulled the Rhino Rocket out. Bleeding did not restart patient was watched in emergency room for 30 minutes and was stable with no bleeding. Patient will be discharged home with instructions not to pick her nose not to blow her nose use humidified oxygen to follow-up with her primary care doctor at the already scheduled appointment tomorrow and to come back to the emergency room if her nosebleeds restarts again and she cannot get it controlled Differential Diagnosis Likely anterior epistaxis; Unlikely nasal bone fracture or posterior epistaxis Discharge Plan Discharge Patient Disposition: Home Clinical Impression: Epistaxis Condition: Stable Prescriptions: No Action (DME) Aerochamber Mini Spacer See Rx Instructions .ROUTE .MEDSUPPLY Qty: 1 Rx Instructions: As directed Farxiga 10 mg tablet 10 mg PO QAM 90 Days Qty: 90 3RF glipizide 5 mg tablet 5 mg PO DAILY 90 Days Qty: 90 3RF metformin 500 mg tablet extended release 24 hr 1,000 mg PO BID 90 Days Qty: 360 3RF furosemide 40 mg tablet 40 mg PO DAILY Qty: 30 3RF potassium chloride 8 mEq tablet extended release 8 meq PO DAILY Qty: 90 3RF ipratropium-albuterol 0.5 mg-3 mg(2.5 mg base)/3 mL solution for nebulization 3 ml inhalation Q6H PRN (Reason: wheezing) Qty: 360 3RF benzonatate 100 mg capsule 100 mg PO TID PRN (Reason: cough) Qty: 90 0RF PNV cmb#[id number]-ferrous fumarate-FA [] 28 mg iron- 800 mcg Tablet 1 tab PO DAILY esomeprazole magnesium [Nexium] 20 mg Capsule,Delayed Release(Dr/Ec) 20 mg PO DAILY atorvastatin 40 mg tablet 40 mg PO DAILY 30 Days Qty: 30 0RF clopidogrel 75 mg tablet 75 mg PO QDAY 30 Days Qty: 30 0RF aspirin [Adult Low Dose Aspirin] 81 mg tablet,delayed release (DR/EC) 81 mg PO DAILY 30 Days Qty: 30 0RF cyclobenzaprine 10 mg Tablet 10 mg PO TID PRN (Reason: Muscle Spasm) naproxen 500 mg Tablet 500 mg PO BID PRN (Reason: Pain) metoprolol succinate 25 mg tablet extended release 24 hr 25 mg PO DAILY Qty: 30 3RF Pulmicort Flexhaler 180 mcg/actuation aerosol powdr breath activated 1 inh inhalation BID Qty: 1 1RF B12 Active 1,000 mcg Tablet,Chewable 2,000 mcg PO DAILY Levemir FlexTouch U-100 Insuln 100 unit/mL (3 mL) insulin pen 58 unit SUBCUT DAILY Discharge Orders: Discharge ED (Routine); Ordered 09/15/22 Ordered By: Ruddy Boone Referrals: Sujit Hernandez MD [Primary Care Provider] - 1-3 days Patient Instructions: Epistaxis - Adult Activity Restrictions/Additional Instructions: Keep your already scheduled appointment tomorrow with your primary care practitioner. Please try not to blow or pick your nose. If the bleeding returns and you cannot get it controlled return to the ER for further management Coding Level of Care Code ED Critical Systems Technician for Grisel Morrell
[2022-09-15 19:02] VITALS: BP 128/77; PULSE 127; O2SAT 89
[2022-09-15] MEDS: oxymetazoline 0.05% Nasal Spray 15 mL 2 SPRAY NOSTRIL-L (19:05)
[2022-09-15] MEDS: LORazepam 2 mg/mL INJ 1 mL 1 MG IM (19:58)
[2022-09-15 20:30] VITALS: BP 110/61; PULSE 126; RESP 18; O2SAT 90
[2022-09-15 21:00] VITALS: BP 110/61; PULSE 126; RESP 18; O2SAT 90
== END 2022-09-15 22:00 | disposition home or self-care (01) ==
PROVIDERS: Emergency Provider Emergency Medicine; PCP Family Medicine
DX: R04.0 Epistaxis (principal); Z79.84 Long term (current) use of oral hypoglycemic drugs; Z79.02 Long term (current) use of antithrombotics/antiplatelets; Z79.82 Long term (current) use of aspirin; Z79.4 Long term (current) use of insulin; Z87.891 Personal history of nicotine dependence; I25.10 Atherosclerotic heart disease of native coronary artery without angina pectoris; E11.9 Type 2 diabetes mellitus without complications; J43.9 Emphysema, unspecified; E78.2 Mixed hyperlipidemia; I10 Essential (primary) hypertension; Z85.118 Personal history of other malignant neoplasm of bronchus and lung; I25.2 Old myocardial infarction
CPT/HCPCS: 96372; 99284; J2060

== ENCOUNTER 2022-10-12 09:35 | Inpatient (IN) | payer MEDICAID, SELFPAY ==
[2022-10-12] VITALS (9 sets, daily range): BP systolic 90–129; BP diastolic 65–81; PULSE 84–115; RESP 18–30; TEMP 36.9–37.2; O2SAT 91–96; BMI 26.2
--- NOTE | 2022-10-12 09:53 | XR_ITS ---
WS: [id number] EXAMINATION: XR chest 1V portable [id number] REASON FOR EXAM: dyspnea COMPARISON: 08/16/2022 ORDER DATE: 10/12/2022 9:56 AM TECHNIQUE: A single, portable frontal chest x-ray was obtained. X-RAY FINDINGS: Lungs: There are centrilobular emphysematous changes in the bilateral lungs. There are scattered regions of bilateral subpleural interstitial thickening, greatest at the lung bases, suggestive of pulmonary fibrosis. Pleural spaces: Unremarkable. No pleural effusion. No pneumothorax. Heart/Mediastinum: Possible cardiomegaly. Bones/joints: Unremarkable. XR/XR chest 1V portable [id number] IMPRESSION: 1. There are centrilobular emphysematous changes in the bilateral lungs. 2. There are scattered regions of bilateral subpleural interstitial thickening, greatest at the lung bases, consistent with pulmonary fibrosis. It would be difficult to exclude early underlying acute interstitial edema. Cli nical correlation suggested
[2022-10-12 10:14] LABS: ABG PCO2 34.4 mmHg (35-45); ABG PH Result 7.48 (7.35-7.45); Arterial Blood Gas Hematocrit 43.7 % (37-47); Base Excess ABG 2.1 mmol/L (-2.0-2.0); Blood Gas Allen Test Pos; Blood Gas Operator Identificat glc; Blood Gas Sample Site Radial, left; Blood Gas Sample Type Arterial; Carboxyhemoglobin 2.2 %THgb (0.4-20.1); HCO3 ABG 25.3 mmol/L (22-26); HGB O2 Sat 89.5 % (95-100); Methemoglobin 0.6 % (0.4-1.5); Oxygen Device NRB; PO2 ABG 60.9 mmHg (80.0-100.0); Total Hemoglobin 14.3 g/dL (12-16)
[2022-10-12 10:15] LABS: Basophils # 0.1 10^3/uL (0.0-0.1); Basophils % 0.5 %; Eosinophils # 0.1 10^3/uL (0.0-0.8); Eosinophils % 0.9 %; Hematocrit 44.6 % (37.0-47.0); Hemoglobin 13.9 g/dL (11.5-15.3); Lymphocytes # 2.5 10^3/uL (0.8-4.8); Lymphocytes % 24.8 %; Mean Corpuscular HGB Conc 31.2 g/dL (30.0-36.0); Mean Corpuscular Hemoglobin 30.3 pg (28.0-34.0); Mean Corpuscular Volume 97.4 fl (81-99); Mean Platelet Volume 9.2 fL (7.4-10.4); Monocytes # 0.6 10^3/uL (0.2-0.9); Monocytes % 5.4 %; Nucleated Red Blood Cells % 0 %; Platelet Count 332 10^3/cmm (130-400); Red Blood Count 4.58 10^6/uL (4.1-5.3); Red Cell Distribution Width 16.8 % (12.1-15.1); White Blood Count 10.2 10^3/uL (4.0-10.0)
[2022-10-12] MEDS: sodium chloride 0.9% 1,000 ML 999 ML IV (10:26)
[2022-10-12] MEDS: magnesium sulfate premix 2 GM/50 ML PIGGYBACK IV (10:27)
[2022-10-12 10:31] LABS: Anion Gap 19.3 (5-19); Blood Urea Nitrogen 14 mg/dL (6-20); Calcium 9.2 mg/dL (8.5-10.5); Carbon Dioxide 25 mmol/L (22-29); Chloride 102 mmol/L (98-107); Glomerular Filtration Rate 85.6 mL/min (90-130); Glucose 63 mg/dL (65-115); Osmolality Calculated 295 mOsm/kg (285-295); Potassium 3.3 mmol/L (3.5-5.1); Sodium 143 mmol/L (136-145)
--- NOTE | 2022-10-12 12:03 | CT_ITS ---
WS: [id number] CTA OF THE CHEST WITH PULMONARY EMBOLISM PROTOCOL TECHNIQUE: High-resolution contrast enhanced CTA of the chest with coronal and sagittal reformatted i mages with pulmonary embolism protocol. MIP images are also reviewed. CLINICAL INFORMATION: ventilating but not oxygenating, eval space , r/o PE COMPARISON: CTA August 16, 2022 DLP: 388.[address] scans at [facility] use at least one of these dose optimization techniques: automated e xposure control; mA and/or kV adjustment per patient size (includes targeted exams where dose is matc hed to clinical indication); or iterative reconstruction. FINDINGS: Centrilobular emphysematous changes similar to previous. Subpleural honeycombing most prominent in th e lung bases suspicious for pulmonary fibrosis similar to previous. Cardiomegaly. No focal pneumonia or pleural fluid. Bullous formation in the RIGHT greater than LEFT upper lobe similar to previous. Proximal main pulmonary arteries are normal. Normal segmental and subsegmental pulmonary arteries. No evidence of pulmonary embolus. Aortic calcification. Coronary calcification. Bilateral bronchovascular thickening. Tiny pericardial effusion. Enlarged infrahilar lymph node measuring 1.8 cm unchanged from previous. This is nonspecifi c but may be reactive. Prominent AP window lymph nodes and mediastinal lymph nodes to previous. Adrenal glands are normal. Reflux into the hepatic veins can be seen with RIGHT heart dysfunction. Sp lenic artery calcification. CT/CT angio chest PE protcl [id number] IMPRESSION: 1. No evidence of pulmonary embolus. 2. Cardiomegaly. Small pericardial effusion. 3. Chronic emphysematous changes with subpleural honeycombing likely due to pu lmonary fibrosis. Recommend pulmonary consult. 4. No focal pneumonia or significant pleural fluid. 5. A few enlarged AP window anterior mediastinal and subcarinal lymph nodes no nspecific but likely reactive. This is similar to previous. 6. Contrast reflux into the hepatic veins suggestive of RIGHT heart dysfunctio n.
--- NOTE | 2022-10-12 12:03 | W.ED.SOB ---
HPI - SOB/Dyspnea General: Chief Complaint: Shortness of Breath/Dyspnea Stated Complaint: SOB Time Seen by Provider: 10/12/22 09:39 History of Present Illness: HPI Narrative: 57-year-old female who has chronic hypoxic respiratory failure on 4 L of oxygen started feeling extremely short of breath yesterday. She has been battling it all night and was not able to improve by morning time. She called for help. EMS had her on 15 L nonrebreather after giving albuterol, DuoNeb, terbutaline. I was able to turn her down to 10 L/min here still on a nonrebreather. Patient reports she has had a mild amount of clear to green sputum production but it is not changed. No fevers, runny nose, congestion, sore throat, vomiting, diarrhea or other sick symptoms. She has been feeling weak and dizzy since last night--which she equates to low oxygen. Associated symptoms: Deny abdominal pain, extremity pain, fever(s), nausea, syncope or vomiting Review of Systems General: Reports: 10 or more systems reviewed and unremarkable except in HPI and below Const: Denies: fever(s), chills or body aches Eyes: Denies: change in vision ENMT: Denies: throat pain Card: Denies: edema or syncope GI: Denies: abdominal pain, nausea, vomiting or diarrhea : Denies: flank pain, dysuria or urinary frequency Musc: Denies: neck pain, back pain, extremity pain or extremity swelling Skin/Breast: Denies: rash or erythema Neuro: Denies: headache(s), numbness in extremities, lack of coordination or difficulty walking [facility] ED PFSH: Medical History ACS (acute coronary syndrome) ASHD (arteriosclerotic heart disease) Atherosclerosis of coronary artery of [place] heart without angina pectoris Cervical disc disease Cervical disc disorder with myelopathy of mid-cervical region Chronic respiratory failure with hypoxia Diabetes type 2, uncontrolled Diabetic neuropathy Emphysema of lung Hyperlipemia, mixed Hyperlipidemia Hypertension Lung cancer Neck pain of over 3 months duration Nicotine addiction NSTEMI (non-ST elevated myocardial infarction) Obstructive sleep apnea Smoking 1/2 pack a day or less Stenosis of cervical spine with myelopathy Tachycardia Unstable angina Surgical History History of heart surgery June 2007, August 2012 History of PTCA S/P tonsillectomy Family History Mother Diabetes Father Heart disease Brother CAD (coronary artery disease) Family/Other CAD (coronary artery disease) Diabetes Grandfather CAD (coronary artery disease) Denies family history of Clotting disorder Dementia Chronic kidney disease (CKD) Suicide Anesthesia complication Bleeding disorder Lung disease Cancer Stroke Social History Smoking and tobacco status: former smoker Alcohol intake: never Lives independently: Yes Household members: family Housing: House Marital status: service: No Current occupational status: disabled Physical Exam Const: COMMON NORMALS: no limitations, alert and well nourished EXAM LIMITATIONS: no altered mental status HENMT: COMMON NORMALS: normocephalic, atraumatic and external ears normal HEAD & SCALP: normocephalic and atraumatic EXTERNAL EAR: Yes external ears normal MOUTH: no muffled voice Eye: COMMON NORMALS: EOMs intact bilaterally, conjunctivae normal and no scleral icterus CONJUNCTIVA: Yes conjunctivae normal Neck/C-Spine: COMMON NORMALS: no JVD GENERAL: Yes normal visual inspection and Yes trachea midline Resp: COMMON NORMALS: clear to auscultation bilaterally EFFORT & INSPECTION: Yes symmetric chest movement, Yes tachypneic, Yes labored, No stridor, No Actively coughing, Yes retractions, Yes uses accessory muscles, No audible wheezes, No tracheal deviation, No tripod positioning and No prolonged expiratory phase AUSCULTATION: clear to auscultation bilaterally OTHER: Her breath sounds are actually quite audible. This makes me think she's ventilating space. Cardio: COMMON NORMALS: no JVD and regular rhythm RHYTHM: regular rhythm OTHER: Tachycardia, good radial pulses GI: COMMON NORMALS: Soft to palpation and non-tender PALPATION: Yes Soft to palpation and No Guarding due to palpation present (GI) Extremity: COMMON NORMALS: normal to inspection Neuro: COMMON NORMALS: moves all extremities, no focal motor deficits and no sensory deficits noted SENSORIUM/ORIENTATION: Yes alert SPEECH: speech normal Psych: COMMON NORMALS: mental status grossly normal, Normal thought process present, cooperative, normal affect and speech normal SPEECH: Yes normal speech THOUGHT PROCESS: Normal thought process present Skin: COMMON NORMALS: no rashes or lesions noted, turgor normal and no jaundice GENERAL SKIN EXAM: no rashes or lesions noted and turgor normal Course Vital Signs: Vital signs: Vital Signs Temperature 98.9 F 10/12/22 09:37 Pulse Rate 84 10/12/22 12:40 Respiratory Rate 20 H 10/12/22 12:40 Blood Pressure 129/81 10/12/22 12:36 Pulse Oximetry 92 10/12/22 12:40 Oxygen Delivery Me thod Non-Rebreather 10/12/22 09:46 Oxygen Flow Rate 60 10/12/22 12:40 Fraction of Inspir ed Oxygen 60 10/12/22 12:40 MDM - SOB/Dyspnea Medical Decision Making Differential diagnosis includes COPD emphysema, bronchitis, pneumonia, anemia, heart failure, effusions, cancer, pulmonary embolism, pulmonary fibrosis, pulmonary hypertension, multiple others. CXR did show emphysema and interstitial thickening (fibrosis vs edema). She has continued to require 10 LPM. Switch over to mid flow nasal cannula. ABG shows hyperventilation--not having co2 retention. Hgb, wBC okay. I've ordered a CTA chest for further evaluation of new oxygen demand--see ddx above. I discussed case with Dr Palma--he's going to admit pending CTA chest. UPDATE: CTA neg for PE. There is suspicion of right heart failure and pulmonary fibrosis. Some questionable lymph nodes. Patient will need a step down bed. Lab Data 10/12/22 10:05 10/12/22 10:05 Labs/Radiology: Radiology Impressions Chest X-Ray 10/12/22 09:53 IMPRESSION: 1. There are centrilobular emphysematous changes in the bilateral lungs. 2. There are scattered regions of bilateral subpleural interstitial thickening, greatest at the lung bases, consistent with pulmonary fibrosis. It would be difficult to exclude early underlying acute interstitial edema. Clinical correlation suggested Chest CTA 10/12/22 12:03 IMPRESSION: 1. No evidence of pulmonary embolus. 2. Cardiomegaly. Small pericardial effusion. 3. Chronic emphysematous changes with subpleural honeycombing likely due to pulmonary fibrosis. Recommend pulmonary consult. 4. No focal pneumonia or significant pleural fluid. 5. A few enlarged AP window anterior mediastinal and subcarinal lymph nodes nonspecific but likely reactive. This is similar to previous. 6. Contrast reflux into the hepatic veins suggestive of RIGHT heart dysfunction. Laboratory Results WBC 10.2 10^3/uL (4.0-10.0) H 10/12/22 10:05 RBC 4.58 10^6/uL (4.1-5.3) 10/12/22 10:05 Hgb 13.9 g/dL (11.5-15.3) 10/12/22 10:05 Hct 44.6 % (37.0-47.0) 10/12/22 10:05 MCV 97.4 fl (81-99) 10/12/22 10:05 MCH 30.3 pg (28.0-34.0) 10/12/22 10:05 MCHC 31.2 g/dL (30.0-36.0) 10/12/22 10:05 RDW 16.8 % (12.1-15.1) H 10/12/22 10:05 Plt Count 332 10^3/cmm (130-400) 10/12/22 10:05 MPV 9.2 fL (7.4-10.4) 10/12/22 10:05 Neut % (Auto) 68.0 % 10/12/22 10:05 Lymph % (Auto) 24.8 % 10/12/22 10:05 Vance % (Auto) 5.4 % 10/12/22 10:05 Eos % (Auto) 0.9 % 10/12/22 10:05 Baso % (Auto) 0.5 % 10/12/22 10:05 Neut # (Auto) 6.90 10^3/uL (1.8-7.7) 10/12/22 10:05 Lymph # (Auto) 2.5 10^3/uL (0.8-4.8) 10/12/22 10:05 Vance # (Auto) 0.6 10^3/uL (0.2-0.9) 10/12/22 10:05 Eos # (Auto) 0.1 10^3/uL (0.0-0.8) 10/12/22 10:05 Baso # (Auto) 0.1 10^3/uL (0.0-0.1) 10/12/22 10:05 Nucleated RBC % (auto) 0 % 10/12/22 10:05 Nucleated RBCs # 0.0 /100WBC 10/12/22 10:05 Specimen Type Arterial 10/12/22 10:05 Sample Site Radial, left 10/12/22 10:05 ABG pH 7.48 (7.35-7.45) H 10/12/22 10:05 ABG pCO2 34.4 mmHg (35-45) L 10/12/22 10:05 ABG pO2 60.9 mmHg (80.0-100.0) L 10/12/22 10:05 ABG HCO3 25.3 mmol/L (22-26) 10/12/22 10:05 ABG Base Excess 2.1 mmol/L (-2.0-2.0) H 10/12/22 10:05 Artemio Test Pos 10/12/22 10:05 Hematocrit 43.7 % (37-47) 10/12/22 10:05 Hgb O2 Saturation 89.5 % (95-100) L 10/12/22 10:05 Carboxyhemoglobin 2.2 %THgb (0.4-20.1) 10/12/22 10:05 Methemoglobin 0.6 % (0.4-1.5) 10/12/22 10:05 Total Hemoglobin 14.3 g/dL (12-16) 10/12/22 10:05 O2 Delivery Device Nrb 10/12/22 10:05 O2 Liters/Min 10.0 % 10/12/22 10:05 Oil Burner Installer ID [id number] 10/12/22 10:05 Sodium 143 mmol/L (136-145) 10/12/22 10:05 Potassium 3.3 mmol/L (3.5-5.1) L 10/12/22 10:05 Chloride 102 mmol/L (98-107) 10/12/22 10:05 Carbon Dioxide 25 mmol/L (22-29) 10/12/22 10:05 Anion Gap 19.3 (5-19) H 10/12/22 10:05 BUN 14 mg/dL (6-20) 10/12/22 10:05 Creatinine 0.7 mg/dL (0.5-0.9) 10/12/22 10:05 GFR Calculation 85.6 mL/min (90-130) L 10/12/22 10:05 Glucose 63 mg/dL (65-115) L 10/12/22 10:05 Calculated Osmolality 295 mOsm/kg (285-295) 10/12/22 10:05 Calcium 9.2 mg/dL (8.5-10.5) 10/12/22 10:05 Discharge Plan Discharge Patient Disposition: Admitted As Inpatient Clinical Impression: Chronic respiratory failure with hypoxia, Pulmonary fibrosis, Right heart failure Condition: Stable Coding Level of Care Code ED Carbon Paste Mixer Operator for Grisel Morrell
--- NOTE | 2022-10-12 12:28 | PC.PHAR ---
pt states she takes care of her own medications-pt states she uses no inhalers only nebulizer solution-pt states she would like to use her own medications she brought in instead of using the hospital meds-
[2022-10-12] MEDS: iohexol 350 mg/mL 500 mL Btl (per mL) IV (12:44)
--- NOTE | 2022-10-12 16:04 | PC.NURSE ---
Patient has refused to give her wallet and money to security until discharge. She states that she keeps it by her side at all times. She also has her home Levemir flextouch with her. Once medication orders are in we will confirm with pharmacy about using home medication.
--- NOTE | 2022-10-12 16:06 | P.HP_ITS ---
Providers/Chief Complaint Admitting Physician: Geoff Palma MD Primary Care Provider: Sujit Hernandez MD Chief Complaint: SOB History of Present Illness 57 year old female with past medical history of CA lung status post radiotherapy , hypertension diabetes coronary artery disease s/p recent PTCA in October 2021 for moderate to severe in-stent restenosis in mid LAD, PCI to RCA, recent NSTEMI,?PCI to?of mid LAD and mid RCA severe instent restenosis with JULES x 2.?(06/06/2022 ), severe pulmonary hypertension, HFpEF, RV , FAILURE, on 6 L of oxygen, came in today with chief complaint of worsening shortness of breath,stsrted yesterday and since then it has got progressively worsened, she is also complaining of orthopnea.She denies any chest pain, palpitation, extremity swelling, fever, abdominal pain nausea vomiting. When she arrived in the ER she was requiring significant amount of supplemental oxygen, much higher than her baseline 6 L. CTA chest:?Chronic emphysematous changes with subpleural honeycombing likely due to pulmonary fibrosis.No evidence of pulmonary embolus.Cardiomegaly. Small pericardial effusion. Pertinent labs: WBC :10.2 H&H 13/44 , PLT : 332 , sodium 143, potassium 3.3, BUN :14 , serum creatinine: 0.7 , ABG: pH 7.48, PCO2 34, PO2 60, NRM : 10/L/MIN Patient was given Solu-Medrol, and she was placed on heated high flow. Review of Systems General: Reports: 10 or more systems reviewed and unremarkable except in HPI and below Const: Denies: fever(s), chills, body aches, change in appetite or diaphoresis Card: Reports: dyspnea on exertion and orthopnea; Denies: palpitations, edema, swelling of feet/ankles or leg pain with exertion Resp: Reports: dyspnea; Denies: productive cough, wheezing or pain on inspiration GI: Denies: abdominal pain, nausea, vomiting, diarrhea or constipation : Denies: flank pain Musc: Denies: back pain, extremity pain or extremity swelling Neuro: Denies: headache(s), difficulty walking or confusion Medications/Allergies Home Medications Medication Instructions Recorded Confirmed Last Taken Type inhalational spacing device #1 ea 07/19/19 10/12/22 Unknown History (Aerochamber Mini) esomeprazole magnesium 20 mg 20 mg PO QAM 10/22/21 10/12/22 10/12/22 History capsule,delayed release (Nexium) dapagliflozin 10 mg tablet 10 mg PO QAM 90 days #90 tabs 12/30/21 10/12/22 10/12/22 Rx (Farxiga) metformin 500 mg tablet,extended 1,000 mg PO BID 90 days #360 tabs 12/30/21 10/12/22 10/12/22 Rx release 24 hr ipratropium 0.5 mg-albuterol 3 mg 3 ml inhalation Q6H PRN wheezing 05/24/22 10/12/22 Unknown Rx (2.5 mg base)/3 mL nebulization #360 mL soln cyclobenzaprine 10 mg tablet 10 mg PO TID PRN Muscle Spasm 06/02/22 10/12/22 Unknown History naproxen 500 mg tablet 500 mg PO BID PRN Pain 06/02/22 10/12/22 Unknown History insulin detemir U-100 100 unit/mL 58 unit SUBCUT BEDTIME 08/16/22 10/12/22 10/11/22 History (3 mL) subcutaneous pen (Levemir FlexTouch U-100 Insulin) benzonatate 100 mg capsule 100 mg PO TID PRN cough #90 caps 10/07/22 10/12/22 Unknown Rx aspirin 81 mg tablet,delayed 81 mg PO QAM 10/12/22 10/12/22 10/12/22 History release (Adult Low Dose Aspirin) atorvastatin 40 mg tablet 40 mg PO BEDTIME 10/12/22 10/12/22 10/11/22 History budesonide 0.5 mg/2 mL suspension 0.5 mg inhalation BID 10/12/22 10/12/22 Unknown History for nebulization clopidogrel 75 mg tablet 75 mg PO QAM 10/12/22 10/12/22 10/12/22 History furosemide 40 mg tablet 40 mg PO QAM 10/12/22 10/12/22 10/12/22 History glipizide 5 mg tablet 5 mg PO QAM 10/12/22 10/12/22 10/12/22 History hydroxyzine HCl 25 mg tablet 12.5 - 25 mg PO BEDTIME PRN Anxiety 10/12/22 10/12/22 Unknown History metoprolol succinate 25 mg 25 mg PO QAM 10/12/22 10/12/22 10/12/22 History tablet,extended release 24 hr [id number] 0.4 mg-calcium 162 1 tab PO DAILY 10/12/22 10/12/22 Unknown History mg-iron 18 zw-[id number]-[id number] tablet potassium chloride 8 mEq 8 meq PO QAM 10/12/22 10/12/22 10/12/22 History tablet,extended release sodium chloride 0.65 % nasal spray 1 spray intranasal BID PRN unknown 10/12/22 10/12/22 Unknown History aerosol (Saline Nasal) Allergies Allergy/AdvReac Type Severity Reaction Status Date / Time Penicillins Allergy Unknown Verified 10/12/22 12:19 insulin glargine AdvReac Intermediate ADR-Nausea Verified 10/12/22 12:19 PFSH Acute 2 PFSH: Medical History ACS (acute coronary syndrome) ASHD (arteriosclerotic heart disease) Atherosclerosis of coronary artery of [place] heart without angina pectoris Cervical disc disease Cervical disc disorder with myelopathy of mid-cervical region Chronic respiratory failure with hypoxia Diabetes type 2, uncontrolled Diabetic neuropathy Emphysema of lung Hyperlipemia, mixed Hyperlipidemia Hypertension Lung cancer Neck pain of over 3 months duration Nicotine addiction NSTEMI (non-ST elevated myocardial infarction) Obstructive sleep apnea Smoking 1/2 pack a day or less Stenosis of cervical spine with myelopathy Tachycardia Unstable angina Surgical History History of heart surgery June 2007, August 2012 History of PTCA S/P tonsillectomy Family History Mother Diabetes Father Heart disease Brother CAD (coronary artery disease) Family/Other CAD (coronary artery disease) Diabetes Grandfather CAD (coronary artery disease) Denies family history of Clotting disorder Dementia Chronic kidney disease (CKD) Suicide Anesthesia complication Bleeding disorder Lung disease Cancer Stroke Social History Smoking and tobacco status: former smoker Alcohol intake: never Lives independently: Yes Household members: family Housing: House Marital status: service: No Current occupational status: disabled Vitals/I&O/Wt Last Vital Signs Temp 98.9 F 10/12/22 09:37 Pulse 84 10/12/22 12:40 Resp 20 H 10/12/22 12:40 BP 129/81 10/12/22 12:36 Pulse Ox 92 10/12/22 12:40 O2 Del Method BiPAP 10/12/22 14:12 O2 Flow Rate 60 10/12/22 12:40 FiO2 60 10/12/22 12:40 10/12/22 10/12/22 10/12/22 06:59 14:59 22:59 Intake Total 1050 / 1050 Balance 1050 / 1050 Weight last 48 hrs Weight 87.543 kg Physical Exam Const: COMMON NORMALS: patient oriented x3 HENMT: COMMON NORMALS: normocephalic and atraumatic HEAD & SCALP: normocephalic and atraumatic Eye: GENERAL EYE: appearance normal, both eyes and all related structures Resp: COMMON NORMALS: clear to auscultation bilaterally EFFORT & INSPECTION: Yes symmetric chest movement AUSCULTATION: clear to auscultation bilaterally Cardio: COMMON NORMALS: regular rate, regular rhythm, S1 normal heart sound present, S2 normal heart sound present, No gallops present (Cardio), No murmurs present (Cardio), No rub (Cardio) and Peripheral pulses 2+ throughout RATE: regular rate RHYTHM: regular rhythm HEART SOUNDS: S1 normal heart sound present and S2 normal heart sound present PERIPHERAL PULSES: Peripheral pulses 2+ throughout GI: COMMON NORMALS: Normal to inspection, nondistended, normoactive bowel sounds present, Soft to palpation, non-tender, No hepatosplenomegaly present and no masses AUSCULTATION: Yes normoactive bowel sounds PALPATION: Yes Soft to palpation and Yes No hepatosplenomegaly present RECTAL EXAM: deferred Extremity: COMMON NORMALS: no clubbing, cyanosis or edema and no pedal edema Neuro: COMMON NORMALS: patient oriented x3 Data 10/12/22 10:05 10/12/22 10:05 A&P Assessment and plan (1) Pulmonary fibrosis: (2) Pulmonary hypertension: (3) COPD (chronic obstructive pulmonary disease): (4) ASHD (arteriosclerotic heart disease): (5) Diabetes: Plan 57 year old female with past medical history of CA lung status post radiotherapy , hypertension diabetes coronary artery disease s/p recent PTCA in October 2021 for moderate to severe in-stent restenosis in mid LAD, PCI to RCA, recent NSTEMI,?PCI to?of mid LAD and mid RCA severe instent restenosis with JULES x 2.?(06/06/2022 ), severe pulmonary hypertension, HFpEF, RV , FAILURE, on 6 L of oxygen, came in today with chief complaint of worsening shortness of breath,stsrted yesterday and since then it has got progressively worsened, she is also complaining of orthopnea. Assessment: Acute on chronic respiratory failure with hypoxia: Multifactorial secondary to underlying end-stage COPD with significant pulmonary fibrosis, severe pulmonary hypertension. CTA chest:?Chronic emphysematous changes with subpleural honeycombing likely due to pulmonary fibrosis.No evidence of pulmonary embolus.Cardiomegaly. Small pericardial effusion. Continue DuoNebs Lasix 40 IV daily Continue heated high flow for now We will empirically keep her on azithromycin History of coronary artery disease status post PCI Continue aspirin Plavix statin beta-eliazar HFpEF, with RV FAILURE Continue Lasix 40 IV daily Monitor intake and output charting Monitor daily weight Continue telemetry monitoring History of severe pulmonary hypertension: She follow pulmonary as outpatient CODE STATUS: Full code DVT prophylaxis on Lovenox Attestations Medical Necessity Statement*: Patient is to be in hospital management of acute on chronic respiratory failure. Anticipated length of stay greater than 2 midnights Coding Level of Care Code 74704 Diagnoses Pulmonary fibrosis J84.10 Pulmonary hypertension I27.20 COPD (chronic obstructive pulmonary disease) J44.9 ASHD (arteriosclerotic heart disease) I25.10 Diabetes E11.9
[2022-10-12 16:56] LABS: Glucose Point of Care 133 mg/dL (70-110)
[2022-10-12] MEDS: FUROsemide 10 mg/mL SDV 4mL 40 MG IVP (17:20)
[2022-10-12] MEDS: azithromycin 500 MG in sodium chloride 0.9% 250 ML 250 MG IV (17:34)
--- NOTE | 2022-10-12 18:46 | PC.NURSE ---
Dr. Palma is notified that patient is refusing her dose of Enoxaparin.
[2022-10-12] MEDS: ipratropium-albuterol 3 mL Neb INHALATION (20:10)
[2022-10-12] MEDS: atorvastatin 40 mg Tablet PO (21:11)
[2022-10-12] MEDS: benzonatate 100 mg Capsule PO (21:11)
[2022-10-12 21:51] LABS: Glucose Point of Care 347 mg/dL (70-110)
[2022-10-13] VITALS (18 sets, daily range): BP systolic 95–134; BP diastolic 69–90; PULSE 80–102; RESP 16–28; TEMP 36.3–36.9; O2SAT 90–98
[2022-10-13] MEDS: ipratropium-albuterol 3 mL Neb INHALATION ×4 (01:57→21:24)
[2022-10-13] MEDS: clopidogrel 75 mg Tablet PO (05:38)
[2022-10-13] MEDS: aspirin 81 mg EC Tablet PO (05:38)
[2022-10-13] MEDS: metoprolol succinate ER (24 HR) 25 mg Tablet PO (05:39)
[2022-10-13 05:47] LABS: Basophils % 0.2 %; Hematocrit 39.5 % (37.0-47.0); Hemoglobin 12.7 g/dL (11.5-15.3); Lymphocytes # 1.4 10^3/uL (0.8-4.8); Mean Corpuscular HGB Conc 32.2 g/dL (30.0-36.0); Mean Corpuscular Hemoglobin 31.1 pg (28.0-34.0); Mean Corpuscular Volume 96.6 fl (81-99); Mean Platelet Volume 9.8 fL (7.4-10.4); Monocytes # 0.6 10^3/uL (0.2-0.9); Monocytes % 10.7 %; Neutrophils # 3.88 10^3/uL (1.8-7.7); Neutrophils % 65.6 %; Nucleated Red Blood Cells % 0 %; Platelet Count 301 10^3/cmm (130-400); Red Blood Count 4.09 10^6/uL (4.1-5.3); Red Cell Distribution Width 16.5 % (12.1-15.1); White Blood Count 5.9 10^3/uL (4.0-10.0)
[2022-10-13 05:51] LABS: Glucose Point of Care 137 mg/dL (70-110)
[2022-10-13 06:18] LABS: NT Pro B Type Natriuretic Pept 3126 pg/mL (0-125); Procalcitonin 0.05 ng/mL (0-0.5)
[2022-10-13 06:29] LABS: Alanine Aminotransferase 24 U/L (0-33); Albumin Level 3.2 g/dL (3.5-5.2); Alkaline Phosphatase 133 U/L (35-105); Anion Gap 15.9 (5-19); Aspartate Amino Transferase 31 U/L (0-32); Blood Urea Nitrogen 17 mg/dL (6-20); Carbon Dioxide 25 mmol/L (22-29); Chloride 103 mmol/L (98-107); Creatinine Clr Calc Pharmacy 150.8526; Globulin 3.4 g/dL (1.3-4.6); Glomerular Filtration Rate 126.3 mL/min (90-130); Glucose 125 mg/dL (65-115); Magnesium 2.2 mg/dL (1.7-2.3); Osmolality Calculated 293 mOsm/kg (285-295); Potassium 3.9 mmol/L (3.5-5.1); Sodium 140 mmol/L (136-145); Total Bilirubin 0.7 mg/dL (0.15-1.2); Total Protein 6.6 g/dL (6.6-8.7)
[2022-10-13] MEDS: potassium chloride ER 20 mEq Tablet PO (08:21)
--- NOTE | 2022-10-13 08:22 | PC.NURSE ---
during morning medication pass patient was offered 40meq of KCL oral. Patient refused whole dose, but agreed to taking 20 meq. Patient was educated on effect IV lasix has on potassium levels in the body. patient verbalized understanding, but insists on taking only 20meq. MD was notified of patient taking partial dose.
--- NOTE | 2022-10-13 11:03 | PC.CHAP ---
Pastoral Care Encounter/Spiritual Assessment Type of Contact [x] Declined display director visit [] Patient/Family/Request visit [] Outpatient visit [] Follow-up visit [] Physician referral [] Code/Alert [] Routine visit [] Staff referral [] Actively dying [] Patient sleeping [] Family support [] [] Out of room [] Palliative care [] [] Receiving care in room [] Pre-surgical visit [] Trauma [] Long length of stay [] ICU visit [] Other: Relational/Emotional Strength [] Patient feels connected with others/family/visitors/staff [] Distress [] Loneliness/isolation [] Abandonment Spirituality of Patient [] Person of Lupe [] Attends Christianity of their Lupe [] Believes in Prayer [] Reads Bible or Jehovah'S Witness materials [] There are Spiritual issues to be addressed Contract Officer Interventions [] Prayer [] Active listening [] Non-anxious presence [] Spiritual/emotional support [] Crisis/trauma care [] Spiritual counseling [] Bereavement support [] Provided bereavement packet [] Provided Bible/devotional materials [] Provided toy/stuffed animal, coloring book to patient or family member [] Provided Communion [] Anointing/[place] [] Salvation [] Completed spiritual assessment [] Other: Impact on Illness or Injury [] Angry [] Fearful [] Anxious [] Often cries [] Exhaustion [] Unable to work [] Unable to attend mormon [] Unable to walk/stand [] Unable to read [] Unable to drive [] Unable to eat/drink [] Unable to sleep [] Unable to be with family [] Patient intubated [] Other: Summary Declined display director visit Time spent with patient 5 mins
[2022-10-13 11:23] LABS: Glucose Point of Care 201 mg/dL (70-110)
--- NOTE | 2022-10-13 11:37 | P.PN_ITS ---
Subjective Subjective: Patient was seen and examined this morning shortness of breath has slightly improved, still on heated high flow at 60L/MINS and 60% FiO2. Good urine output with Lasix. Medications: Medication Review Details: Generic Name Dose Route Start Last Admin Trade Name Freq PRN Reason Stop Dose Admin Albuterol/Ipratrop ium 3 ml 10/12/22 20:00 10/13/22 08:43 Ipratropium-Albu terol 3 Ml Neb INHALATION 3 ml Q6H.RESP NU Administration Aspirin 81 mg 10/13/22 06:00 10/13/22 05:38 Aspirin 81 Mg Ec Tablet PO 81 mg QAM NU Administration Atorvastatin Calci um 40 mg 10/12/22 21:00 10/12/22 21:11 Atorvastatin 40 Mg Tablet PO 40 mg BEDTIME NU Administration Benzonatate 100 mg 10/12/22 20:45 10/12/22 21:11 Benzonatate 100 Mg Capsule PO 100 mg TID PRN Administration COUGH Clopidogrel Bisulf ate 75 mg 10/13/22 06:00 10/13/22 05:38 Clopidogrel 75 M g Tablet PO 75 mg QAM NU Administration Enoxaparin Sodium 40 mg 10/12/22 17:00 10/12/22 18:47 Enoxaparin 40 Mg /0.4 Ml Syringe SUBCUT Not Given Q24H NU Azithromycin 500 m g/ Sodium 250 mls @ 250 mls /hr 10/12/22 17:00 10/13/22 07:27 Chloride IV Infused Q24H NU Infusion Protocol Insulin Human Lisp ro 0 unit 10/12/22 18:00 10/13/22 07:28 Insulin Lispro 1 00 Unit/1 Ml SUBCUT Not Given [facility] Protocol Metoprolol Succina te 25 mg 10/13/22 06:00 10/13/22 05:39 Metoprolol Succi nikole Er (24 Hr) 25 Mg Tablet PO 25 mg QAM NU Administration Non-Formulary Medi cation 56 unit 10/12/22 21:00 10/12/22 21:34 Insulin Detemir U-100 [Levemir Fle xtouch U-100 Insul n] SUBCUT 56 unit BEDTIME NU Administration Non-Formulary 20 each 10/13/22 09:00 10/13/22 08:21 Medication (Nexium PO 20 each 20mg) DAILY NU Administration Potassium Chloride 40 meq 04/13/23 09:00 10/13/22 08:21 Potassium Chlori de Er 20 Meq Table t PO Not Given DAILY NU Vitals/I&O/Wt Last Vital Signs Temp 98.5 F 10/13/22 11:06 Pulse 91 10/13/22 11:06 Resp 27 H 10/13/22 11:06 BP 104/69 10/13/22 11:06 Pulse Ox 95 10/13/22 11:06 O2 Del Method Heated High Flow 10/13/22 11:06 O2 Flow Rate 60 10/13/22 08:42 FiO2 60 10/13/22 08:42 10/12/22 10/13/22 10/13/22 22:59 06:59 14:59 Intake Total 480 / 1530 120 / 1650 730 / 730 Output Total 1100 / 1100 820 / 1920 Balance -620 / 430 -700 / -270 730 / 730 Weight last 48 hrs Weight 87.543 kg Physical Exam Const: COMMON NORMALS: patient oriented x3 HENMT: COMMON NORMALS: normocephalic, atraumatic and hearing grossly normal bilaterally HEAD & SCALP: normocephalic and atraumatic Eye: GENERAL EYE: appearance normal, both eyes and all related structures Chest: COMMONS NORMALS: normal inspection of the chest and normal palpation of entire chest wall CHEST: Yes Symmetrical chest wall rise Resp: COMMON NORMALS: normal respiratory effort, No retractions, No use of accessory muscles and clear to auscultation bilaterally EFFORT & INSPECTION: Yes symmetric chest movement AUSCULTATION: clear to auscultation bilaterally Cardio: COMMON NORMALS: regular rate, regular rhythm, S1 normal heart sound present, S2 normal heart sound present, No gallops present (Cardio), No murmurs present (Cardio), No rub (Cardio) and Peripheral pulses 2+ throughout RATE: regular rate RHYTHM: regular rhythm HEART SOUNDS: S1 normal heart sound present and S2 normal heart sound present PERIPHERAL PULSES: Peripheral pulses 2+ throughout GI: COMMON NORMALS: Normal to inspection, nondistended, normoactive bowel sounds present, Soft to palpation, non-tender, No hepatosplenomegaly present and no masses AUSCULTATION: Yes normoactive bowel sounds PALPATION: Yes Soft to palpation and Yes No hepatosplenomegaly present RECTAL EXAM: deferred Extremity: COMMON NORMALS: no clubbing, cyanosis or edema and no pedal edema Neuro: COMMON NORMALS: patient oriented x3 Data 10/13/22 04:41 10/13/22 04:41 A&P Assessment and plan (1) Pulmonary fibrosis: (2) Pulmonary hypertension: (3) COPD (chronic obstructive pulmonary disease): (4) ASHD (arteriosclerotic heart disease): (5) Diabetes: Plan 57 year old female with past medical history of CA lung status post radiotherapy , hypertension diabetes coronary artery disease s/p recent PTCA in October 2021 for moderate to severe in-stent restenosis in mid LAD, PCI to RCA, recent NSTEMI,?PCI to?of mid LAD and mid RCA severe instent restenosis with JULES x 2.?(06/06/2022 ), severe pulmonary hypertension, HFpEF, RV , FAILURE, on 6 L of oxygen, came in today with chief complaint of worsening shortness of b reath,stsrted yesterday and since then it has got progressively worsened, she is also complaining of orthopnea. Assessment: Acute on chronic respiratory failure with hypoxia: Multifactorial secondary to underlying end-stage COPD with significant pulmonary fibrosis, severe pulmonary hypertension. CTA chest:?Chronic emphysematous changes with subpleural honeycombing likely due to pulmonary fibrosis.No evidence of pulmonary embolus.Cardiomegaly. Small pericardial effusion. Continue DuoNebs Lasix 40 IV daily Continue heated high flow for now We will empirically keep her on azithromycin History of coronary artery disease status post PCI Continue aspirin Plavix statin beta-eliazar HFpEF, with RV FAILURE Continue Lasix 40 IV daily Monitor intake and output charting Monitor daily weight Continue telemetry monitoring History of diabetes: Continue Levemir,SSI, monitor fingerstick glucose History of severe pulmonary hypertension: She follow pulmonary as outpatient CODE STATUS: Full code DVT prophylaxis on Lovenox Attestations Medical Necessity Statement*: Needs to be in hospital for management of acute on chronic respiratory failure. Coding Level of Care Code 33505 Diagnoses Pulmonary fibrosis J84.10 Pulmonary hypertension I27.20 COPD (chronic obstructive pulmonary disease) J44.9 ASHD (arteriosclerotic heart disease) I25.10 Diabetes E11.9
[2022-10-13] MEDS: benzonatate 100 mg Capsule PO ×2 (11:48→20:25)
[2022-10-13] MEDS: FUROsemide 10 mg/mL SDV 4mL 40 MG IVP (11:49)
--- NOTE | 2022-10-13 14:17 | PC.NURSE ---
During rounding on this day patient made request to be seen by PT while in the Hospital to continue therapy notified Dr hernandez instructions received to have PT eval and Treat
[2022-10-13 16:39] LABS: Glucose Point of Care 171 mg/dL (70-110)
[2022-10-13] MEDS: azithromycin 500 MG in sodium chloride 0.9% 250 ML 250 MG IV (17:10)
--- NOTE | 2022-10-13 17:20 | PC.NURSE ---
patient refused sliding scale insulin x3 today. patient also refused lovenox VTE shot. pt educated and verbalized understanding. notified.
[2022-10-13] MEDS: acetaminophen 325 mg Tablet 650 MG PO (19:19)
[2022-10-13] MEDS: atorvastatin 40 mg Tablet PO (20:25)
[2022-10-13 20:36] LABS: Glucose Point of Care 163 mg/dL (70-110)
[2022-10-13] MEDS: hyDROXYzine 25 mg Capsule PO (21:37)
[2022-10-14] VITALS (17 sets, daily range): BP systolic 97–113; BP diastolic 68–74; PULSE 80–106; RESP 18–31; TEMP 36.8–37.7; O2SAT 89–96
[2022-10-14] MEDS: ipratropium-albuterol 3 mL Neb INHALATION ×4 (02:05→21:11)
[2022-10-14 04:53] LABS: Basophils % 0.5 %; Eosinophils # 0.3 10^3/uL (0.0-0.8); Eosinophils % 3.4 %; Hematocrit 39.6 % (37.0-47.0); Hemoglobin 12.4 g/dL (11.5-15.3); Lymphocytes # 2.1 10^3/uL (0.8-4.8); Lymphocytes % 26.3 %; Mean Corpuscular HGB Conc 31.3 g/dL (30.0-36.0); Mean Corpuscular Hemoglobin 31.2 pg (28.0-34.0); Mean Corpuscular Volume 99.5 fl (81-99); Mean Platelet Volume 9.3 fL (7.4-10.4); Monocytes # 0.6 10^3/uL (0.2-0.9); Monocytes % 7.9 %; Neutrophils # 4.94 10^3/uL (1.8-7.7); Neutrophils % 61.5 %; Nucleated Red Blood Cells % 0 %; Platelet Count 295 10^3/cmm (130-400); Red Blood Count 3.98 10^6/uL (4.1-5.3); Red Cell Distribution Width 16.8 % (12.1-15.1)
[2022-10-14 05:07] LABS: Alanine Aminotransferase 32 U/L (0-33); Albumin Level 3.1 g/dL (3.5-5.2); Alkaline Phosphatase 126 U/L (35-105); Anion Gap 13.6 (5-19); Aspartate Amino Transferase 43 U/L (0-32); Blood Urea Nitrogen 15 mg/dL (6-20); Calcium 8.6 mg/dL (8.5-10.5); Carbon Dioxide 26 mmol/L (22-29); Chloride 106 mmol/L (98-107); Creatinine Clr Calc Pharmacy 150.8526; Globulin 3.4 g/dL (1.3-4.6); Glomerular Filtration Rate 126.3 mL/min (90-130); Glucose 46 mg/dL (65-115); Osmolality Calculated 292 mOsm/kg (285-295); Potassium 3.6 mmol/L (3.5-5.1); Sodium 142 mmol/L (136-145); Total Bilirubin 0.7 mg/dL (0.15-1.2); Total Protein 6.5 g/dL (6.6-8.7)
[2022-10-14] MEDS: aspirin 81 mg EC Tablet PO (06:00)
[2022-10-14] MEDS: clopidogrel 75 mg Tablet PO (06:00)
[2022-10-14] MEDS: metoprolol succinate ER (24 HR) 25 mg Tablet PO (06:00)
[2022-10-14] MEDS: FUROsemide 10 mg/mL SDV 4mL 40 MG IVP (06:01)
[2022-10-14 06:29] LABS: Glucose Point of Care 55 mg/dL (70-110)
[2022-10-14 07:34] LABS: Glucose Point of Care 68 mg/dL (70-110)
[2022-10-14] MEDS: potassium chloride ER 20 mEq Tablet 40 MEQ PO (08:50)
[2022-10-14] MEDS: benzonatate 100 mg Capsule PO ×2 (09:04→16:21)
[2022-10-14] MEDS: sennosides 8.6 mg Tablet PO (09:56)
[2022-10-14] MEDS: polyethylene glycol 3350 Pkt 17 gm PO (09:56)
[2022-10-14 11:10] LABS: Glucose Point of Care 158 mg/dL (70-110)
[2022-10-14 13:03] LABS: ABG PCO2 35.3 mmHg (35-45); ABG PH Result 7.46 (7.35-7.45); Arterial Blood Gas Hematocrit 43.4 % (37-47); Base Excess ABG 1.3 mmol/L (-2.0-2.0); Blood Gas Allen Test Pos; Blood Gas Operator Identificat WALCI; Blood Gas Sample Site Radial, right; Blood Gas Sample Type Arterial; Carboxyhemoglobin 1.7 %THgb (0.4-20.1); HCO3 ABG 24.9 mmol/L (22-26); HGB O2 Sat 93.5 % (95-100); Ionized Calcium Level - ABG 1.1 mmol/L (1.1-1.4); Methemoglobin 0.5 % (0.4-1.5); Oxygen Saturation ABG 95.6; PO2 ABG 70.2 mmHg (80.0-100.0); Potassium Level - ABG 5.1 mmol/L (3.5-5.0); Total Hemoglobin 14.2 g/dL (12-16)
[2022-10-14 13:04] LABS: Alveolar-Arterial Oxygen Gradi 53.9 mmHg (5-10); Oxygen Device NC
--- NOTE | 2022-10-14 13:39 | P.PN_ITS ---
Subjective Subjective: Patient was seen and examined this morning she still has significant shortness of breath, significant desaturation with minimal ambulation. Medications: Medication Review Details: Generic Name Dose Route Start Last Admin Trade Name Ehq PRN Reason Stop Dose Admin Acetaminophen 650 mg 10/12/22 15:56 10/13/22 19:19 Acetaminophen 32 5 Mg Tablet PO 650 mg Q6H PRN Administration Mild/Mod Pain Or Temp >/= 101 Albuterol/Ipratrop ium 3 ml 10/12/22 20:00 10/14/22 13:10 Ipratropium-Albu terol 3 Ml Neb INHALATION 3 ml Q6H.RESP NU Administration Aspirin 81 mg 10/13/22 06:00 10/14/22 06:00 Aspirin 81 Mg Ec Tablet PO 81 mg QAM NU Administration Atorvastatin Calci um 40 mg 10/12/22 21:00 10/13/22 20:25 Atorvastatin 40 Mg Tablet PO 40 mg BEDTIME NU Administration Benzonatate 100 mg 10/12/22 20:45 10/14/22 09:04 Benzonatate 100 Mg Capsule PO 100 mg TID PRN Administration COUGH Clopidogrel Bisulf ate 75 mg 10/13/22 06:00 10/14/22 06:00 Clopidogrel 75 M g Tablet PO 75 mg QAM NU Administration Enoxaparin Sodium 40 mg 10/12/22 17:00 10/13/22 17:10 Enoxaparin 40 Mg /0.4 Ml Syringe SUBCUT Not Given Q24H NU Furosemide 40 mg 10/14/22 07:00 10/14/22 06:01 Furosemide 10 Mg /Ml Sdv 4ml IVP 40 mg Q24H NU Administration Hydroxyzine Pamoat e 25 mg 10/13/22 11:35 10/13/22 21:37 Hydroxyzine 25 M g Capsule PO 25 mg BEDTIME PRN Administration Anxiety Azithromycin 500 m g/ Sodium 250 mls @ 250 mls /hr 10/12/22 17:00 10/13/22 18:19 Chloride IV Infused Q24H NU Infusion Protocol Insulin Human Lisp ro 0 unit 10/12/22 18:00 10/14/22 11:39 Insulin Lispro 1 00 Unit/1 Ml SUBCUT Not Given TIDWM NU Protocol Metoprolol Succina te 25 mg 10/13/22 06:00 10/14/22 06:00 Metoprolol Succi nikole Er (24 Hr) 25 Mg Tablet PO 25 mg QAM NU Administration Non-Formulary Medi cation 56 unit 10/12/22 21:00 10/13/22 20:27 Insulin Detemir U-100 [Levemir Fle xtouch U-100 Insul n] SUBCUT 56 unit BEDTIME NU Administration Non-Formulary 20 each 10/13/22 09:00 10/14/22 08:50 Medication (Nexium PO 20 each 20mg) DAILY NU Administration Potassium Chloride 40 meq 10/13/22 09:00 10/14/22 08:50 Potassium Chlori de Er 20 Meq Table t PO 40 meq DAILY NU Administration Vitals/I&O/Wt Last Vital Signs Temp 98.3 F 10/14/22 12:00 Pulse 102 H 10/14/22 13:11 Resp 29 H 10/14/22 13:11 BP 99/68 10/14/22 13:11 Pulse Ox 90 10/14/22 13:11 O2 Del Method Heated High Flow 10/14/22 13:10 O2 Flow Rate 55 10/14/22 13:10 FiO2 50 10/14/22 13:10 10/13/22 10/14/22 10/14/22 22:59 06:59 14:59 Intake Total 730 / 2220 300 / 2520 840 / 840 Output Total 1000 / 1900 800 / 2700 650 / 650 Balance -270 / 320 -500 / -180 190 / 190 Weight last 48 hrs Weight 96.252 kg Weight 87.543 kg Physical Exam Const: COMMON NORMALS: patient oriented x3 HENMT: COMMON NORMALS: normocephalic and atraumatic HEAD & SCALP: normocephalic and atraumatic Resp: COMMON NORMALS: clear to auscultation bilaterally EFFORT & INSPECTION: Yes symmetric chest movement AUSCULTATION: clear to auscultation bilaterally Cardio: COMMON NORMALS: regular rate, regular rhythm, S1 normal heart sound present, S2 normal heart sound present, No gallops present (Cardio), No murmurs present (Cardio), No rub (Cardio) and Peripheral pulses 2+ throughout RATE: regular rate RHYTHM: regular rhythm HEART SOUNDS: S1 normal heart sound present and S2 normal heart sound present PERIPHERAL PULSES: Peripheral puls es 2+ throughout GI: COMMON NORMALS: Normal to inspection, nondistended, normoactive bowel sounds present, Soft to palpation, non-tender, No hepatosplenomegaly present and no masses AUSCULTATION: Yes normoactive bowel sounds PALPATION: Yes Soft to palpation and Yes No hepatosplenomegaly present RECTAL EXAM: deferred Extremity: COMMON NORMALS: no clubbing, cyanosis or edema and no pedal edema Neuro: COMMON NORMALS: patient oriented x3 Data 10/14/22 04:11 10/14/22 04:11 A&P Assessment and plan (1) Pulmonary fibrosis: (2) Pulmonary hypertension: (3) COPD (chronic obstructive pulmonary disease): (4) ASHD (arteriosclerotic heart disease): (5) Diabetes: Plan 57 year old female with past medical history of CA lung status post radiotherapy , hypertension diabetes coronary artery disease s/p recent PTCA in October 2021 for moderate to severe in-stent restenosis in mid LAD, PCI to RCA, recent NSTEMI,?PCI to?of mid LAD and mid RCA severe instent restenosis with JULES x 2.?(06/06/2022 ), severe pulmonary hypertension, HFpEF, RV , FAILURE, on 6 L of oxygen, came in today with chief complaint of worsening shortness of breath,stsrted yesterday and since then it has got progressively worsened, she is also complaining of orthopnea. Assessment: Acute on chronic respiratory failure with hypoxia: Multifactorial secondary to underlying end-stage COPD with significant pulmonary fibrosis, severe pulmonary hypertension. CTA chest:?Chronic emphysematous changes with subpleural honeycombing likely due to pulmonary fibrosis.No evidence of pulmonary embolus.Cardiomegaly. Small pericardial effusion. Continue DuoNebs Lasix 40 IV daily Continue heated high flow for now We will empirically keep her on azithromycin History of coronary artery disease status post PCI Continue aspirin Plavix statin beta-eliazar HFpEF, with RV FAILURE Continue Lasix 40 IV daily Monitor intake and output charting Monitor daily weight Continue telemetry monitoring History of diabetes: Continue Levemir,SSI, monitor fingerstick glucose History of severe pulmonary hypertension: She follow pulmonary as outpatient CODE STATUS: Full code DVT prophylaxis on Lovenox Attestations Medical Necessity Statement*: Patient is in hospital for management of acute on chronic respiratory failure. Coding Level of Care Code 53658 Diagnoses Pulmonary fibrosis J84.10 Pulmonary hypertension I27.20 COPD (chronic obstructive pulmonary disease) J44.9 ASHD (arteriosclerotic heart disease) I25.10 Diabetes E11.9
[2022-10-14] MEDS: azithromycin 500 MG in sodium chloride 0.9% 250 ML 250 MG IV (16:16)
[2022-10-14] MEDS: acetaminophen 325 mg Tablet 650 MG PO ×2 (16:21→20:36)
[2022-10-14 17:02] LABS: Glucose Point of Care 156 mg/dL (70-110)
[2022-10-14] MEDS: diphenhydrAMINE 25 mg Capsule PO (17:43)
[2022-10-14] MEDS: atorvastatin 40 mg Tablet PO (20:33)
[2022-10-14] MEDS: hyDROXYzine 25 mg Capsule PO (20:33)
[2022-10-14 21:10] LABS: Glucose Point of Care 158 mg/dL (70-110)
[2022-10-15] VITALS (19 sets, daily range): BP systolic 92–98; BP diastolic 57–69; PULSE 74–110; RESP 18–36; TEMP 36.5; O2SAT 40–96
[2022-10-15] MEDS: ipratropium-albuterol 3 mL Neb INHALATION ×4 (02:39→21:17)
[2022-10-15 05:12] LABS: Basophils % 0.5 %; Eosinophils # 0.3 10^3/uL (0.0-0.8); Eosinophils % 4.4 %; Hematocrit 39.2 % (37.0-47.0); Hemoglobin 12.4 g/dL (11.5-15.3); Lymphocytes # 2.2 10^3/uL (0.8-4.8); Lymphocytes % 33.6 %; Mean Corpuscular HGB Conc 31.6 g/dL (30.0-36.0); Mean Corpuscular Hemoglobin 31.5 pg (28.0-34.0); Mean Corpuscular Volume 99.5 fl (81-99); Mean Platelet Volume 9.8 fL (7.4-10.4); Monocytes # 0.7 10^3/uL (0.2-0.9); Monocytes % 10.2 %; Neutrophils # 3.35 10^3/uL (1.8-7.7); Neutrophils % 50.8 %; Nucleated Red Blood Cells % 0 %; Platelet Count 288 10^3/cmm (130-400); Red Blood Count 3.94 10^6/uL (4.1-5.3); Red Cell Distribution Width 16.7 % (12.1-15.1); White Blood Count 6.6 10^3/uL (4.0-10.0)
[2022-10-15 05:33] LABS: Alanine Aminotransferase 104 U/L (0-33); Albumin Level 3.1 g/dL (3.5-5.2); Alkaline Phosphatase 174 U/L (35-105); Aspartate Amino Transferase 145 U/L (0-32); Blood Urea Nitrogen 14 mg/dL (6-20); Calcium 8.5 mg/dL (8.5-10.5); Carbon Dioxide 28 mmol/L (22-29); Chloride 101 mmol/L (98-107); Globulin 3.2 g/dL (1.3-4.6); Glomerular Filtration Rate 102.3 mL/min (90-130); Glucose 100 mg/dL (65-115); Osmolality Calculated 285 mOsm/kg (285-295); Sodium 137 mmol/L (136-145); Total Bilirubin 0.7 mg/dL (0.15-1.2); Total Protein 6.3 g/dL (6.6-8.7)
[2022-10-15] MEDS: FUROsemide 10 mg/mL SDV 4mL 40 MG IVP ×2 (06:05→14:18)
[2022-10-15] MEDS: aspirin 81 mg EC Tablet PO (06:05)
[2022-10-15] MEDS: clopidogrel 75 mg Tablet PO (06:05)
[2022-10-15] MEDS: metoprolol succinate ER (24 HR) 25 mg Tablet PO (06:05)
[2022-10-15 08:37] LABS: Glucose Point of Care 87 mg/dL (70-110)
[2022-10-15] MEDS: potassium chloride ER 20 mEq Tablet 40 MEQ PO (09:46)
[2022-10-15] MEDS: acetaminophen 325 mg Tablet 650 MG PO ×2 (11:14→20:45)
[2022-10-15] MEDS: benzonatate 100 mg Capsule PO ×2 (11:14→20:45)
--- NOTE | 2022-10-15 12:59 | P.PN_ITS ---
Subjective Subjective: Patient was seen and examined this morning, currently sounds slightly wet, will give her additional dose of Lasix 40 IV one-time today. Medications: Medication Review Details: Generic Name Dose Route Start Last Admin Trade Name Freq PRN Reason Stop Dose Admin Acetaminophen 650 mg 10/12/22 15:56 10/15/22 11:14 Acetaminophen 32 5 Mg Tablet PO 650 mg Q6H PRN Administration Mild/Mod Pain Or Temp >/= 101 Albuterol/Ipratrop ium 3 ml 10/12/22 20:00 10/15/22 08:32 Ipratropium-Albu terol 3 Ml Neb INHALATION 3 ml Q6H.RESP NU Administration Aspirin 81 mg 10/13/22 06:00 10/15/22 06:05 Aspirin 81 Mg Ec Tablet PO 81 mg QAM NU Administration Atorvastatin Calci um 40 mg 10/12/22 21:00 10/14/22 20:33 Atorvastatin 40 Mg Tablet PO 40 mg BEDTIME NU Administration Benzonatate 100 mg 10/12/22 20:45 10/15/22 11:14 Benzonatate 100 Mg Capsule PO 100 mg TID PRN Administration COUGH Clopidogrel Bisulf ate 75 mg 10/13/22 06:00 10/15/22 06:05 Clopidogrel 75 M g Tablet PO 75 mg QAM NU Administration Enoxaparin Sodium 40 mg 10/12/22 17:00 10/14/22 16:14 Enoxaparin 40 Mg /0.4 Ml Syringe SUBCUT Not Given Q24H NU Furosemide 40 mg 10/14/22 07:00 10/15/22 06:05 Furosemide 10 Mg /Ml Sdv 4ml IVP 40 mg Q24H NU Administration Hydroxyzine Pamoat e 25 mg 10/13/22 11:35 10/14/22 20:33 Hydroxyzine 25 M g Capsule PO 25 mg BEDTIME PRN Administration Anxiety Insulin Human Lisp ro 0 unit 10/12/22 18:00 10/15/22 09:45 Insulin Lispro 1 00 Unit/1 Ml SUBCUT Not Given TIDWM [facility] Protocol Metoprolol Succina te 25 mg 10/13/22 06:00 10/15/22 06:05 Metoprolol Succi nikole Er (24 Hr) 25 Mg Tablet PO 25 mg QAM NU Administration Non-Formulary Medi cation 56 unit 10/12/22 21:00 10/14/22 20:48 Insulin Detemir U-100 [Levemir Fle xtouch U-100 Insul n] SUBCUT 56 unit BEDTIME NU Administration Non-Formulary 20 each 10/13/22 09:00 10/15/22 09:46 Medication (Nexium PO 20 each 20mg) DAILY NU Administration Potassium Chloride 40 meq 10/13/22 09:00 10/15/22 09:46 Potassium Chlori de Er 20 Meq Table t PO 40 meq DAILY NU Administration Vitals/I&O/Wt Last Vital Signs Temp 97.7 F 10/15/22 04:00 Pulse 93 10/15/22 08:00 Resp 28 H 10/15/22 08:00 BP 92/57 10/15/22 04:00 Pulse Ox 90 10/15/22 08:00 O2 Del Method Heated High Flow 10/15/22 08:00 O2 Flow Rate 40 10/15/22 08:00 FiO2 50 10/15/22 08:00 10/14/22 10/15/22 10/15/22 22:59 06:59 14:59 Intake Total 490 / 1330 600 / 1930 Output Total 550 / 1200 450 / 1650 350 / 350 Balance -60 / 130 150 / 280 -350 / -350 Weight last 48 hrs Weight 95.254 kg Weight 96.252 kg Physical Exam Const: COMMON NORMALS: patient oriented x3 HENMT: COMMON NORMALS: normocephalic and atraumatic HEAD & SCALP: normocephalic and atraumatic Chest: CHEST: Yes Symmetrical chest wall rise Resp: COMMON NORMALS: clear to auscultation bilaterally EFFORT & INSPECTION: Yes symmetric chest movement AUSCULTATION: clear to auscultation bilaterally OTHER: Bilateral basal crackles present in both the lungs navarro Cardio: COMMON NORMALS: regular rate, regular rhythm, S1 normal heart sound present, S2 normal heart sound present, No gallops present (Cardio), No murmurs present (Cardio), No rub (Cardio) and Peripheral pulses 2+ throughout RATE: regular rate RHYTHM: regular rhythm HEART SOUNDS: S1 normal heart sound present and S2 normal heart sound present PERIPHERAL PULSES: Peripheral p ulses 2+ throughout GI: COMMON NORMALS: Normal to inspection, nondistended, normoactive bowel sounds present, Soft to palpation, non-tender, No hepatosplenomegaly present and no masses AUSCULTATION: Yes normoactive bowel sounds PALPATION: Yes Soft to palpation and Yes No hepatosplenomegaly present RECTAL EXAM: deferred Extremity: COMMON NORMALS: no clubbing, cyanosis or edema and no pedal edema Neuro: COMMON NORMALS: patient oriented x3 Data 10/15/22 04:20 10/15/22 04:20 A&P Assessment and plan (1) Pulmonary fibrosis: (2) Pulmonary hypertension: (3) COPD (chronic obstructive pulmonary disease): (4) ASHD (arteriosclerotic heart disease): (5) Diabetes: Plan 57 year old female with past medical history of CA lung status post radiotherapy , hypertension diabetes coronary artery disease s/p recent PTCA in October 2021 for moderate to severe in-stent restenosis in mid LAD, PCI to RCA, recent NSTEMI,?PCI to?of mid LAD and mid RCA severe instent restenosis with JULES x 2.?(06/06/2022 ), severe pulmonary hypertension, HFpEF, RV , FAILURE, on 6 L of oxygen, came in today with chief complaint of worsening shortness of breath,stsrted yesterday and since then it has got progressively worsened, she is also complaining of orthopnea. Assessment: Acute on chronic respiratory failure with hypoxia: Multifactorial secondary to underlying end-stage COPD with significant pulmonary fibrosis, severe pulmonary hypertension. CTA chest:?Chronic emphysematous changes with subpleural honeycombing likely due to pulmonary fibrosis.No evidence of pulmonary embolus.Cardiomegaly. Small pericardial effusion. Continue DuoNebs Lasix 40 IV daily Continue heated high flow for now We will empirically keep her on azithromycin History of coronary artery disease status post PCI Continue aspirin Plavix statin beta-eliazar HFpEF, with RV FAILURE Continue Lasix 40 IV daily Monitor intake and output charting Monitor daily weight Continue telemetry monitoring History of diabetes: Continue Levemir,SSI, monitor fingerstick glucose History of severe pulmonary hypertension: She follow pulmonary as outpatient CODE STATUS: Full code DVT prophylaxis on Lovenox Attestations Medical Necessity Statement*: Needs to be in hospital for management of respiratory failure. Coding Level of Care Code Acute Code for Chg Fwd Diagnoses Pulmonary fibrosis J84.10 Pulmonary hypertension I27.20 COPD (chronic obstructive pulmonary disease) J44.9 ASHD (arteriosclerotic heart disease) I25.10 Diabetes E11.9
[2022-10-15] MEDS: polyethylene glycol 3350 Pkt 17 gm PO (14:20)
[2022-10-15] MEDS: sennosides-docusate Tablet 2 TAB PO (14:20)
--- NOTE | 2022-10-15 16:53 | PC.NURSE ---
continues to refuse lovenoxx and sliding scale insulin.becomes very sob when transferring 1 foot from chair to bsc.o2 sat drops in to low 80's...but recoops in minutes to low 90's
[2022-10-15 16:56] LABS: Glucose Point of Care 235 mg/dL (70-110)
[2022-10-15 16:56] LABS: Glucose Point of Care 238 mg/dL (70-110)
[2022-10-15] MEDS: atorvastatin 40 mg Tablet PO (20:45)
[2022-10-15] MEDS: hyDROXYzine 25 mg Capsule PO (20:45)
[2022-10-15 21:22] LABS: Glucose Point of Care 180 mg/dL (70-110)
[2022-10-16] VITALS (33 sets, daily range): BP systolic 92–123; BP diastolic 59–75; PULSE 80–131; RESP 15–35; TEMP 36.4–36.9; O2SAT 77–97
[2022-10-16] MEDS: ipratropium-albuterol 3 mL Neb INHALATION ×4 (02:21→20:46)
[2022-10-16] MEDS: aspirin 81 mg EC Tablet PO (06:14)
[2022-10-16] MEDS: metoprolol succinate ER (24 HR) 25 mg Tablet PO (06:14)
[2022-10-16] MEDS: clopidogrel 75 mg Tablet PO (06:14)
[2022-10-16] MEDS: FUROsemide 10 mg/mL SDV 4mL 40 MG IVP ×2 (06:16→13:51)
[2022-10-16 06:59] LABS: Glucose Point of Care 52 mg/dL (70-110)
[2022-10-16 08:00] LABS: Glucose Point of Care 99 mg/dL (70-110)
[2022-10-16] MEDS: potassium chloride ER 20 mEq Tablet 40 MEQ PO (08:20)
[2022-10-16] MEDS: acetaminophen 325 mg Tablet 650 MG PO ×2 (08:23→21:15)
--- NOTE | 2022-10-16 10:26 | P.PN_ITS ---
Subjective Subjective: Patient was seen and examined this morning, she had a rough last night, continue to have significant shortness of breath, continue to be on heated high flow, will give another additional dose of Lasix 40 IV today. Medications: Medication Review Details: Generic Name Dose Route Start Last Admin Trade Name Freq PRN Reason Stop Dose Admin Acetaminophen 650 mg 10/12/22 15:56 10/16/22 08:23 Acetaminophen 32 5 Mg Tablet PO 650 mg Q6H PRN Administration Mild/Mod Pain Or Temp >/= 101 Albuterol/Ipratrop ium 3 ml 10/12/22 20:00 10/16/22 08:12 Ipratropium-Albu terol 3 Ml Neb INHALATION 3 ml Q6H.RESP NU Administration Aspirin 81 mg 10/13/22 06:00 10/16/22 06:14 Aspirin 81 Mg Ec Tablet PO 81 mg QAM UN Administration Atorvastatin Calci um 40 mg 10/12/22 21:00 10/15/22 20:45 Atorvastatin 40 Mg Tablet PO 40 mg BEDTIME NU Administration Benzonatate 100 mg 10/12/22 20:45 10/15/22 20:45 Benzonatate 100 Mg Capsule PO 100 mg TID PRN Administration COUGH Clopidogrel Bisulf ate 75 mg 10/13/22 06:00 10/16/22 06:14 Clopidogrel 75 M g Tablet PO 75 mg QAM NU Administration Enoxaparin Sodium 40 mg 10/12/22 17:00 10/15/22 16:52 Enoxaparin 40 Mg /0.4 Ml Syringe SUBCUT Not Given Q24H NU Furosemide 40 mg 10/14/22 07:00 10/16/22 06:16 Furosemide 10 Mg /Ml Sdv 4ml IVP 40 mg Q24H NU Administration Hydroxyzine Pamoat e 25 mg 10/13/22 11:35 10/15/22 20:45 Hydroxyzine 25 M g Capsule PO 25 mg BEDTIME PRN Administration Anxiety Insulin Human Lisp ro 0 unit 10/12/22 18:00 10/16/22 08:00 Insulin Lispro 1 00 Unit/1 Ml SUBCUT Not Given TIDWM NU Protocol Metoprolol Succina te 25 mg 10/13/22 06:00 10/16/22 06:14 Metoprolol Succi nikole Er (24 Hr) 25 Mg Tablet PO 25 mg QAM NU Administration Non-Formulary Medi cation 56 unit 10/12/22 21:00 10/15/22 21:24 Insulin Detemir U-100 [Levemir Fle xtouch U-100 Insul n] SUBCUT Not Given BEDTIME NU Non-Formulary 20 each 10/13/22 09:00 10/16/22 08:43 Medication (Nexium PO Not Given 20mg) DAILY NU Polyethylene Glyco l 17 gm 10/15/22 14:00 10/15/22 14:20 Polyethylene Gly col 3350 Pkt 17 Gm PO 10/22/22 13:59 17 gm DAILY PRN Administration CONSTIPATION Potassium Chloride 40 meq 10/13/22 09:00 10/16/22 08:20 Potassium Chlori de Er 20 Meq Table t PO 40 meq DAILY NU Administration Senna/Docusate Sod ium 2 tab 10/15/22 14:02 10/15/22 14:20 Sennosides-Docus ate Tablet PO 2 tab DAILY PRN Administration CONSTIPATION Vitals/I&O/Wt Last Vital Signs Temp 97.5 F L 10/16/22 07:29 Pulse 100 10/16/22 08:00 Resp 24 H 10/16/22 08:00 BP 92/61 10/16/22 07:29 Pulse Ox 94 10/16/22 08:00 O2 Del Method Heated High Flow 10/16/22 08:00 O2 Flow Rate 45 10/16/22 08:00 FiO2 50 10/16/22 08:00 10/15/22 10/16/22 10/16/22 22:59 06:59 14:59 Intake Total 560 / 560 320 / 880 480 / 480 Output Total 1000 / 1600 650 / 2250 900 / 900 Balance -440 / -1040 -330 / -1370 -420 / -420 Weight last 48 hrs Weight 95.345 kg Weight 95.254 kg Physical Exam Const: COMMON NORMALS: patient oriented x3 HENMT: COMMON NORMALS: normocephalic, atraumatic, hearing grossly normal bilaterally and external ears normal HEAD & SCALP: normocephalic and atraumatic EXTERNAL EAR: Yes external ears normal Eye: COMMON NORMALS: no scleral icterus GENERAL EYE: appearance normal, both eyes and all related structures Chest: COMMONS NORMALS: normal inspection of the chest and normal palpation of entire chest wall CHEST: Yes Symmetrical chest wall rise Resp: COMMON NORMALS: normal respiratory effort, No retractions, No use of accessory muscles and clear to auscultation bilaterally EFFORT & INSPECTION: Yes symmetric chest movement AUSCULTATION: clear to auscultation bilaterally OTHER: Bilateral basal crackles present in both the lungs navarro Cardio: COMMON NORMALS: regular rate, regular rhythm, S1 normal heart sound present, S2 normal heart sound present, No gallops present (Cardio), No murmurs present (Cardio), No rub (Cardio) and Peripheral pulses 2+ throughout RATE: regular rate RHYTHM: regular rhythm HEART SOUNDS: S1 normal heart sound present and S2 normal heart sound present PERIPHERAL PULSES: Peripheral pulses 2+ throughout GI: COMMON NORMALS: Normal to inspection, nondistended, normoactive bowel sounds present, Soft to palpation, non-tender, No hepatosplenomegaly present and no masses AUSCULTATION: Yes normoactive bowel sounds PALPATION: Yes Soft to palpation and Yes No hepatosplenomegaly present RECTAL EXAM: deferred : COMMON NORMALS: Yes no CVA tenderness BLADDER/KIDNEY EXAM: Yes no CVA tenderness Back/Pelvis: COMMON NORMALS: no CVA tenderness Extremity: COMMON NORMALS: no clubbing, cyanosis or edema and no pedal edema Neuro: COMMON NORMALS: patient oriented x3 Data 10/15/22 04:20 10/15/22 04:20 A&P Assessment and plan (1) Pulmonary fibrosis: (2) Pulmonary hypertension: (3) COPD (chronic obstructive pulmonary disease): (4) ASHD (arteriosclerotic heart disease): (5) Diabetes: Plan 57 year old female with past medical history of CA lung status post radiotherapy , hypertension diabetes coronary artery disease s/p recent PTCA in October 2021 for moderate to severe in-stent restenosis in mid LAD, PCI to RCA, recent NSTEMI,?PCI to?of mid LAD and mid RCA severe instent restenosis with JULES x 2.?(06/06/2022 ), severe pulmonary hypertension, HFpEF, RV , FAILURE, on 6 L of oxygen, came in today with chief complaint of worsening shortness of breath,stsrted yesterday and since then it has got progressively worsened, she is also complaining of orthopnea. Assessment: Acute on chronic respiratory failure with hypoxia: Multifactorial secondary to underlying end-stage COPD with significant pulmonary fibrosis, severe pulmonary hypertension. CTA chest:?Chronic emphysematous changes with subpleural honeycombing likely due to pulmonary fibrosis.No evidence of pulmonary embolus.Cardiomegaly. Small pericardial effusion. Continue DuoNebs Lasix 40 IV daily Continue heated high flow for now We will empirically keep her on azithromycin History of coronary artery disease status post PCI Continue aspirin Plavix statin beta-eliazar HFpEF, with RV FAILURE Continue Lasix 40 IV daily Monitor intake and output charting Monitor daily weight Continue telemetry monitoring History of diabetes: Continue Levemir,SSI, monitor fingerstick glucose History of severe pulmonary hypertension: She follow pulmonary as outpatient CODE STATUS: Full code DVT prophylaxis on Lovenox Attestations Medical Necessity Statement*: Needs to be in hospital for management of respiratory failure. Coding Level of Care Code Acute Code for [facility] Fwd Diagnoses Pulmonary fibrosis J84.10 Pulmonary hypertension I27.20 COPD (chronic obstructive pulmonary disease) J44.9 ASHD (arteriosclerotic heart disease) I25.10 Diabetes E11.9
[2022-10-16 12:08] LABS: Glucose Point of Care 296 mg/dL (70-110)
[2022-10-16 16:53] LABS: Glucose Point of Care 247 mg/dL (70-110)
--- NOTE | 2022-10-16 17:34 | PC.NURSE ---
Patient has refused all sliding scale insulin today and her Lovenox.
[2022-10-16] MEDS: atorvastatin 40 mg Tablet PO (21:15)
[2022-10-16] MEDS: benzonatate 100 mg Capsule PO (21:15)
[2022-10-16] MEDS: hyDROXYzine 25 mg Capsule PO (21:15)
[2022-10-16 21:51] LABS: Glucose Point of Care 173 mg/dL (70-110)
[2022-10-17] VITALS (32 sets, daily range): BP systolic 102–136; BP diastolic 59–81; PULSE 76–107; RESP 17–36; TEMP 36.4–36.6; O2SAT 81–98
[2022-10-17] MEDS: ipratropium-albuterol 3 mL Neb INHALATION ×4 (02:15→19:08)
[2022-10-17 05:20] LABS: Basophils % 0.6 %; Eosinophils # 0.3 10^3/uL (0.0-0.8); Eosinophils % 4.8 %; Hematocrit 38.1 % (37.0-47.0); Hemoglobin 12.1 g/dL (11.5-15.3); Lymphocytes # 2.7 10^3/uL (0.8-4.8); Lymphocytes % 37.6 %; Mean Corpuscular HGB Conc 31.8 g/dL (30.0-36.0); Mean Corpuscular Hemoglobin 30.7 pg (28.0-34.0); Mean Corpuscular Volume 96.7 fl (81-99); Mean Platelet Volume 9.9 fL (7.4-10.4); Monocytes # 0.6 10^3/uL (0.2-0.9); Monocytes % 8.6 %; Neutrophils # 3.44 10^3/uL (1.8-7.7); Neutrophils % 48.1 %; Nucleated Red Blood Cells % 0 %; Platelet Count 312 10^3/cmm (130-400); Red Blood Count 3.94 10^6/uL (4.1-5.3); Red Cell Distribution Width 16.3 % (12.1-15.1); White Blood Count 7.1 10^3/uL (4.0-10.0)
[2022-10-17 05:44] LABS: Alanine Aminotransferase 73 U/L (0-33); Albumin Level 3.1 g/dL (3.5-5.2); Alkaline Phosphatase 182 U/L (35-105); Anion Gap 10.9 (5-19); Aspartate Amino Transferase 72 U/L (0-32); Blood Urea Nitrogen 13 mg/dL (6-20); Calcium 8.4 mg/dL (8.5-10.5); Carbon Dioxide 27 mmol/L (22-29); Chloride 104 mmol/L (98-107); Globulin 2.9 g/dL (1.3-4.6); Glomerular Filtration Rate 126.3 mL/min (90-130); Glucose 43 mg/dL (65-115); Osmolality Calculated 283 mOsm/kg (285-295); Potassium 3.9 mmol/L (3.5-5.1); Sodium 138 mmol/L (136-145); Total Bilirubin 0.5 mg/dL (0.15-1.2)
[2022-10-17] MEDS: aspirin 81 mg EC Tablet PO (06:35)
[2022-10-17] MEDS: clopidogrel 75 mg Tablet PO (06:35)
[2022-10-17] MEDS: metoprolol succinate ER (24 HR) 25 mg Tablet PO (06:35)
[2022-10-17] MEDS: FUROsemide 10 mg/mL SDV 4mL 40 MG IVP ×2 (06:36→17:14)
[2022-10-17 06:44] LABS: Glucose Point of Care 46 mg/dL (70-110)
[2022-10-17] MEDS: potassium chloride ER 20 mEq Tablet 40 MEQ PO (09:51)
[2022-10-17] MEDS: acetaminophen 325 mg Tablet 650 MG PO ×2 (10:06→20:55)
[2022-10-17] MEDS: benzonatate 100 mg Capsule PO ×2 (10:07→20:52)
[2022-10-17 11:30] LABS: Glucose Point of Care 137 mg/dL (70-110)
--- NOTE | 2022-10-17 16:22 | PM.PN ---
Subjective Subjective: Patient was transiently able to be switched to supplemental O2 via high flow nasal cannula at 6 L/min, however after 4 hours started to become extremely tachypneic. Currently she is placed back on heated high flow 55% FiO2 at 40 L/min. Currently saturating 87%. Becomes tachypneic on minimal conversation. Net -2.7 L since admission. Medications: Reviewed: Yes Medication Review Details: Generic Name Dose Route Start Last Admin Trade Name Freq PRN Reason Stop Dose Admin Acetaminophen 650 mg 10/12/22 15:56 10/16/22 08:23 Acetaminophen 32 5 Mg Tablet PO 650 mg Q6H PRN Administration Mild/Mod Pain Or Temp >/= 101 Albuterol/Ipratrop ium 3 ml 10/12/22 20:00 10/16/22 08:12 Ipratropium-Albu terol 3 Ml Neb INHALATION 3 ml Q6H.RESP NU Administration Aspirin 81 mg 10/13/22 06:00 10/16/22 06:14 Aspirin 81 Mg Ec Tablet PO 81 mg QAM NU Administration Atorvastatin Calci um 40 mg 10/12/22 21:00 10/15/22 20:45 Atorvastatin 40 Mg Tablet PO 40 mg BEDTIME NU Administration Benzonatate 100 mg 10/12/22 20:45 10/15/22 20:45 Benzonatate 100 Mg Capsule PO 100 mg TID PRN Administration COUGH Clopidogrel Bisulf ate 75 mg 10/13/22 06:00 10/16/22 06:14 Clopidogrel 75 M g Tablet PO 75 mg QAM NU Administration Enoxaparin Sodium 40 mg 10/12/22 17:00 10/15/22 16:52 Enoxaparin 40 Mg /0.4 Ml Syringe SUBCUT Not Given Q24H NU Furosemide 40 mg 10/14/22 07:00 10/16/22 06:16 Furosemide 10 Mg /Ml Sdv 4ml IVP 40 mg Q24H NU Administration Hydroxyzine Pamoat e 25 mg 10/13/22 11:35 10/15/22 20:45 Hydroxyzine 25 M g Capsule PO 25 mg BEDTIME PRN Administration Anxiety Insulin Human Lisp ro 0 unit 10/12/22 18:00 10/16/22 08:00 Insulin Lispro 1 00 Unit/1 Ml SUBCUT Not Given TIDWM NU Protocol Metoprolol Succina te 25 mg 10/13/22 06:00 04/16/23 06:14 Metoprolol Succi nikole Er (24 Hr) 25 Mg Tablet PO 25 mg QAM NU Administration Non-Formulary Medi cation 56 unit 10/12/22 21:00 10/15/22 21:24 Insulin Detemir U-100 [Levemir Fle xtouch U-100 Insul n] SUBCUT Not Given BEDTIME NU Non-Formulary 20 each 10/13/22 09:00 10/16/22 08:43 Medication (Nexium PO Not Given 20mg) DAILY NU Polyethylene Glyco l 17 gm 10/15/22 14:00 10/15/22 14:20 Polyethylene Gly col 3350 Pkt 17 Gm PO 10/22/22 13:59 17 gm DAILY PRN Administration CONSTIPATION Potassium Chloride 40 meq 10/13/22 09:00 10/16/22 08:20 Potassium Chlori de Er 20 Meq Table t PO 40 meq DAILY NU Administration Senna/Docusate Sod ium 2 tab 10/15/22 14:02 10/15/22 14:20 Sennosides-Docus ate Tablet PO 2 tab DAILY PRN Administration CONSTIPATION Vitals/I&O/Wt Last Vital Signs Temp 97.5 F L 10/17/22 04:00 Pulse 96 10/17/22 13:32 Resp 32 H 10/17/22 13:32 BP 104/67 10/17/22 08:00 Pulse Ox 87 L 10/17/22 13:32 O2 Del Method Heated High Flow 10/17/22 13:32 O2 Flow Rate 40 10/17/22 13:32 FiO2 55 10/17/22 13:32 10/17/22 10/17/22 10/17/22 06:59 14:59 22:59 Intake Total 720 / 720 Output Total 300 / 300 Balance 420 / 420 Weight last 48 hrs Weight 95.345 kg Physical Exam Narrative: General: No acute distress, AO x3 HEENT: PERRLA, pupils bilaterally equal and reactive, pallors not present Chest: Normal vesicular breath sounds, no added sounds, equal good air entry bilaterally CVS: S1-S2 regular, no murmurs, no tachycardia, no gallops, no rubs Abdomen: Soft, nontender, no organomegaly, bowel sounds present Neuro: No focal deficits, no facial deformity, AO x3, power 5/5 in all limbs Data 10/17/22 04:15 10/17/22 04:15 A&P Assessment and plan (1) Pulmonary fibrosis: (2) Pulmonary hypertension: (3) COPD (chronic obstructive pulmonary disease): (4) ASHD (arteriosclerotic heart disease): (5) Diabetes: Plan 57 year old female with past medical history of CA lung status post radiotherapy , hypertension diabetes coronary artery disease s/p recent PTCA in October 2021 for moderate to severe in-stent restenosis in mid LAD, PCI to RCA, recent NSTEMI,?PCI to?of mid LAD and mid RCA severe instent restenosis with JULES x 2.?(06/06/2022 ), severe pulmonary hypertension, HFpEF, RV , FAILURE, on 6 L of oxygen at baseline, admitted on October 12, 2022 with with chief complaint of worsening shortness of breath and orthopnea. She has been on treatment for Acute on chronic respiratory failure with hypoxia: Multifactorial secondary to underlying end-stage COPD with significant pulmonary fibrosis, severe pulmonary hypertension. CTA chest:?Chronic emphysematous changes with subpleural honeycombing likely due to pulmonary fibrosis.No evidence of pulmonary embolus.Cardiomegaly. Small pericardial effusion. Negative study for PE BNP elevated at 3126. Continue DuoNebs Add steroids Solu-Medrol 40 mg IV every 12 hours for wheezing noted on exam today Lasix 40 IV daily, net -2.7 L since admission Additional lasix 40mg iv this evening Continue heated high flow for now, unable to be weaned off, currently FiO2 55% on 40 L/min. She has received an empiric course of azithromycin. No focal pneumonia. Tmax 99.8 upon admission. We will check respiratory viral panel Consult pulmonology History of coronary artery disease status post PCI Continue aspirin Plavix statin beta-eliazar HFpEF, with RV FAILURE Continue Lasix 40 IV daily Monitor intake and output charting Monitor daily weight Continue telemetry monitoring Last echo showed normal LVEF of 60%, no regional wall motion abnormalities, flattened septum in systole consistent with right ventricle overload. Moderately dilated right ventricle with severely decreased right systolic function and severe pulmonary hypertension estimated at 75 mmHg. Mild to moderate tricuspid regurgitation. History of diabetes: Continue Levemir,SSI, monitor fingerstick glucose Hypoglycemic this morning with BS 46 Reduce insulin detemir frim 56 u at bedtime to [address] [place] please CODE STATUS: Full code DVT prophylaxis on Lovenox Attestations Medical Necessity Statement*: continued iv diuresis, add iv steroids, reduce insulin for hypoglycemia Coding Level of Care Code Acute Code for Chg Fwd High MDM includes number and complexity of problems actively addressed during encounter, amount and/or complexity of data reviewed/ordered and described risk of complication, morbidity or mortality of management as documented Diagnoses Pulmonary fibrosis J84.10 Pulmonary hypertension I27.20 COPD (chronic obstructive pulmonary disease) J44.9 ASHD (arteriosclerotic heart disease) I25.10 Diabetes E11.9
[2022-10-17 17:18] LABS: Glucose Point of Care 142 mg/dL (70-110)
[2022-10-17] MEDS: hyDROXYzine 25 mg Capsule PO (20:52)
[2022-10-17] MEDS: atorvastatin 40 mg Tablet PO (20:52)
--- NOTE | 2022-10-17 21:00 | PC.NURSE ---
Patient reports self administering 58 units of levemir insulin. Patient was reminded that the hospitalist had changed the evening dose to 30 units as recent AM blood sugars were low. Patient states she was uninformed of this change. Patient also stated the hospitalists should not be changing her insulin orders.
[2022-10-17 21:06] LABS: Glucose Point of Care 259 mg/dL (70-110)
[2022-10-17 21:06] LABS: Glucose Point of Care 186 mg/dL (70-110)
[2022-10-18] VITALS (31 sets, daily range): BP systolic 106–136; BP diastolic 66–86; PULSE 74–108; RESP 17–36; TEMP 36.6–36.8; O2SAT 3–98
[2022-10-18 01:31] LABS: Adenovirus Not Detected (NOT DETECT); Chlamydia Pneumoniae Not Detected (NOT DETECT); Coronavirus 229E,HKU1,NL63,OC4 Not Detected (NOT DETECT); Human Metapneumovirus Not Detected (NOT DETECT); Human Rhinovirus/Enterovirus Not Detected (NOT DETECT); Influenza A Not Detected (NOT DETECT); Influenza A H1 Not Detected (NOT DETECT); Influenza A H1-2009 Not Detected (NOT DETECT); Influenza A H3 Not Detected (NOT DETECT); Influenza B Not Detected (NOT DETECT); Mycoplasma Pneumoniae Not Detected (NOT DETECT); Parainfluenza Virus Type 1 Not Detected (NOT DETECT); Parainfluenza Virus Type 2 Not Detected (NOT DETECT); Parainfluenza Virus Type 3 Not Detected (NOT DETECT); Parainfluenza Virus Type 4 Not Detected (NOT DETECT); Respiratory Syncytial Virus A Not Detected (NOT DETECT); Respiratory Syncytial Virus B Not Detected (NOT DETECT); SARS-COV-2 Not Detected (NOT DETECT)
[2022-10-18] MEDS: ipratropium-albuterol 3 mL Neb INHALATION ×4 (03:05→20:02)
[2022-10-18 05:33] LABS: Basophils % 0.2 %; Eosinophils % 0.2 %; Hematocrit 40.2 % (37.0-47.0); Hemoglobin 12.5 g/dL (11.5-15.3); Lymphocytes # 1.1 10^3/uL (0.8-4.8); Mean Corpuscular HGB Conc 31.1 g/dL (30.0-36.0); Mean Corpuscular Hemoglobin 30.3 pg (28.0-34.0); Mean Corpuscular Volume 97.3 fl (81-99); Mean Platelet Volume 10.1 fL (7.4-10.4); Monocytes # 0.2 10^3/uL (0.2-0.9); Monocytes % 4.2 %; Neutrophils % 75.9 %; Nucleated Red Blood Cells % 0 %; Platelet Count 300 10^3/cmm (130-400); Red Blood Count 4.13 10^6/uL (4.1-5.3); Red Cell Distribution Width 15.9 % (12.1-15.1); White Blood Count 5.7 10^3/uL (4.0-10.0)
[2022-10-18 05:49] LABS: Alanine Aminotransferase 80 U/L (0-33); Albumin Level 3.2 g/dL (3.5-5.2); Alkaline Phosphatase 191 U/L (35-105); Anion Gap 14.1 (5-19); Aspartate Amino Transferase 64 U/L (0-32); Blood Urea Nitrogen 16 mg/dL (6-20); Calcium 8.7 mg/dL (8.5-10.5); Carbon Dioxide 25 mmol/L (22-29); Chloride 102 mmol/L (98-107); Globulin 3.2 g/dL (1.3-4.6); Glomerular Filtration Rate 102.3 mL/min (90-130); Glucose 284 mg/dL (65-115); Osmolality Calculated 293 mOsm/kg (285-295); Potassium 5.1 mmol/L (3.5-5.1); Sodium 136 mmol/L (136-145); Total Bilirubin 0.6 mg/dL (0.15-1.2); Total Protein 6.4 g/dL (6.6-8.7)
[2022-10-18] MEDS: clopidogrel 75 mg Tablet PO (06:35)
[2022-10-18] MEDS: metoprolol succinate ER (24 HR) 25 mg Tablet PO (06:35)
[2022-10-18] MEDS: FUROsemide 10 mg/mL SDV 4mL 40 MG IVP ×2 (06:35→18:09)
[2022-10-18] MEDS: aspirin 81 mg EC Tablet PO (06:35)
[2022-10-18 06:48] LABS: Glucose Point of Care 232 mg/dL (70-110)
[2022-10-18] MEDS: potassium chloride ER 20 mEq Tablet 40 MEQ PO (08:58)
[2022-10-18] MEDS: acetaminophen 325 mg Tablet 650 MG PO ×3 (09:02→20:26)
[2022-10-18] MEDS: benzonatate 100 mg Capsule PO ×2 (09:02→20:26)
[2022-10-18 11:30] LABS: Glucose Point of Care 415 mg/dL (70-110)
--- NOTE | 2022-10-18 13:04 | PM.CONSULT ---
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 chest during admission did not show any PE-showed significant centrilobular emphysematous changes in bilateral lungs with scattered regions of bilateral subpleural interstitial thickening greatest at the bases suggestive of pulmonary fibrosis. The left upper lobe lesion-seems to be decreasing in size. There is cardiomegaly with small left pleural effusion. Pulmonary consult requested for acute on chronic hypoxic respiratory failure in patient with severe underlying pulmonary hypertension, end-stage COPD, pulmonary fibrosis. She was following with Dr. Cisneros van helper previously. She had an exacerbation of ILD in August 2022-managed with steroids, broad-spectrum antibiotics, Lasix and was discharged to LTAC Review of records show that this patient has an extensive cardiac history.? The patient had undergone angioplasty with stenting first in 2006 and then in 2012.? The patient had been on aspirin and Plavix since 2012.? She was hospitalized in October 2021 with chest pain and underwent angioplasty due to narrowing of the previously deployed stent. During October 2021 hospitalization, the patient had a CT angiogram of the chest which was negative for PE but showed left upper lobe 1.5 cm lung nodule and evidence of mediastinal lymphadenopathy.? The patient has significant bilateral centrilobular emphysema as well as possible interstitial lung disease. Subsequent PET CT scan which revealed PET avidity in the left upper lobe lung nodule with an SUV of 14.3.? There was no other suspicious lesion.? There was no evidence of medicine or hilar metastatic disease based on the PET scan.? Due to high risk of pneumothorax given her advanced emphysema and unable to discontinue aspirin/Plavix given recent in-stent restenosis-she was referred to radiation oncology for SBRT-which she completed in January 2022.? She is following up with the radiation oncology. She was readmitted to hospital in June 2022 for NSTEMI-underwent PCI to mid LAD and mid RCA severe in-stent restenosis with JULES x2, HFpEF. Her echocardiogram in June 2022 showed LV systolic function, size are normal with EF 60%. Grade 1 diastolic dysfunction. Flattened septum in systole consistent with right ventricular pressure overload. Moderately dilated right ventricle with severely decreased right ventricular systolic function with severe pulmonary hypertension with the PASP estimated 75 mmHg. There is mild to moderate tricuspid valve regurgitation. Compared to October 2021 there is severe pulmonary hypertension. Previously she was using 2 L supplemental oxygen-which has increased to 4 L during her June 2022 admission and currently requiring 6 L supplemental oxygen at baseline. Patient reported taking Lasix 40 Mg daily with potassium supplementation. She used to drink 4 cans of soda every day. And did not watch her salt intake as well as fluid intake-since last hospital admission reported that she has cut down her soda and salt intake. She has been smoking 2 to 4 packs a day for the past 45 years.? Currently she is smoking > pack a day. The patient has a previous diagnosis of obstructive sleep apnea and using CPAP on a regular basis. Pulmonary function test: Pulmonary function test performed in December 2021 revealed an FEV1 FVC ratio of 73% with FEV1 of 1.94 L which is 59% of predicted and forced vital capacity of 2.67 L which was 63% of predicted.? There was no significant postbronchodilator response.? Her DLCO was severely reduced at 34%. Radiology data: Described above. Laboratory data: No evidence of chronic hypercapnic respiratory failure. Today patient is seen sitting out of bed to chair-currently on high flow nasal cannula 45 L 56%. She is tearful about her overall pulmonary condition with advanced fibrosis and severe pulmonary hypertension and recurrent hospitalizations. Denied any other complaints Review of Systems General: Reports: 10 or more systems reviewed and unremarkable except in HPI and below Medications/Allergies Home Medications Medication Instructions Recorded Confirmed Last Taken Type inhalational spacing device #1 ea 07/19/19 10/12/22 Unknown History (Aerochamber Mini) esomeprazole magnesium 20 mg 20 mg PO QAM 10/22/21 10/12/22 10/12/22 History capsule,delayed release (Nexium) dapagliflozin 10 mg tablet 10 mg PO QAM 90 days #90 tabs 12/30/21 10/12/22 10/12/22 Rx (Farxiga) metformin 500 mg tablet,extended 1,000 mg PO BID 90 days #360 tabs 12/30/21 10/12/22 10/12/22 Rx release 24 hr ipratropium 0.5 mg-albuterol 3 mg 3 ml inhalation Q6H PRN wheezing 05/24/22 10/12/22 Unknown Rx (2.5 mg base)/3 mL nebulization #360 mL soln cyclobenzaprine 10 mg tablet 10 mg PO TID PRN Muscle Spasm 06/02/22 10/12/22 Unknown History naproxen 500 mg tablet 500 mg PO BID PRN Pain 06/02/22 10/12/22 Unknown History insulin detemir U-100 100 unit/mL 58 unit SUBCUT BEDTIME 08/16/22 10/12/22 10/11/22 History (3 mL) subcutaneous pen (Levemir FlexTouch U-100 Insulin) aspirin 81 mg tablet,delayed 81 mg PO QAM 10/12/22 10/12/22 10/12/22 History release (Adult Low Dose Aspirin) atorvastatin 40 mg tablet 40 mg PO BEDTIME 10/12/22 10/12/22 10/11/22 History budesonide 0.5 mg/2 mL suspension 0.5 mg inhalation BID 10/12/22 10/12/22 Unknown History for nebulization clopidogrel 75 mg tablet 75 mg PO QAM 10/12/22 10/12/22 10/12/22 History furosemide 40 mg tablet 40 mg PO QAM 10/12/22 10/12/22 10/12/22 History glipizide 5 mg tablet 5 mg PO QAM 10/12/22 10/12/22 10/12/22 History hydroxyzine HCl 25 mg tablet 12.5 - 25 mg PO BEDTIME PRN Anxiety 10/12/22 10/12/22 Unknown History metoprolol succinate 25 mg 25 mg PO QAM 10/12/22 10/12/22 10/12/22 History tablet,extended release 24 hr [id number] 0.4 mg-calcium 162 1 tab PO DAILY 10/12/22 10/12/22 Unknown History mg-iron 18 [id number] tablet potassium chloride 8 mEq 8 meq PO QAM 10/12/22 10/12/22 10/12/22 History tablet,extended release sodium chloride 0.65 % nasal spray 1 spray intranasal BID PRN unknown 10/12/22 10/12/22 Unknown History aerosol (Saline Nasal) benzonatate 100 mg capsule 100 mg PO TID PRN cough #90 caps 10/17/22 Unknown Rx Allergies Allergy/AdvReac Type Severity Reaction Status Date / Time Penicillins Allergy Unknown Verified 10/12/22 12:19 insulin glargine AdvReac Intermediate ADR-Nausea Verified 10/12/22 12:19 Current Medications Generic Name Dose Route Start Last Admin Trade Name Freq PRN Reason Stop Dose Admin Acetaminophen 650 mg 10/12/22 15:56 10/18/22 09:02 Acetaminophen 325 Mg Tablet PO 650 mg Q6H PRN Administration Mild/Mod Pain Or Temp >/= 101 Albuterol/Ipratropium 3 ml 10/12/22 20:00 10/18/22 07:33 Ipratropium-Albuterol 3 Ml Neb INHALATION 3 ml Q6H.RESP NU Administration Aspirin 81 mg 10/13/22 06:00 10/18/22 06:35 Aspirin 81 Mg Ec Tablet PO 81 mg QAM NU Administration Atorvastatin Calcium 40 mg 10/12/22 21:00 10/17/22 20:52 Atorvastatin 40 Mg Tablet PO 40 mg BEDTIME NU Administration Benzonatate 100 mg 10/12/22 20:45 10/18/22 09:02 Benzonatate 100 Mg Capsule PO 100 mg TID PRN Administration COUGH Clopidogrel Bisulfate 75 mg 10/13/22 06:00 10/18/22 06:35 Clopidogrel 75 Mg Tablet PO 75 mg QAM NU Administration Enoxaparin Sodium 40 mg 10/12/22 17:00 10/17/22 17:20 Enoxaparin 40 Mg/0.4 Ml Syringe SUBCUT Not Given Q24H NU Furosemide 40 mg 10/14/22 07:00 10/18/22 06:35 Furosemide 10 Mg/Ml Sdv 4ml IVP 40 mg Q24H NU Administration Hydroxyzine Pamoate 25 mg 10/13/22 11:35 10/17/22 20:52 Hydroxyzine 25 Mg Capsule PO 25 mg BEDTIME PRN Administration Anxiety Insulin Human Lispro 0 unit 10/12/22 18:00 10/18/22 12:56 Insulin Lispro 100 Unit/1 Ml SUBCUT Not Given TIDWM [facility] Protocol Methylprednisolone Sodium Succinate 40 mg 10/17/22 17:00 10/18/22 06:35 Methylprednisolone Sod Succ 40 Mg/Ml Inj IVP 40 mg Q12H NU Administration Metoprolol Succinate 25 mg 10/13/22 06:00 10/18/22 06:35 Metoprolol Succinate Er (24 Hr) 25 Mg Tablet PO 25 mg QAM NU Administration Non-Formulary 20 each 10/13/22 09:00 10/18/22 08:58 Medication (Nexium PO 20 each 20mg) DAILY NU Administration Non-Formulary Medication 30 unit 10/17/22 21:00 10/17/22 23:43 Insulin Detemir U-100 [Levemir Flextouch U-100 Insuln] SUBCUT Not Given BEDTIME NU Polyethylene Glycol 17 gm 10/15/22 14:00 10/15/22 14:20 Polyethylene Glycol 3350 Pkt 17 Gm PO 10/22/22 13:59 17 gm DAILY PRN Administration CONSTIPATION Potassium Chloride 40 meq 10/13/22 09:00 10/18/22 08:58 Potassium Chloride Er 20 Meq Tablet PO 40 meq DAILY NU Administration Senna/Docusate Sodium 2 tab 10/15/22 14:02 10/15/22 14:20 Sennosides-Docusate Tablet PO 2 tab DAILY PRN Administration CONSTIPATION PFSH Acute PFSH: Medical History ACS (acute coronary syndrome) ASHD (arteriosclerotic heart disease) Atherosclerosis of coronary artery of [place] heart without angina pectoris Cervical disc disease Cervical disc disorder with myelopathy of mid-cervical region Chronic respiratory failure with hypoxia Diabetes type 2, uncontrolled Diabetic neuropathy Emphysema of lung Hyperlipemia, mixed Hyperlipidemia Hypertension Lung cancer Neck pain of over 3 months duration Nicotine addiction NSTEMI (non-ST elevated myocardial infarction) Obstructive sleep apnea Smoking 1/2 pack a day or less Stenosis of cervical spine with myelopathy Tachycardia Unstable angina Surgical History History of heart surgery June 2007, August 2012 History of PTCA S/P tonsillectomy Family History Mother Diabetes Father Heart disease Brother CAD (coronary artery disease) Family/Other CAD (coronary artery disease) Diabetes Grandfather CAD (coronary artery disease) Denies family history of Clotting disorder Dementia Chronic kidney disease (CKD) Suicide Anesthesia complication Bleeding disorder Lung disease Cancer Stroke Social History Smoking and tobacco status: former smoker Alcohol intake: never Lives independently: Yes Household members: family Housing: House Marital status: service: No Current occupational status: disabled Vitals/I&O/Wt Last Vital Signs Temp 98 F 10/18/22 03:46 Pulse 95 10/18/22 11:20 Resp 18 10/18/22 12:00 BP 116/66 10/18/22 11:20 Pulse Ox 96 10/18/22 12:00 O2 Del Method High Flow Nasal Cannula 10/18/22 08:00 O2 Flow Rate 45 10/18/22 12:00 FiO2 55 10/18/22 12:00 10/17/22 10/18/22 10/18/22 22:59 06:59 14:59 Intake Total 1440 / 2160 240 / 2400 720 / 720 Output Total 625 / 925 400 / 1325 1200 / 1200 Balance 815 / 1235 -160 / 1075 -480 / -480 Weight last 48 hrs Weight 209 lb 5 oz Physical Exam Narrative: General: alert, NAD HEENT: conj clear, EOMI, PERRL, mmm, Neck: supple, no meningismus Heme: no cervical LAP Respiratory: Inspection: No visible deformity of the chest wall Palpation: Trachea is mildly deviated to the right, bilateral symmetric expansion Percussion: Bilateral tympanic percussion note both anterior and posteriorly Auscultation: Overall reduced breath sounds due to shallow breathing but no obvious wheeze, there are mild crepitations on left lower lung Cardiovascular: rrr, nl s1s2, no mrg Abdomen: soft, nt, nd, no r/g, bs+ Extremities: pulses +, 1+ pitting pedal edema, no c/c : no CVA tenderness Skin: intact, no rash MSK: no back or neck pain Neurologic: grossly intact Urinary Catheter Management: Gustafson: Cath Placed During This Visit: yes Reason for Continuing Indwelling Catheter: Accurate Measurement of Urinary Output in Critically Ill Patients Urinary Catheter Date of Insertion: 08/18/22 Urinary Catheter Time of Insertion: 10:41 Data 10/18/22 04:30 10/18/22 04:30 Other Labs: Radiology Impressions Chest X-Ray 10/12/22 09:53 IMPRESSION: 1. There are centrilobular emphysematous changes in the bilateral lungs. 2. There are scattered regions of bilateral subpleural interstitial thickening, greatest at the lung bases, consistent with pulmonary fibrosis. It would be difficult to exclude early underlying acute interstitial edema. Clinical correlation suggested Chest CTA 10/12/22 12:03 IMPRESSION: 1. No evidence of pulmonary embolus. 2. Cardiomegaly. Small pericardial effusion. 3. Chronic emphysematous changes with subpleural honeycombing likely due to pulmonary fibrosis. Recommend pulmonary consult. 4. No focal pneumonia or significant pleural fluid. 5. A few enlarged AP window anterior mediastinal and subcarinal lymph nodes nonspecific but likely reactive. This is similar to previous. 6. Contrast reflux into the hepatic veins suggestive of RIGHT heart dysfunction. Laboratory Results WBC 5.7 10^3/uL (4.0-10.0) 10/18/22 04:30 RBC 4.13 10^6/uL (4.1-5.3) 10/18/22 04:30 Hgb 12.5 g/dL (11.5-15.3) 10/18/22 04:30 Hct 40.2 % (37.0-47.0) 10/18/22 04:30 MCV 97.3 fl (81-99) 10/18/22 04:30 MCH 30.3 pg (28.0-34.0) 10/18/22 04:30 MCHC 31.1 g/dL (30.0-36.0) 10/18/22 04:30 RDW 15.9 % (12.1-15.1) H 10/18/22 04:30 Plt Count 300 10^3/cmm (130-400) 10/18/22 04:30 MPV 10.1 fL (7.4-10.4) 10/18/22 04:30 Neut % (Auto) 75.9 % 10/18/22 04:30 Lymph % (Auto) 19.0 % 10/18/22 04:30 [place] % (Auto) 4.2 % 10/18/22 04:30 Eos % (Auto) 0.2 % 10/18/22 04:30 Baso % (Auto) 0.2 % 10/18/22 04:30 Neut # (Auto) 4.30 10^3/uL (1.8-7.7) 10/18/22 04:30 Lymph # (Auto) 1.1 10^3/uL (0.8-4.8) 10/18/22 04:30 [place] # (Auto) 0.2 10^3/uL (0.2-0.9) 10/18/22 04:30 Eos # (Auto) 0.0 10^3/uL (0.0-0.8) 10/18/22 04:30 Baso # (Auto) 0.0 10^3/uL (0.0-0.1) 10/18/22 04:30 Nucleated RBC % (auto) 0 % 10/18/22 04:30 Nucleated RBCs # 0.0 /100WBC 10/18/22 04:30 Specimen Type Arterial 10/14/22 12:52 Sample Site Radial, right 10/14/22 12:52 ABG pH 7.46 (7.35-7.45) H 10/14/22 12:52 ABG pCO2 35.3 mmHg (35-45) 10/14/22 12:52 ABG pO2 70.2 mmHg (80.0-100.0) L 10/14/22 12:52 ABG HCO3 24.9 mmol/L (22-26) 10/14/22 12:52 ABG O2 Saturation 95.6 10/14/22 12:52 ABG Base Excess 1.3 mmol/L (-2.0-2.0) 10/14/22 12:52 Artemio Test Pos 10/14/22 12:52 A-a O2 Gradient 53.9 mmHg (5-10) H 10/14/22 12:52 Hematocrit 43.4 % (37-47) 10/14/22 12:52 Hgb O2 Saturation 93.5 % (95-100) L 10/14/22 12:52 Carboxyhemoglobin 1.7 %THgb (0.4-20.1) 10/14/22 12:52 Methemoglobin 0.5 % (0.4-1.5) 10/14/22 12:52 Total Hemoglobin 14.2 g/dL (12-16) 10/14/22 12:52 Sodium 135.0 mmol/L (131-143) 10/14/22 12:52 Potassium 5.1 mmol/L (3.5-5.0) H 10/14/22 12:52 Glucose 193.0 mg/dL (70-115) H 10/14/22 12:52 Ionized Calcium 1.1 mmol/L (1.1-1.4) 10/14/22 12:52 O2 Delivery Device Nc 10/14/22 12:52 O2 Liters/Min 60.0 % 10/14/22 12:52 FiO2 75.0 % 10/14/22 12:52 Fisher Pound Net Or Trap ID [place] 10/14/22 12:52 Sodium 136 mmol/L (136-145) 10/18/22 04:30 Potassium 5.1 mmol/L (3.5-5.1) 10/18/22 04:30 Chloride 102 mmol/L (98-107) 10/18/22 04:30 Carbon Dioxide 25 mmol/L (22-29) 10/18/22 04:30 Anion Gap 14.1 (5-19) 10/18/22 04:30 BUN 16 mg/dL (6-20) 10/18/22 04:30 Creatinine 0.6 mg/dL (0.5-0.9) 10/18/22 04:30 GFR Calculation 102.3 mL/min (90-130) 10/18/22 04:30 Glucose 284 mg/dL (65-115) H 10/18/22 04:30 POC Glucose 415 mg/dL (70-110) H 10/18/22 10:58 Calculated Osmolality 293 mOsm/kg (285-295) 10/18/22 04:30 Calcium 8.7 mg/dL (8.5-10.5) 10/18/22 04:30 Magnesium 2.2 mg/dL (1.7-2.3) 10/13/22 04:41 Total Bilirubin 0.6 mg/dL (0.15-1.2) 10/18/22 04:30 AST 64 U/L (0-32) H 10/18/22 04:30 ALT 80 U/L (0-33) H 10/18/22 04:30 Alkaline Phosphatase 191 U/L (35-105) H 10/18/22 04:30 NT-Pro-B Natriuret Pep 3126 pg/mL (0-125) H 10/13/22 04:41 Total Protein 6.4 g/dL (6.6-8.7) L 10/18/22 04:30 Albumin 3.2 g/dL (3.5-5.2) L 10/18/22 04:30 Globulin 3.2 g/dL (1.3-4.6) 10/18/22 04:30 Procalcitonin 0.05 ng/mL (0-0.5) 10/13/22 04:41 Nasal Influ A H1 2009 PCR Not detected (NOT DETECT) 10/17/22 21:00 Adenovirus (PCR) Not detected (NOT DETECT) 10/17/22 21:00 C. pneumoniae DNA (PCR) Not detected (NOT DETECT) 10/17/22 21:00 Coronavirus 229E (PCR) Not detected (NOT DETECT) 10/17/22 21:00 Human Metapneumovir PCR Not detected (NOT DETECT) 10/17/22 21:00 Influenza A (H1) PCR Not detected (NOT DETECT) 10/17/22 21:00 Influenza A (H3) PCR Not detected (NOT DETECT) 10/17/22 21:00 Influenza Type A (PCR) Not detected (NOT DETECT) 10/17/22 21:00 Influenza Type B (PCR) Not detected (NOT DETECT) 10/17/22 21:00 M. pneumoniae (PCR) Not detected (NOT DETECT) 10/17/22 21:00 Parainfluenza 1 (PCR) Not detected (NOT DETECT) 10/17/22 21:00 Parainfluenza 2 (PCR) Not detected (NOT DETECT) 10/17/22 21:00 Parainfluenza 3 (PCR) Not detected (NOT DETECT) 10/17/22 21:00 Parainfluenza 4 (PCR) Not detected (NOT DETECT) 10/17/22 21:00 RSV Type A (PCR) Not detected (NOT DETECT) 10/17/22 21:00 RSV Type B (PCR) Not detected (NOT DETECT) 10/17/22 21:00 Entero/Rhino (PCR) Not detected (NOT DETECT) 10/17/22 21:00 SARS-CoV-2 (PCR) Not detected (NOT DETECT) 10/17/22 21:00 A&P Assessment and plan (1) Acute exacerbation of chronic obstructive airways disease: (2) Acute respiratory failure with hypoxemia: (3) Lung cancer, upper lobe: (4) Atherosclerotic heart disease of [place] coronary artery with other forms of angina pectoris: (5) Limited code status: (6) Pulmonary hypertension: (7) Goals of care, counseling/discussion: Plan #Acute on chronic hypoxic respiratory failure-multifactorial #Severe pulmonary hypertension with PAP 75 mmHg on echo 06/2022 with dilated RV and decreased RV function-group 2 and group 3 #Severe underlying CAD-with stenting in 2006, [id number] stenosis requiring balloon angioplasty October 2021 in mid LAD and RCA and in June 2022 treated with JULES x2 -She has been a chronic smoker-with severe bilateral emphysema and pulmonary fibrosis-dependent on 6 L supplemental oxygen at baseline-currently requiring 45 L 55% on high flow nasal cannula saturating 96 % -Very difficult to say what triggered her exacerbation-CTA did not show any evidence of infection, respiratory viral panel negative -Continue scheduled budesonide, Xopenex and Atrovent nebulization; patient has tremors with albuterol -Currently on Solu-Medrol 40 every 12 hours to cover for COPD/ILD exacerbation-we will taper down over the next 2 to 3 days based on clinical response -For underlying pulmonary hypertension-we will optimize COPD treatment and cardiac medications -Agree with Lasix 40 Mg every 12 for now to unload RV-monitor urine output -Continue metoprolol, aspirin, Plavix, Lipitor -I have strongly recommended patient to do daily weight monitoring, fluid restrict less than 1.5 L/day/sodium restriction less than 2 g/day- -Once she comes back to her baseline 4-6 L oxygen-she may need pulmonary rehabilitation for COPD deconditioning -Unfortunately due to history of lung cancer-she may not be a candidate for lung transplant as well DUNCAN-on CPAP #Left upper lobe PET active lesion-SBRT January 2022 -CT chest during admission did showed reduction in size of left upper lobe lesion -Patient to follow-up with radiation oncology as outpatient At bedside patient tells me that she is her close cousin will make decisions for her if at all she cannot make decisions. I have an extensive discussion with patient about the pathophysiology of how her severe underlying CAD, end-stage COPD with fibrosis is causing her severe pulmonary hypertension which may lead to right heart failure, arrhythmia leading to . I have stressed the importance of using supplemental oxygen to keep saturations above 88%, CPAP use for DUNCAN, fluid and salt restriction along with diuretics to maintain fluid balance. Unfortunately patient is not able lung transplantation candidate given her history of lung cancer. Overall she has very poor prognosis if her FiO2 requirements does not improve. During previous hospitalization I explained all these things in the presence of her cousin and at that time she verbalized understanding and has told me that they do not want to intubation and do not want resuscitation if she does not improve. This time, I have noticed that patient is full code and so I did discuss goals of care and she verbalized understanding that she does not do well if her breathing were to deteriorate, and started crying. We should continue goals of care discussion when she is ready again. Patient also informed that she understands the importance of fluid restriction, Lasix to keep her volume down, nebulizations, supplemental oxygen, CPAP compliance to keep her pulmonary hypertension under control-failing which her clinical condition could get worse and can cause . Consult Attestations Medical Necessity Statement: Acute hypoxic respiratory failure requiring high flow nasal cannula-need at least 24-48 monitoring Time Spent in Patient Care: Greater than 35 minutes (>than 50% of time spent in counselling and/or direct pt care on unit). Critical Care Time: The high probability of a clinically significant, sudden or life threatening deterioration of the patient's [pulmonary, cardiac] system(s) required my full and direct attention, intervention and personal management. The critical care time is as shown. This time is in addition to time spent performing any reported procedures but includes the following: [x] Data and vital sign review and interpretation [x] Patient assessment, examination and intervention [x] Documentation [x] Medication orders and management Critical Care Time (min): 65 Coding Level of Care Code 26494 Diagnoses Acute exacerbation of chronic obstructive airways disease J44.1 Acute respiratory failure with hypoxemia J96.01 Lung cancer, upper lobe C34.10 Atherosclerotic heart disease of [place] coronary artery with other forms of angina pectoris I25.118 Limited code status Pulmonary hypertension I27.20 Goals of care, counseling/discussion Z71.89 Time Spent (min) 65
--- NOTE | 2022-10-18 13:29 | USCV_ITS ---
Mayuri Davidson Age: 57 Gender: F : 1965 Exam Date: 10/18/2022 14:58 Ordering Phys: Denver Berg MD Technologist: Carlos Medellin [place] [facility] [place]ication: enlarged rt side BP: 116 / 66 HR: 92 Rhythm: Sinus Technical Quality: Adequate MEASUREMENTS (Male / Female) Normal Values 2D ECHO LV Diastolic Diameter PLAX 3.3 cm 4.2 - 5.9 / 3.9 - 5.3 cm LV Systolic Diameter PLAX 1.7 cm IVS Diastolic Thickness 0.9 cm 0.6 - 1.0 / 0.6 - 0.9 cm IVS Systolic Thickness 1.3 cm LVPW Diastolic Thickness 0.9 cm 0.6 - 1.0 / 0.6 - 0.9 cm LVPW Systolic Thickness 1.0 cm LVOT Diameter 2.0 cm LV Ejection Fraction 2D Teich 81.0 % LA Diameter 3.4 cm Aorta at Sinotubular Diameter 2.2 cm M-MODE Aortic Annulus Diameter 3.1 cm LA Ao Ratio MM 1.3 MV E Point Septal Separation 0.9 cm DOPPLER AV Peak Velocity 164.0 cm/s LVOT Peak Velocity 98.0 cm/s AV Area Cont Eq vti 2.9 cm squared AV Area Cont Eq pk 2.0 cm squared MV Area PHT 5.0 cm squared Mitral E to A Ratio 1.0 MV E' Velocity 43.0 cm/s Mitral E to MV E' Ratio 11.2 Mitral E to LV E' Lateral Ratio 10.1 Mitral E to LV E' Septal Ratio 12.7 TR Peak Velocity 435.0 cm/s TR Peak Gradient 75.7 mmHg TV Peak E Velocity 102.0 cm/s Right Atrial Pressure 8.0 mmHg Pulmonary Artery Systolic Pressu 83.7 mmHg RV Acceleration Time 0.1 s FINDINGS Left Ventricle The left ventricle is poorly seen due to the size of the right ventricle. It is probably normal in size and function. The ejection fraction is 55 to 60%. No obvious wall motion disturbances. Diastolic function not evaluated. Flattened septum in systole consistent with right ventricle pressure overload. Right Ventricle Severely increased right ventricular size. Moderately decreased right ventricular systolic function. Severe pulmonary hypertension, RVSP 83.7 mmHg. Right Atrium Severely increased right atrial size. Left Atrium The left atrium is normal in size. Mitral Valve Structurally normal mitral valve without significant stenosis or prolapse. There is no mitral regurgitation. Aortic Valve Structurally normal aortic valve without significant sclerosis or stenosis. There is no aortic regurgitation. Tricuspid Valve Structurally normal tricuspid valve. Moderate tricuspid valve regurgitation. Pulmonic Valve Pulmonic valve not well visualized. Pericardium Normal pericardium without effusion. Aorta Normal ascending aorta dimension. IVC Inferior vena cava not visualized. CONCLUSIONS The left ventricle is poorly seen due to the size of the right ventricle. It is probably normal in size and function. The ejection fraction is 55 to 60%. No obvious wall motion disturbances. Diastolic function not evaluated. Flattened septum in systole consistent with right ventricle pressure overload. Severely increased right ventricular size. Moderately decreased right ventricular systolic function. Severe pulmonary hypertension, RVSP 83.7 mmHg. Severely increased right atrial size. From the previous study done 4 months ago, there has been essentially no change. The pulmonary pressures are slightly higher. Dr. John Hernandez MD (Electronically Signed) Final Date: 18 October 2022 16:42 S
--- NOTE | 2022-10-18 16:03 | P.PN_ITS ---
Subjective Subjective: Patient states that she subjectively feels better today. Objectively she remains on 55% FiO2 at 40 L/min. Medications: Reviewed: Yes Medication Review Details: Generic Name Dose Route Start Last Admin Trade Name Freq PRN Reason Stop Dose Admin Acetaminophen 650 mg 10/12/22 15:56 10/16/22 08:23 Acetaminophen 32 5 Mg Tablet PO 650 mg Q6H PRN Administration Mild/Mod Pain Or Temp >/= 101 Albuterol/Ipratrop ium 3 ml 10/12/22 20:00 10/16/22 08:12 Ipratropium-Albu terol 3 Ml Neb INHALATION 3 ml Q6H.RESP NU Administration Aspirin 81 mg 10/13/22 06:00 10/16/22 06:14 Aspirin 81 Mg Ec Tablet PO 81 mg QAM NU Administration Atorvastatin Calci um 40 mg 10/12/22 21:00 10/15/22 20:45 Atorvastatin 40 Mg Tablet PO 40 mg BEDTIME NU Administration Benzonatate 100 mg 10/12/22 20:45 10/15/22 20:45 Benzonatate 100 Mg Capsule PO 100 mg TID PRN Administration COUGH Clopidogrel Bisulf ate 75 mg 10/13/22 06:00 10/16/22 06:14 Clopidogrel 75 M g Tablet PO 75 mg QAM NU Administration Enoxaparin Sodium 40 mg 10/12/22 17:00 10/15/22 16:52 Enoxaparin 40 Mg /0.4 Ml Syringe SUBCUT Not Given Q24H NU Furosemide 40 mg 10/14/22 07:00 10/16/22 06:16 Furosemide 10 Mg /Ml Sdv 4ml IVP 40 mg Q24H NU Administration Hydroxyzine Pamoat e 25 mg 10/13/22 11:35 10/15/22 20:45 Hydroxyzine 25 M g Capsule PO 25 mg BEDTIME PRN Administration Anxiety Insulin Human Lisp ro 0 unit 10/12/22 18:00 10/16/22 08:00 Insulin Lispro 1 00 Unit/1 Ml SUBCUT Not Given TIDWM [facility] Protocol Metoprolol Succina te 25 mg 10/13/22 06:00 10/16/22 06:14 Metoprolol Succi nikole Er (24 Hr) 25 Mg Tablet PO 25 mg QAM NU Administration Non-Formulary Medi cation 56 unit 10/12/22 21:00 10/15/22 21:24 Insulin Detemir U-100 [Levemir Fle xtouch U-100 Insul n] SUBCUT Not Given BEDTIME NU Non-Formulary 20 each 10/13/22 09:00 10/16/22 08:43 Medication (Nexium PO Not Given 20mg) DAILY NU Polyethylene Glyco l 17 gm 10/15/22 14:00 10/15/22 14:20 Polyethylene Gly col 3350 Pkt 17 Gm PO 10/22/22 13:59 17 gm DAILY PRN Administration CONSTIPATION Potassium Chloride 40 meq 10/13/22 09:00 10/16/22 08:20 Potassium Chlori de Er 20 Meq Table t PO 40 meq DAILY NU Administration Senna/Docusate Sod ium 2 tab 10/15/22 14:02 10/15/22 14:20 Sennosides-Docus ate Tablet PO 2 tab DAILY PRN Administration CONSTIPATION Vitals/I&O/Wt Last Vital Signs Temp 98 F 10/18/22 03:46 Pulse 91 10/18/22 14:10 Resp 32 H 10/18/22 14:00 BP 116/66 10/18/22 14:00 Pulse Ox 94 10/18/22 13:37 O2 Del Method Heated High Flow 10/18/22 13:37 O2 Flow Rate 45 10/18/22 13:37 FiO2 55 10/18/22 13:37 10/18/22 10/18/22 10/18/22 06:59 14:59 22:59 Intake Total 240 / 2400 720 / 720 Output Total 400 / 1325 1200 / 1200 Balance -160 / 1075 -480 / -480 Weight last 48 hrs Weight 94.943 kg Physical Exam Narrative: General: No acute distress, AO x3 HEENT: PERRLA, pupils bilaterally equal and reactive, pallors not present Chest: Normal vesicular breath sounds, no added sounds, equal good air entry bilaterally CVS: S1-S2 regular, no murmurs, no tachycardia, no gallops, no rubs Abdomen: Soft, nontender, no organomegaly, bowel sounds present Neuro: No focal deficits, no facial deformity, AO x3, power 5/5 in all limbs Urinary Catheter Management: Gustafson: Cath Placed During This Visit: yes Reason for Continuing Indwelling Catheter: Accurate Measurement of Urinary Output in Critically Ill Patients Urinary Catheter Date of Insertion: 08/18/22 Urinary Catheter Time of Insertion: 10:41 Data 10/18/22 04:30 10/18/22 04:30 A&P Assessment and plan (1) Pulmonary fibrosis: (2) Pulmonary hypertension: (3) COPD (chronic obstructive pulmonary disease): (4) ASHD (arteriosclerotic heart disease): (5) Diabetes: Plan 57 year old female with past medical history of CA lung status post radiotherapy , hypertension diabetes coronary artery disease s/p recent PTCA in October 2021 for moderate to severe in-stent restenosis in mid LAD, PCI to RCA, recent NSTEMI,?PCI to?of mid LAD and mid RCA severe instent restenosis with JULES x 2.? (06/06/2022 ), severe pulmonary hypertension, HFpEF, RV , FAILURE, on 6 L of oxygen at baseline, admitted on October 12, 2022 with with chief complaint of worsening shortness of breath and orthopnea. She has been on treatment for Acute on chronic respiratory failure with hypoxia: Multifactorial secondary to underlying end-stage COPD with significant pulmonary fibrosis, severe pulmonary hypertension. CTA chest:?Chronic emphysematous changes with subpleural honeycombing likely due to pulmonary fibrosis.No evidence of pulmonary embolus.Cardiomegaly. Small pericardial effusion. Negative study for PE BNP elevated at 3126. Continue DuoNebs Continue steroids Solu-Medrol 40 mg IV every 12 hours Lasix 40 IV daily, increase diuresis to Lasix 40 mg IV twice daily. Closely monitor urine output and kidney function. Continue heated high flow for now, unable to be weaned off, currently FiO2 55% on 40 L/min. She has received an empiric course of azithromycin. No focal pneumonia. Tmax 99.8 upon admission. We will check respiratory viral panel Pulmonology recommendations appreciated. Echocardiogram taken and pending History of coronary artery disease status post PCI Continue aspirin Plavix statin beta-eliazar HFpEF, with RV FAILURE Continue Lasix 40 IV daily Monitor intake and output charting Monitor daily weight Continue telemetry monitoring Last echo showed normal LVEF of 60%, no regional wall motion abnormalities, flattened septum in systole consistent with right ventricle overload. Moderately dilated right ventricle with severely decreased right systolic function and severe pulmonary hypertension estimated at 75 mmHg. Mild to moderate tricuspid regurgitation. History of diabetes: Continue Levemir,SSI, monitor fingerstick glucose Hypoglycemic this morning with BS 46 Increase lantus again today as Fs >400, likely contributed by steroids Dr. Heaton please CODE STATUS: Full code DVT prophylaxis on Lovenox Attestations Medical Necessity Statement*: Continues to have high oxygen requirements, heated high flow 50% FiO2, continued need for IV diuresis at least twice a day. Continued need for IV steroids.. Coding Level of Care Code Acute Code for Chg Fwd Diagnoses Pulmonary fibrosis J84.10 Pulmonary hypertension I27.20 COPD (chronic obstructive pulmonary disease) J44.9 ASHD (arteriosclerotic heart disease) I25.10 Diabetes E11.9
[2022-10-18 16:41] LABS: Glucose Point of Care 480 mg/dL (70-110)
[2022-10-18] MEDS: hyDROXYzine 25 mg Capsule PO (20:26)
[2022-10-18] MEDS: atorvastatin 40 mg Tablet PO (20:26)
[2022-10-19] VITALS (20 sets, daily range): BP systolic 118–148; BP diastolic 77–88; PULSE 71–109; RESP 15–27; TEMP 35.7–36.7; O2SAT 88–98
[2022-10-19 00:16] LABS: Glucose Point of Care 406 mg/dL (70-110)
[2022-10-19] MEDS: ipratropium-albuterol 3 mL Neb INHALATION ×4 (03:26→19:56)
[2022-10-19 03:38] LABS: Glucose Point of Care 368 mg/dL (70-110)
[2022-10-19] MEDS: FUROsemide 10 mg/mL SDV 4mL 40 MG IVP ×2 (04:06→18:02)
[2022-10-19] MEDS: metoprolol succinate ER (24 HR) 25 mg Tablet PO (04:07)
[2022-10-19] MEDS: clopidogrel 75 mg Tablet PO (04:07)
[2022-10-19] MEDS: aspirin 81 mg EC Tablet PO (04:07)
--- NOTE | 2022-10-19 04:20 | PC.NURSE ---
Patient requested medications early so she could sleep.
[2022-10-19 06:22] LABS: Basophils % 0.2 %; Eosinophils % 0.1 %; Hematocrit 43.5 % (37.0-47.0); Hemoglobin 13.7 g/dL (11.5-15.3); Lymphocytes # 1.7 10^3/uL (0.8-4.8); Lymphocytes % 14.1 %; Mean Corpuscular HGB Conc 31.5 g/dL (30.0-36.0); Mean Corpuscular Hemoglobin 30.8 pg (28.0-34.0); Mean Corpuscular Volume 97.8 fl (81-99); Mean Platelet Volume 9.6 fL (7.4-10.4); Monocytes # 0.5 10^3/uL (0.2-0.9); Monocytes % 3.9 %; Neutrophils # 9.75 10^3/uL (1.8-7.7); Neutrophils % 81.2 %; Nucleated Red Blood Cells % 0 %; Platelet Count 352 10^3/cmm (130-400); Red Blood Count 4.45 10^6/uL (4.1-5.3); Red Cell Distribution Width 15.9 % (12.1-15.1)
[2022-10-19 06:33] LABS: Glucose Point of Care 254 mg/dL (70-110)
[2022-10-19 06:44] LABS: Alanine Aminotransferase 73 U/L (0-33); Albumin Level 3.5 g/dL (3.5-5.2); Alkaline Phosphatase 191 U/L (35-105); Aspartate Amino Transferase 43 U/L (0-32); Blood Urea Nitrogen 17 mg/dL (6-20); Calcium 9.3 mg/dL (8.5-10.5); Carbon Dioxide 26 mmol/L (22-29); Chloride 101 mmol/L (98-107); Globulin 3.9 g/dL (1.3-4.6); Glomerular Filtration Rate 102.3 mL/min (90-130); Glucose 265 mg/dL (65-115); Osmolality Calculated 301 mOsm/kg (285-295); Sodium 140 mmol/L (136-145); Total Bilirubin 0.7 mg/dL (0.15-1.2); Total Protein 7.4 g/dL (6.6-8.7)
[2022-10-19 06:50] LABS: Anion Gap 17.3 (5-19); Potassium 4.3 mmol/L (3.5-5.1)
[2022-10-19] MEDS: acetaminophen 325 mg Tablet 650 MG PO ×2 (09:00→20:51)
[2022-10-19] MEDS: potassium chloride ER 20 mEq Tablet 40 MEQ PO (09:01)
[2022-10-19 11:29] LABS: Glucose Point of Care 483 mg/dL (70-110)
[2022-10-19 17:25] LABS: Glucose Point of Care 385 mg/dL (70-110)
[2022-10-19 20:34] LABS: Glucose Point of Care 477 mg/dL (70-110)
[2022-10-19] MEDS: benzonatate 100 mg Capsule PO (20:51)
[2022-10-19] MEDS: atorvastatin 40 mg Tablet PO (20:51)
[2022-10-19] MEDS: hyDROXYzine 25 mg Capsule PO (20:51)
[2022-10-19 22:25] LABS: Glucose Point of Care 465 mg/dL (70-110)
--- NOTE | 2022-10-19 22:32 | P.PN_ITS ---
Subjective Subjective: continued to report improved breathing. net negatove overall . no acute events Medications: Reviewed: Yes Medication Review Details: Generic Name Dose Route Start Last Admin Trade Name Freq PRN Reason Stop Dose Admin Acetaminophen 650 mg 10/12/22 15:56 10/16/22 08:23 Acetaminophen 32 5 Mg Tablet PO 650 mg Q6H PRN Administration Mild/Mod Pain Or Temp >/= 101 Albuterol/Ipratrop ium 3 ml 10/12/22 20:00 10/16/22 08:12 Ipratropium-Albu terol 3 Ml Neb INHALATION 3 ml Q6H.RESP NU Administration Aspirin 81 mg 10/13/22 06:00 10/16/22 06:14 Aspirin 81 Mg Ec Tablet PO 81 mg QAM NU Administration Atorvastatin Calci um 40 mg 10/12/22 21:00 10/15/22 20:45 Atorvastatin 40 Mg Tablet PO 40 mg BEDTIME NU Administration Benzonatate 100 mg 10/12/22 20:45 10/15/22 20:45 Benzonatate 100 Mg Capsule PO 100 mg TID PRN Administration COUGH Clopidogrel Bisulf ate 75 mg 10/13/22 06:00 10/16/22 06:14 Clopidogrel 75 M g Tablet PO 75 mg QAM NU Administration Enoxaparin Sodium 40 mg 10/12/22 17:00 10/15/22 16:52 Enoxaparin 40 Mg /0.4 Ml Syringe SUBCUT Not Given Q24H NU Furosemide 40 mg 10/14/22 07:00 10/16/22 06:16 Furosemide 10 Mg /Ml Sdv 4ml IVP 40 mg Q24H NU Administration Hydroxyzine Pamoat e 25 mg 10/13/22 11:35 10/15/22 20:45 Hydroxyzine 25 M g Capsule PO 25 mg BEDTIME PRN Administration Anxiety Insulin Human Lisp ro 0 unit 10/12/22 18:00 10/16/22 08:00 Insulin Lispro 1 00 Unit/1 Ml SUBCUT Not Given TIDWM [facility] Protocol Metoprolol Succina te 25 mg 10/13/22 06:00 10/16/22 06:14 Metoprolol Succi nikole Er (24 Hr) 25 Mg Tablet PO 25 mg QAM NU Administration Non-Formulary Medi cation 56 unit 10/12/22 21:00 10/15/22 21:24 Insulin Detemir U-100 [Levemir Fle xtouch U-100 Insul n] SUBCUT Not Given BEDTIME NU Non-Formulary 20 each 10/13/22 09:00 10/16/22 08:43 Medication (Nexium PO Not Given 20mg) DAILY NU Polyethylene Glyco l 17 gm 10/15/22 14:00 10/15/22 14:20 Polyethylene Gly col 3350 Pkt 17 Gm PO 10/22/22 13:59 17 gm DAILY PRN Administration CONSTIPATION Potassium Chloride 40 meq 10/13/22 09:00 10/16/22 08:20 Potassium Chlori de Er 20 Meq Table t PO 40 meq DAILY NU Administration Senna/Docusate Sod ium 2 tab 10/15/22 14:02 10/15/22 14:20 Sennosides-Docus ate Tablet PO 2 tab DAILY PRN Administration CONSTIPATION Vitals/I&O/Wt Last Vital Signs Temp 96.7 F L 10/19/22 08:00 Pulse 93 10/19/22 21:03 Resp 15 10/19/22 21:03 BP 141/82 10/19/22 21:03 Pulse Ox 93 10/19/22 21:03 O2 Del Method Heated High Flow 10/19/22 19:55 O2 Flow Rate 45 10/19/22 19:58 FiO2 52 10/19/22 20:00 10/19/22 10/19/22 10/19/22 06:59 14:59 22:59 Intake Total 840 / 840 480 / 1320 Output Total 2300 / 4600 400 / 400 1650 / 2050 Balance -2300 / -2810 440 / 440 -1170 / -730 Weight last 48 hrs Weight 93.576 kg Weight 94.943 kg Physical Exam Narrative: General: No acute distress, AO x3 HEENT: PERRLA, pupils bilaterally equal and reactive, pallors not present Chest: Normal vesicular breath sounds, no added sounds, equal good air entry bilaterally CVS: S1-S2 regular, no murmurs, no tachycardia, no gallops, no rubs Abdomen: Soft, nontender, no organomegaly, bowel sounds present Neuro: No focal deficits, no facial deformity, AO x3, power 5/5 in all limbs Urinary Catheter Management: Gustafson: Cath Placed During This Visit: yes Reason for Continuing Indwelling Catheter: Accurate Measurement of Urinary Output in Critically Ill Patients Urinary Catheter Date of Insertion: 08/18/22 Urinary Catheter Time of Insertion: 10:41 Data 10/19/22 05:48 10/19/22 05:48 A&P Assessment and plan (1) Pulmonary fibrosis: (2) Pulmonary hypertension: (3) COPD (chronic obstructive pulmonary disease): (4) ASHD (arteriosclerotic heart disease): (5) Diabetes: Plan 57 year old female with past medical history of CA lung status post radiotherapy , hypertension diabetes coronary artery disease s/p recent PTCA in October 2021 for moderate to severe in-stent restenosis in mid LAD, PCI to RCA, recent NSTEMI,?PCI to?of mid LAD and mid RCA severe instent restenosis with JULES x 2.?(06/06/2022 ), severe pulmonary hypertension, HFpEF, RV , FAILURE, on 6 L of oxygen at baseline, admitted on October 12, 2022 with with chief complaint of wo rsening shortness of breath and orthopnea. She has been on treatment for Acute on chronic respiratory failure with hypoxia: Multifactorial secondary to underlying end-stage COPD with significant pulmonary fibrosis, severe pulmonary hypertension. CTA chest:?Chronic emphysematous changes with subpleural honeycombing likely due to pulmonary fibrosis.No evidence of pulmonary embolus.Cardiomegaly. Small pericardial effusion. Negative study for PE BNP elevated at 3126. Continue DuoNebs Continue steroids Solu-Medrol 40 mg IV every 12 hours Lasix 40 IV daily, increase diuresis to Lasix 40 mg IV twice daily. Closely monitor urine output and kidney function. Continue heated high flow for now, unable to be weaned off, currently FiO2 55% on 40 L/min. She has received an empiric course of azithromycin. No focal pneumonia. Tmax 99.8 upon admission. We will check respiratory viral panel Pulmonology recommendations appreciated. Echocardiogram taken and pending History of coronary artery disease status post PCI Continue aspirin Plavix statin beta-eliazar HFpEF, with RV FAILURE Continue Lasix 40 IV daily Monitor intake and output charting Monitor daily weight Continue telemetry monitoring Last echo showed normal LVEF of 60%, no regional wall motion abnormalities, flattened septum in systole consistent with right ventricle overload. Moderately dilated right ventricle with severely decreased right systolic function and severe pulmonary hypertension estimated at 75 mmHg. Mild to m oderate tricuspid regurgitation. History of diabetes: Continue Levemir,SSI, monitor fingerstick glucose Hypoglycemic this morning with BS 46 Increase lantus again today as Fs >400, likely contributed by steroids please CODE STATUS: Full code DVT prophylaxis on Lovenox plan for today: continue iv steroids, iv diuresis, monitor kindey function. attempt to wean down 02 requirements on HHF. Patient managing her own long acting insulin. Levemir back at 58 U now. Started ISS with meals to be administered by RN Attestations Medical Necessity Statement*: iv diuresis, iv streoids, heated hi flow Coding Level of Care Code Acute Code for Chg Fwd Diagnoses Pulmonary fibrosis J84.10 Pulmonary hypertension I27.20 COPD (chronic obstructive pulmonary disease) J44.9 ASHD (arteriosclerotic heart disease) I25.10 Diabetes E11.9
[2022-10-20] VITALS (14 sets, daily range): BP systolic 110–138; BP diastolic 86–101; PULSE 64–102; RESP 17–26; TEMP 36.7–36.9; O2SAT 90–97
[2022-10-20] MEDS: ipratropium-albuterol 3 mL Neb INHALATION ×4 (02:06→20:17)
[2022-10-20] MEDS: aspirin 81 mg EC Tablet PO (04:03)
[2022-10-20] MEDS: clopidogrel 75 mg Tablet PO (04:03)
[2022-10-20] MEDS: FUROsemide 10 mg/mL SDV 4mL 40 MG IVP (04:03)
[2022-10-20] MEDS: metoprolol succinate ER (24 HR) 25 mg Tablet PO (04:04)
[2022-10-20 05:32] LABS: Basophils % 0.2 %; Eosinophils % 0.1 %; Hematocrit 42.6 % (37.0-47.0); Hemoglobin 13.3 g/dL (11.5-15.3); Lymphocytes # 2.2 10^3/uL (0.8-4.8); Lymphocytes % 16.8 %; Mean Corpuscular HGB Conc 31.2 g/dL (30.0-36.0); Mean Corpuscular Hemoglobin 30.2 pg (28.0-34.0); Mean Corpuscular Volume 96.8 fl (81-99); Mean Platelet Volume 9.8 fL (7.4-10.4); Monocytes # 0.8 10^3/uL (0.2-0.9); Neutrophils # 9.75 10^3/uL (1.8-7.7); Neutrophils % 75.9 %; Nucleated Red Blood Cells % 0 %; Platelet Count 357 10^3/cmm (130-400); Red Cell Distribution Width 15.7 % (12.1-15.1); White Blood Count 12.8 10^3/uL (4.0-10.0)
[2022-10-20 05:43] LABS: Alanine Aminotransferase 93 U/L (0-33); Albumin Level 3.7 g/dL (3.5-5.2); Alkaline Phosphatase 177 U/L (35-105); Anion Gap 15.4 (5-19); Aspartate Amino Transferase 62 U/L (0-32); Blood Urea Nitrogen 20 mg/dL (6-20); Calcium 9.2 mg/dL (8.5-10.5); Carbon Dioxide 27 mmol/L (22-29); Chloride 99 mmol/L (98-107); Globulin 3.6 g/dL (1.3-4.6); Glomerular Filtration Rate 102.3 mL/min (90-130); Glucose 369 mg/dL (65-115); Osmolality Calculated 302 mOsm/kg (285-295); Potassium 4.4 mmol/L (3.5-5.1); Sodium 137 mmol/L (136-145); Total Bilirubin 0.5 mg/dL (0.15-1.2); Total Protein 7.3 g/dL (6.6-8.7)
[2022-10-20 06:06] LABS: Glucose Point of Care 308 mg/dL (70-110)
[2022-10-20] MEDS: insulin lispro 100 unit/1 mL SUBCUT ×4 (07:53→21:03)
[2022-10-20] MEDS: acetaminophen 325 mg Tablet 650 MG PO ×3 (08:18→21:03)
[2022-10-20] MEDS: benzonatate 100 mg Capsule PO ×3 (08:18→21:02)
[2022-10-20] MEDS: potassium chloride ER 20 mEq Tablet 40 MEQ PO (08:18)
[2022-10-20 12:08] LABS: Glucose Point of Care 379 mg/dL (70-110)
[2022-10-20] MEDS: FUROsemide 40 mg Tablet 80 MG PO (15:07)
--- NOTE | 2022-10-20 16:42 | P.PN_ITS ---
Subjective Subjective: Symptomatically improving today. States that she feels better since starting the steroids and Lasix. She is off of heated high flow. Currently on 11 L/min via high flow nasal cannula. Total output 4 L over last 24 hours. Net -6-1/2 L since admission. Medications: Reviewed: Yes Medication Review Details: Generic Name Dose Route Start Last Admin Trade Name Freq PRN Reason Stop Dose Admin Acetaminophen 650 mg 10/12/22 15:56 10/16/22 08:23 Acetaminophen 32 5 Mg Tablet PO 650 mg Q6H PRN Administration Mild/Mod Pain Or Temp >/= 101 Albuterol/Ipratrop ium 3 ml 10/12/22 20:00 10/16/22 08:12 Ipratropium-Albu terol 3 Ml Neb INHALATION 3 ml Q6H.RESP NU Administration Aspirin 81 mg 10/13/22 06:00 10/16/22 06:14 Aspirin 81 Mg Ec Tablet PO 81 mg QAM NU Administration Atorvastatin Calci um 40 mg 10/12/22 21:00 10/15/22 20:45 Atorvastatin 40 Mg Tablet PO 40 mg BEDTIME NU Administration Benzonatate 100 mg 10/12/22 20:45 10/15/22 20:45 Benzonatate 100 Mg Capsule PO 100 mg TID PRN Administration COUGH Clopidogrel Bisulf ate 75 mg 10/13/22 06:00 10/16/22 06:14 Clopidogrel 75 M g Tablet PO 75 mg QAM NU Administration Enoxaparin Sodium 40 mg 10/12/22 17:00 10/15/22 16:52 Enoxaparin 40 Mg /0.4 Ml Syringe SUBCUT Not Given Q24H NU Furosemide 40 mg 10/14/22 07:00 10/16/22 06:16 Furosemide 10 Mg /Ml Sdv 4ml IVP 40 mg Q24H NU Administration Hydroxyzine Pamoat e 25 mg 10/13/22 11:35 10/15/22 20:45 Hydroxyzine 25 M g Capsule PO 25 mg BEDTIME PRN Administration Anxiety Insulin Human Lisp ro 0 unit 10/12/22 18:00 10/16/22 08:00 Insulin Lispro 1 00 Unit/1 Ml SUBCUT Not Given TIDWM NU Protocol Metoprolol Succina te 25 mg 10/13/22 06:00 10/16/22 06:14 Metoprolol Succi nikole Er (24 Hr) 25 Mg Tablet PO 25 mg QAM NU Administration Non-Formulary Medi cation 56 unit 10/12/22 21:00 10/15/22 21:24 Insulin Detemir U-100 [Levemir Fle xtouch U-100 Insul n] SUBCUT Not Given BEDTIME NU Non-Formulary 20 each 10/13/22 09:00 10/16/22 08:43 Medication (Nexium PO Not Given 20mg) DAILY NU Polyethylene Glyco l 17 gm 10/15/22 14:00 10/15/22 14:20 Polyethylene Gly col 3350 Pkt 17 Gm PO 10/22/22 13:59 17 gm DAILY PRN Administration CONSTIPATION Potassium Chloride 40 meq 10/13/22 09:00 10/16/22 08:20 Potassium Chlori de Er 20 Meq Table t PO 40 meq DAILY NU Administration Senna/Docusate Sod ium 2 tab 10/15/22 14:02 10/15/22 14:20 Sennosides-Docus ate Tablet PO 2 tab DAILY PRN Administration CONSTIPATION Vitals/I&O/Wt Last Vital Signs Temp 98.5 F 10/20/22 16:00 Pulse 102 H 10/20/22 16:00 Resp 23 H 10/20/22 16:00 BP 127/90 10/20/22 16:00 Pulse Ox 90 10/20/22 16:00 O2 Del Method Nasal Cannula 10/20/22 16:00 O2 Flow Rate 12 10/20/22 14:00 FiO2 45 10/20/22 08:00 10/20/22 10/20/22 10/20/22 06:59 14:59 22:59 Intake Total 320 / 1640 1240 / 1240 Output Total 1650 / 3700 850 / 850 Balance -1330 / -2060 390 / 390 Weight last 48 hrs Weight 88.813 kg Weight 93.576 kg Physical Exam Narrative: General: No acute distress, AO x3 HEENT: PERRLA, pupils bilaterally equal and reactive, pallors not present Chest: Normal vesicular breath sounds, no added sounds, equal good air entry bilaterally CVS: S1-S2 regular, no murmurs, no tachycardia, no gallops, no rubs Abdomen: Soft, nontender, no organomegaly, bowel sounds present Neuro: No focal deficits, no facial deformity, AO x3, power 5/5 in all limbs Urinary Catheter Management: Gustafson: Cath Placed During This Visit: yes Reason for Continuing Indwelling Catheter: Accurate Measurement of Urinary Output in Critically Ill Patients Urinary Catheter Date of Insertion: 08/18/22 Urinary Catheter Time of Insertion: 10:41 Data 10/20/22 04:55 10/20/22 04:55 A&P Assessment and plan (1) Pulmonary fibrosis: (2) Pulmonary hypertension: (3) COPD (chronic obstructive pulmonary disease): (4) ASHD (arteriosclerotic heart disease): (5) Diabetes: Plan 57 year old female with past medical history of CA lung status post radiotherapy , hypertension diabetes coronary artery disease s/p recent PTCA in October 2021 for moderate to severe in-stent restenosis in mid LAD, PCI to RCA, recent N STEMI,?PCI to?of mid LAD and mid RCA severe instent restenosis with JULES x 2.?( 06/06/2022 ), severe pulmonary hypertension, HFpEF, RV , FAILURE, on 6 L of oxygen at baseline, admitted on October 12, 2022 with with chief complaint of worsening shortness of breath and orthopnea. She has been on treatment for Acute on chronic respiratory failure with hypoxia: Multifactorial secondary to underlying end-stage COPD with significant pulmonary fibrosis, severe pulmonary hypertension. CTA chest:?Chronic emphysematous changes with subpleural honeycombing likely due to pulmonary fibrosis.No evidence of pulmonary embolus.Cardiomegaly. Small pericardial effusion. Negative study for PE BNP elevated at 3126. Continue DuoNebs Continue steroids Solu-Medrol 40 mg IV every 12 hours Slowly making improvement. Oxygen requirements now at high flow nasal cannula 11 m/min. Change Lasix from 40 IV every 12 hours to 80 mg p.o. twice daily with plan to start tapering down on oral dosing tomorrow if patient tolerates. She has received an empiric course of azithromycin. No focal pneumonia. Tmax 99.8 upon admission. Negative respiratory viral panel. Appreciate pulmonology recommendations History of coronary artery disease status post PCI Continue aspirin Plavix statin beta-eliazar HFpEF, with RV FAILURE, chronic, with acute exacerbation. Change Lasix from IV to p.o. today Monitor intake and output charting Monitor daily weight Continue telemetry monitoring Last echo showed normal LVEF of 60%, no regional wall motion abnormalities, flattened septum in systole consistent with right ventricle overload. Moderately dilated right ventricle with severely decreased right systolic function and severe pulmonary hypertension estimated at 75 mmHg. Mild to moderate tricuspid regurgitation. History of diabetes: Continue Levemir,SSI, monitor fingerstick glucose Patient is managing her on Levemir. She does not wish to take Lantus which is on formulary. She has home Levemir which she is currently taking at 58 units at nighttime. Additionally added high-dose insulin sliding scale given uncontrolled blood sugars after starting IV steroids. Attestations Medical Necessity Statement*: Slowly making improvement, transition IV to p.o. diuretics, continue IV steroids, still with high oxygen requirements though improving, today down at 11 L/min via high flow nasal cannula. Still needs to be able to wean down to oxygen requirements that can be replicated at home. Coding Level of Care Code Acute Code for Chg Fwd Diagnoses Pulmonary fibrosis J84.10 Pulmonary hypertension I27.20 COPD (chronic obstructive pulmonary disease) J44.9 ASHD (arteriosclerotic heart disease) I25.10 Diabetes E11.9
[2022-10-20 17:07] LABS: Glucose Point of Care 569 mg/dL (70-110)
[2022-10-20 17:07] LABS: Glucose Point of Care 546 mg/dL (70-110)
--- NOTE | 2022-10-20 18:33 | PC.NURSE ---
Talked with Dr. Carbajal about patients blood sugar of 546. Dr. Carbajal said to go ahead and give her 18 units per protocol. Recheck sugar in 1 hour.
[2022-10-20 18:36] LABS: Glucose Point of Care > 600 mg/dL (70-110)
[2022-10-20 18:36] LABS: Glucose Point of Care 594 mg/dL (70-110)
--- NOTE | 2022-10-20 18:37 | PC.NURSE ---
Called Dr. Carbajal with patients repeat blood sugar of 594, I am waiting for her order.
[2022-10-20 19:41] LABS: Glucose Point of Care 596 mg/dL (70-110)
[2022-10-20] MEDS: insulin lispro 100 unit/1 mL 15 UNIT SUBCUT (19:50)
--- NOTE | 2022-10-20 20:23 | PC.NURSE ---
Informed Dr Sweet of increasing blood sugar of 596. Received telephone order to give onetime dose of Humalog 15unit SQ.
[2022-10-20 21:02] LABS: Glucose Point of Care 472 mg/dL (70-110)
[2022-10-20] MEDS: atorvastatin 40 mg Tablet PO (21:02)
[2022-10-20] MEDS: hyDROXYzine 25 mg Capsule PO (21:03)
[2022-10-21] VITALS (16 sets, daily range): BP systolic 128–153; BP diastolic 75–101; PULSE 66–115; RESP 17–30; TEMP 36.4–36.7; O2SAT 89–98
[2022-10-21] MEDS: FUROsemide 40 mg Tablet 80 MG PO ×2 (04:11→16:44)
[2022-10-21] MEDS: metoprolol succinate ER (24 HR) 25 mg Tablet PO (04:11)
[2022-10-21] MEDS: clopidogrel 75 mg Tablet PO (04:11)
[2022-10-21] MEDS: aspirin 81 mg EC Tablet PO (04:11)
[2022-10-21 04:13] LABS: Basophils % 0.2 %; Hematocrit 40.9 % (37.0-47.0); Hemoglobin 12.9 g/dL (11.5-15.3); Lymphocytes # 1.5 10^3/uL (0.8-4.8); Lymphocytes % 12.2 %; Mean Corpuscular HGB Conc 31.5 g/dL (30.0-36.0); Mean Corpuscular Hemoglobin 30.1 pg (28.0-34.0); Mean Corpuscular Volume 95.6 fl (81-99); Mean Platelet Volume 9.8 fL (7.4-10.4); Monocytes # 0.7 10^3/uL (0.2-0.9); Monocytes % 5.7 %; Neutrophils # 10.22 10^3/uL (1.8-7.7); Neutrophils % 80.6 %; Nucleated Red Blood Cells % 0 %; Platelet Count 348 10^3/cmm (130-400); Red Blood Count 4.28 10^6/uL (4.1-5.3); Red Cell Distribution Width 15.6 % (12.1-15.1); White Blood Count 12.7 10^3/uL (4.0-10.0)
[2022-10-21] MEDS: acetaminophen 325 mg Tablet 650 MG PO ×4 (04:14→21:52)
[2022-10-21] MEDS: benzonatate 100 mg Capsule PO ×4 (04:14→21:52)
[2022-10-21 04:34] LABS: Alanine Aminotransferase 107 U/L (0-33); Albumin Level 3.4 g/dL (3.5-5.2); Alkaline Phosphatase 172 U/L (35-105); Anion Gap 13.4 (5-19); Aspartate Amino Transferase 77 U/L (0-32); Blood Urea Nitrogen 22 mg/dL (6-20); Calcium 8.9 mg/dL (8.5-10.5); Carbon Dioxide 28 mmol/L (22-29); Chloride 102 mmol/L (98-107); Creatinine Clr Calc Pharmacy 151.8242; Globulin 3.4 g/dL (1.3-4.6); Glomerular Filtration Rate 126.3 mL/min (90-130); Glucose 235 mg/dL (65-115); Osmolality Calculated 299 mOsm/kg (285-295); Potassium 4.4 mmol/L (3.5-5.1); Sodium 139 mmol/L (136-145); Total Bilirubin 0.6 mg/dL (0.15-1.2); Total Protein 6.8 g/dL (6.6-8.7)
[2022-10-21 04:55] LABS: Glucose Point of Care 235 mg/dL (70-110)
[2022-10-21 06:35] LABS: Glucose Point of Care 205 mg/dL (70-110)
[2022-10-21] MEDS: ipratropium-albuterol 3 mL Neb INHALATION ×3 (08:56→19:39)
[2022-10-21] MEDS: potassium chloride ER 20 mEq Tablet 40 MEQ PO (10:16)
[2022-10-21] MEDS: insulin lispro 100 unit/1 mL SUBCUT ×4 (10:17→22:10)
[2022-10-21 12:00] LABS: Glucose Point of Care 450 mg/dL (70-110)
--- NOTE | 2022-10-21 14:43 | P.PN_ITS ---
Subjective Subjective: Patient states breathing is steady today. She was transitioned from IV to p.o. Lasix. Currently on oxygen flow rate at 12 via high flow nasal cannula. Occasionally desats to 84 to 85% in conversation but does not appear to be distressed. Lungs are clear to auscultation. Net negative overall. Medications: Reviewed: Yes Vitals/I&O/Wt Last Vital Signs Temp 97.9 F 10/21/22 12:00 Pulse 93 10/21/22 13:55 Resp 20 H 10/21/22 13:52 BP 153/87 10/21/22 12:00 Pulse Ox 91 10/21/22 13:52 O2 Del Method High Flow Nasal Cannula 10/21/22 13:52 O2 Flow Rate 12 10/21/22 13:52 FiO2 50 10/21/22 03:25 10/20/22 10/21/22 10/21/22 22:59 06:59 14:59 Intake Total 1860 / 3100 550 / 3650 360 / 360 Output Total 1200 / 2050 1000 / 3050 750 / 750 Balance 660 / 1050 -450 / 600 -390 / -390 Weight last 48 hrs Weight 86.818 kg Weight 87.543 kg Weight 88.813 kg Physical Exam Narrative: General: No acute distress, AO x3 HEENT: PERRLA, pupils bilaterally equal and reactive, pallors not present Chest: Normal vesicular breath sounds, no added sounds, equal good air entry bilaterally CVS: S1-S2 regular, no murmurs, no tachycardia, no gallops, no rubs Abdomen: Soft, nontender, no organomegaly, bowel sounds present Neuro: No focal deficits, no facial deformity, AO x3, power 5/5 in all limbs Urinary Catheter Management: Gustafson: Cath Placed During This Visit: yes Reason for Continuing Indwelling Catheter: Accurate Measurement of Urinary Output in Critically Ill Patients Urinary Catheter Date of Insertion: 08/18/22 Urinary Catheter Time of Insertion: 10:41 Data 10/21/22 03:47 10/21/22 03:47 A&P Assessment and plan (1) Pulmonary fibrosis: (2) Pulmonary hypertension: (3) COPD (chronic obstructive pulmonary disease): (4) ASHD (arteriosclerotic heart disease): (5) Diabetes: Plan 57 year old female with past medical history of CA lung status post radiotherapy , hypertension diabetes coronary artery disease s/p recent PTCA in October 2021 for moderate to severe in-stent restenosis in mid LAD, PCI to RCA, recent NSTEMI,?PCI to?of mid LAD and mid RCA severe instent restenosis with JULES x 2.?(06/06/2022 ), severe pulmonary hypertension, HFpEF, RV , FAILURE, on 6 L of oxygen at baseline, admitted on October 12, 2022 with with chief complaint of worsening shortness of breath and orthopnea. She has been on treatment for Acute on chronic respiratory failure with hypoxia: Multifactorial secondary to underlying end-stage COPD with significant pulmonary fibrosis, severe pulmonary hypertension. CTA chest:?Chronic emphysematous changes with subpleural honeycombing likely due to pulmonary fibrosis.No evidence of pulmonary embolus.Cardiomegaly. Small pericardial effusion. Negative study for PE BNP elevated at 3126. Continue DuoNebs Patient feels symptomatically improving. Reduce Solu-Medrol to 40 mg IV daily. And monitor for any interval changes in her breathing. Currently O2 sat goal would be 88 to 90%. Slowly making improvement. Oxygen requirements now at high flow nasal cannula 12 m/min. Continue Lasix at 80 mg p.o. twice daily She has received an empiric course of azithromycin. No focal pneumonia. Tmax 99.8 upon admission. Negative respiratory viral panel. Leukocytosis likely secondary to use of high-dose steroids. Appreciate pulmonology recommendations History of coronary artery disease status post PCI Continue aspirin Plavix statin beta-eliazar HFpEF, with RV FAILURE, chronic, with acute exacerbation. Continue p.o. Lasix. Monitor intake and output charting Monitor daily weight Continue telemetry monitoring Last echo showed normal LVEF of 60%, no regional wall motion abnormalities, flattened septum in systole consistent with right ventricle overload. Moderately dilated right ventricle with severely decreased right systolic function and severe pulmonary hypertension estimated at 75 mmHg. Mild to moderate tricuspid regurgitation. History of diabetes: Uncontrolled blood sugars currently in spite of being on high-dose insulin sliding scale and 58 units of Levemir. Will increase Levemir dose to 62 units at nighttime. Patient is managing her on Levemir. She does not wish to take Lantus which is on formulary. She has home Levemir which she is currently taking at 58 units at nighttime. Insulin regular 10 units IV push now for blood sugar of 450. Attestations Medical Necessity Statement*: Continues to have high oxygen requirements at 12 L/min, difficult to replicate at home. Also tapering down on the steroids today and monitor for any interval changes. Coding Level of Care Code Acute Code for Chg Fwd Moderate MDM includes number and complexity of problems actively addressed d uring encounter, amount and/or complexity of data reviewed/ordered and described risk of complication, morbidity or mortality of management as documented Diagnoses Pulmonary fibrosis J84.10 Pulmonary hypertension I27.20 COPD (chronic obstructive pulmonary disease) J44.9 ASHD (arteriosclerotic heart disease) I25.10 Diabetes E11.9
[2022-10-21] MEDS: insulin regular-human 10 UNIT in SYRINGE 1 EACH IVP (14:51)
[2022-10-21 15:39] LABS: Glucose Point of Care 477 mg/dL (70-110)
[2022-10-21 17:10] LABS: Glucose Point of Care 357 mg/dL (70-110)
[2022-10-21 21:22] LABS: Glucose Point of Care 417 mg/dL (70-110)
[2022-10-21] MEDS: atorvastatin 40 mg Tablet PO (21:52)
[2022-10-21] MEDS: hyDROXYzine 25 mg Capsule PO (21:52)
[2022-10-22] VITALS (14 sets, daily range): BP systolic 107–126; BP diastolic 64–80; PULSE 71–107; RESP 16–28; TEMP 36.6–37.1; O2SAT 89–98
[2022-10-22] MEDS: ipratropium-albuterol 3 mL Neb INHALATION ×4 (02:20→20:33)
[2022-10-22] MEDS: metoprolol succinate ER (24 HR) 25 mg Tablet PO (04:21)
[2022-10-22] MEDS: clopidogrel 75 mg Tablet PO (04:21)
[2022-10-22] MEDS: FUROsemide 40 mg Tablet 80 MG PO ×2 (04:21→15:01)
[2022-10-22] MEDS: aspirin 81 mg EC Tablet PO (04:21)
[2022-10-22 07:24] LABS: Glucose Point of Care 231 mg/dL (70-110)
[2022-10-22] MEDS: insulin lispro 100 unit/1 mL SUBCUT ×3 (08:36→21:48)
[2022-10-22] MEDS: potassium chloride ER 20 mEq Tablet 40 MEQ PO (08:38)
[2022-10-22] MEDS: benzonatate 100 mg Capsule PO ×3 (08:44→21:12)
[2022-10-22] MEDS: acetaminophen 325 mg Tablet 650 MG PO ×3 (08:44→21:11)
--- NOTE | 2022-10-22 09:25 | PM.PN ---
Subjective Subjective: currently on 10lpm suppmental O2. Subjectively feels better. Overnight she did use the heated high flow as she states the positive pressure helped her feel a little bit better at night. Steroids were tapered down to once a day yesterday. Medications: Reviewed: Yes Vitals/I&O/Wt Last Vital Signs Temp 97.9 F 10/22/22 07:08 Pulse 103 H 10/22/22 08:00 Resp 16 10/22/22 08:00 BP 124/80 10/22/22 07:08 Pulse Ox 96 10/22/22 08:00 O2 Del Method High Flow Nasal Cannula 10/22/22 08:00 O2 Flow Rate 10 10/22/22 08:00 FiO2 50 10/22/22 04:00 10/21/22 10/22/22 10/22/22 22:59 06:59 14:59 Intake Total 550 / 910.1 400 / 1310.1 360 / 360 Output Total 1250 / 2000 600 / 2600 1400 / 1400 Balance -700 / -1089.9 -200 / -1289.9 -1040 / -1040 Weight last 48 hrs Weight 86.818 kg Weight 86.818 kg Weight 87.543 kg Physical Exam Narrative: General: No acute distress, AO x3 HEENT: PERRLA, pupils bilaterally equal and reactive, pallors not present Chest: Normal vesicular breath sounds, no added sounds, equal good air entry bilaterally CVS: S1-S2 regular, no murmurs, no tachycardia, no gallops, no rubs Abdomen: Soft, nontender, no organomegaly, bowel sounds present Neuro: No focal deficits, no facial deformity, AO x3, power 5/5 in all limbs Urinary Catheter Management: Gustafson: Cath Placed During This Visit: yes Reason for Continuing Indwelling Catheter: Accurate Measurement of Urinary Output in Critically Ill Patients Urinary Catheter Date of Insertion: 08/18/22 Urinary Catheter Time of Insertion: 10:41 Data 10/21/22 03:47 10/21/22 03:47 A&P Assessment and plan (1) Pulmonary fibrosis: (2) Pulmonary hypertension: (3) COPD (chronic obstructive pulmonary disease): (4) ASHD (arteriosclerotic heart disease): (5) Diabetes: Plan 57 year old female with past medical history of CA lung status post radiotherapy , hypertension diabetes coronary artery disease s/p recent PTCA in October 2021 for moderate to severe in-stent restenosis in mid LAD, PCI to RCA, recent NSTEMI,?PCI to?of mid LAD and mid RCA severe instent restenosis with JULES x 2.?(06/06/2022 ), severe pulmonary hypertension, HFpEF, RV , FAILURE, on 6 L of oxygen at baseline, admitted on October 12, 2022 with with chief complaint of worsening shortness of breath and orthopnea. She has been on treatment for acute on chronic respiratory failure with hypoxia: Multifactorial secondary to underlying end-stage COPD with significant pulmonary fibrosis, severe pulmonary hypertension. CTA chest:?Chronic emphysematous changes with subpleural honeycombing likely due to pulmonary fibrosis.No evidence of pulmonary embolus.Cardiomegaly. Small pericardial effusion. Negative study for PE BNP elevated at 3126. Continue DuoNebs Patient feels symptomatically improving. Continue Solu-Medrol 40 mg IV every 24 today. Currently O2 sat goal would be 88 to 90%. Overnight we will attempt to keep patient off heated high flow in order to replicate what she may be able to do at hand. Currently still needing 10 L/min during daytime. Currently saturating 90%. Slowly making improvement. Oxygen requirements now at high flow nasal cannula 10 m/min. Continue Lasix at 80 mg p.o. twice daily She has received an empiric course of azithromycin. No focal pneumonia. Tmax 99.8 upon admission. Negative respiratory viral panel. Leukocytosis likely secondary to use of high-dose steroids. Appreciate pulmonology recommendations Patient declined placement at LTAC for continued weaning. History of coronary artery disease status post PCI Continue aspirin Plavix statin beta-eliazar HFpEF, with RV FAILURE, chronic, with acute exacerbation. Continue p.o. Lasix. Monitor intake and output charting Monitor daily weight Continue telemetry monitoring Last echo showed normal LVEF of 60%, no regional wall motion abnormalities, flattened septum in systole consistent with right ventricle overload. Moderately dilated right ventricle with severely decreased right systolic function and severe pulmonary hypertension estimated at 75 mmHg. Mild to moderate tricuspid regurgitation. History of diabetes: Uncontrolled blood sugars currently in spite of being on high-dose insulin sliding scale and 58 units of Levemir, ,patient did not increase dose yesetrday, counselled her to use 62 units tonight. Patient is managing her on Levemir. She does not wish to take Lantus which is on formulary. She has home Levemir which she is currently taking at 58 units at nighttime. Attestations Medical Necessity Statement*: continue to slowly wean down 02, today at 10 lpm, goal to bring her down to 02 requirements which can b ereplicated at home Coding Level of Care Code Acute Code for Chg Fwd Moderate MDM includes number and complexity of problems actively addressed during encounter, amount and/or complexity of data reviewed/ordered and described risk of complication, morbidity or mortality of management as documented Diagnoses Pulmonary fibrosis J84.10 Pulmonary hypertension I27.20 COPD (chronic obstructive pulmonary disease) J44.9 ASHD (arteriosclerotic heart disease) I25.10 Diabetes E11.9
[2022-10-22 12:01] LABS: Glucose Point of Care 113 mg/dL (70-110)
[2022-10-22 16:45] LABS: Glucose Point of Care 350 mg/dL (70-110)
[2022-10-22] MEDS: atorvastatin 40 mg Tablet PO (21:12)
[2022-10-22] MEDS: hyDROXYzine 25 mg Capsule PO (21:12)
[2022-10-22 21:37] LABS: Glucose Point of Care > 600 mg/dL (70-110)
[2022-10-22 21:37] LABS: Glucose Point of Care 597 mg/dL (70-110)
[2022-10-22 23:01] LABS: Glucose Point of Care 568 mg/dL (70-110)
[2022-10-22] MEDS: insulin lispro 100 unit/1 mL 10 UNIT SUBCUT (23:29)
[2022-10-23] VITALS (12 sets, daily range): BP systolic 111–134; BP diastolic 68–85; PULSE 70–105; RESP 17–27; TEMP 36.4–36.7; O2SAT 89–99
[2022-10-23 00:53] LABS: Glucose Point of Care 436 mg/dL (70-110)
[2022-10-23] MEDS: ipratropium-albuterol 3 mL Neb INHALATION ×4 (02:03→20:12)
[2022-10-23 02:39] LABS: Glucose Point of Care 355 mg/dL (70-110)
[2022-10-23 04:03] LABS: Basophils % 0.1 %; Eosinophils % 0.1 %; Hemoglobin 13.7 g/dL (11.5-15.3); Lymphocytes # 1.4 10^3/uL (0.8-4.8); Lymphocytes % 12.7 %; Mean Corpuscular HGB Conc 31.9 g/dL (30.0-36.0); Mean Corpuscular Hemoglobin 30.4 pg (28.0-34.0); Mean Corpuscular Volume 95.3 fl (81-99); Mean Platelet Volume 9.9 fL (7.4-10.4); Monocytes # 0.8 10^3/uL (0.2-0.9); Monocytes % 6.9 %; Neutrophils # 8.88 10^3/uL (1.8-7.7); Nucleated Red Blood Cells % 0 %; Platelet Count 354 10^3/cmm (130-400); Red Blood Count 4.51 10^6/uL (4.1-5.3); Red Cell Distribution Width 15.5 % (12.1-15.1); White Blood Count 11.3 10^3/uL (4.0-10.0)
[2022-10-23 04:30] LABS: Alanine Aminotransferase 201 U/L (0-33); Albumin Level 3.4 g/dL (3.5-5.2); Alkaline Phosphatase 155 U/L (35-105); Aspartate Amino Transferase 128 U/L (0-32); Blood Urea Nitrogen 32 mg/dL (6-20); Calcium 9.1 mg/dL (8.5-10.5); Carbon Dioxide 28 mmol/L (22-29); Chloride 98 mmol/L (98-107); Globulin 3.1 g/dL (1.3-4.6); Glomerular Filtration Rate 102.3 mL/min (90-130); Glucose 346 mg/dL (65-115); Osmolality Calculated 303 mOsm/kg (285-295); Sodium 136 mmol/L (136-145); Total Bilirubin 0.6 mg/dL (0.15-1.2); Total Protein 6.5 g/dL (6.6-8.7)
[2022-10-23 04:32] LABS: Anion Gap 14.7 (5-19); Potassium 4.7 mmol/L (3.5-5.1)
[2022-10-23] MEDS: metoprolol succinate ER (24 HR) 25 mg Tablet PO (06:07)
[2022-10-23] MEDS: aspirin 81 mg EC Tablet PO (06:07)
[2022-10-23] MEDS: clopidogrel 75 mg Tablet PO (06:07)
[2022-10-23] MEDS: FUROsemide 40 mg Tablet 80 MG PO ×2 (06:07→17:09)
[2022-10-23 06:49] LABS: Glucose Point of Care 197 mg/dL (70-110)
[2022-10-23] MEDS: insulin lispro 100 unit/1 mL SUBCUT ×4 (08:25→21:17)
[2022-10-23] MEDS: potassium chloride ER 20 mEq Tablet 40 MEQ PO (08:26)
[2022-10-23] MEDS: benzonatate 100 mg Capsule PO ×3 (08:26→21:14)
[2022-10-23] MEDS: acetaminophen 325 mg Tablet 650 MG PO ×3 (08:27→21:15)
[2022-10-23 11:39] LABS: Glucose Point of Care 304 mg/dL (70-110)
--- NOTE | 2022-10-23 15:00 | USR_ITS ---
PROCEDURE INFORMATION: Exam: US Duplex Lower Extremity Veins, Bilateral Exam date and time: 10/23/2022 7:16 PM Age: 57 years old Clinical indication: Swelling (edema) of limb; Lower extremity, bilateral; Additional info: Evaluate for dvt TECHNIQUE: Imaging protocol: Real-time duplex ultrasound of the bilateral extremities with 2-D alexander scale, color Doppler flow and spectral waveform analysis including responses to compression and other maneuvers (when performed) with image documentation. Complete exam focused on the lower extremity veins. COMPARISON: No relevant prior studies available. FINDINGS: Right deep veins: Unremarkable. The common femoral, femoral, proximal profunda femoral and popliteal veins are patent without thrombus. Normal Doppler waveforms. Normal compressibility and/or augmentation response. Right superficial veins: Saphenofemoral junction is patent without thrombus. Left deep veins: Unremarkable. The common femoral, femoral, proximal profunda femoral and popliteal veins are patent without thrombus. Normal Doppler waveforms. Normal compressibility and/or augmentation response. Left superficial veins: Saphenofemoral junction is patent without thrombus. Soft tissues: Unremarkable. US/CV venous duplex [facility] [id number] IMPRESSION: No evidence of deep vein thrombosis.
[2022-10-23] MEDS: FUROsemide 10 mg/mL SDV 4mL 40 MG IVP (15:46)
--- NOTE | 2022-10-23 16:01 | P.PN_ITS ---
Subjective Subjective: Patient appears to be more tachypneic in exam today. She desaturated to 76% on attempting to ambulate in the room earlier. At rest she is saturating 92 to 93% on 11-12 lpm. Urine output 3 L overnight. Overall net -10 L now. Medications: Reviewed: Yes Vitals/I&O/Wt Last Vital Signs Temp 98.0 F 10/23/22 11:05 Pulse 105 H 10/23/22 14:00 Resp 18 10/23/22 14:00 BP 113/69 10/23/22 11:05 Pulse Ox 93 10/23/22 14:00 O2 Del Method High Flow Nasal Cannula 10/23/22 14:00 O2 Flow Rate 11 10/23/22 14:00 FiO2 50 10/23/22 08:00 10/23/22 10/23/22 10/23/22 06:59 14:59 22:59 Intake Total 240 / 1800 840 / 840 Output Total 900 / 3850 1150 / 1150 Balance -660 / -2050 -310 / -310 Weight last 48 hrs Weight 87.543 kg Weight 86.818 kg Physical Exam Narrative: General: No acute distress, AO x3 HEENT: PERRLA, pupils bilaterally equal and reactive, pallors not present Chest: Normal vesicular breath sounds, no added sounds, equal good air entry bilaterally CVS: S1-S2 regular, no murmurs, no tachycardia, no gallops, no rubs Abdomen: Soft, nontender, no organomegaly, bowel sounds present Neuro: No focal deficits, no facial deformity, AO x3, power 5/5 in all limbs Urinary Catheter Management: Gustafson: Cath Placed During This Visit: yes Reason for Continuing Indwelling Catheter: Accurate Measurement of Urinary Output in Critically Ill Patients Urinary Catheter Date of Insertion: 08/18/22 Urinary Catheter Time of Insertion: 10:41 Data 10/23/22 03:04 10/23/22 03:04 A&P Assessment and plan (1) Pulmonary fibrosis: (2) Pulmonary hypertension: (3) COPD (chronic obstructive pulmonary disease): (4) ASHD (arteriosclerotic heart disease): (5) Diabetes: Plan 57 year old female with past medical history of CA lung status post radiotherapy , hypertension diabetes coronary artery disease s/p recent PTCA in October 2021 for moderate to severe in-stent restenosis in mid LAD, PCI to RCA, recent NSTEMI,?PCI to?of mid LAD and mid RCA severe instent restenosis with JULES x 2.?(06/06/2022 ), severe pulmonary hypertension, HFpEF, RV , FAILURE, on 6 L of oxygen at baseline, admitted on October 12, 2022 with with chief complaint of worsening shortness of breath and orthopnea. She has been on treatment for acute on chronic respiratory failure with hypoxia: Multifactorial secondary to underlying end-stage COPD with significant pulmonary fibrosis, severe pulmonary hypertension. CTA chest:?Chronic emphysematous changes with subpleural honeycombing likely due to pulmonary fibrosis.No evidence of pulmonary embolus.Cardiomegaly. Small pericardial effusion. Negative study for PE BNP elevated at 3126. Continue DuoNebs Patient appears to be more tachypneic in conversation today. She desaturated to 76% on attempting to ambulate in the room. We will increase her steroids back to Solu-Medrol Solu-Medrol 40 mg IV every 12h today. Patient is not taking any Lovenox prophylaxis as she does not want to be stuck. Explained to her the risk of PE. And significant risk of clinical deterioration if she should develop a PE. She thinks that since she keeps moving her legs while being in her recliner she is not at a risk. Explained to her extensively that a PE can form regardless of a DVT. Recent CTA was negative for PE, however I am concerned that with each passing day that she is in the hospital risk of PE is increasing. She continues to refuse Lovenox for prophylaxis, refusing heparin for prop hylaxis, will take oral prophylaxis with Eliquis 2.5 twice daily. Currently O2 sat goal would be 88 to 90%. Continue Lasix at 80 mg p.o. twice daily She has received an empiric course of azithromycin. No focal pneumonia. Tmax 99.8 upon admission. Negative respiratory viral panel. Leukocytosis likely secondary to use of high-dose steroids. Appreciate pulmonology recommendations Patient declined placement at LTAC for continued weaning. History of coronary artery disease status post PCI Continue aspirin Plavix statin beta-eliazar HFpEF, with RV FAILURE, chronic, with acute exacerbation. Continue p.o. Lasix. Monitor intake and output charting Monitor daily weight Continue telemetry monitoring Last echo showed normal LVEF of 60%, no regional wall motion abnormalities, flattened septum in systole consistent with right ventricle overload. Moderately dilated right ventricle with severely decreased right systolic function and severe pulmonary hypertension estimated at 75 mmHg. Mild to moderate tricuspid regurgitation. History of diabetes: Uncontrolled blood sugars currently in spite of being on high-dose insulin sliding scale and 58 units of Levemir, ,patient did not increase dose yesetrday, counselled her to use 66 units tonight. Patient is managing her on Levemir. She does not wish to take Lantus which is on formulary. She has home Levemir which she is currently taking at 58 units at nighttime. Attestations Medical Necessity Statement*: increase levemir to 66 units today, increase steroids to every 12 h, additional iv lasix 40 today Coding Level of Care Code Acute Code for Chg Fwd Diagnoses Pulmonary fibrosis J84.10 Pulmonary hypertension I27.20 COPD (chronic obstructive pulmonary disease) J44.9 ASHD (arteriosclerotic heart disease) I25.10 Diabetes E11.9
[2022-10-23 17:01] LABS: Glucose Point of Care 161 mg/dL (70-110)
[2022-10-23 20:15] LABS: Glucose Point of Care 471 mg/dL (70-110)
[2022-10-23] MEDS: apixaban 5 mg Tablet 2.5 MG PO (21:13)
[2022-10-23] MEDS: hyDROXYzine 25 mg Capsule PO (21:15)
[2022-10-23] MEDS: atorvastatin 40 mg Tablet PO (21:15)
[2022-10-24] VITALS (12 sets, daily range): BP systolic 108–141; BP diastolic 64–97; PULSE 83–103; RESP 16–26; TEMP 36.2–36.7; O2SAT 91–99
[2022-10-24] MEDS: ipratropium-albuterol 3 mL Neb INHALATION ×4 (01:29→21:15)
[2022-10-24] MEDS: aspirin 81 mg EC Tablet PO (04:16)
[2022-10-24] MEDS: metoprolol succinate ER (24 HR) 25 mg Tablet PO (04:17)
[2022-10-24] MEDS: clopidogrel 75 mg Tablet PO (04:17)
[2022-10-24] MEDS: FUROsemide 40 mg Tablet 80 MG PO ×2 (04:17→15:20)
[2022-10-24 04:38] LABS: Basophils % 0.2 %; Eosinophils % 0.1 %; Hematocrit 47.4 % (37.0-47.0); Hemoglobin 15.2 g/dL (11.5-15.3); Lymphocytes # 2.1 10^3/uL (0.8-4.8); Mean Corpuscular HGB Conc 32.1 g/dL (30.0-36.0); Mean Corpuscular Hemoglobin 30.8 pg (28.0-34.0); Mean Platelet Volume 9.7 fL (7.4-10.4); Monocytes # 0.8 10^3/uL (0.2-0.9); Monocytes % 5.1 %; Neutrophils # 11.76 10^3/uL (1.8-7.7); Neutrophils % 79.5 %; Nucleated Red Blood Cells % 0 %; Platelet Count 375 10^3/cmm (130-400); Red Blood Count 4.94 10^6/uL (4.1-5.3); Red Cell Distribution Width 15.8 % (12.1-15.1); White Blood Count 14.8 10^3/uL (4.0-10.0)
[2022-10-24 04:55] LABS: Alanine Aminotransferase 216 U/L (0-33); Albumin Level 3.9 g/dL (3.5-5.2); Alkaline Phosphatase 164 U/L (35-105); Anion Gap 14.2 (5-19); Aspartate Amino Transferase 104 U/L (0-32); Blood Urea Nitrogen 29 mg/dL (6-20); Calcium 9.6 mg/dL (8.5-10.5); Carbon Dioxide 33 mmol/L (22-29); Chloride 98 mmol/L (98-107); Globulin 3.4 g/dL (1.3-4.6); Glomerular Filtration Rate 85.6 mL/min (90-130); Glucose 292 mg/dL (65-115); Osmolality Calculated 309 mOsm/kg (285-295); Potassium 4.2 mmol/L (3.5-5.1); Sodium 141 mmol/L (136-145); Total Bilirubin 0.7 mg/dL (0.15-1.2); Total Protein 7.3 g/dL (6.6-8.7)
[2022-10-24 06:41] LABS: Glucose Point of Care 252 mg/dL (70-110)
[2022-10-24] MEDS: insulin lispro 100 unit/1 mL SUBCUT ×4 (07:54→22:17)
[2022-10-24] MEDS: benzonatate 100 mg Capsule PO ×3 (08:18→22:18)
[2022-10-24] MEDS: acetaminophen 325 mg Tablet 650 MG PO ×3 (08:18→22:17)
[2022-10-24] MEDS: potassium chloride ER 20 mEq Tablet 40 MEQ PO (08:19)
--- NOTE | 2022-10-24 09:38 | PC.NURSE ---
Patient refused her Eliquis 2.5mg this morning. She has had a epistaxis is morning. She also had a lower extremity ultrasound done on 10/23 to check for DVT which was negative for DVT's. Her last dose of Eliquis was 10/23 at 21:13.
--- NOTE | 2022-10-24 11:16 | P.PN_ITS ---
Subjective Subjective: Patient was seen and examined this morning, she is still complaining of significant shortness of breath though improved as compared to prior days, continue to have good urine output. Medications: Reviewed: Yes Medication Review Details: Generic Name Dose Route Start Last Admin Trade Name Freq PRN Reason Stop Dose Admin Acetaminophen 650 mg 10/12/22 15:56 10/24/22 08:18 Acetaminophen 32 5 Mg Tablet PO 650 mg Q6H PRN Administration Mild/Mod Pain Or Temp >/= 101 Albuterol/Ipratrop ium 3 ml 10/12/22 20:00 10/24/22 07:34 Ipratropium-Albu terol 3 Ml Neb INHALATION 3 ml Q6H.RESP NU Administration Apixaban 2.5 mg 10/23/22 21:00 10/24/22 09:43 Apixaban 5 Mg Ta blet PO Not Given BID@0900,2100 NU Aspirin 81 mg 10/13/22 06:00 10/24/22 04:16 Aspirin 81 Mg Ec Tablet PO 81 mg QAM NU Administration Atorvastatin Calci um 40 mg 10/12/22 21:00 10/23/22 21:15 Atorvastatin 40 Mg Tablet PO 40 mg BEDTIME NU Administration Benzonatate 100 mg 10/12/22 20:45 10/24/22 08:18 Benzonatate 100 Mg Capsule PO 100 mg TID PRN Administration COUGH Clopidogrel Bisulf ate 75 mg 10/13/22 06:00 10/24/22 04:17 Clopidogrel 75 M g Tablet PO 75 mg QAM NU Administration Furosemide 80 mg 10/20/22 16:00 10/24/22 04:17 Furosemide 40 Mg Tablet PO 80 mg BID@08,16 NU Administration Hydroxyzine Pamoat e 25 mg 10/13/22 11:35 10/23/22 21:15 Hydroxyzine 25 M g Capsule PO 25 mg BEDTIME PRN Administration Anxiety Insulin Human Lisp ro 0 unit 10/20/22 08:00 10/24/22 07:54 Insulin Lispro 1 00 Unit/1 Ml SUBCUT 10 unit WM&BEDTIME NU Administration Protocol Methylprednisolone Sodium Succinate 40 mg 10/23/22 15:00 10/24/22 04:14 Methylprednisolo ne Sod Succ 40 Mg/ Ml Inj IVP 40 mg Q12H NU Administration Metoprolol Succina te 25 mg 10/13/22 06:00 10/24/22 04:17 Metoprolol Succi nikole Er (24 Hr) 25 Mg Tablet PO 25 mg QAM NU Administration Non-Formulary 20 each 10/13/22 09:00 10/24/22 08:28 Medication (Nexium PO Not Given 20mg) DAILY NU Non-Formulary Medi cation 62 unit 10/21/22 21:00 10/23/22 22:26 Insulin Detemir U-100 [Levemir Fle xtouch U-100 Insul n] SUBCUT Not Given BEDTIME NU Potassium Chloride 40 meq 10/13/22 09:00 10/24/22 08:19 Potassium Chlori de Er 20 Meq Table t PO 40 meq DAILY NU Administration Senna/Docusate Sod ium 2 tab 10/15/22 14:02 10/15/22 14:20 Sennosides-Docus ate Tablet PO 2 tab DAILY PRN Administration CONSTIPATION Vitals/I&O/Wt Last Vital Signs Temp 97.6 F 10/24/22 03:16 Pulse 88 10/24/22 07:37 Resp 18 10/24/22 07:37 BP 141/97 10/24/22 07:12 Pulse Ox 96 10/24/22 07:37 O2 Del Method High Flow Nasal Cannula 10/24/22 07:37 O2 Flow Rate 8 10/24/22 07:37 FiO2 50 10/23/22 08:00 10/23/22 10/24/22 10/24/22 22:59 06:59 14:59 Intake Total 720 / 1560 1070 / 1070 Output Total 2200 / 3350 650 / 4000 450 / 450 Balance -1480 / -1790 -650 / -2440 620 / 620 Weight last 48 hrs Weight 85.502 kg Weight 87.543 kg Physical Exam Const: COMMON NORMALS: patient oriented x3 HENMT: COMMON NORMALS: normocephalic, atraumatic, hearing grossly normal bilaterally and external ears normal HEAD & SCALP: normocephalic and atraumatic EXTERNAL EAR: Yes external ears normal Eye: COMMON NORMALS: no scleral icterus GENERAL EYE: appearance normal, both eyes and all related structures Chest: COMMONS NORMALS: normal inspection of the chest and normal palpation of entire chest wall CHEST: Yes Symmetrical chest wall rise Resp: COMMON NORMALS: normal respiratory effort, No retractions, No use of accessory muscles and clear to auscultation bilaterally EFFORT & INSPECTION: Yes symmetric chest movement AUSCULTATION: clear to auscultation bilaterally OTHER: Bilateral basal crackles present in both the lungs navarro Cardio: COMMON NORMALS: regular rate, regular rhythm, S1 normal heart sound present, S2 normal heart sound present, No gallops present (Cardio), No murmurs present (Cardio), No rub (Cardio) and Peripheral pulses 2+ throughout RATE: regular rate RHYTHM: regular rhythm HEART SOUNDS: S1 normal heart sound present and S2 normal heart sound present PERIPHERAL PULSES: Peripheral p ulses 2+ throughout GI: COMMON NORMALS: Normal to inspection, nondistended, normoactive bowel sounds present, Soft to palpation, non-tender, No hepatosplenomegaly present and no masses AUSCULTATION: Yes normoactive bowel sounds PALPATION: Yes Soft to palpation and Yes No hepatosplenomegaly present RECTAL EXAM: deferred : COMMON NORMALS: Yes no CVA tenderness BLADDER/KIDNEY EXAM: Yes no CVA tenderness Back/Pelvis: COMMON NORMALS: no CVA tenderness Extremity: COMMON NORMALS: no clubbing, cyanosis or edema and no pedal edema Neuro: COMMON NORMALS: patient oriented x3 Urinary Catheter Management: Gustafson: Cath Placed During This Visit: yes Reason for Continuing Indwelling Catheter: Accurate Measurement of Urinary Output in Critically Ill Patients Urinary Catheter Date of Insertion: 08/18/22 Urinary Catheter Time of Insertion: 10:41 Data 10/24/22 04:25 10/24/22 04:25 A&P Assessment and plan (1) Pulmonary fibrosis: (2) Pulmonary hypertension: (3) COPD (chronic obstructive pulmonary disease): (4) ASHD (arteriosclerotic heart disease): (5) Diabetes: Plan 57 year old female with past medical history of CA lung status post radiotherapy , hypertension diabetes coronary artery disease s/p recent PTCA in October 2021 for moderate to severe in-stent restenosis in mid LAD, PCI to RCA, recent NSTEMI,?PCI to?of mid LAD and mid RCA severe instent restenosis with JULES x 2.?(06/06/2022 ), severe pulmonary hypertension, HFpEF, RV , FAILURE, on 6 L of oxygen at baseline, admitted on October 12, 2022 with with chief complaint of worsening shortness of breath and orthopnea. She has been on treatment for acute on chronic respiratory failure with hypoxia: Multifactorial secondary to underlying end-stage COPD with significant pulmonary fibrosis, severe pulmonary hypertension. CTA chest:?Chronic emphysematous changes with subpleural honeycombing likely due to pulmonary fibrosis.No evidence of pulmonary embolus.Cardiomegaly. Small pericardial effusion. Negative study for PE BNP elevated at 3126. Continue DuoNebs Patient is not taking any Lovenox prophylaxis as she does not want to be stuck. Explained to her the risk of PE. And significant risk of clinical deterioration if she should develop a PE. She thinks that since she keeps moving her legs while being in her recliner she is not at a risk. Explained to her extensively that a PE can form regardless of a DVT. Recent CTA was negative for PE, however I am concerned that with each passing day that she is in the hospital risk of PE is increasing. She continues to refuse Lovenox for prophylaxis, refusing heparin for prophylaxis, will take oral prophylaxis with Eliquis 2.5 twice daily. Currently O2 sat goal would be 88 to 90%. Lasix at 80 mg p.o. twice daily She has received an empiric course of azithromycin. No focal pneumonia. Tmax 99.8 upon admission. Negative respiratory viral panel. Leukocytosis likely secondary to use of high-dose steroids. Appreciate pulmonology recommendations Patient declined placement at LTAC for continued weaning. History of coronary artery disease status post PCI Continue aspirin Plavix statin beta-eliazar HFpEF, with RV FAILURE, chronic, with acute exacerbation. Continue p.o. Lasix. Monitor intake and output charting Monitor daily weight Continue telemetry monitoring Last echo showed normal LVEF of 60%, no regional wall motion abnormalities, flattened septum in systole consistent with right ventricle overload. Moderately dilated right ventricle with severely decreased right systolic fu nction and severe pulmonary hypertension estimated at 75 mmHg. Mild to moderate tricuspid regurgitation. History of diabetes: Uncontrolled blood sugars currently in spite of being on high-dose insulin sliding scale and 58 units of Levemir, ,patient did not increase dose yesetrday, counselled her to use 66 units tonight. Patient is managing her on Levemir. She does not wish to take Lantus which is on formulary. She has home Levemir which she is currently taking at 58 units at nighttime. Attestations Medical Necessity Statement*: Needs to be in hospital for management of respiratory failure. Coding Level of Care Code 23234 Diagnoses Pulmonary fibrosis J84.10 Pulmonary hypertension I27.20 COPD (chronic obstructive pulmonary disease) J44.9 ASHD (arteriosclerotic heart disease) I25.10 Diabetes E11.9
[2022-10-24 11:58] LABS: Glucose Point of Care 506 mg/dL (70-110)
[2022-10-24 16:54] LABS: Glucose Point of Care 490 mg/dL (70-110)
[2022-10-24] MEDS: hyDROXYzine 25 mg Capsule PO (20:45)
[2022-10-24] MEDS: atorvastatin 40 mg Tablet PO (20:45)
[2022-10-24 20:59] LABS: Glucose Point of Care 578 mg/dL (70-110)
[2022-10-25] VITALS (17 sets, daily range): BP systolic 107–134; BP diastolic 68–98; PULSE 82–117; RESP 17–26; TEMP 36.5–36.7; O2SAT 88–98
--- NOTE | 2022-10-25 02:06 | PC.NURSE ---
10/24/222099 - Blood sugar was 578 on check. Sliding scale and long acting insulin given. MD updated. Will continue to monitor.
[2022-10-25] MEDS: ipratropium-albuterol 3 mL Neb INHALATION ×4 (03:09→21:58)
[2022-10-25] MEDS: metoprolol succinate ER (24 HR) 25 mg Tablet PO (05:19)
[2022-10-25] MEDS: clopidogrel 75 mg Tablet PO (05:19)
[2022-10-25] MEDS: aspirin 81 mg EC Tablet PO (05:19)
[2022-10-25 06:51] LABS: Glucose Point of Care 313 mg/dL (70-110)
[2022-10-25] MEDS: insulin lispro 100 unit/1 mL SUBCUT ×4 (07:51→21:13)
[2022-10-25] MEDS: FUROsemide 40 mg Tablet 80 MG PO (07:52)
[2022-10-25] MEDS: potassium chloride ER 20 mEq Tablet 40 MEQ PO (07:52)
[2022-10-25] MEDS: acetaminophen 325 mg Tablet 650 MG PO ×3 (08:52→21:13)
[2022-10-25] MEDS: benzonatate 100 mg Capsule PO ×3 (08:53→21:12)
--- NOTE | 2022-10-25 09:43 | PC.NURSE ---
Patient continues to refuse her Eliquis.
[2022-10-25 10:59] LABS: Glucose Point of Care 589 mg/dL (70-110)
[2022-10-25 11:48] LABS: Glucose Point of Care 497 mg/dL (70-110)
--- NOTE | 2022-10-25 12:14 | P.PN_ITS ---
Subjective Subjective: Patient was seen and examined this morning, currently no shortness of breath is slowly improving. Supplemental oxygen requirement is slowly coming down.She has continued to refuse DVT prophylaxis. She understands the risks associated with it. Medications: Reviewed: Yes Medication Review Details: Generic Name Dose Route Start Last Admin Trade Name Freq PRN Reason Stop Dose Admin Acetaminophen 650 mg 10/12/22 15:56 10/25/22 08:52 Acetaminophen 32 5 Mg Tablet PO 650 mg Q6H PRN Administration Mild/Mod Pain Or Temp >/= 101 Albuterol/Ipratrop ium 3 ml 10/12/22 20:00 10/25/22 07:58 Ipratropium-Albu terol 3 Ml Neb INHALATION 3 ml Q6H.RESP NU Administration Apixaban 2.5 mg 10/23/22 21:00 10/25/22 09:42 Apixaban 5 Mg Ta blet PO Not Given BID@0900,2100 NU Aspirin 81 mg 10/13/22 06:00 10/25/22 05:19 Aspirin 81 Mg Ec Tablet PO 81 mg QAM NU Administration Atorvastatin Calci um 40 mg 10/12/22 21:00 10/24/22 20:45 Atorvastatin 40 Mg Tablet PO 40 mg BEDTIME NU Administration Benzonatate 100 mg 10/12/22 20:45 10/25/22 08:53 Benzonatate 100 Mg Capsule PO 100 mg TID PRN Administration COUGH Clopidogrel Bisulf ate 75 mg 10/13/22 06:00 10/25/22 05:19 Clopidogrel 75 M g Tablet PO 75 mg QAM NU Administration Furosemide 80 mg 10/20/22 16:00 10/25/22 07:52 Furosemide 40 Mg Tablet PO 80 mg BID@08,16 NU Administration Hydroxyzine Pamoat e 25 mg 10/13/22 11:35 10/24/22 20:45 Hydroxyzine 25 M g Capsule PO 25 mg BEDTIME PRN Administration Anxiety Insulin Human Lisp ro 0 unit 10/20/22 08:00 10/25/22 11:54 Insulin Lispro 1 00 Unit/1 Ml SUBCUT 18 unit WM&BEDTIME NU Administration Protocol Metoprolol Succina te 25 mg 10/13/22 06:00 10/25/22 05:19 Metoprolol Succi nikole Er (24 Hr) 25 Mg Tablet PO 25 mg QAM NU Administration Non-Formulary 20 each 10/13/22 09:00 10/25/22 11:22 Medication (Nexium PO Not Given 20mg) DAILY NU Non-Formulary Medi cation 62 unit 10/21/22 21:00 10/24/22 20:49 Insulin Detemir U-100 [Levemir Fle xtouch U-100 Insul n] SUBCUT 62 unit BEDTIME NU Administration Potassium Chloride 40 meq 10/13/22 09:00 10/25/22 07:52 Potassium Chlori de Er 20 Meq Table t PO 40 meq DAILY NU Administration Senna/Docusate Sod ium 2 tab 10/15/22 14:02 10/15/22 14:20 Sennosides-Docus ate Tablet PO 2 tab DAILY PRN Administration CONSTIPATION Vitals/I&O/Wt Last Vital Signs Temp 97.8 F 10/25/22 08:00 Pulse 101 H 10/25/22 11:33 Resp 17 10/25/22 11:33 BP 128/74 10/25/22 11:33 Pulse Ox 95 10/25/22 11:33 O2 Del Method Nasal Cannula 10/25/22 11:33 O2 Flow Rate 11 10/25/22 07:58 FiO2 50 10/23/22 08:00 10/24/22 10/25/22 10/25/22 22:59 06:59 14:59 Intake Total 690 / 2350 480 / 2830 480 / 480 Output Total 2275 / 2725 1850 / 4575 200 / 200 Balance -1585 / -375 -1370 / -1745 280 / 280 Weight last 48 hrs Weight 85.774 kg Weight 85.502 kg Physical Exam Const: COMMON NORMALS: patient oriented x3 HENMT: COMMON NORMALS: normocephalic, atraumatic, hearing grossly normal bilaterally and external ears normal HEAD & SCALP: normocephalic and atraumatic EXTERNAL EAR: Yes external ears normal Eye: COMMON NORMALS: no scleral icterus GENERAL EYE: appearance normal, both eyes and all related structures Chest: COMMONS NORMALS: normal inspection of the chest and normal palpation of entire chest wall CHEST: Yes Symmetrical chest wall rise Resp: COMMON NORMALS: normal respiratory effort, No retractions, No use of accessory muscles and clear to auscultation bilaterally EFFORT & INSPECTION: Yes symmetric chest movement AUSCULTATION: clear to auscultation bilaterally OTHER: Bilateral basal crackles present in both the lungs navarro Cardio: COMMON NORMALS: regular rate, regular rhythm, S1 normal heart sound present, S2 normal heart sound present, No gallops present (Cardio), No murmurs present (Cardio), No rub (Cardio) and Peripheral pulses 2+ throughout RATE: regular rate RHYTHM: regular rhythm HEART SOUNDS: S1 normal heart sound present and S2 normal heart sound present PERIPHERAL PULSES: Peripheral pulses 2+ throughout GI: COMMON NORMALS: Normal to inspection, nondistended, normoactive bowel so unds present, Soft to palpation, non-tender, No hepatosplenomegaly present and no masses AUSCULTATION: Yes normoactive bowel sounds PALPATION: Yes Soft to palpation and Yes No hepatosplenomegaly present RECTAL EXAM: deferred : COMMON NORMALS: Yes no CVA tenderness BLADDER/KIDNEY EXAM: Yes no CVA tenderness Back/Pelvis: COMMON NORMALS: no CVA tenderness Extremity: COMMON NORMALS: no clubbing, cyanosis or edema and no pedal edema Neuro: COMMON NORMALS: patient oriented x3 Urinary Catheter Management: Gustafson: Cath Placed During This Visit: yes Reason for Continuing Indwelling Catheter: Accurate Measurement of Urinary Output in Critically Ill Patients Urinary Catheter Date of Insertion: 08/18/22 Urinary Catheter Time of Insertion: 10:41 Data 10/24/22 04:25 10/24/22 04:25 A&P Assessment and plan (1) Pulmonary fibrosis: (2) Pulmonary hypertension: (3) COPD (chronic obstructive pulmonary disease): (4) ASHD (arteriosclerotic heart disease): (5) Diabetes: Plan 57 year old female with past medical history of CA lung status post radiotherapy , hypertension diabetes coronary artery disease s/p recent PTCA in October 2021 for moderate to severe in-stent restenosis in mid LAD, PCI to RCA, recent NSTEMI,?PCI to?of mid LAD and mid RCA severe instent restenosis with JULES x 2.?(06/06/2022 ), severe pulmonary hypertension, HFpEF, RV , FAILURE, on 6 L of oxygen at baseline, admitted on October 12, 2022 with with chief complaint of worsening shortness of breath and orthopnea. She has been on treatment for acute on chronic respiratory failure with hypoxia: Multifactorial secondary to underlying end-stage COPD with significant pulmonary fibrosis, severe pulmonary hypertension. CTA chest:?Chronic emphysematous changes with subpleural honeycombing likely due to pulmonary fibrosis.No evidence of pulmonary embolus.Cardiomegaly. Small pericardial effusion. Negative study for PE BNP elevated at 3126. Continue DuoNebs Patient is not taking any Lovenox prophylaxis as she does not want to be stuck. Explained to her the risk of PE. And significant risk of clinical deterioration if she should develop a PE. She thinks that since she keeps moving her legs while being in her recliner she is not at a risk. Explained to her extensively that a PE can form regardless of a DVT. Recent CTA was negative for PE, however I am concerned that with each passing day that she is in the hospital risk of PE is increasing. She continues to refuse Lovenox for prophylaxis, refusing heparin for prophylaxis, will take oral prophylaxis with Eliquis 2.5 twice daily. Currently O2 sat goal would be 88 to 90%. Lasix at 80 mg p.o. twice daily She has received an empiric course of azithromycin. No focal pneumonia. Tmax 99.8 upon admission. Negative respiratory viral panel. Leukocytosis likely secondary to use of high-dose steroids. Appreciate pulmonology recommendations Patient declined placement at LTAC for continued weaning. History of coronary artery disease status post PCI Continue aspirin Plavix statin beta-eliazar HFpEF, with RV FAILURE, chronic, with acute exacerbation. Continue p.o. Lasix. Monitor intake and output charting Monitor daily weight Continue telemetry monitoring Last echo showed normal LVEF of 60%, no regional wall motion abnormalities, flattened septum in systole consistent with right ventricle overload. Moderately dilated right ventricle with severely decreased right systolic function and severe pulmonary hypertension estimated at 75 mmHg. Mild to moderate tricuspid regurgitation. History of diabetes: Uncontrolled blood sugars currently in spite of being on high-dose insulin sliding scale and 58 units of Levemir, ,patient did not increase dose yesetrday, counselled her to use 66 units tonight. Patient is managing her on Levemir. She does not wish to take Lantus which is on formulary. She has home Levemir which she is currently taking at 58 units at nighttime. Attestations Medical Necessity Statement*: Needs to be in hospital for management of respiratory failure. Coding Level of Care Code 49020 Diagnoses Pulmonary fibrosis J84.10 Pulmonary hypertension I27.20 COPD (chronic obstructive pulmonary disease) J44.9 ASHD (arteriosclerotic heart disease) I25.10 Diabetes E11.9
--- NOTE | 2022-10-25 14:47 | PC.NURSE ---
Per patient request, Dr. Palma was questioned about his plan with her Lasix. She is currently on on 80mg BID. She was given her morning dose of 80mg. Dr. Palma said to hold her evening dose today. She will be reevaluated in the morning for shortness of breath. Dr. Palma planning on sending her home on a lower dose than she is currently getting in the hospital. She is told to let nursing staff know if she becomes increasingly more short of breath overnight and then she may need a dose of lasix.
[2022-10-25 17:10] LABS: Glucose Point of Care 437 mg/dL (70-110)
[2022-10-25] MEDS: atorvastatin 40 mg Tablet PO (21:13)
[2022-10-25] MEDS: hyDROXYzine 25 mg Capsule PO (21:13)
[2022-10-25 21:18] LABS: Glucose Point of Care 341 mg/dL (70-110)
--- NOTE | 2022-10-25 21:28 | PM.PN ---
Subjective Subjective: Ms. Messina-appears to be clinically stable-currently still requiring 10 L-she refused to wear oxy pendant She is net -14 L since admission-she was receiving Lasix on 80 twice daily-her creat and is stable-mild elevation of BUN-plan is to taper down Lasix Discussed about transferring to LTAC facility-patient wanted to go home and if she has to get readmitted then she will consider going to LTAC She was requesting for walker with brakes and seat rather than motorized chair. Also discussed about her goals of care-she informed that she would like to get intubated if there is no other option but would not want to stay on ventilator if she has to be dependent on it Other labs and imaging reviewed Medications: Reviewed: Yes Medication Review Details: Generic Name Dose Route Start Last Admin Trade Name Freq PRN Reason Stop Dose Admin Acetaminophen 650 mg 10/12/22 15:56 10/25/22 08:52 Acetaminophen 32 5 Mg Tablet PO 650 mg Q6H PRN Administration Mild/Mod Pain Or Temp >/= 101 Albuterol/Ipratrop ium 3 ml 10/12/22 20:00 10/25/22 07:58 Ipratropium-Albu terol 3 Ml Neb INHALATION 3 ml Q6H.RESP NU Administration Apixaban 2.5 mg 10/23/22 21:00 10/25/22 09:42 Apixaban 5 Mg Ta blet PO Not Given BID@0900,2100 NU Aspirin 81 mg 10/13/22 06:00 10/25/22 05:19 Aspirin 81 Mg Ec Tablet PO 81 mg QAM NU Administration Atorvastatin Calci um 40 mg 10/12/22 21:00 10/24/22 20:45 Atorvastatin 40 Mg Tablet PO 40 mg BEDTIME NU Administration Benzonatate 100 mg 10/12/22 20:45 10/25/22 08:53 Benzonatate 100 Mg Capsule PO 100 mg TID PRN Administration COUGH Clopidogrel Bisulf ate 75 mg 10/13/22 06:00 10/25/22 05:19 Clopidogrel 75 M g Tablet PO 75 mg QAM NU Administration Furosemide 80 mg 10/20/22 16:00 10/25/22 07:52 Furosemide 40 Mg Tablet PO 80 mg BID@08,16 NU Administration Hydroxyzine Pamoat e 25 mg 10/13/22 11:35 10/24/22 20:45 Hydroxyzine 25 M g Capsule PO 25 mg BEDTIME PRN Administration Anxiety Insulin Human Lisp ro 0 unit 10/20/22 08:00 10/25/22 11:54 Insulin Lispro 1 00 Unit/1 Ml SUBCUT 18 unit WM&BEDTIME NU Administration Protocol Metoprolol Succina te 25 mg 10/13/22 06:00 10/25/22 05:19 Metoprolol Succi nikole Er (24 Hr) 25 Mg Tablet PO 25 mg QAM NU Administration Non-Formulary 20 each 10/13/22 09:00 10/25/22 11:22 Medication (Nexium PO Not Given 20mg) DAILY NU Non-Formulary Medi cation 62 unit 10/21/22 21:00 10/24/22 20:49 Insulin Detemir U-100 [Levemir Fle xtouch U-100 Insul n] SUBCUT 62 unit BEDTIME NU Administration Potassium Chloride 40 meq 10/13/22 09:00 10/25/22 07:52 Potassium Chlori de Er 20 Meq Table t PO 40 meq DAILY NU Administration Senna/Docusate Sod ium 2 tab 10/15/22 14:02 10/15/22 14:20 Sennosides-Docus ate Tablet PO 2 tab DAILY PRN Administration CONSTIPATION Vitals/I&O/Wt Last Vital Signs Temp 98.0 F 10/25/22 19:40 Pulse 107 H 10/25/22 19:40 Resp 20 H 10/25/22 19:40 BP 117/78 10/25/22 19:40 Pulse Ox 90 10/25/22 19:40 O2 Del Method Nasal Cannula 10/25/22 19:40 O2 Flow Rate 11 10/25/22 19:40 FiO2 50 10/23/22 08:00 10/25/22 10/25/22 10/25/22 06:59 14:59 22:59 Intake Total 480 / 2830 480 / 480 590 / 1070 Output Total 1850 / 4575 1375 / 1375 Balance -1370 / -1745 -895 / -895 590 / -305 Weight last 48 hrs Weight 187 lb Weight 189 lb 1.6 oz Weight 188 lb 8 oz Physical Exam Narrative: General: alert, NAD HEENT: conj clear, EOMI, PERRL, mmm, Neck: supple, no meningismus Heme: no cervical LAP Respiratory: Inspection: No visible deformity of the chest wall Palpation: Trachea is mildly deviated to the right, bilateral symmetric expansion Percussion: Bilateral tympanic percussion note both anterior and posteriorly Auscultation: Overall reduced breath sounds due to shallow breathing but no obvious wheeze, there are mild crepitations on left lower lung Cardiovascular: rrr, nl s1s2, no mrg Abdomen: soft, nt, nd, no r/g, bs+ Extremities: pulses +, 1+ pitting pedal edema, no c/c : no CVA tenderness Skin: intact, no rash MSK: no back or neck pain Neurologic: grossly intact Urinary Catheter Management: Gustafson: Cath Placed During This Visit: yes Reason for Continuing Indwelling Catheter: Accurate Measurement of Urinary Output in Critically Ill Patients Urinary Catheter Date of Insertion: 08/18/22 Urinary Catheter Time of Insertion: 10:41 Data 10/26/22 03:12 10/26/22 03:12 Other Labs: Radiology Impressions Chest X-Ray 10/12/22 09:53 IMPRESSION: 1. There are centrilobular emphysematous changes in the bilateral lungs. 2. There are scattered regions of bilateral subpleural interstitial thickening, greatest at the lung bases, consistent with pulmonary fibrosis. It would be difficult to exclude early underlying acute interstitial edema. Clinical correlation suggested Chest CTA 10/12/22 12:03 IMPRESSION: 1. No evidence of pulmonary embolus. 2. Cardiomegaly. Small pericardial effusion. 3. Chronic emphysematous changes with subpleural honeycombing likely due to pulmonary fibrosis. Recommend pulmonary consult. 4. No focal pneumonia or significant pleural fluid. 5. A few enlarged AP window anterior mediastinal and subcarinal lymph nodes nonspecific but likely reactive. This is similar to previous. 6. Contrast reflux into the hepatic veins suggestive of RIGHT heart dysfunction. Venous Duplex 10/23/22 15:00 IMPRESSION: No evidence of deep vein thrombosis. Laboratory Results WBC 13.2 10^3/uL (4.0-10.0) H 10/26/22 03:12 RBC 4.68 10^6/uL (4.1-5.3) 10/26/22 03:12 Hgb 14.4 g/dL (11.5-15.3) 10/26/22 03:12 Hct 44.9 % (37.0-47.0) 10/26/22 03:12 MCV 95.9 fl (81-99) 10/26/22 03:12 MCH 30.8 pg (28.0-34.0) 10/26/22 03:12 MCHC 32.1 g/dL (30.0-36.0) 10/26/22 03:12 RDW 15.9 % (12.1-15.1) H 10/26/22 03:12 Plt Count 316 10^3/cmm (130-400) 10/26/22 03:12 MPV 9.9 fL (7.4-10.4) 10/26/22 03:12 Neut % (Auto) 87.7 % 10/26/22 03:12 Lymph % (Auto) 9.2 % 10/26/22 03:12 Hendricks % (Auto) 1.8 % 10/26/22 03:12 Eos % (Auto) 0.2 % 10/26/22 03:12 Baso % (Auto) 0.2 % 10/26/22 03:12 Neut # (Auto) 11.56 10^3/uL (1.8-7.7) H 10/26/22 03:12 Lymph # (Auto) 1.2 10^3/uL (0.8-4.8) 10/26/22 03:12 Hendricks # (Auto) 0.2 10^3/uL (0.2-0.9) 10/26/22 03:12 Eos # (Auto) 0.0 10^3/uL (0.0-0.8) 10/26/22 03:12 Baso # (Auto) 0.0 10^3/uL (0.0-0.1) 10/26/22 03:12 Nucleated RBC % (auto) 0 % 10/26/22 03:12 Nucleated RBCs # 0.0 /100WBC 10/26/22 03:12 Specimen Type Arterial 10/14/22 12:52 Sample Site Radial, right 10/14/22 12:52 ABG pH 7.46 (7.35-7.45) H 10/14/22 12:52 ABG pCO2 35.3 mmHg (35-45) 10/14/22 12:52 ABG pO2 70.2 mmHg (80.0-100.0) L 10/14/22 12:52 ABG HCO3 24.9 mmol/L (22-26) 10/14/22 12:52 ABG O2 Saturation 95.6 10/14/22 12:52 ABG Base Excess 1.3 mmol/L (-2.0-2.0) 10/14/22 12:52 Artemio Test Pos 10/14/22 12:52 A-a O2 Gradient 53.9 mmHg (5-10) H 10/14/22 12:52 Hematocrit 43.4 % (37-47) 10/14/22 12:52 Hgb O2 Saturation 93.5 % (95-100) L 10/14/22 12:52 Carboxyhemoglobin 1.7 %THgb (0.4-20.1) 10/14/22 12:52 Methemoglobin 0.5 % (0.4-1.5) 10/14/22 12:52 Total Hemoglobin 14.2 g/dL (12-16) 10/14/22 12:52 Sodium 135.0 mmol/L (131-143) 10/14/22 12:52 Potassium 5.1 mmol/L (3.5-5.0) H 10/14/22 12:52 Glucose 193.0 mg/dL (70-115) H 10/14/22 12:52 Ionized Calcium 1.1 mmol/L (1.1-1.4) 10/14/22 12:52 O2 Delivery Device Nc 10/14/22 12:52 O2 Liters/Min 60.0 % 10/14/22 12:52 FiO2 75.0 % 10/14/22 12:52 Edger Automatic ID Walci 10/14/22 12:52 Sodium 139 mmol/L (136-145) 10/26/22 03:12 Potassium 5.0 mmol/L (3.5-5.1) 10/26/22 03:12 Chloride 101 mmol/L (98-107) 10/26/22 03:12 Carbon Dioxide 28 mmol/L (22-29) 10/26/22 03:12 Anion Gap 15.0 (5-19) 10/26/22 03:12 BUN 31 mg/dL (6-20) H 10/26/22 03:12 Creatinine 0.5 mg/dL (0.5-0.9) 10/26/22 03:12 GFR Calculation 126.3 mL/min (90-130) 10/26/22 03:12 Glucose 328 mg/dL (65-115) H 10/26/22 03:12 POC Glucose 310 mg/dL (70-110) H 10/26/22 06:31 Calculated Osmolality 307 mOsm/kg (285-295) H 10/26/22 03:12 Calcium 8.8 mg/dL (8.5-10.5) 10/26/22 03:12 Magnesium 2.2 mg/dL (1.7-2.3) 10/13/22 04:41 Total Bilirubin 0.6 mg/dL (0.15-1.2) 10/26/22 03:12 AST 67 U/L (0-32) H 10/26/22 03:12 ALT 164 U/L (0-33) H 10/26/22 03:12 Alkaline Phosphatase 149 U/L (35-105) H 10/26/22 03:12 NT-Pro-B Natriuret Pep 3126 pg/mL (0-125) H 10/13/22 04:41 Total Protein 6.6 g/dL (6.6-8.7) 10/26/22 03:12 Albumin 3.7 g/dL (3.5-5.2) 10/26/22 03:12 Globulin 2.9 g/dL (1.3-4.6) 10/26/22 03:12 Procalcitonin 0.05 ng/mL (0-0.5) 10/13/22 04:41 Nasal Influ A H1 2008 PCR Not detected (NOT DETECT) 10/17/22 21:00 Adenovirus (PCR) Not detected (NOT DETECT) 10/17/22 21:00 C. pneumoniae DNA (PCR) Not detected (NOT DETECT) 10/17/22 21:00 Coronavirus 229E (PCR) Not detected (NOT DETECT) 10/17/22 21:00 Human Metapneumovir PCR Not detected (NOT DETECT) 10/17/22 21:00 Influenza A (H1) PCR Not detected (NOT DETECT) 10/17/22 21:00 Influenza A (H3) PCR Not detected (NOT DETECT) 10/17/22 21:00 Influenza Type A (PCR) Not detected (NOT DETECT) 10/17/22 21:00 Influenza Type B (PCR) Not detected (NOT DETECT) 10/17/22 21:00 M. pneumoniae (PCR) Not detected (NOT DETECT) 10/17/22 21:00 Parainfluenza 1 (PCR) Not detected (NOT DETECT) 10/17/22 21:00 Parainfluenza 2 (PCR) Not detected (NOT DETECT) 10/17/22 21:00 Parainfluenza 3 (PCR) Not detected (NOT DETECT) 10/17/22 21:00 Parainfluenza 4 (PCR) Not detected (NOT DETECT) 10/17/22 21:00 RSV Type A (PCR) Not detected (NOT DETECT) 10/17/22 21:00 RSV Type B (PCR) Not detected (NOT DETECT) 10/17/22 21:00 Entero/Rhino (PCR) Not detected (NOT DETECT) 10/17/22 21:00 SARS-CoV-2 (PCR) Not detected (NOT DETECT) 10/17/22 21:00 A&P Assessment and plan (1) Acute exacerbation of chronic obstructive airways disease: (2) Acute respiratory failure with hypoxemia: (3) Lung cancer, upper lobe: (4) Atherosclerotic heart disease of [place] coronary artery with other forms of angina pectoris: (5) Pulmonary hypertension: (6) Goals of care, counseling/discussion: Plan #Acute on chronic hypoxic respiratory failure-multifactorial #Severe pulmonary hypertension with PAP 83 mmHg on echo 10/18/2022 with severely increased RV and moderately decreased RV function-group 2 and group 3 #Severe bilateral emphysema and pulmonary fibrosis #Severe underlying CAD-with stenting in 2006, [id number] stenosis requiring balloon angioplasty October 2021 in mid LAD and RCA and in June 2022 treated with JULES x2 -She has been a chronic smoker-with severe bilateral emphysema and pulmonary fibrosis-dependent on 6 L supplemental oxygen at baseline-currently requiring 10 L on high flow nasal cannula saturating 90 to 92% -Very difficult to say what triggered her exacerbation-CTA did not show any evidence of infection, respiratory viral panel negative-however she responded well to Lasix and diuresed about 14 L-was able to come down from high flow nasal cannula to 10 L supplemental oxygen-she refused to wear oxy pendant -Currently she appears to be clinically stable -She is receiving Lasix on 80 twice daily-her creat and is stable-mild elevation of BUN-plan is to taper down Lasix -Discussed about transferring to LTAC facility-patient wanted to go home and if she has to get readmitted then she will consider going to LTAC -She was requesting for walker with brakes and seat rather than motorized chair-notified spring encaser to work on it -Also discussed about her goals of care-she informed that she would like to get intubated if there is no other option but would not want to stay on ventilator if she has to be dependent on it Other labs and imaging reviewed -Continue scheduled nebulizations, previously complain tremors with albuterol however this hospitalization she is not complaining -Currently on Solu-Medrol 40 every 12 hours to cover for COPD/ILD exacerbation-changed to prednisone 40 Mg daily -For underlying pulmonary hypertension-we will optimize COPD treatment and cardiac medications -Continue metoprolol, aspirin, Plavix, Lipitor -I have strongly recommended patient to do daily weight monitoring, fluid restrict less than 1.5 L/day/sodium restriction less than 2 g/day- -Once she comes back to her baseline 4-6 L oxygen-she may need pulmonary rehabilitation for COPD deconditioning-breaths given her severe pulmonary hypertension I do not think she will be able to tolerate -Unfortunately due to history of lung cancer-she may not be a candidate for lung transplant as well DUNCAN-on CPAP #Left upper lobe PET active lesion-SBRT January 2022 -CT chest during admission did showed reduction in size of left upper lobe lesion -Patient to follow-up with radiation oncology as outpatient Last visit patient told me that her close cousin will make decisions for her if at all she cannot make decisions. I have an extensive discussion with patient about the pathophysiology of how her severe underlying CAD, end-stage COPD with fibrosis is causing her severe pulmonary hypertension which may lead to right heart failure, arrhythmia leading to . I have stressed the importance of using supplemental oxygen to keep saturations above 88%, CPAP use for DUNCAN, fluid and salt restriction along with diuretics to maintain fluid balance. Unfortunately patient is not able lung transplantation candidate given her history of lung cancer. Overall she has very poor prognosis if her FiO2 requirements does not improve. she informed that she would like to get intubated if there is no other option but would not want to stay on ventilator if she has to be dependent on it. Patient also informed that she understands the importance of fluid restriction, Lasix to keep her volume down, nebulizations, supplemental oxygen, CPAP compliance to keep her pulmonary hypertension under control-failing which her clinical condition could get worse and can cause . Attestations Medical Necessity Statement*: Deferred to hospitalist Coding Level of Care Code 10257 Diagnoses Acute exacerbation of chronic obstructive airways disease J44.1 Acute respiratory failure with hypoxemia J96.01 Lung cancer, upper lobe C34.10 Atherosclerotic heart disease of [place] coronary artery with other forms of angina pectoris I25.118 Pulmonary hypertension I27.20 Goals of care, counseling/discussion Z71.89 Time Spent (min) 34
[2022-10-26] VITALS (11 sets, daily range): BP systolic 113–143; BP diastolic 66–94; PULSE 67–111; RESP 16–28; TEMP 36.1–36.7; O2SAT 90–96
[2022-10-26] MEDS: ipratropium-albuterol 3 mL Neb INHALATION ×4 (03:04→19:37)
[2022-10-26 03:38] LABS: Basophils % 0.2 %; Eosinophils % 0.2 %; Hematocrit 44.9 % (37.0-47.0); Hemoglobin 14.4 g/dL (11.5-15.3); Lymphocytes # 1.2 10^3/uL (0.8-4.8); Lymphocytes % 9.2 %; Mean Corpuscular HGB Conc 32.1 g/dL (30.0-36.0); Mean Corpuscular Hemoglobin 30.8 pg (28.0-34.0); Mean Corpuscular Volume 95.9 fl (81-99); Mean Platelet Volume 9.9 fL (7.4-10.4); Monocytes # 0.2 10^3/uL (0.2-0.9); Monocytes % 1.8 %; Neutrophils # 11.56 10^3/uL (1.8-7.7); Neutrophils % 87.7 %; Nucleated Red Blood Cells % 0 %; Platelet Count 316 10^3/cmm (130-400); Red Blood Count 4.68 10^6/uL (4.1-5.3); Red Cell Distribution Width 15.9 % (12.1-15.1); White Blood Count 13.2 10^3/uL (4.0-10.0)
[2022-10-26 03:59] LABS: Alanine Aminotransferase 164 U/L (0-33); Albumin Level 3.7 g/dL (3.5-5.2); Alkaline Phosphatase 149 U/L (35-105); Aspartate Amino Transferase 67 U/L (0-32); Blood Urea Nitrogen 31 mg/dL (6-20); Calcium 8.8 mg/dL (8.5-10.5); Carbon Dioxide 28 mmol/L (22-29); Chloride 101 mmol/L (98-107); Creatinine Clr Calc Pharmacy 148.7711; Globulin 2.9 g/dL (1.3-4.6); Glomerular Filtration Rate 126.3 mL/min (90-130); Glucose 328 mg/dL (65-115); Osmolality Calculated 307 mOsm/kg (285-295); Sodium 139 mmol/L (136-145); Total Bilirubin 0.6 mg/dL (0.15-1.2); Total Protein 6.6 g/dL (6.6-8.7)
[2022-10-26] MEDS: acetaminophen 325 mg Tablet 650 MG PO ×3 (03:59→22:10)
[2022-10-26] MEDS: clopidogrel 75 mg Tablet PO (05:00)
[2022-10-26] MEDS: metoprolol succinate ER (24 HR) 25 mg Tablet PO (05:00)
[2022-10-26] MEDS: aspirin 81 mg EC Tablet PO (05:00)
[2022-10-26 06:41] LABS: Glucose Point of Care 310 mg/dL (70-110)
[2022-10-26] MEDS: insulin lispro 100 unit/1 mL SUBCUT ×4 (07:42→20:46)
[2022-10-26] MEDS: benzonatate 100 mg Capsule PO ×2 (07:42→20:10)
[2022-10-26] MEDS: FUROsemide 40 mg Tablet 80 MG PO (08:36)
[2022-10-26] MEDS: predniSONE 20 mg Tablet 40 MG PO (08:36)
[2022-10-26] MEDS: potassium chloride ER 20 mEq Tablet 40 MEQ PO (08:36)
--- NOTE | 2022-10-26 13:27 | PC.OT ---
Patient no longer requires OT services during this admission. She is able to perform ADLs at baseline and is I with her UE HEP. Patient in agreement with d/c
--- NOTE | 2022-10-26 15:16 | PC.NURSE ---
Patient continues to refuse her prescribed Eliquis this morning. She also took her home Nexium this morning.
[2022-10-26 17:16] LABS: Glucose Point of Care 357 mg/dL (70-110)
[2022-10-26 17:16] LABS: Glucose Point of Care 263 mg/dL (70-110)
--- NOTE | 2022-10-26 19:05 | P.PN_ITS ---
Subjective Subjective: Patient was seen and examined this morning, shortness of breath is improving, IV steroids has been discontinued, she has been transitioned to p.o. prednisone 40 daily, she has also been transitioned to 40 Lasix p.o. twice daily starting tomorrow, has received 80 mg p.o. Lasix today as well as yesterday with good urine output. Medications: Reviewed: Yes Medication Review Details: Generic Name Dose Route Start Last Admin Trade Name Freq PRN Reason Stop Dose Admin Acetaminophen 650 mg 10/12/22 15:56 10/26/22 17:43 Acetaminophen 32 5 Mg Tablet PO 650 mg Q6H PRN Administration Mild/Mod Pain Or Temp >/= 101 Albuterol/Ipratrop ium 3 ml 10/12/22 20:00 10/26/22 13:56 Ipratropium-Albu terol 3 Ml Neb INHALATION 3 ml Q6H.RESP NU Administration Apixaban 2.5 mg 10/23/22 21:00 10/26/22 11:49 Apixaban 5 Mg Ta blet PO Not Given BID@0900,2100 NU Aspirin 81 mg 10/13/22 06:00 10/26/22 05:00 Aspirin 81 Mg Ec Tablet PO 81 mg QAM NU Administration Atorvastatin Calci um 40 mg 10/12/22 21:00 10/25/22 21:13 Atorvastatin 40 Mg Tablet PO 40 mg BEDTIME NU Administration Benzonatate 100 mg 10/12/22 20:45 10/26/22 07:42 Benzonatate 100 Mg Capsule PO 100 mg TID PRN Administration COUGH Clopidogrel Bisulf ate 75 mg 10/13/22 06:00 10/26/22 05:00 Clopidogrel 75 M g Tablet PO 75 mg QAM NU Administration Hydroxyzine Pamoat e 25 mg 10/13/22 11:35 10/25/22 21:13 Hydroxyzine 25 M g Capsule PO 25 mg BEDTIME PRN Administration Anxiety Insulin Human Lisp ro 0 unit 10/20/22 08:00 10/26/22 17:03 Insulin Lispro 1 00 Unit/1 Ml SUBCUT 16 unit WM&BEDTIME NU Administration Protocol Metoprolol Succina te 25 mg 10/13/22 06:00 10/26/22 05:00 Metoprolol Succi nikole Er (24 Hr) 25 Mg Tablet PO 25 mg QAM NU Administration Non-Formulary 20 each 10/13/22 09:00 10/26/22 12:55 Medication (Nexium PO Not Given 20mg) DAILY NU Non-Formulary Medi cation 62 unit 10/21/22 21:00 10/25/22 21:13 Insulin Detemir U-100 [Levemir Fle xtouch U-100 Insul n] SUBCUT 62 unit BEDTIME NU Administration Potassium Chloride 40 meq 10/13/22 09:00 10/26/22 08:36 Potassium Chlori de Er 20 Meq Table t PO 40 meq DAILY NU Administration Prednisone 40 mg 10/26/22 09:00 10/26/22 08:36 Prednisone 20 Mg Tablet PO 40 mg DAILY NU Administration Senna/Docusate Sod ium 2 tab 10/15/22 14:02 10/15/22 14:20 Sennosides-Docus ate Tablet PO 2 tab DAILY PRN Administration CONSTIPATION Vitals/I&O/Wt Last Vital Signs Temp 97.6 F 10/26/22 11:22 Pulse 96 10/26/22 16:00 Resp 17 10/26/22 16:00 BP 123/85 10/26/22 16:00 Pulse Ox 91 10/26/22 16:00 O2 Del Method Nasal Cannula 10/26/22 16:00 O2 Flow Rate 10 10/26/22 13:58 FiO2 50 10/23/22 08:00 10/26/22 10/26/22 10/26/22 06:59 14:59 22:59 Intake Total 150 / 1320 950 / 950 480 / 1430 Output Total 500 / 2225 1450 / 1450 Balance -350 / -905 -500 / -500 480 / -20 Weight last 48 hrs Weight 84.912 kg Weight 84.822 kg Weight 85.774 kg Physical Exam Const: COMMON NORMALS: patient oriented x3 HENMT: COMMON NORMALS: normocephalic, atraumatic, hearing grossly normal bila terally and external ears normal HEAD & SCALP: normocephalic and atraumatic EXTERNAL EAR: Yes external ears normal Eye: COMMON NORMALS: no scleral icterus GENERAL EYE: appearance normal, both eyes and all related structures Chest: COMMONS NORMALS: normal inspection of the chest and normal palpation of entire chest wall CHEST: Yes Symmetrical chest wall rise Resp: COMMON NORMALS: normal respiratory effort, No retractions, No use of accessory muscles and clear to auscultation bilaterally EFFORT & INSPECTION: Yes symmetric chest movement AUSCULTATION: clear to auscultation bilaterally OTHER: Bilateral basal crackles present in both the lungs navarro Cardio: COMMON NORMALS: regular rate, regular rhythm, S1 normal heart sound present, S2 normal heart sound present, No gallops present (Cardio), No murmurs present (Cardio), No rub (Cardio) and Peripheral pulses 2+ throughout RATE: regular rate RHYTHM: regular rhythm HEART SOUNDS: S1 normal heart sound present and S2 normal heart sound present PERIPHERAL PULSES: Peripheral pulses 2+ throughout GI: COMMON NORMALS: Normal to inspection, nondistended, normoactive bowel sounds present, Soft to palpation, non-tender, No hepatosplenomegaly present and no masses AUSCULTATION: Yes normoactive bowel sounds PALPATION: Yes Soft to palpation and Yes No hepatosplenomegaly present RECTAL EXAM: deferred : COMMON NORMALS: Yes no CVA tenderness BLADDER/KIDNEY EXAM: Yes no CVA tenderness Back/Pelvis: COMMON NORMALS: no CVA tenderness Extremity: COMMON NORMALS: no clubbing, cyanosis or edema and no pedal edema Neuro: COMMON NORMALS: patient oriented x3 Urinary Catheter Management: Gustafson: Cath Placed During This Visit: yes Reason for Continuing Indwelling Catheter: Accurate Measurement of Urinary Output in Critically Ill Patients Urinary Catheter Date of Insertion: 08/18/22 Urinary Catheter Time of Insertion: 10:41 Data 10/26/22 03:12 10/26/22 03:12 A&P Assessment and plan (1) Pulmonary fibrosis: (2) Pulmonary hypertension: (3) COPD (chronic obstructive pulmonary disease): (4) ASHD (arteriosclerotic heart disease): (5) Diabetes: Plan 57 year old female with past medical history of CA lung status post radiotherapy , hypertension diabetes coronary artery disease s/p recent PTCA in October 2021 for moderate to severe in-stent restenosis in mid LAD, PCI to RCA, recent NSTEMI,?PCI to?of mid LAD and mid RCA severe instent restenosis with JULES x 2.?(06/06/2022 ), severe pulmonary hypertension, HFpEF, RV , FAILURE, on 6 L of oxygen at baseline, admitted on October 12, 2022 with with chief complaint of worsening shortness of breath and orthopnea. She has been on treatment for acute on chronic respiratory failure with hypoxia: Multifactorial secondary to underlying end-stage COPD with significant pulmonary fibrosis, severe pulmonary hypertension. CTA chest:?Chronic emphysematous changes with subpleural honeycombing likely due to pulmonary fibrosis.No evidence of pulmonary embolus.Cardiomegaly. Small pericardial effusion. Negative study for PE BNP elevated at 3126. Continue DuoNebs Patient is not taking any Lovenox prophylaxis as she does not want to be stuck. Explained to her the risk of PE. And significant risk of clinical deterioration if she should develop a PE. She thinks that since she keeps moving her legs while being in her recliner she is not at a risk. Explained to her extensively that a PE can form regardless of a DVT. Recent CTA was negative for PE, however I am concerned that with each passing day that she is in the hospital risk of PE is increasing. She continues to refuse Lovenox for prophylaxis, refusing heparin for prophylaxis, will take oral prophylaxis with Eliquis 2.5 twice daily. Currently O2 sat goal would be 88 to 90%. Lasix at 80 mg p.o. daily She has received an empiric course of azithromycin. No focal pneumonia. Tmax 99.8 upon admission. Negative respiratory viral panel. Leukocytosis likely secondary to use of high-dose steroids. Appreciate pulmonology recommendations Patient declined placement at LTAC for continued weaning. History of coronary artery disease status post PCI Continue aspirin Plavix statin beta-eliazar HFpEF, with RV FAILURE, chronic, with acute exacerbation. Continue p.o. Lasix. Monitor intake and output charting Monitor daily weight Continue telemetry monitoring Last echo showed normal LVEF of 60%, no regional wall motion abnormalities, flattened septum in systole consistent with right ventricle overload. Moderately dilated right ventricle with severely decreased right systolic function and severe pulmonary hypertension estimated at 75 mmHg. Mild to moderate tricuspid regurgitation. History of diabetes: Uncontrolled blood sugars currently in spite of being on high-dose insulin sliding scale and 58 units of Levemir, ,patient did not increase dose yesetrday, counselled her to use 66 units tonight. Patient is managing her on Levemir. She does not wish to take Lantus which is on formulary. She has home Levemir which she is currently taking at 58 units at nighttime. Attestations Medical Necessity Statement*: Needs to be in hospital for management of respiratory failure. Coding Level of Care Code 40226 Diagnoses Pulmonary fibrosis J84.10 Pulmonary hypertension I27.20 COPD (chronic obstructive pulmonary disease) J44.9 ASHD (arteriosclerotic heart disease) I25.10 Diabetes E11.9
[2022-10-26] MEDS: atorvastatin 40 mg Tablet PO (20:10)
[2022-10-26] MEDS: hyDROXYzine 25 mg Capsule PO (20:10)
--- NOTE | 2022-10-26 22:09 | PC.NURSE ---
10/26/222029 - Contacted MD on pt elevated bs of 569. Updated on sliding scale and long acting insulin given. Will continue to monitor.
[2022-10-27] VITALS (13 sets, daily range): BP systolic 101–135; BP diastolic 65–85; PULSE 86–109; RESP 14–28; TEMP 36.3–36.7; O2SAT 90–98
[2022-10-27] MEDS: ipratropium-albuterol 3 mL Neb INHALATION ×4 (01:44→22:23)
[2022-10-27 03:29] LABS: Glucose Point of Care 569 mg/dL (70-110)
[2022-10-27] MEDS: acetaminophen 325 mg Tablet 650 MG PO ×2 (06:01→16:49)
[2022-10-27] MEDS: aspirin 81 mg EC Tablet PO (06:01)
[2022-10-27] MEDS: metoprolol succinate ER (24 HR) 25 mg Tablet PO (06:01)
[2022-10-27] MEDS: FUROsemide 40 mg Tablet PO ×2 (06:01→16:33)
[2022-10-27] MEDS: clopidogrel 75 mg Tablet PO (06:02)
[2022-10-27 06:26] LABS: Glucose Point of Care 272 mg/dL (70-110)
[2022-10-27] MEDS: benzonatate 100 mg Capsule PO ×2 (08:35→19:57)
[2022-10-27] MEDS: predniSONE 20 mg Tablet 40 MG PO (08:35)
[2022-10-27] MEDS: potassium chloride ER 20 mEq Tablet 40 MEQ PO (08:36)
[2022-10-27] MEDS: insulin lispro 100 unit/1 mL SUBCUT ×4 (08:36→20:38)
--- NOTE | 2022-10-27 10:50 | P.PN_ITS ---
Subjective Subjective: Patient was seen and examined this morning, overall she is doing better, good urine output with 80 p.o. Lasix, she has been transitioned to Lasix 40 p.o. twice daily. We will continue with prednisone 40 mg p.o. Daily. Medications: Reviewed: Yes Medication Review Details: Generic Name Dose Route Start Last Admin Trade Name Freq PRN Reason Stop Dose Admin Acetaminophen 650 mg 10/12/22 15:56 10/27/22 06:01 Acetaminophen 32 5 Mg Tablet PO 650 mg Q6H PRN Administration Mild/Mod Pain Or Temp >/= 101 Albuterol/Ipratrop ium 3 ml 10/12/22 20:00 10/27/22 08:27 Ipratropium-Albu terol 3 Ml Neb INHALATION 3 ml Q6H.RESP NU Administration Apixaban 2.5 mg 10/23/22 21:00 10/27/22 08:31 Apixaban 5 Mg Ta blet PO Not Given BID@0900,2100 NU Aspirin 81 mg 10/13/22 06:00 10/27/22 06:01 Aspirin 81 Mg Ec Tablet PO 81 mg QAM NU Administration Atorvastatin Calci um 40 mg 10/12/22 21:00 10/26/22 20:10 Atorvastatin 40 Mg Tablet PO 40 mg BEDTIME NU Administration Benzonatate 100 mg 10/12/22 20:45 10/27/22 08:35 Benzonatate 100 Mg Capsule PO 100 mg TID PRN Administration COUGH Clopidogrel Bisulf ate 75 mg 10/13/22 06:00 10/27/22 06:02 Clopidogrel 75 M g Tablet PO 75 mg QAM NU Administration Furosemide 40 mg 10/27/22 07:00 10/27/22 06:01 Furosemide 40 Mg Tablet PO 40 mg BID@08,16 NU Administration Hydroxyzine Pamoat e 25 mg 10/13/22 11:35 10/26/22 20:10 Hydroxyzine 25 M g Capsule PO 25 mg BEDTIME PRN Administration Anxiety Insulin Human Lisp ro 0 unit 10/20/22 08:00 10/27/22 08:36 Insulin Lispro 1 00 Unit/1 Ml SUBCUT 12 unit WM&BEDTIME NU Administration Protocol Metoprolol Succina te 25 mg 10/13/22 06:00 10/27/22 06:01 Metoprolol Succi nikole Er (24 Hr) 25 Mg Tablet PO 25 mg QAM NU Administration Non-Formulary 20 each 10/13/22 09:00 10/27/22 08:36 Medication (Nexium PO 20 each 20mg) DAILY NU Administration Non-Formulary Medi cation 62 unit 10/21/22 21:00 10/26/22 20:47 Insulin Detemir U-100 [Levemir Fle xtouch U-100 Insul n] SUBCUT 62 unit BEDTIME NU Administration Potassium Chloride 40 meq 10/13/22 09:00 10/27/22 08:36 Potassium Chlori de Er 20 Meq Table t PO 40 meq DAILY NU Administration Prednisone 40 mg 10/26/22 09:00 10/27/22 08:35 Prednisone 20 Mg Tablet PO 40 mg DAILY NU Administration Senna/Docusate Sod ium 2 tab 10/15/22 14:02 10/15/22 14:20 Sennosides-Docus ate Tablet PO 2 tab DAILY PRN Administration CONSTIPATION Vitals/I&O/Wt Last Vital Signs Temp 97.7 F 10/27/22 07:17 Pulse 102 H 10/27/22 08:00 Resp 26 H 10/27/22 08:00 BP 135/85 10/27/22 07:17 Pulse Ox 90 10/27/22 08:00 O2 Del Method High Flow Nasal Cannula 10/27/22 08:00 O2 Flow Rate 11 10/27/22 08:00 FiO2 50 10/23/22 08:00 10/26/22 10/27/22 10/27/22 22:59 06:59 14:59 Intake Total 680 / 1630 300 / 1930 554 / 554 Output Total 700 / 2150 1300 / 3450 300 / 300 Balance -20 / -520 -1000 / -1520 254 / 254 Weight last 48 hrs Weight 85.865 kg Weight 84.912 kg Physical Exam Const: COMMON NORMALS: patient oriented x3 HENMT: COMMON NORMALS: normocephalic, atraumatic, hearing grossly normal bilaterally and external ears normal HEAD & SCALP: normocephalic and atraumatic EXTERNAL EAR: Yes external ears normal Eye: COMMON NORMALS: no scleral icterus GENERAL EYE: appearance normal, both eyes and all related structures Chest: COMMONS NORMALS: normal inspection of the chest and normal palpation of entire chest wall CHEST: Yes Symmetrical chest wall rise Resp: COMMON NORMALS: normal respiratory effort, No retractions, No use of accessory muscles and clear to auscultation bilaterally EFFORT & INSPECTION: Yes symmetric chest movement AUSCULTATION: clear to auscultation bilaterally OTHER: Minimal bilateral basal crackles present in both the lungs navarro Cardio: COMMON NORMALS: regular rate, regular rhythm, S1 normal heart sound present, S2 normal heart sound present, No gallops present (Cardio), No murmurs present (Cardio), No rub (Cardio) and Peripheral pulses 2+ throughout RATE: regular rate RHYTHM: regular rhythm HEART SOUNDS: S1 normal heart sound present and S2 normal heart sound present PERIPHERAL PULSES: Peripheral pulses 2+ throughout GI: COMMON NORMALS: Normal to inspection, nondistended, normoactive bowel sounds present, Soft to palpation, non-tender, No hepatosplenomegaly present and no masses AUSCULTATION: Yes normoactive bowel sounds PALPATION: Yes Soft to palpation and Yes No hepatosplenomegaly present RECTAL EXAM: deferred Extremity: COMMON NORMALS: no clubbing, cyanosis or edema and no pedal edema Neuro: COMMON NORMALS: patient oriented x3 Urinary Catheter Management: Gustafson: Cath Placed During This Visit: yes Reason for Continuing Indwelling Catheter: Accurate Measurement of Urinary Output in Critically Ill Patients Urinary Catheter Date of Insertion: 08/18/22 Urinary Catheter Time of Insertion: 10:41 Data 10/26/22 03:12 10/26/22 03:12 A&P Assessment and plan (1) Pulmonary fibrosis: (2) Pulmonary hypertension: (3) COPD (chronic obstructive pulmonary disease): (4) ASHD (arteriosclerotic heart disease): (5) Diabetes: Plan 57 year old female with past medical history of CA lung status post radiotherapy , hypertension diabetes coronary artery disease s/p recent PTCA in October 2021 for moderate to severe in-stent restenosis in mid LAD, PCI to RCA, recent NSTEMI,?PCI to?of mid LAD and mid RCA severe instent restenosis with JULES x 2.?(06/06/2022 ), severe pulmonary hypertension, HFpEF, RV , FAILURE, on 6 L of oxygen at baseline, admitted on October 12, 2022 with with chief complaint of worsening shortness of breath and orthopnea. She has been on treatment for acute on chronic respiratory failure with hypoxia: Multifactorial secondary to underlying end-stage COPD with significant pulmonary fibrosis, severe pulmonary hypertension. CTA chest:?Chronic emphysematous changes with subpleural honeycombing likely due to pulmonary fibrosis.No evidence of pulmonary embolus.Cardiomegaly. Small pericardial effusion. Negative study for PE BNP elevated at 3126. Continue DuoNebs Patient is not taking any Lovenox prophylaxis as she does not want to be stuck. Explained to her the risk of PE. And significant risk of clinical deterioration if she should develop a PE. She thinks that since she keeps moving her legs while being in her recliner she is not at a risk. Explained to her extensively that a PE can form regardless of a DVT. Recent CTA was negative for PE, however I am concerned that with each passing day that she is in the hospital risk of PE is increasing. She continues to refuse Lovenox for prophylaxis, refusing heparin for prophylaxis, will take oral prophylaxis with Eliquis 2.5 twice daily. Currently O2 sat goal would be 88 to 90%. Lasix at 80 mg p.o. daily She has received an empiric course of azithromycin. No focal pneumonia. Tmax 99.8 upon admission. Negative respiratory viral panel. Leukocytosis likely se condary to use of high-dose steroids. Appreciate pulmonology recommendations Patient declined placement at LTAC for continued weaning. History of coronary artery disease status post PCI Continue aspirin Plavix statin beta-eliazar HFpEF, with RV FAILURE, chronic, with acute exacerbation. Continue p.o. Lasix. Monitor intake and output charting Monitor daily weight Continue telemetry monitoring Last echo showed normal LVEF of 60%, no regional wall motion abnormalities, flattened septum in systole consistent with right ventricle overload. Moderatel y dilated right ventricle with severely decreased right systolic function and severe pulmonary hypertension estimated at 75 mmHg. Mild to moderate tricuspid regurgitation. History of diabetes: Uncontrolled blood sugars currently in spite of being on high-dose insulin sliding scale and 58 units of Levemir, ,patient did not increase dose yesetrday, counselled her to use 66 units tonight. Patient is managing her on Levemir. She does not wish to take Lantus which is on formulary. She has home Levemir which she is currently taking at 58 units at nighttime. Attestations Medical Necessity Statement*: Needs to be in hospital for management respiratory failure. Coding Level of Care Code 79992 Diagnoses Pulmonary fibrosis J84.10 Pulmonary hypertension I27.20 COPD (chronic obstructive pulmonary disease) J44.9 ASHD (arteriosclerotic heart disease) I25.10 Diabetes E11.9
[2022-10-27 16:48] LABS: Glucose Point of Care 403 mg/dL (70-110)
[2022-10-27 19:32] LABS: Glucose Point of Care 249 mg/dL (70-110)
[2022-10-27] MEDS: hyDROXYzine 25 mg Capsule PO (19:57)
[2022-10-27] MEDS: atorvastatin 40 mg Tablet PO (19:57)
[2022-10-28] VITALS (12 sets, daily range): BP systolic 122–125; BP diastolic 76–83; PULSE 84–112; RESP 18–30; TEMP 36.6–36.9; O2SAT 79–94
[2022-10-28] MEDS: ipratropium-albuterol 3 mL Neb INHALATION ×2 (03:35→08:24)
[2022-10-28 06:02] LABS: Glucose Point of Care 588 mg/dL (70-110)
[2022-10-28] MEDS: FUROsemide 40 mg Tablet PO (06:03)
[2022-10-28] MEDS: clopidogrel 75 mg Tablet PO (06:03)
[2022-10-28] MEDS: metoprolol succinate ER (24 HR) 25 mg Tablet PO (06:03)
[2022-10-28] MEDS: aspirin 81 mg EC Tablet PO (06:03)
[2022-10-28 06:23] LABS: Glucose Point of Care 143 mg/dL (70-110)
[2022-10-28] MEDS: predniSONE 20 mg Tablet 40 MG PO (08:05)
[2022-10-28] MEDS: potassium chloride ER 20 mEq Tablet 40 MEQ PO (08:05)
[2022-10-28] MEDS: acetaminophen 325 mg Tablet 650 MG PO (08:10)
[2022-10-28] MEDS: benzonatate 100 mg Capsule PO (08:10)
--- NOTE | 2022-10-28 09:26 | P.DS_ITS ---
Discharge Providers Date of Admission: 10/12/22 13:31 Date of Discharge: October 28, 2022 Attending Provider at Admission: Geoff Palma MD Attending Provider at Discharge: Geoff Palma MD Primary Care Provider: Sujit Hernandez MD Diagnoses at Discharge Discharge Diagnosis (1) Pulmonary fibrosis: Status: Acute (2) Pulmonary hypertension: Status: Acute (3) COPD (chronic obstructive pulmonary disease): Status: Acute (4) ASHD (arteriosclerotic heart disease): Status: Acute (5) Diabetes: Status: Acute Reason for Visit Reason for Visit: SOB Hospital Course Hospital Course 57 year old female with past medical history of CA lung status post radiotherapy , hypertension diabetes coronary artery disease s/p recent PTCA in October 2021 for moderate to severe in-stent restenosis in mid LAD, PCI to RCA, recent NSTEMI,?PCI to?of mid LAD and mid RCA severe instent restenosis with JULES x 2.?(06/06/2022 ), severe pulmonary hypertension, HFpEF, RV , FAILURE, on 6 L of oxygen at baseline, admitted on October 12, 2022 with with chief complaint of worsening shortness of breath and orthopnea.During the hospital stay she was managed for acute on chronic respiratory failure with hypoxia multifactorial secondary to Severe pulmonary hypertension, pulmonary fibrosis, depressed RV function, patient was kept on aggressive IV diuresis during the hospital stay for RV unloading and to keep her on dry side, she was also kept on, steroids, short course of azithromycin, DuoNebs ,to which patient responded, supplemental oxygen requirement Was coming down, at the time of discharge she was requiring 10ls oxygen through [facility], patient was discharged on Lasix 40 p.o. twice daily as well as prednisone 40 mg p.o. daily for another [address] chest done during the hospital had also shown reduction in the size of left upper lobe PET active lesion. Patient to follow-up with radiation oncology as outpatient. Overall patient has responded well to above medical management and is being discharged in stable condition to home, she was offered to go to [facility], for continued further recovery, but unfortunately she has opted to go home. Physical Exam Const: COMMON NORMALS: patient oriented x3 HENMT: COMMON NORMALS: normocephalic and atraumatic HEAD & SCALP: normocephalic and atraumatic Resp: OTHER: Minimal bilateral basal crackles present in both the lungs navarro Cardio: COMMON NORMALS: regular rate, regular rhythm, S1 normal heart sound present, S2 normal heart sound present, No gallops present (Cardio), No murmurs present (Cardio), No rub (Cardio) and Peripheral pulses 2+ throughout RATE: regular rate RHYTHM: regular rhythm HEART SOUNDS: S1 normal heart sound present and S2 normal heart sound present PERIPHERAL PULSES: Peripheral pulses 2+ throughout GI: COMMON NORMALS: Normal to inspection, nondistended, normoactive bowel sounds present, Soft to palpation, non-tender, No hepatosplenomegaly present and no masses AUSCULTATION: Yes normoactive bowel sounds PALPATION: Yes Soft to palpation and Yes No hepatosplenomegaly present RECTAL EXAM: deferred Extremity: COMMON NORMALS: no clubbing, cyanosis or edema and no pedal edema Neuro: COMMON NORMALS: patient oriented x3 Urinary Catheter Management: Gustafson: Cath Placed During This Visit: yes Reason for Continuing Indwelling Catheter: Accurate Measurement of Urinary Output in Critically Ill Patients Urinary Catheter Date of Insertion: 08/18/22 Urinary Catheter Time of Insertion: 10:41 Discharge Data Studies Completed and Pending Completed Studies During Hospitalization Category Date Time Status CT angio chest PE protcl [id number] Stat Cat Scan 10/12/22 12:03 Completed XR chest 1V portable [id number] Stat Exams 10/12/22 09:53 [place] [id number] Routine Ultrasound 10/23/22 15:00 Completed CV. echo complete* [id number] Routine Ultrasound 10/18/22 13:29 Completed Radiology Impressions Chest X-Ray 10/12/22 09:53 IMPRESSION: 1. There are centrilobular emphysematous changes in the bilateral lungs. 2. There are scattered regions of bilateral subpleural interstitial thickening, greatest at the lung bases, consistent with pulmonary fibrosis. It would be difficult to exclude early underlying acute interstitial edema. Clinical correlation suggested Chest CTA 10/12/22 12:03 IMPRESSION: 1. No evidence of pulmonary embolus. 2. Cardiomegaly. Small pericardial effusion. 3. Chronic emphysematous changes with subpleural honeycombing likely due to pulmonary fibrosis. Recommend pulmonary consult. 4. No focal pneumonia or significant pleural fluid. 5. A few enlarged AP window anterior mediastinal and subcarinal lymph nodes nonspecific but likely reactive. This is similar to previous. 6. Contrast reflux into the hepatic veins suggestive of RIGHT heart dysfunction. Venous Duplex 10/23/22 15:00 IMPRESSION: No evidence of deep vein thrombosis. Laboratory Results WBC 13.2 10^3/uL (4.0-10.0) H 10/26/22 03:12 RBC 4.68 10^6/uL (4.1-5.3) 10/26/22 03:12 Hgb 14.4 g/dL (11.5-15.3) 10/26/22 03:12 Hct 44.9 % (37.0-47.0) 10/26/22 03:12 MCV 95.9 fl (81-99) 10/26/22 03:12 MCH 30.8 pg (28.0-34.0) 10/26/22 03:12 MCHC 32.1 g/dL (30.0-36.0) 10/26/22 03:12 RDW 15.9 % (12.1-15.1) H 10/26/22 03:12 Plt Count 316 10^3/cmm (130-400) 10/26/22 03:12 MPV 9.9 fL (7.4-10.4) 10/26/22 03:12 Neut % (Auto) 87.7 % 10/26/22 03:12 Lymph % (Auto) 9.2 % 10/26/22 03:12 [place] % (Auto) 1.8 % 10/26/22 03:12 Eos % (Auto) 0.2 % 10/26/22 03:12 Baso % (Auto) 0.2 % 10/26/22 03:12 Neut # (Auto) 11.56 10^3/uL (1.8-7.7) H 10/26/22 03:12 Lymph # (Auto) 1.2 10^3/uL (0.8-4.8) 10/26/22 03:12 [place] # (Auto) 0.2 10^3/uL (0.2-0.9) 10/26/22 03:12 Eos # (Auto) 0.0 10^3/uL (0.0-0.8) 10/26/22 03:12 Baso # (Auto) 0.0 10^3/uL (0.0-0.1) 10/26/22 03:12 Nucleated RBC % (auto) 0 % 10/26/22 03:12 Nucleated RBCs # 0.0 /100WBC 10/26/22 03:12 Specimen Type Arterial 10/14/22 12:52 Sample Site Radial, right 10/14/22 12:52 ABG pH 7.46 (7.35-7.45) H 10/14/22 12:52 ABG pCO2 35.3 mmHg (35-45) 10/14/22 12:52 ABG pO2 70.2 mmHg (80.0-100.0) L 10/14/22 12:52 ABG HCO3 24.9 mmol/L (22-26) 10/14/22 12:52 ABG O2 Saturation 95.6 10/14/22 12:52 ABG Base Excess 1.3 mmol/L (-2.0-2.0) 10/14/22 12:52 Artemio Test Pos 10/14/22 12:52 A-a O2 Gradient 53.9 mmHg (5-10) H 10/14/22 12:52 Hematocrit 43.4 % (37-47) 10/14/22 12:52 Hgb O2 Saturation 93.5 % (95-100) L 10/14/22 12:52 Carboxyhemoglobin 1.7 %THgb (0.4-20.1) 10/14/22 12:52 Methemoglobin 0.5 % (0.4-1.5) 10/14/22 12:52 Total Hemoglobin 14.2 g/dL (12-16) 10/14/22 12:52 Sodium 135.0 mmol/L (131-143) 10/14/22 12:52 Potassium 5.1 mmol/L (3.5-5.0) H 10/14/22 12:52 Glucose 193.0 mg/dL (70-115) H 10/14/22 12:52 Ionized Calcium 1.1 mmol/L (1.1-1.4) 10/14/22 12:52 O2 Delivery Device Nc 10/14/22 12:52 O2 Liters/Min 60.0 % 10/14/22 12:52 FiO2 75.0 % 10/14/22 12:52 Hvac Design Engineer ID [place] 10/14/22 12:52 Sodium 139 mmol/L (136-145) 10/26/22 03:12 Potassium 5.0 mmol/L (3.5-5.1) 10/26/22 03:12 Chloride 101 mmol/L (98-107) 10/26/22 03:12 Carbon Dioxide 28 mmol/L (22-29) 10/26/22 03:12 Anion Gap 15.0 (5-19) 10/26/22 03:12 BUN 31 mg/dL (6-20) H 10/26/22 03:12 Creatinine 0.5 mg/dL (0.5-0.9) 10/26/22 03:12 GFR Calculation 126.3 mL/min (90-130) 10/26/22 03:12 Glucose 328 mg/dL (65-115) H 10/26/22 03:12 POC Glucose 143 mg/dL (70-110) H 10/28/22 06:15 Calculated Osmolality 307 mOsm/kg (285-295) H 10/26/22 03:12 Calcium 8.8 mg/dL (8.5-10.5) 10/26/22 03:12 Magnesium 2.2 mg/dL (1.7-2.3) 10/13/22 04:41 Total Bilirubin 0.6 mg/dL (0.15-1.2) 10/26/22 03:12 AST 67 U/L (0-32) H 10/26/22 03:12 ALT 164 U/L (0-33) H 10/26/22 03:12 Alkaline Phosphatase 149 U/L (35-105) H 10/26/22 03:12 NT-Pro-B Natriuret Pep 3126 pg/mL (0-125) H 10/13/22 04:41 Total Protein 6.6 g/dL (6.6-8.7) 10/26/22 03:12 Albumin 3.7 g/dL (3.5-5.2) 10/26/22 03:12 Globulin 2.9 g/dL (1.3-4.6) 10/26/22 03:12 Procalcitonin 0.05 ng/mL (0-0.5) 10/13/22 04:41 Nasal Influ A H1 2008 PCR Not detected (NOT DETECT) 10/17/22 21:00 Adenovirus (PCR) Not detected (NOT DETECT) 10/17/22 21:00 C. pneumoniae DNA (PCR) Not detected (NOT DETECT) 10/17/22 21:00 Coronavirus 229E (PCR) Not detected (NOT DETECT) 10/17/22 21:00 Human Metapneumovir PCR Not detected (NOT DETECT) 10/17/22 21:00 Influenza A (H1) PCR Not detected (NOT DETECT) 10/17/22 21:00 Influenza A (H3) PCR Not detected (NOT DETECT) 10/17/22 21:00 Influenza Type A (PCR) Not detected (NOT DETECT) 10/17/22 21:00 Influenza Type B (PCR) Not detected (NOT DETECT) 10/17/22 21:00 M. pneumoniae (PCR) Not detected (NOT DETECT) 10/17/22 21:00 Parainfluenza 1 (PCR) Not detected (NOT DETECT) 10/17/22 21:00 Parainfluenza 2 (PCR) Not detected (NOT DETECT) 10/17/22 21:00 Parainfluenza 3 (PCR) Not detected (NOT DETECT) 10/17/22 21:00 Parainfluenza 4 (PCR) Not detected (NOT DETECT) 10/17/22 21:00 RSV Type A (PCR) Not detected (NOT DETECT) 10/17/22 21:00 RSV Type B (PCR) Not detected (NOT DETECT) 10/17/22 21:00 Entero/Rhino (PCR) Not detected (NOT DETECT) 10/17/22 21:00 SARS-CoV-2 (PCR) Not detected (NOT DETECT) 10/17/22 21:00 Vitals Last Vital Signs Temp 98.4 F 10/28/22 04:00 Pulse 111 H 10/28/22 08:31 Resp 22 H 10/28/22 08:31 BP 122/76 10/28/22 04:00 Pulse Ox 92 10/28/22 08:31 O2 Del Method High Flow Nasal Cannula 10/28/22 08:31 O2 Flow Rate 10 10/28/22 08:31 FiO2 50 10/23/22 08:00 Discharge Plan Discharge Patient Disposition: Home Health Service Condition: Stable Prescriptions: New Lasix 40 mg tablet 40 mg PO BID 30 Days Qty: 60 2RF prednisone 20 mg tablet 40 mg PO DAILY 7 Days Qty: 7 0RF Continued (DME) Aerochamber Mini Spacer See Rx Instructions .ROUTE .MEDSUPPLY Qty: 1 Rx Instructions: As directed Farxiga 10 mg tablet 10 mg PO QAM 90 Days Qty: 90 3RF metformin 500 mg tablet extended release 24 hr 1,000 mg PO BID 90 Days Qty: 360 3RF ipratropium-albuterol 0.5 mg-3 mg(2.5 mg base)/3 mL solution for nebulization 3 ml inhalation Q6H PRN (Reason: wheezing) Qty: 360 3RF benzonatate 100 mg capsule 100 mg PO TID PRN (Reason: cough) Qty: 90 0RF esomeprazole magnesium [Nexium] 20 mg Capsule,Delayed Release(Dr/Ec) 20 mg PO QAM cyclobenzaprine 10 mg Tablet 10 mg PO TID PRN (Reason: Muscle Spasm) naproxen 500 mg Tablet 500 mg PO BID PRN (Reason: Pain) Levemir FlexTouch U-100 Insuln 100 unit/mL (3 mL) insulin pen 58 unit SUBCUT BEDTIME atorvastatin 40 mg tablet 40 mg PO BEDTIME clopidogrel 75 mg tablet 75 mg PO QAM Adult Low Dose Aspirin 81 mg tablet,delayed release (DR/EC) 81 mg PO QAM potassium chloride 8 mEq tablet extended release 8 meq PO QAM metoprolol succinate 25 mg tablet extended release 24 hr 25 mg PO QAM glipizide 5 mg tablet 5 mg PO QAM budesonide 0.5 mg/2 mL suspension for nebulization 0.5 mg inhalation BID hydroxyzine HCl 25 mg tablet 12.5 - 25 mg PO BEDTIME PRN (Reason: Anxiety) Saline Nasal 0.65 % Aerosol,[place] 1 spray INTRANASAL BID PRN (Reason: unknown) cp-nna-YB-Tr-Nr-ohhgjvl-lutein 0.4-162-18 mg Tablet 1 tab PO DAILY Discontinued furosemide 40 mg tablet 40 mg PO QAM Discharge Orders: Discharge Order (Routine); Ordered 10/28/22 Ordered By: Geoff Palma Other Ambulatory Orders: DME: Oxygen (Order) Location: None Selected Ordered By: Geoff Palma DME: Wheelchair (Order) Location: None Selected Ordered By: Rola Carbajal Ref[facility]: [facility] [place] [facility] [Outside] Sujit Hernandez MD [Primary Care Provider] - 11/03/22 8:30 am Patient Instructions: Prednisone (By mouth) (predniSONE Intensol, Prednicot, Deltasone, Tammy), CHF Stoplight, COPD Stoplight, Opioid Safety Discharge Attestations Time Spent in Discharge Care*: less than 30 min Quality Metrics Clinical Quality Measures [ No reported AMI, CVA or VTE this stay] Coding Level of Care Code Acute Code for Chg Fwd Diagnoses Pulmonary fibrosis J84.10 Pulmonary hypertension I27.20 COPD (chronic obstructive pulmonary disease) J44.9 ASHD (arteriosclerotic heart disease) I25.10 Diabetes E11.9
[2022-10-28 11:25] LABS: Glucose Point of Care 253 mg/dL (70-110)
--- NOTE | 2022-10-28 11:58 | PC.NURSE ---
report given to GUSTAVO Carter at [phone]
[2022-10-28] MEDS: insulin lispro 100 unit/1 mL SUBCUT (12:02)
--- NOTE | 2022-10-28 14:55 | PC.NURSE ---
Addendum entered by Yi Mcmahan RN 10/28/22 14:57: Patient discharged at 1435, not 1535. Original Note: Patient was discharged at approximately 1535 with ALL belongings and oxygen tank. HOME was contacted to be en route with oxygen and concentrator. Patient verbalized understanding of all instructions and education. Medication sent to pharmacy. Patient verbalized understanding.
== END 2022-10-28 14:35 | disposition home health service (06) | DRG 291 ==
LOC: ER 13:19 → CSU 13:32
PROVIDERS: Family Medicine; Student in an Organized Health Care Education/Training Program; Admitting Provider Internal Medicine; Emergency Provider Emergency Medicine; PCP Family Medicine; Visit Provider Internal Medicine
DX: I11.0 Hypertensive heart disease with heart failure (principal); J96.21 Acute and chronic respiratory failure with hypoxia; C34.12 Malignant neoplasm of upper lobe, left bronchus or lung; I50.813 Acute on chronic right heart failure; E11.42 Type 2 diabetes mellitus with diabetic polyneuropathy; E11.649 Type 2 diabetes mellitus with hypoglycemia without coma; I25.10 Atherosclerotic heart disease of native coronary artery without angina pectoris; Z95.5 Presence of coronary angioplasty implant and graft; I25.2 Old myocardial infarction; I27.20 Pulmonary hypertension, unspecified; Z99.81 Dependence on supplemental oxygen; J84.10 Pulmonary fibrosis, unspecified; Z79.84 Long term (current) use of oral hypoglycemic drugs; Z79.4 Long term (current) use of insulin; Z79.02 Long term (current) use of antithrombotics/antiplatelets; Z79.82 Long term (current) use of aspirin; J43.9 Emphysema, unspecified; E78.2 Mixed hyperlipidemia; G47.33 Obstructive sleep apnea (adult) (pediatric); Z99.89 Dependence on other enabling machines and devices; I07.1 Rheumatic tricuspid insufficiency; F17.200 Nicotine dependence, unspecified, uncomplicated
CPT/HCPCS: 36415; 36416; 36600; 71045; 71275; 80048; 80051; 80053; 82330; 82805; 82962; 83735; 83880; 84145; 85025; 87486; 87581; 87633; 93306; 93970; 94640; 94760; 96365; 96372; 96375; 96376; 97110; 97161; 97165; 97530; 97535; 99285; J0456; J1650; J1815; J1940; J2920; J2930; J3475; J7030; J7050; J7512; Q9967

== ENCOUNTER → 2022-11-04 08:41 | Outpatient (BNVA) | payer MEDICAID, SELFPAY | PROVIDERS: PCP Family Medicine; Visit Provider Internal Medicine Cardiovascular Disease | DX: I25.118 Atherosclerotic heart disease of native coronary artery with other forms of angina pectoris (principal); J96.21 Acute and chronic respiratory failure with hypoxia; E87.6 Hypokalemia; I50.9 Heart failure, unspecified; R91.8 Other nonspecific abnormal finding of lung field; E11.59 Type 2 diabetes mellitus with other circulatory complications; E78.2 Mixed hyperlipidemia; Z87.891 Personal history of nicotine dependence; Z79.4 Long term (current) use of insulin | CPT/HCPCS: 99214 ==

== ENCOUNTER 2022-11-09 20:59 | Emergency (ER) | payer MEDICAID, SELFPAY ==
[2022-11-09 21:01] VITALS: BP 135/96; PULSE 121; RESP 18; TEMP 36; O2SAT 89; BMI 24.7
--- NOTE | 2022-11-09 21:17 | W.ED.EPISTAX ---
HPI - Epistaxis General: Chief complaint: Epistaxis Stated complaint: NOSE BLEED Time Seen by Provider: 11/09/22 21:02 History of Present Illness: Ms Davidson is a 57-year-old lady with chronic hypoxic respiratory failure at 10 L baseline and lung cancer, antiplatelet agent use with aspirin and clopidogrel presenting to the emergency department for epistaxis. She reports nosebleed earlier today which lasted approximately 1 hour however she was able to get it to stop. She does have a history of frequent nosebleeds despite nasal spray and humidified oxygen. Her nosebleed started again at 6 PM and she has not been able to get to stop. Primarily involves the left nare. She has had clots which have been removed. She also notes blood taste in her throat. Intensity symptoms is moderate to severe. Course has persisted. No other specific changes in health, exacerbating, or alleviating factors identified. Location: left nostril Onset (ago): hour(s) Duration: constant Context: history of previous, aspirin use and other Associated symptoms: Reports no associated symptoms Treatment prior to arrival: nose pinching and nasal clamp Review of Systems General: Reports: 10 or more systems reviewed and unremarkable except in HPI and below PFSH ED PFSH: Medical History ACS (acute coronary syndrome) Acute exacerbation of chronic obstructive airways disease Acute respiratory failure with hypoxemia ASHD (arteriosclerotic heart disease) Atherosclerosis of coronary artery of [place] heart without angina pectoris Atherosclerotic heart disease of [place] coronary artery with other forms of angina pectoris Cervical disc disease Cervical disc disorder with myelopathy of mid-cervical region Chronic respiratory failure with hypoxia Chronic respiratory failure with hypoxia COPD (chronic obstructive pulmonary disease) Diabetes Diabetes type 2, uncontrolled Diabetic neuropathy Emphysema of lung Goals of care, counseling/discussion Hyperlipemia, mixed Hyperlipidemia Hypertension Limited code status Lung cancer Lung cancer, upper lobe Neck pain of over 3 months duration Nicotine addiction NSTEMI (non-ST elevated myocardial infarction) Obstructive sleep apnea Pulmonary fibrosis Pulmonary hypertension Right heart failure Smoking 1/2 pack a day or less Stenosis of cervical spine with myelopathy Tachycardia Unstable angina Surgical History History of heart surgery June 2007, August 2012 History of PTCA S/P tonsillectomy Family History Mother Diabetes Father Heart disease Brother CAD (coronary artery disease) Family/Other CAD (coronary artery disease) Diabetes Grandfather CAD (coronary artery disease) Denies family history of Clotting disorder Dementia Chronic kidney disease (CKD) Suicide Anesthesia complication Bleeding disorder Lung disease Cancer Stroke Social History Smoking and tobacco status: former smoker Alcohol intake: never Substance/Drug Use: never Lives independently: Yes Household members: family Housing: House Marital status: service: No Current occupational status: disabled Physical Exam Const: COMMON NORMALS: alert GENERAL APPEARANCE: cooperative and well developed HENMT: COMMON NORMALS: normocephalic and atraumatic HEAD & SCALP: normocephalic and atraumatic OTHER: Hemorrhage and clots noted in left nare, right nare appears relatively free of any blood. There is small amount of blood in the posterior pharynx though no active trickle identified. Eye: COMMON NORMALS: conjunctivae normal CONJUNCTIVA: Yes conjunctivae normal SCLERA: sclerae normal Neck/C-Spine: COMMON NORMALS: supple GENERAL: Yes trachea midline Resp: EFFORT & INSPECTION: Yes able to speak in complete sentences AUSCULTATION: diminished lung sounds Cardio: COMMON NORMALS: regular rhythm RATE: tachycardic RHYTHM: regular rhythm GI: COMMON NORMALS: Soft to palpation PALPATION: Yes Soft to palpation and No Tenderness to palpation present (GI) Extremity: GENERAL: Yes normal exam except as noted and No edema Neuro: COMMON NORMALS: moves all extremities SENSORIUM/ORIENTATION: Yes alert and No Orientation impaired Psych: COMMON NORMALS: mental status grossly normal and Normal thought process present THOUGHT PROCESS: Normal thought process present Course Vital Signs: Vital signs: Vital Signs Temperature 96.8 F L 11/09/22 21:01 Pulse Rate 121 H 11/09/22 21:01 Respiratory Rate 18 11/09/22 21:01 Blood Pressure 135/96 11/09/22 21:01 Pulse Oximetry 89 L 11/09/22 21:01 Oxygen Delivery Me thod Non-Rebreather 11/09/22 21:01 Oxygen Flow Rate 15 11/09/22 21:01 MDM - Epistaxis Medical Decision Making 57-year-old lady on antiplatelet agents presenting due to epistaxis. She reports episode earlier that it subsequently recurred after sneezing and has persisted for hours. She does have baseline oxygen requirement and is chronically ill mildly in appearance. Clot removed as she has continued bleeding and patient gently blew nose. Afrin and nasal clamp applied. Significant improvement in bleeding though trace amounts of recurrence during ED course, nosebleed resolved with further targeted Afrin application and manipulation of clot in the left anterior nare region. No clear single vessel visualized amenable to cautery. Given resolution patient does not require Rhino Rocket application. Labs with hemoconcentration. Incidental findings discussed. Given recurrent left nare epistaxis patient needs ENT follow-up. The results of ED evaluation were discussed with the patient including prescriptions and/or symptomatic cares (if applicable) including appropriate and responsible use, followup plan, and return precautions. The patient verbalized understanding and felt safe for discharge. Medical Records I reviewed the patient's medical records. Lab Data I reviewed the patient's lab results. 11/09/22 21:46 11/09/22 21:46 Laboratory Results WBC 16.9 10^3/uL (4.0-10.0) H 11/09/22 21:46 RBC 5.21 10^6/uL (4.1-5.3) 11/09/22 21:46 Hgb 15.7 g/dL (11.5-15.3) H 11/09/22 21:46 Hct 48.5 % (37.0-47.0) H 11/09/22 21:46 MCV 93.1 fl (81-99) 11/09/22 21:46 MCH 30.1 pg (28.0-34.0) 11/09/22 21:46 MCHC 32.4 g/dL (30.0-36.0) 11/09/22 21:46 RDW 16.7 % (12.1-15.1) H 11/09/22 21:46 Plt Count 233 10^3/cmm (130-400) 11/09/22 21:46 MPV 10.2 fL (7.4-10.4) 11/09/22 21:46 Neut % (Auto) 66.0 % 11/09/22 21:46 Lymph % (Auto) 24.3 % 11/09/22 21:46 [place] % (Auto) 7.6 % 11/09/22 21:46 Eos % (Auto) 0.5 % 11/09/22 21:46 Baso % (Auto) 0.3 % 11/09/22 21:46 Neut # (Auto) 11.17 10^3/uL (1.8-7.7) H 11/09/22 21:46 Lymph # (Auto) 4.1 10^3/uL (0.8-4.8) 11/09/22 21:46 [place] # (Auto) 1.3 10^3/uL (0.2-0.9) H 11/09/22 21:46 Eos # (Auto) 0.1 10^3/uL (0.0-0.8) 11/09/22 21:46 Baso # (Auto) 0.1 10^3/uL (0.0-0.1) 11/09/22 21:46 Nucleated RBC % (auto) 0.1 % 11/09/22 21:46 Nucleated RBCs # 0.0 /100WBC 11/09/22 21:46 PT 13.20 SECONDS (12.1-14.9) 11/09/22 21:46 INR 0.97 (0.8-1.2) 11/09/22 21:46 APTT 21.9 SECONDS (23.9-36.7) L 11/09/22 21:46 Sodium 136 mmol/L (136-145) 11/09/22 21:46 Potassium 3.9 mmol/L (3.5-5.1) 11/09/22 21:46 Chloride 97 mmol/L (98-107) L 11/09/22 21:46 Carbon Dioxide 27 mmol/L (22-29) 11/09/22 21:46 Anion Gap 15.9 (5-19) 11/09/22 21:46 BUN 30 mg/dL (6-20) H 11/09/22 21:46 Creatinine 0.7 mg/dL (0.5-0.9) 11/09/22 21:46 GFR Calculation 85.6 mL/min (90-130) L 11/09/22 21:46 Glucose 175 mg/dL (65-115) H 11/09/22 21:46 Calculated Osmolality 292 mOsm/kg (285-295) 11/09/22 21:46 Calcium 9.8 mg/dL (8.5-10.5) 11/09/22 21:46 Total Bilirubin 0.8 mg/dL (0.15-1.2) 11/09/22 21:46 AST 58 U/L (0-32) H 11/09/22 21:46 ALT 118 U/L (0-33) H 11/09/22 21:46 Alkaline Phosphatase 129 U/L (35-105) H 11/09/22 21:46 Total Protein 7.2 g/dL (6.6-8.7) 11/09/22 21:46 Albumin 4.1 g/dL (3.5-5.2) 11/09/22 21:46 Globulin 3.1 g/dL (1.3-4.6) 11/09/22 21:46 Blood Type A Positive 11/09/22 21:46 Rho(D) Type Positive 11/09/22 21:46 Antibody Screen Negative 11/09/22 21:46 Discharge Plan Discharge Patient Disposition: Home Clinical Impression: Epistaxis Condition: Stable Prescriptions: New Afrin (oxymetazoline) 0.05 % spray,non-aerosol 2 spray intranasal Q1H PRN (Reason: epistaxis) Qty: 15 0RF No Action (DME) Aerochamber Mini Spacer See Rx Instructions .ROUTE .MEDSUPPLY Qty: 1 Rx Instructions: As directed Farxiga 10 mg tablet 10 mg PO QAM 90 Days Qty: 90 3RF metformin 500 mg tablet extended release 24 hr 1,000 mg PO BID 90 Days Qty: 360 3RF prednisolone 5 mg tablet 5 mg PO DAILY Qty: 30 3RF ipratropium-albuterol 0.5 mg-3 mg(2.5 mg base)/3 mL solution for nebulization 3 ml inhalation Q6H PRN (Reason: wheezing) Qty: 360 3RF benzonatate 100 mg capsule 100 mg PO TID PRN (Reason: cough) Qty: 90 0RF esomeprazole magnesium [Nexium] 20 mg Capsule,Delayed Release(Dr/Ec) 20 mg PO QAM cyclobenzaprine 10 mg Tablet 10 mg PO TID PRN (Reason: Muscle Spasm) naproxen 500 mg Tablet 500 mg PO BID PRN (Reason: Pain) Levemir FlexTouch U-100 Insuln 100 unit/mL (3 mL) insulin pen 58 unit SUBCUT BEDTIME atorvastatin 40 mg tablet 40 mg PO BEDTIME clopidogrel 75 mg tablet 75 mg PO QAM Adult Low Dose Aspirin 81 mg tablet,delayed release (DR/EC) 81 mg PO QAM potassium chloride 8 mEq tablet extended release 8 meq PO QAM metoprolol succinate 25 mg tablet extended release 24 hr 25 mg PO QAM glipizide 5 mg tablet 5 mg PO QAM budesonide 0.5 mg/2 mL suspension for nebulization 0.5 mg inhalation BID hydroxyzine HCl 25 mg tablet 12.5 - 25 mg PO BEDTIME PRN (Reason: Anxiety) Saline Nasal 0.65 % Aerosol,[place] 1 spray INTRANASAL BID PRN (Reason: unknown) [id number] 0.4-162-18 mg Tablet 1 tab PO DAILY Lasix 40 mg tablet 40 mg PO BID 30 Days Qty: 60 2RF Discharge Orders: Discharge ED (Routine); Ordered 11/09/22 Ordered By: Zackery Wilkes Referrals: Sujit Hernandez MD [Primary Care Provider] - Discharge Diet: Usual diet Discharge Activity: Limit activity as instructed Patient Instructions: Oxymetazoline (Into the nose), Epistaxis - Adult Activity Restrictions/Additional Instructions: Thank you for visiting the emergency department. You were seen and evaluated for nosebleed. We are pleased that we were able to stop your nosebleed. Please continue to use your humidified oxygen. I will prescribe Afrin spray which you can attempt to use if nosebleed recurs as discussed. I will message case management for follow-up with ENT. You may either follow up with Dr Patel or Dr Lombardi [facility] [address] [place] [address] [facility] (ENT) [address] [place] [address] Please also followup with your primary care provider. Return to the emergency department for recurrent nosebleed, lightheadedness, dizziness, chest pain, shortness of breath, or anything else that you are concerned about and feel needs emergency department evaluation. Coding Level of Care Code ED Cabinetmaker Apprentice for Grisel Morrell
[2022-11-09 21:55] LABS: Basophils # 0.1 10^3/uL (0.0-0.1); Basophils % 0.3 %; Eosinophils # 0.1 10^3/uL (0.0-0.8); Eosinophils % 0.5 %; Hematocrit 48.5 % (37.0-47.0); Hemoglobin 15.7 g/dL (11.5-15.3); Lymphocytes # 4.1 10^3/uL (0.8-4.8); Lymphocytes % 24.3 %; Mean Corpuscular HGB Conc 32.4 g/dL (30.0-36.0); Mean Corpuscular Hemoglobin 30.1 pg (28.0-34.0); Mean Corpuscular Volume 93.1 fl (81-99); Mean Platelet Volume 10.2 fL (7.4-10.4); Monocytes # 1.3 10^3/uL (0.2-0.9); Monocytes % 7.6 %; Neutrophils # 11.17 10^3/uL (1.8-7.7); Nucleated Red Blood Cells % 0.1 %; Platelet Count 233 10^3/cmm (130-400); Red Blood Count 5.21 10^6/uL (4.1-5.3); Red Cell Distribution Width 16.7 % (12.1-15.1); White Blood Count 16.9 10^3/uL (4.0-10.0)
[2022-11-09 22:06] LABS: INR 0.97 (0.8-1.2); Partial Thromboplastin Time 21.9 SECONDS (23.9-36.7)
[2022-11-09 22:10] LABS: Alanine Aminotransferase 118 U/L (0-33); Albumin Level 4.1 g/dL (3.5-5.2); Alkaline Phosphatase 129 U/L (35-105); Anion Gap 15.9 (5-19); Aspartate Amino Transferase 58 U/L (0-32); Blood Urea Nitrogen 30 mg/dL (6-20); Calcium 9.8 mg/dL (8.5-10.5); Carbon Dioxide 27 mmol/L (22-29); Chloride 97 mmol/L (98-107); Globulin 3.1 g/dL (1.3-4.6); Glomerular Filtration Rate 85.6 mL/min (90-130); Glucose 175 mg/dL (65-115); Osmolality Calculated 292 mOsm/kg (285-295); Potassium 3.9 mmol/L (3.5-5.1); Sodium 136 mmol/L (136-145); Total Bilirubin 0.8 mg/dL (0.15-1.2); Total Protein 7.2 g/dL (6.6-8.7)
--- NOTE | 2022-11-09 22:27 | PC.NURSE ---
has treated nose bleed and waiting to re-evaluate for bleeding again soon.
--- NOTE | 2022-11-10 12:02 | DCPLANNER ---
Addendum entered by Cammie Carlisle 12/08/22 10:15: This appointment was cancelled Addendum entered by Cammie Carlisle 11/16/22 11:02: Patient has a follow up appointment scheduled for Sunday, November 06, 2022 at 9:[address] Lombardi at ENT. Original Note: precision crop manager had message to schedule a follow up appointment for patient with ENT. precision crop manager sent patients information to the front office staff at ENT. Patients information will be printed and reviewed. Clinic will call patient with appointment information.
== END 2022-11-09 23:38 | disposition home or self-care (01) ==
PROVIDERS: Emergency Provider Emergency Medicine; PCP Family Medicine
DX: J43.9 Emphysema, unspecified (principal); J84.10 Pulmonary fibrosis, unspecified; R91.1 Solitary pulmonary nodule; J96.11 Chronic respiratory failure with hypoxia; G47.33 Obstructive sleep apnea (adult) (pediatric); Z87.891 Personal history of nicotine dependence; E11.59 Type 2 diabetes mellitus with other circulatory complications; Z79.4 Long term (current) use of insulin; Z79.84 Long term (current) use of oral hypoglycemic drugs; I25.10 Atherosclerotic heart disease of native coronary artery without angina pectoris; Z99.81 Dependence on supplemental oxygen; Z95.5 Presence of coronary angioplasty implant and graft; R04.0 Epistaxis; Z79.82 Long term (current) use of aspirin; Z79.02 Long term (current) use of antithrombotics/antiplatelets; E78.2 Mixed hyperlipidemia; I10 Essential (primary) hypertension; I25.2 Old myocardial infarction; Z85.118 Personal history of other malignant neoplasm of bronchus and lung
CPT/HCPCS: 80053; 85025; 85610; 85730; 86850; 86900; 99214; 99283